=== PATIENT | male | born 1950 | race Caucasian/White ===

== ENCOUNTER 2018-01-15 10:58 | Inpatient (IN) | payer OTHER ==
[2018-01-15 11:08] VITALS: BMI 35.4
[2018-01-15 12:21] LABS: BASO % 0.9 % (0-2.0); EOS % 1.9 % (0-4.5); HEMOGLOBIN 8.4 GM/dL (11.7-16.9); LYMPH % 14.4 % (8-40); MCH 26.7 pg (25.7-33.7); MCHC 32.3 g/dl (32.0-35.9); MEAN CELL VOLUME 82.6 fl (80-96); MEAN PLT VOLUME 9.9 fl (7.5-11.1); MONO % 14.5 % (3.8-10.2); NEUT % 68.3 % (42.8-82.8); PLATELET COUNT 231 K/MM3 (134-434); RBC 3.14 M/mm3 (4.00-5.60); RDW 17.8 % (11.9-15.9); WHITE BLOOD COUNT 6.4 K/mm3 (4.0-10.0)
--- NOTE | 2018-01-15 12:28 | PDOC ---
History of Present Illness - General History Source: Patient Exam Limitations: No Limitations - History of Present Illness Initial Comments: 01/15/18 12:30 The patient is a 67 year old male with a significant PMH of afib, CHF, hypertension, diabetes, hyperlipidemia, Parkinsons disease, and 4 heart stents ( 2012)who presents to the emergency department with acute chest pain. The patient reports that his chest pain feels like pressure when he inhales. The patient reports that his chest pain is worsened with walking and while laying flat. He also reports associated shortness of breath. He states that he has been retaining fluid and he has noticed swelling in his lower extremities. The patient reports taking medication for the fluid retention in his legs with no apparent relief. The patient denies any headache or dizziness. He denies any fever, chills, nausea, vomit, diarrhea or constipation. He denies any urinary symptoms. The patient denies any other complaints. <Kevin Sy - Last Filed: 01/15/18 12:29> <Ab Penaloza - Last Filed: 01/15/18 16:16> - General Chief Complaint: Chest Pain Stated Complaint: CHEST PAIN, SOB (PCP SENT) Time Seen by Provider: 01/15/18 11:15 Past History <Kevin Sy - Last Filed: 01/15/18 12:29> - Past Medical History Cardiac Disorders: Yes (A.FIB) COPD: No Diabetes: Yes HTN: Yes Hypercholesterolemia: Yes Psychiatric Problems: Yes (ANXIETY) - Surgical History Abdominal Surgery: No Appendectomy: No Cardiac Surgery: No Orthopedic Surgery: Yes (Bilateral Knee & Rotator cuff) - Suicide/Smoking/Psychosocial Hx Smoking Status: No Smoking History: Never smoked Have you smoked in the past 12 months: No Number of Cigarettes Smoked Daily: 0 Information on smoking cessation initiated: No Hx Alcohol Use: Yes (2-3 times/week) Drug/Substance Use Hx: No Substance Use Type: Alcohol Hx Substance Use Treatment: No <Ab Penaloza - Last Filed: 01/15/18 16:16> - Past Medical History Allergies/Adverse Reactions: Allergies Allergy/AdvReac Type Severity Reaction Status Date / Time No Known Drug Allergies Allergy Verified 01/15/18 11:02 shellfish derived Allergy Mouth Verified 01/15/18 11:02 swelling, eye swelling Home Medications: Ambulatory Orders Pravastatin Sodium 10 mg PO DAILY 06/30/16 Multivitamins [Multivit ([facility] Formul[facility])] 1 tab PO DAILY #0 tab 07/02/16 Insulin Lispro [Humalog] 150 unit SQ DAILY vial 05/22/17 Furosemide [Lasix -] 40 mg PO DAILY #30 tablet 07/04/17 Losartan Potassium [Cozaar -] 25 mg PO DAILY #30 tablet 07/04/17 Metoprolol Succinate [Toprol XL -] 100 mg PO BID #60 tab 07/04/17 Potassium Chloride 20 meq PO DAILY #15 tablet.er 07/04/17 Rivaroxaban [Xarelto -] 20 mg PO DAILY #30 tablet 07/04/17 Review of Systems - Review of Systems Able to Perform ROS?: Yes Comments:: 01/15/18 12:30 Constitutional: No recent illness; no fever ENT: No sore throat Cardiovascular: (+) chest pain with associated SOB.No palpitations. Pulmonary: No cough Gastrointestinal: No nausea; no vomiting; no diarrhea Genitourinary: No urinary problems; no hematuria Skin: No rash Lymph system: No swollen glands Musculoskeletal: No joint swelling Neurological: No weakness; oo numbness; No Headache; no vertigo; no lightheadedness Psychiatric:No anxiety; no depression <Kevin Sy - Last Filed: 01/15/18 12:29> *Physical Exam - Vital Signs Last Vital Signs Temp Pulse Resp BP Pulse Ox 98.2 F 115 H 22 126/96 100 01/15/18 11:02 01/15/18 11:02 01/15/18 11:02 01/15/18 11:02 01/15/18 11:02 - Physical Exam Comments: 01/15/18 12:31 Vitals: Triage vital signs reviewed General Appearance: No acute distress, well nourished, well developed Head: Atraumatic Neck: Supple; No nuchal rigidity Chest Wall: Nontender Cardiac: Regular rate and rhythm, no murmurs, no rubs, no gallops Lungs: (+) crackles at base.good air movement bilaterally Abdomen: Soft, nondistended, normal bowel sounds, nontender to palpation Genitourinary: Rectal: Exam deferred Extremities: Full range of motion to all extremities, no cyanosis, clubbing, or edema Skin: Warm and dry, no rashes or lesions, no rash, no petechiae Psych: Normal mood, normal affect <Kevin Sy - Last Filed: 01/15/18 12:29> - Vital Signs Last Vital Signs Temp Pulse Resp BP Pulse Ox 98.2 F 115 H 22 126/96 100 01/15/18 11:02 01/15/18 11:02 01/15/18 11:02 01/15/18 11:02 01/15/18 11:02 <Ab Penaloza - Last Filed: 01/15/18 16:16> Heart Score/ECG Review - History History: Moderately suspicious - Electrocardiogram EKG: Non specific repolarization disturbance - Age Age: >/= 65 - Risk Factors Risk Factors Heart Score: Yes Hx Hypercholesterolemia, Yes Hx Hypertension, Yes Hx Diabetes, Yes Positive family hx of cardiac disease Based on the list above the patient has:: >/=3 risk factors or Hx atherosclerotic disease - Troponin Troponin: </= normal limit - Score Heart Score - Total: 6 - ECG Impressions Comment:: 01/15/18 14:12 EKG performed at 11:07 AM demonstrates atrial fibrillation rate [address] segment depression in V5. No ST elevations. Interpreted by me. <Ab Penaloza - Last Filed: 01/15/18 16:16> ED Treatment Course - LABORATORY CBC & Chemistry Diagram: 01/15/18 12:17 01/15/18 12:17 <Kevin Sy - Last Filed: 01/15/18 12:29> - LABORATORY CBC & Chemistry Diagram: 01/15/18 12:17 01/15/18 12:17 - RADIOLOGY Radiology Studies Ordered: Category Date Time Status CXRPORT [CHEST X-RAY PORTABLE*] [RAD] Stat Radiology 01/15/18 11:16 Ordered <Ab Penaloza - Last Filed: 01/15/18 16:16> Medical Decision Making - Medical Decision Making 01/15/18 12:31 The patient is a 67 year old male with a significant PMH of afib, CHF, hypertension, diabetes, hyperlipidemia, Parkinsons disease, and 4 heart stents ( 2012)who presents to the emergency department with acute chest pain. The patient will receive a chest CT. <Kevin Sy - Last Filed: 01/15/18 12:29> - Medical Decision Making 05/14/18 16:08 Heart Score 6 troponin negative. Dyspnea on exertion may be more related to new anemia as opposed to CHF versus ACS. Regardless given patient's history of heart score will admit to medicine with cardiology consultation for further management. Pt. newly anemic with guaiac positive brown stool We'll admit to hospitalist for further management. Cardiology consult. <Ab Penaloza - Last Filed: 01/15/18 16:16> *DC/Admit/Observation/Transfer - Attestations Scribe Attestion: 01/15/18 12:31 Documentation prepared by Kevin Sy, acting as medical management specialist for Ab Penaloza MD. <Kevin Sy - Last Filed: 01/15/18 12:29> - Discharge Dispostion Decision to Admit order: Yes <Ab Penaloza - Last Filed: 01/15/18 16:16> Diagnosis at time of Disposition: Atrial fibrillation Qualifiers: Atrial fibrillation type: unspecified Qualified Code(s): I48.91 - Unspecified atrial fibrillation Dyspnea Qualifiers: Dyspnea type: unspecified Qualified Code(s): R06.00 - Dyspnea, unspecified Chest pain Qualifiers: Chest pain type: unspecified Qualified Code(s): R07.9 - Chest pain, unspecified - Discharge Dispostion Condition at time of disposition: Stable
[2018-01-15 12:45] LABS: ALBUMIN 3.5 g/dl (3.4-5.0); ALK PHOS 83 U/L (45-117); ANION GAP 6 (8-16); BILIRUBIN,TOTAL 0.6 mg/dL (0.2-1.0); BLOOD UREA NITROGEN 30 mg/dL (7-18); CALCIUM 8.6 mg/dL (8.5-10.1); CHLORIDE 102 mmol/L (98-107); CO2 28 mmol/L (21-32); CREATININE 1.5 mg/dL (0.7-1.3); GLUCOSE,RANDOM 108 mg/dL (74-106); SGPT/ALT 22 U/L (12-78); SODIUM 136 mmol/L (136-145); TOT PROT 7.4 g/dl (6.4-8.2)
[2018-01-15 13:04] LABS: POTASSIUM 5.1 mmol/L (3.5-5.1); SGOT/AST 63 U/L (15-37)
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
--- NOTE | 2018-01-15 15:42 | CON.GI ---
Consult Consult Specialty:: GI Reason for Consultation:: Anemia, Hemoccult-positive stools while on anticoagulation therapy - History of Present Illness History of Present Illness: chart reviewed. Events noted. As per initial intake:67 yom with PMhx of chronic diastolic HF, Atrial fibrillation on xarelto, morbid obesity, IDDM, HTN , HLD, Nolasco's palsy, s/p splenectomy, ?ETOH use, Spinal stenosis s/p surgery admitted with 1 week of intermittent substernal chest pressure, occasionally exertional, non radiating associated with worsening dyspnea of exertion associated with orthopnea/PND, leg swelling. Denies any recent weight gain. Also gives h/o BRBPR for last 1 year, intermittent after BM, also on tissues, associated with ?Dark stools. Denies NSAIDs use,. h/o ETOH but patient vague in the details. Also non compliant with low salt diet. Confirms medication compliance. No prior EGD/colonoscopy. Last reported Echo 6 months ago. At the time of this encounter the patient appears comfortable, not in distress , pain-free. Reports no dyspepsia, dysphagia, odynophagia, abdominal pain, nausea, vomiting, low-grade fever, jaundice, Unintentional weight loss, recent change in bowel habits, or stool caliber. Denies prior history of gastric, duodenal ulcers, erosive gastritis, esophagitis, chronic GERD. Takes ibuprofen and Xarelto amog other medications. Normocytic, normochromic anemia with elevated BUN on admission. Undergoing inpatient cardiac workup - History Source History Provided By: Patient, Medical Record - Past Medical History Cardio/Vascular: Yes: AFIB, CHF, HTN, Hyperlipdemia Psych: Yes: Addictions, Anxiety, Depression, Panic - Alcohol/Substance Use Hx Alcohol Use: Yes (2-3 times/week) History of Substance Use: reports: Prescription - Smoking History Smoking history: Never smoked Have you smoked in the past 12 months: No Aproximately how many cigarettes per day: 0 - Social History Usual Living Arrangement: With Spouse ADL: Independent Home Medications - Allergies Allergies/Adverse Reactions: Allergies Allergy/AdvReac Type Severity Reaction Status Date / Time No Known Drug Allergies Allergy Verified 01/15/18 11:02 shellfish derived Allergy Mouth Verified 01/15/18 11:02 swelling, eye swelling - Home Medications Home Medications: Ambulatory Orders Pravastatin Sodium 10 mg PO DAILY 06/30/16 Insulin Lispro [Humalog] 150 unit SQ DAILY vial 05/22/17 Furosemide [Lasix -] 40 mg PO DAILY #30 tablet 07/04/17 Losartan Potassium [Cozaar -] 25 mg PO DAILY #30 tablet 07/04/17 Potassium Chloride 20 meq PO DAILY #15 tablet.er 07/04/17 Rivaroxaban [Xarelto -] 20 mg PO DAILY #30 tablet 07/04/17 Hydrochlorothiazide 25 mg PO DAILY 01/15/18 Ibuprofen 800 mg PO Q6H PRN 01/15/18 Tramadol HCl 50 mg PO Q8H PRN 01/15/18 Family Disease History - Family Disease History Family History: Unremarkable Review of Systems Findings/Remarks: as per H&P and HPI Physical Exam-GI Vital Signs: Vital Signs Temperature 98.2 F 01/15/18 11:02 Pulse Rate 96 H 01/15/18 15:07 Respiratory Rate 18 01/15/18 15:07 Blood Pressure 101/70 01/15/18 15:07 O2 Sat by Pulse Oximetry (%) 97 01/15/18 15:08 Constitutional: Yes: Well Nourished, No Distress, Calm Eyes: Yes: Conjunctiva Clear HENT: Yes: Atraumatic Neck: Yes: Supple Cardiovascular: No: Bradycardia, Tachycardia Respiratory: Yes: Regular ...Auscultate: Yes: Normoactive Bowel Sounds ...Palpate: Yes: Soft. No: Firm/Rigid, Guarding, Mass, Tenderness ...Rectal Exam: Yes: Guaiac Positive Neurological: Yes: Alert, Oriented Labs: CBC, BMP 01/15/18 12:17 01/15/18 12:17 Laboratory Last Values WBC 6.2 K/mm3 (4.0-10.0) 01/16/18 17:30 RBC 3.31 M/mm3 (4.00-5.60) L 01/16/18 17:30 Hgb 8.7 GM/dL (11.7-16.9) L 01/16/18 17:30 Hct 27.4 % (35.4-49) L 01/16/18 17:30 MCV 82.9 fl (80-96) 01/16/18 17:30 MCH 26.2 pg (25.7-33.7) 01/16/18 17:30 MCHC 31.6 g/dl (32.0-35.9) L 01/16/18 17:30 RDW 17.5 % (11.9-15.9) H 01/16/18 17:30 Plt Count 224 K/MM3 (134-434) 01/16/18 17:30 MPV 9.9 fl (7.5-11.1) 01/16/18 17:30 Neutrophils % 64.3 % (42.8-82.8) 01/16/18 17:30 Lymphocytes % 18.8 % (8-40) 01/16/18 17:30 Monocytes % 13.8 % (3.8-10.2) H 01/16/18 17:30 Eosinophils % 1.9 % (0-4.5) 01/16/18 17:30 Basophils % 1.2 % (0-2.0) 01/16/18 17:30 PT with INR 14.10 SEC (9.7-13.0) H 01/16/18 06:35 INR 1.25 (0.82-1.09) H 01/16/18 06:35 Sodium 140 mmol/L (136-145) 01/16/18 06:35 Potassium 3.6 mmol/L (3.5-5.1) D 01/16/18 06:35 Chloride 103 mmol/L (98-107) 01/16/18 06:35 Carbon Dioxide 30 mmol/L (21-32) 01/16/18 06:35 Anion Gap 7 (8-16) L 01/16/18 06:35 BUN 26 mg/dL (7-18) H 01/16/18 06:35 Creatinine 1.3 mg/dL (0.7-1.3) 01/16/18 06:35 Creat Clearance w eGFR 55.23 (>60) 01/16/18 06:35 POC Glucometer 159 UNITS (80-120) 01/16/18 17:50 Random Glucose 149 mg/dL (74-106) H D 01/16/18 06:35 Calcium 9.0 mg/dL (8.5-10.1) 01/16/18 06:35 Phosphorus 4.7 mg/dL (2.5-4.9) D 01/16/18 06:35 Magnesium 1.8 mg/dL (1.8-2.4) 01/16/18 06:35 Total Bilirubin 1.1 mg/dL (0.2-1.0) H D 01/16/18 06:35 AST 36 U/L (15-37) D 01/16/18 06:35 ALT 21 U/L (12-78) 01/16/18 06:35 Alkaline Phosphatase 82 U/L (45-117) 01/16/18 06:35 Troponin I < 0.02 ng/ml (0.00-0.05) 01/15/18 20:30 B-Natriuretic Peptide 319.28 pg/ml (5-125) H 01/15/18 12:17 Total Protein 7.3 g/dl (6.4-8.2) 01/16/18 06:35 Albumin 3.6 g/dl (3.4-5.0) 01/16/18 06:35 Triglycerides 94 mg/dL (35-160) 01/16/18 06:35 Cholesterol 140 mg/dL (50-200) D 01/16/18 06:35 Total LDL Cholesterol 84 mg/dL (5-100) D 01/16/18 06:35 HDL Cholesterol 48 mg/dL (40-60) D 01/16/18 06:35 TSH 0.95 uIU/ml (0.358-3.74) D 01/16/18 06:35 Stool Occult Blood Positive (NEGATIVE) 01/15/18 14:00 Blood Type O POSITIVE 01/15/18 20:00 Antibody Screen Negative 01/15/18 20:00 Crossmatch See Detail 01/15/18 18:20 Problem List - Problems (1) Normocytic normochromic anemia Code(s): D64.9 - ANEMIA, UNSPECIFIED (2) Heme positive stool Code(s): R19.5 - OTHER FECAL ABNORMALITIES (3) Chronic anticoagulation Code(s): Z79.01 - SENIOR LIVING (CURRENT) USE OF ANTICOAGULANTS (4) NSAID long-term use Code(s): Z79.1 - CHEF PASSENGER VESSEL (CURRENT) USE OF NON-STEROIDAL NON-INFLAM (NSAID) Assessment/Plan Normocytic normochromic anemia with hemoccult-positive stools in settings of NSAIDs and direct antiplatelet therapy. Currently undergoing cardiac workup. Plan EGD and colonoscopy if cleared by cardiology. Agree with PPI therapy and holding Xarelto and NSAIDs. Check iron profile. Discussed with the patient in detail. He agrees with the plan.
[2018-01-15] MEDS ORDERED: FUROSEMIDE 40 MG/4 ML INJECTABLE VIAL IVPUSH ONE (17:45)
--- NOTE | 2018-01-15 18:18 | PN ---
Teaching Attending Note Name of Resident: Yoel Blanco ATTENDING PHYSICIAN STATEMENT I saw and evaluated the patient. I reviewed the resident's note and discussed the case with the resident. I agree with the resident's findings and plan as documented with exceptions below. SUBJECTIVE: 67 yom with PMhx of chronic diastolic HF, Atrial fibrillation on xarelto, morbid obesity, IDDM, HTN, HLD, Nolasco's palsy, s/p splenectomy, ?ETOH use, Spinal stenosis s/p surgery admitted with 1 week of intermittent substernal chest pressure, occasionally exertional, non radiating associated with worsening dyspnea of exertion associated with orthopnea/PND, leg swelling. Denies any recent weight gain. Also gives h/o BRBPR for last 1 year, intermittent after BM, also on tissues, associated with ?Dark stools. Denies NSAIDs use,. h/o ETOH but patient vague in the details. Also non compliant with low salt diet. COnfirms medication compliance. No prior EGD/colonoscopy. Last reported Echo 6 months ago. Currently asymptomatic sitting in bed, feels some dyspnea with exertion, but no other complaints. OBJECTIVE: Vital Signs Period Temp Pulse Resp BP Sys/Varma Pulse Ox Last 24 Hr 98 F-98.2 F 92-115 16-22 95-126/68-96 95-100 Intake & Output 01/12/18 01/13/18 01/14/18 01/15/18 23:59 23:59 23:59 23:59 Intake Total 100 Output Total 1 Balance 99 Weight 261 lb GENERAL: Awake, alert, and fully oriented, mild dyspnea on exertion HEAD: Normal with no signs of trauma. EYES: Pupils equal, round and reactive to light, extraocular movements intact, sclera anicteric, conjunctiva clear. left facial droop (known Nolasco's palsy) EARS, NOSE, THROAT: Ears normal, nares patent, oropharynx clear without exudates. Moist mucous membranes. NECK: soft, supple, jugular neck distension, limited exam given body habitus. LUNGS: CTAB, no rales or wheezing appreciated but limited exam given body habitus, good air entry bilaterally HEART: irregular, tachycardic ABDOMEN: Soft, nontender, obese, normoactive bowel sounds, no guarding, no rebound, no masses. MUSCULOSKELETAL: Normal range of motion at all joints. No bony deformities or tenderness. No CVA tenderness. UPPER EXTREMITIES: 2+ pulses, warm, well-perfused. No cyanosis. No clubbing. No peripheral edema. LOWER EXTREMITIES: Pitting pedal edema till mid legs bilaterally, positive pulses NEUROLOGICAL: left facial palsy (Nolasco's palsy per patient), EOMi, PERRL, power 5/5, gait normal PSYCHIATRIC: Cooperative. Good eye contact. Appropriate mood and affect. SKIN: Warm, dry, normal turgor, no rashes or lesions noted, normal capillary refill. Home Medication List Medication Instructions Recorded Confirmed Type Pravastatin Sodium 10 mg PO DAILY 06/30/16 07/02/17 History Insulin Lispro [Humalog] 150 unit SQ DAILY vial 05/22/17 07/02/17 History Active Medications Generic Name Dose Route Start Last Admin Trade Name Enriqueq PRN Reason Stop Dose Admin Atorvastatin Calcium 10 mg 01/15/18 22:00 Lipitor - PO HS LAINEY Insulin Aspart 1 vial 01/15/18 22:00 Novolog Vial Sliding Scale - SQ ACHS LAINEY Protocol Metoprolol Succinate 100 mg 01/15/18 22:00 Toprol Xl - PO BID LAINEY Multivitamins/Minerals/Vitamin C 1 tab 01/15/18 17:30 Tab-A-Vit - PO DAILY [facility] Laboratory Results - last 24 hr 01/15/18 01/15/18 01/15/18 12:17 12:17 12:17 WBC 6.4 RBC 3.14 L D Hgb 8.4 L D Hct 26.0 L D MCV 82.6 MCH 26.7 D MCHC 32.3 RDW 17.8 H D Plt Count 231 D MPV 9.9 Neutrophils % 68.3 Lymphocytes % 14.4 D Monocytes % 14.5 H Eosinophils % 1.9 D Basophils % 0.9 Sodium 136 Potassium 5.1 D Chloride 102 Carbon Dioxide 28 Anion Gap 6 L BUN 30 H D Creatinine 1.5 H D Creat Clearance w eGFR 46.82 Random Glucose 108 H Calcium 8.6 Total Bilirubin 0.6 D AST 63 H ALT 22 D Alkaline Phosphatase 83 Troponin I < 0.02 D B-Natriuretic Peptide 319.28 H Total Protein 7.4 Albumin 3.5 Stool Occult Blood 01/15/18 14:00 WBC RBC Hgb Hct MCV MCH MCHC RDW Plt Count MPV Neutrophils % Lymphocytes % Monocytes % Eosinophils % Basophils % Sodium Potassium Chloride Carbon Dioxide Anion Gap BUN Creatinine Creat Clearance w eGFR Random Glucose Calcium Total Bilirubin AST ALT Alkaline Phosphatase Troponin I B-Natriuretic Peptide Total Protein Albumin Stool Occult Blood Positive EKG afib 100s, unchanged from prior ASSESSMENT AND PLAN: 67 yof wiht PMhx of diastolic CHF, AFib on xarelto, HTN, HLD, morbid obesity, DM , ?ETOH use, s/p splenectomy admitted with intermittent chest pain/dyspnea, and found with anemia and pos FOBT -Acute anemia, Likely from GIB, given h/o NSAIDs use, ?ETOH, PUD vs variceal bleed vs AVM, ?Lower GI component given intermittent BRBPR with blood on tissues , -Mild acute on Chronic diastolic HF exacerbation, -Chest pain, ?From anemia vs demand induced from volume overload -Exertional dyspnea, likely multifactorial from above. -KAYCEE, ?GIB vs Mild CHF exacerbation -Afib with RVR, ?anemia, vs CHF. -IDDM, -Afib on xarelto -HTN -HLD -Morbid obesity -S/p Splenectomy Plan: Patient vague historian, denies NSAIDS use and inconsistent history to different providers. Per [facility] recently received Ibuprofen 800 mg Q6h prn also no xarelto filled since 11/28/2017. Will hold any NSAIDs or xarelto for now. Protonix 40 mg IV BID. Confirm meds with in AM. Discussed with Dr. Lara, transfuse 1 unit of PRBC with lasix 40 mg IV. Clinical exam not consistent with concerning volume overload. Strict I/Os and daily weights. Repeat 2D echo. SBP 90s -100s, lasix prn. COntinue lopressor as tolerated. Cycle CE, telemetry. GI input noted, plan for EGD/colonscopy if no concerns from cardiac standpoint. Confirmed with patient, using insulin pump, advised patient to turn it off. Will place on ISS and monitor blood sugars closely. Anticipate EGD/colonoscopy on Monday if no concerns from cardiac standpoint over next 24 hours. Monitor h/h for now. patient recently filled ?amoxicillin from pharmacy, no clinical evidence of infection, will hold and monitor (was given 28 tablets on 01/08/2018 for a 7 day course). DVTPPx with SCDs Plan discussed with patient in detail, all questions answered. Plan discussed with nursing. Total admit time spent 65 min.
[2018-01-15 20:49] LABS: BASO % 1.2 % (0-2.0); EOS % 2.2 % (0-4.5); HEMATOCRIT 25.4 % (35.4-49); LYMPH % 18.8 % (8-40); MCHC 31.4 g/dl (32.0-35.9); MEAN CELL VOLUME 82.9 fl (80-96); MONO % 15.8 % (3.8-10.2); PLATELET COUNT 203 K/MM3 (134-434); RBC 3.06 M/mm3 (4.00-5.60); RDW 18.1 % (11.9-15.9); WHITE BLOOD COUNT 6.4 K/mm3 (4.0-10.0)
[2018-01-15] MEDS: PANTOPRAZOLE SODIUM 40 MG VIAL IVPUSH SCH (21:22)
[2018-01-15] MEDS: MULTIVITAMINS (DAILY MVI) TABLET (FP) PO SCH (21:22)
[2018-01-15] MEDS: ATORVASTATIN CA 10 MG TABLET (FP) PO SCH (21:22)
[2018-01-15] MEDS: INSULIN SLIDING SCALE (NOVOLOG) 1 VIAL SQ SCH (21:23)
[2018-01-16] MEDS: INSULIN SLIDING SCALE (NOVOLOG) 1 VIAL SQ SCH ×4 (06:26→21:42)
[2018-01-16 07:02] LABS: BASO % 1.2 % (0-2.0); EOS % 2.1 % (0-4.5); HEMATOCRIT 26.9 % (35.4-49); HEMOGLOBIN 8.9 GM/dL (11.7-16.9); LYMPH % 19.8 % (8-40); MCHC 32.9 g/dl (32.0-35.9); MEAN CELL VOLUME 82.2 fl (80-96); MEAN PLT VOLUME 9.4 fl (7.5-11.1); MONO % 15.2 % (3.8-10.2); NEUT % 61.7 % (42.8-82.8); PLATELET COUNT 191 K/MM3 (134-434); RBC 3.28 M/mm3 (4.00-5.60); RDW 17.3 % (11.9-15.9); WHITE BLOOD COUNT 5.6 K/mm3 (4.0-10.0)
[2018-01-16 07:14] LABS: INR 1.25 (0.82-1.09); PROTHROMBIN TIME (PATIENT) 14.1 SEC (9.7-13.0)
[2018-01-16 07:33] LABS: CHLORIDE 103 mmol/L (98-107); POTASSIUM 3.6 mmol/L (3.5-5.1); SODIUM 140 mmol/L (136-145)
[2018-01-16 07:52] LABS: ALBUMIN 3.6 g/dl (3.4-5.0); ALK PHOS 82 U/L (45-117); ANION GAP 7 (8-16); BILIRUBIN,TOTAL 1.1 mg/dL (0.2-1.0); BLOOD UREA NITROGEN 26 mg/dL (7-18); CHOLESTEROL 140 mg/dL (50-200); CO2 30 mmol/L (21-32); CREATININE 1.3 mg/dL (0.7-1.3); GLUCOSE,RANDOM 149 mg/dL (74-106); HDL CHOLESTEROL 48 mg/dL (40-60); MAGNESIUM 1.8 mg/dL (1.8-2.4); PHOSPHOROUS 4.7 mg/dL (2.5-4.9); SGOT/AST 36 U/L (15-37); SGPT/ALT 21 U/L (12-78); TOT PROT 7.3 g/dl (6.4-8.2); TRIGLYCERIDES 94 mg/dL (35-160)
[2018-01-16] MEDS ORDERED: PT OWN MED DRAWER 7, Y5N ONE (09:14)
[2018-01-16] MEDS: MULTIVITAMINS (DAILY MVI) TABLET (FP) PO SCH (09:43)
[2018-01-16] MEDS: PANTOPRAZOLE SODIUM 40 MG VIAL IVPUSH SCH ×2 (09:43→21:36)
--- NOTE | 2018-01-16 10:45 | PN ---
Progress Note, Physician Chief Complaint: Pt A&Ox3; sitting up at bedside; feels better (less coughing; no chest pain). History of Present Illness: The patient is a 67 year old male with a significant PMH of chronic alcoholism, afib, systolic/diastolic CHF, hypertension, diabetes, hyperlipidemia, Parkinsons disease, obesity, sedentary lifestyle, and 4 heart stents (2012)who presents to the emergency department with acute chest pain and shortness of breatrh. The patient reports that his chest pain feels like pressure when he inhales (he also gets it for several minutes if he walks quickly). The patient reports that his chest pain is worsened with walking and while laying flat. He also reports associated shortness of breath. He states that he has been retaining fluid and he has noticed swelling in his lower extremities. The patient reports taking medication for the fluid retention in his legs with no apparent relief. The patient denies any headache or dizziness. He denies any fever, chills, nausea, vomit, diarrhea or constipation. He denies any urinary symptoms. The patient denies any other complaints. - Current Medication List Current Medications: Active Medications Atorvastatin Calcium (Lipitor -) 10 mg PO HS [facility] Last Admin: 01/15/18 21:22 Dose: 10 mg Insulin Aspart (Novolog Vial Sliding Scale -) 1 vial SQ ACHS [facility] PRN Reason: Protocol Last Admin: 01/16/18 06:26 Dose: 2 units Metoprolol Succinate (Toprol Xl -) 100 mg PO BID [facility] Last Admin: 01/16/18 09:43 Dose: 100 mg Multivitamins/Minerals/Vitamin C (Tab-A-Vit -) 1 tab PO DAILY [facility] Last Admin: 01/16/18 09:43 Dose: 1 tab Pantoprazole Sodium (Protonix Iv) 40 mg IVPUSH BID [facility] Last Admin: 01/16/18 09:43 Dose: 40 mg - Objective Vital Signs: Vital Signs Temperature 98.4 F 01/16/18 10:00 Pulse Rate 88 01/16/18 10:00 Respiratory Rate 22 01/16/18 10:00 Blood Pressure 111/65 01/16/18 10:00 O2 Sat by Pulse Oximetry (%) 96 01/15/18 20:54 Constitutional: Yes: No Distress Eyes: Yes: WNL HENT: Yes: WNL Neck: Yes: WNL Labs: CBC, BMP 01/16/18 06:35 01/16/18 06:35 INR, PTT INR 1.25 (0.82-1.09) H 01/16/18 06:35 Problem List - Problems (1) GI bleed Assessment/Plan: Pt says he has chronic constipation; straining during bowel movement causes bleeding at times. FOr GI f/u: EGD/colonscopy. Restart anticoagulation as soon as cleared to do so. (AF). Code(s): K92.2 - GASTROINTESTINAL HEMORRHAGE, UNSPECIFIED (2) Constipation Code(s): K59.00 - CONSTIPATION, UNSPECIFIED (3) Chest pain Code(s): R07.9 - CHEST PAIN, UNSPECIFIED Qualifiers: Chest pain type: unspecified Qualified Code(s): R07.9 - Chest pain, unspecified (4) Dyspnea Code(s): R06.00 - DYSPNEA, UNSPECIFIED Qualifiers: Dyspnea type: unspecified Qualified Code(s): R06.00 - Dyspnea, unspecified (5) Atrial fibrillation Assessment/Plan: On metoprolol ER for HR control. Off NOAC due to GI bleed. Code(s): I48.91 - UNSPECIFIED ATRIAL FIBRILLATION Qualifiers: Atrial fibrillation type: unspecified Qualified Code(s): I48.91 - Unspecified atrial fibrillation (6) Acute on chronic systolic and diastolic heart failure, NYHA class 2 Assessment/Plan: ECHO resutlst pending. On metoprolol. If systolic LVEF is reduced, would start ACEI or ARB. F/u daily weight, Is and Os, BUN/Cr, electrolytes. Code(s): I50.43 - ACUTE ON CHRONIC COMBINED SYSTOLIC AND DIASTOLIC HRT FAIL (7) Chronic alcohol abuse Assessment/Plan: Last drank on Mother's Day. "I'm drinking less, though if the wine bottle is opened, I will drink it" ( until recently, he was often drinking at least a bottle of wine a day). Observe for DTs. Program for alcohol cessation would be beneficial. Code(s): F10.10 - ALCOHOL ABUSE, UNCOMPLICATED (8) HTN (hypertension) Code(s): I10 - ESSENTIAL (PRIMARY) HYPERTENSION (9) Obesity Assessment/Plan: Poor comprehension of what constitutes a healthy diet, and how to effectively achieve lasting weight loss. Consdier nutrition consult. Code(s): E66.9 - OBESITY, UNSPECIFIED (10) Diabetes Code(s): E11.9 - TYPE 2 DIABETES MELLITUS WITHOUT COMPLICATIONS (11) Sleep apnea Assessment/Plan: at [facility] for this condition. Never had sleep studies. Code(s): G47.30 - SLEEP APNEA, UNSPECIFIED
--- NOTE | 2018-01-16 11:50 | EKG ---
Test Reason : Blood Pressure : / mmHG Vent. Rate : 078 BPM Atrial Rate : 075 BPM P-R Int : 000 ms QRS Dur : 108 ms QT Int : 430 ms P-R-T Axes : 000 -35 070 degrees QTc Int : 490 ms ATRIAL FIBRILLATION LEFT AXIS DEVIATION PROLONGED QT ABNORMAL ECG WHEN COMPARED WITH ECG OF 15-JAN-2018 11:07, NO SIGNIFICANT CHANGE WAS FOUND Confirmed by MD NELSON GREGORY ([id number]) on 01/16/2018 11:50:12 AM Referred By: JOSE RUIZ DR Confirmed By:PHIL NELSON MD
--- NOTE | 2018-01-16 11:59 | EKG ---
Test Reason : Blood Pressure : / mmHG Vent. Rate : 105 BPM Atrial Rate : 101 BPM P-R Int : 000 ms QRS Dur : 104 ms QT Int : 384 ms P-R-T Axes : 000 -35 096 degrees QTc Int : 507 ms POOR DATA QUALITY, INTERPRETATION MAY BE ADVERSELY AFFECTED ATRIAL FIBRILLATION WITH RAPID VENTRICULAR RESPONSE WITH PREMATURE VENTRICULAR OR ABERRANTLY CONDUCTED COMPLEXES LEFT AXIS DEVIATION ABNORMAL ECG Confirmed by MD OMAR, PHIL ([id number]) on 01/16/2018 11:58:57 AM Referred By: Confirmed By:PHIL NELSON MD
--- NOTE | 2018-01-16 14:25 | PN ---
Teaching Attending Note Name of Resident: Yoel Blnaco ATTENDING PHYSICIAN STATEMENT I saw and evaluated the patient. I reviewed the resident's note and discussed the case with the resident. I agree with the resident's findings and plan as documented. SUBJECTIVE:states dyspnea has resolved. noted it was worse on exertion. weighs himself 2-3x/week and baseline dry weight is 260lbs. denies CP, fever, chills, cough, orthopnea (2 pillow baseline), N/V/C/D. has noted some BRBPR when wiping but never mixed in the stool or in the toilet. claims he was prescribed motrin for recent tooth extraction but he did not take it. has been at least a year since he has been on NSAIDS. now takes tramadol prn pain never had colonoscopy in the past. OBJECTIVE: Last Vital Signs Temp Pulse Resp BP Pulse Ox 98.4 F 88 22 111/65 96 01/16/18 10:00 01/16/18 10:00 01/16/18 10:00 01/16/18 10:00 01/16/18 09:00 Intake & Output 01/13/18 01/14/18 01/15/18 01/16/18 23:59 23:59 23:59 23:59 Intake Total 100 670 Output Total 1 850 Balance 99 -180 Weight 261 lb 261 lb 3.2 oz General NAD CV S1 S2 RRR no murmur/rub/gallop no JVD Lungs CTA B/L no wheezing/rales/rhonchi Abdomen soft NT/ND obese Extremities trace pitting edema ASSESSMENT AND PLAN: 67 yo M wiht PMhx of diastolic CHF, AFib on xarelto, HTN, HLD, morbid obesity, DM, ?ETOH use, s/p splenectomy admitted with intermittent chest pain/dyspnea, and found with anemia and pos FOBT 1. Symptomatic anemia- Likely from GIB, given h/o NSAIDs use, ?ETOH, PUD vs variceal bleed vs AVM. s/p 1 unit PRBC. repeat Hgb not responding appropriately. no reports of bleeding today. Trend Hgb Q8h, PPI ggt. NPO today will start bowel prep today with plan for EGD/colonoscopy tomorrow. 2. Mild acute on Chronic diastolic HF exacerbation- clinically now appears euvolemic. near baseline weight. will hold at present time. if requires more blood product will give lasix with dose. 3. Chest pain, ?From anemia vs demand induced from volume overload- cardiac enzymes neg x2. now resolved. plan for NMST today prior to procedure tomorrow. cardio on board. 4. Exertional dyspnea, likely due to anemia 5. KAYCEE- pre-renal. now improved. monitor closely. avoid nephrotoxic agents. 6. Afib with RVR- likely induced by anemia, pre-renal. now resolved. rate controlled. hold xarelto in setting of acute bleeding. 7. IDDM- not on home medications? will need to verify 8. HTN-controlled. hold oral agents at this time 9. Dyslipidemia- on pravastatin. should ideally increase to high intensity prior to discharge 10. Morbid obesity 11. S/p Splenectomy 12. can d/c cardiac monitoring if stress test is negative.
--- NOTE | 2018-01-16 16:51 | PN ---
Physical Exam: SUBJECTIVE: Patient seen and examined at bedside. Pt feels generally well. Pt received his unit PRBCs last night. F/u CBC showed slightly increased Hb. OBJECTIVE: Vital Signs Period Temp Pulse Resp BP Sys/Varma Pulse Ox Last 24 Hr 98.0 F-98.5 F 88-125 18-22 107-121/65-75 96-97 GENERAL: The patient is awake, alert, and fully oriented, in no acute distress. HEAD: Normal with no signs of trauma. Known L lower facial droop. 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 EYES: PERRL, extraocular movements intact, sclera anicteric, conjunctiva clear. No ptosis. ENT: oropharynx clear without exudates, moist mucous membranes. NECK: Trachea midline, full range of motion, supple. LUNGS: Breath sounds equal, clear to auscultation bilaterally, no wheezes, no crackles, no accessory muscle use. HEART: Regular rate and irregular rhythm, S1, S2 without murmur, rub or gallop. ABDOMEN: Soft, nontender, nondistended, normoactive bowel sounds, no guarding, no rebound, no hepatosplenomegaly, no masses. EXTREMITIES: 2+ pulses, warm, well-perfused, 2+ edema. NEUROLOGICAL: Cranial nerves II through XII grossly intact. Normal speech, gait not observed. PSYCH: Normal mood, normal affect. SKIN: Warm, dry, normal turgor, no rashes or lesions noted Laboratory Results - last 24 hr 01/15/18 01/15/18 01/15/18 18:20 18:20 20:00 WBC 6.4 RBC 3.06 L Hgb 8.0 L Hct 25.4 L MCV 82.9 MCH 26.0 MCHC 31.4 L RDW 18.1 H Plt Count 203 MPV 10.0 Neutrophils % 62.0 Lymphocytes % 18.8 D Monocytes % 15.8 H Eosinophils % 2.2 Basophils % 1.2 PT with INR INR Sodium Potassium Chloride Carbon Dioxide Anion Gap BUN Creatinine Creat Clearance w eGFR POC Glucometer Random Glucose Calcium Phosphorus Magnesium Total Bilirubin AST ALT Alkaline Phosphatase Troponin I Cancelled Total Protein Albumin Triglycerides Cholesterol Total LDL Cholesterol HDL Cholesterol TSH Blood Type O POSITIVE Antibody Screen Negative Crossmatch See Detail 01/15/18 01/15/18 01/15/18 20:00 20:30 21:16 WBC RBC Hgb Hct MCV MCH MCHC RDW Plt Count MPV Neutrophils % Lymphocytes % Monocytes % Eosinophils % Basophils % PT with INR INR Sodium Potassium Chloride Carbon Dioxide Anion Gap BUN Creatinine Creat Clearance w eGFR POC Glucometer 121 Random Glucose Calcium Phosphorus Magnesium Total Bilirubin AST ALT Alkaline Phosphatase Troponin I < 0.02 Total Protein Albumin Triglycerides Cholesterol Total LDL Cholesterol HDL Cholesterol TSH Blood Type O POSITIVE Antibody Screen Negative Crossmatch 01/16/18 01/16/18 01/16/18 05:52 06:35 06:35 WBC 5.6 RBC 3.28 L Hgb 8.9 L D Hct 26.9 L MCV 82.2 MCH 27.0 MCHC 32.9 RDW 17.3 H Plt Count 191 MPV 9.4 Neutrophils % 61.7 Lymphocytes % 19.8 Monocytes % 15.2 H Eosinophils % 2.1 Basophils % 1.2 PT with INR 14.10 H INR 1.25 H Sodium Potassium Chloride Carbon Dioxide Anion Gap BUN Creatinine Creat Clearance w eGFR POC Glucometer 155 Random Glucose Calcium Phosphorus Magnesium Total Bilirubin AST ALT Alkaline Phosphatase Troponin I Total Protein Albumin Triglycerides Cholesterol Total LDL Cholesterol HDL Cholesterol TSH Blood Type Antibody Screen Crossmatch 01/16/18 01/16/18 06:35 11:50 WBC RBC Hgb Hct MCV MCH MCHC RDW Plt Count MPV Neutrophils % Lymphocytes % Monocytes % Eosinophils % Basophils % PT with INR INR Sodium 140 Potassium 3.6 D Chloride 103 Carbon Dioxide 30 Anion Gap 7 L BUN 26 H Creatinine 1.3 Creat Clearance w eGFR 55.23 POC Glucometer 135 Random Glucose 149 H D Calcium 9.0 Phosphorus 4.7 D Magnesium 1.8 Total Bilirubin 1.1 H D AST 36 D ALT 21 Alkaline Phosphatase 82 Troponin I Total Protein 7.3 Albumin 3.6 Triglycerides 94 Cholesterol 140 D Total LDL Cholesterol 84 D HDL Cholesterol 48 D TSH 0.95 D Blood Type Antibody Screen Crossmatch Active Medications Generic Name Dose Route Start Last Admin Trade Name Freq PRN Reason Stop Dose Admin Atorvastatin Calcium 10 mg 01/15/18 22:00 01/15/18 21:22 Lipitor - PO 10 mg HS LAINEY Administration Insulin Aspart 1 vial 01/15/18 22:00 01/16/18 12:01 Novolog Vial Sliding Scale - SQ Not Given ACHS [facility] Protocol Metoprolol Succinate 100 mg 01/15/18 22:00 01/16/18 09:43 Toprol Xl - PO 100 mg BID LAINEY Administration Multivitamins/Minerals/Vitamin C 1 tab 01/15/18 17:30 01/16/18 09:43 Tab-A-Vit - PO 1 tab DAILY LAINEY Administration Pantoprazole Sodium 40 mg 01/15/18 22:00 01/16/18 09:43 Protonix Iv IVPUSH 40 mg BID LAINEY Administration ASSESSMENT/PLAN: 67 yof wiht PMhx of diastolic CHF, AFib on xarelto, HTN, HLD, morbid obesity, DM , ?ETOH use, s/p splenectomy admitted with intermittent chest pain/dyspnea, and found with anemia and pos FOBT #Symptomatic Acute anemia -Likely 2/2 GIB -h/o NSAIDs use / ?ETOH -1 PRBC (01/15/2018) #Possible GIB -planning for endoscopy/colonoscopy pending GI and cardiac workup -possible PUD vs variceal bleed vs AVM -possible Lower GI component given intermittent BRBPR with blood on tissues -Protonix #KAYCEE -RESOLVED -Borough Coordinator wnl #Acute on chronic CHF exacerbation -FARRIS more than normal -Sx improved with lasix #Afib with RVR -pt was put on xarelto. Per pharmacy, hsa not picked up in many months -RVR on tele -no AC in setting of GIB #IDDM -ISS -BGM #HTN -Toprol #HLD -Lipitor #Morbid obesity -counselled #FEN -Not on fluid (CHF) -lytes wnl -Na controlled diet #PPx -Protonix -no AC in setting of GIB #Dispo -Admitted for symptomatic anemia liekly 2/2 GIB Yoel Blanco MD PGY-1 IM Visit type - Emergency Visit Emergency Visit: No - New Patient This patient is new to me today: No - Critical Care Critical Care patient: No - Discharge Referral Referred to [facility] No
[2018-01-16 18:27] LABS: BASO % 1.2 % (0-2.0); EOS % 1.9 % (0-4.5); HEMATOCRIT 27.4 % (35.4-49); HEMOGLOBIN 8.7 GM/dL (11.7-16.9); LYMPH % 18.8 % (8-40); MCH 26.2 pg (25.7-33.7); MCHC 31.6 g/dl (32.0-35.9); MEAN CELL VOLUME 82.9 fl (80-96); MEAN PLT VOLUME 9.9 fl (7.5-11.1); MONO % 13.8 % (3.8-10.2); NEUT % 64.3 % (42.8-82.8); PLATELET COUNT 224 K/MM3 (134-434); RBC 3.31 M/mm3 (4.00-5.60); RDW 17.5 % (11.9-15.9); WHITE BLOOD COUNT 6.2 K/mm3 (4.0-10.0)
[2018-01-16] MEDS ORDERED: INSULIN (NOVOLOG) ASPART 100 UNITS/ML 10ML VIAL ONE (18:33)
[2018-01-16] MEDS: ATORVASTATIN CA 10 MG TABLET (FP) PO SCH (21:36)
[2018-01-17] MEDS: INSULIN SLIDING SCALE (NOVOLOG) 1 VIAL SQ SCH ×4 (06:17→21:06)
[2018-01-17 06:58] LABS: BASO % 1.2 % (0-2.0); EOS % 2.6 % (0-4.5); HEMATOCRIT 27.8 % (35.4-49); LYMPH % 19.2 % (8-40); MCH 26.8 pg (25.7-33.7); MCHC 32.3 g/dl (32.0-35.9); MEAN CELL VOLUME 83.2 fl (80-96); MEAN PLT VOLUME 9.5 fl (7.5-11.1); PLATELET COUNT 204 K/MM3 (134-434); RBC 3.35 M/mm3 (4.00-5.60); RDW 17.5 % (11.9-15.9); WHITE BLOOD COUNT 6.4 K/mm3 (4.0-10.0)
--- NOTE | 2018-01-17 06:59 | PN ---
Physical Exam: SUBJECTIVE: Patient seen and examined at bedside. No acute events. Pt waiting to go for 2nd portion of stress test today. OBJECTIVE: Vital Signs Period Temp Pulse Resp BP Sys/Varma Pulse Ox Last 24 Hr 98.0 F-98.5 F 80-111 18-22 107-132/64-88 96-99 GENERAL: The patient is awake, alert, and fully oriented, in no acute distress. HEAD: Normal with no signs of trauma. Known L lower facial droop. 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 EYES: extraocular movements intact, sclera anicteric, conjunctiva clear. No ptosis. ENT: oropharynx clear without exudates, moist mucous membranes. NECK: Trachea midline, full range of motion, supple. LUNGS: Breath sounds equal, clear to auscultation bilaterally, no wheezes, no crackles, no accessory muscle use. HEART: Regular rate and irregular rhythm, S1, S2 without murmur, rub or gallop. ABDOMEN: obese, Soft, nontender, nondistended, normoactive bowel sounds, no guarding, no rebound, no hepatosplenomegaly, no masses. EXTREMITIES: 2+ pulses, warm, well-perfused, 2+ edema. NEUROLOGICAL: Cranial nerves II through XII grossly intact. Normal speech, gait not observed. PSYCH: Normal mood, normal affect. SKIN: Warm, dry, normal turgor, no rashes or lesions noted Laboratory Results - last 24 hr 01/16/18 01/16/18 01/16/18 06:35 06:35 06:35 WBC 5.6 RBC 3.28 L Hgb 8.9 L D Hct 26.9 L MCV 82.2 MCH 27.0 MCHC 32.9 RDW 17.3 H Plt Count 191 MPV 9.4 Neutrophils % 61.7 Lymphocytes % 19.8 Monocytes % 15.2 H Eosinophils % 2.1 Basophils % 1.2 PT with INR 14.10 H INR 1.25 H Sodium 140 Potassium 3.6 D Chloride 103 Carbon Dioxide 30 Anion Gap 7 L BUN 26 H Creatinine 1.3 Creat Clearance w eGFR 55.23 POC Glucometer Random Glucose 149 H D Calcium 9.0 Phosphorus 4.7 D Magnesium 1.8 Total Bilirubin 1.1 H D AST 36 D ALT 21 Alkaline Phosphatase 82 Total Protein 7.3 Albumin 3.6 Triglycerides 94 Cholesterol 140 D Total LDL Cholesterol 84 D HDL Cholesterol 48 D TSH 0.95 D 01/16/18 01/16/18 01/16/18 11:50 17:30 17:50 WBC 6.2 RBC 3.31 L Hgb 8.7 L Hct 27.4 L MCV 82.9 MCH 26.2 MCHC 31.6 L RDW 17.5 H Plt Count 224 MPV 9.9 Neutrophils % 64.3 Lymphocytes % 18.8 Monocytes % 13.8 H Eosinophils % 1.9 Basophils % 1.2 PT with INR INR Sodium Potassium Chloride Carbon Dioxide Anion Gap BUN Creatinine Creat Clearance w eGFR POC Glucometer 135 159 Random Glucose Calcium Phosphorus Magnesium Total Bilirubin AST ALT Alkaline Phosphatase Total Protein Albumin Triglycerides Cholesterol Total LDL Cholesterol HDL Cholesterol TSH 01/16/18 01/17/18 21:38 05:55 WBC RBC Hgb Hct MCV MCH MCHC RDW Plt Count MPV Neutrophils % Lymphocytes % Monocytes % Eosinophils % Basophils % PT with INR INR Sodium Potassium Chloride Carbon Dioxide Anion Gap BUN Creatinine Creat Clearance w eGFR POC Glucometer 142 141 Random Glucose Calcium Phosphorus Magnesium Total Bilirubin AST ALT Alkaline Phosphatase Total Protein Albumin Triglycerides Cholesterol Total LDL Cholesterol HDL Cholesterol TSH Active Medications Generic Name Dose Route Start Last Admin Trade Name Freq PRN Reason Stop Dose Admin Atorvastatin Calcium 10 mg 01/15/18 22:00 01/16/18 21:36 Lipitor - PO 10 mg HS LAINEY Administration Insulin Aspart 1 vial 01/15/18 22:00 01/17/18 06:17 Novolog Vial Sliding Scale - SQ Not Given ACHS [facility] Protocol Metoprolol Succinate 100 mg 01/15/18 22:00 01/16/18 21:36 Toprol Xl - PO 100 mg BID LAINEY Administration Multivitamins/Minerals/Vitamin C 1 tab 01/15/18 17:30 01/16/18 09:43 Tab-A-Vit - PO 1 tab DAILY LAINEY Administration Pantoprazole Sodium 40 mg 01/15/18 22:00 01/16/18 21:36 Protonix Iv IVPUSH 40 mg BID LAINEY Administration ASSESSMENT/PLAN: 67 yof wiht PMhx of diastolic CHF, AFib on xarelto, HTN, HLD, morbid obesity, DM , ?ETOH use, s/p splenectomy admitted with intermittent chest pain/dyspnea, and found with anemia and pos FOBT. #Symptomatic Acute anemia -Likely 2/2 GIB -h/o NSAIDs use vs ?ETOH (pt states he drinks wine daily) -1 PRBC (01/15/2018) -repeat CBC improved. #Possible GIB -possible PUD vs variceal bleed vs AVM -possible Lower GI component given intermittent BRBPR with blood on tissues. -Protonix -planning for endoscopy/colonoscopy tomorrow pending cardiac workup. Pt has had rest portion of stress done. #KAYCEE -RESOLVED -Marketing Proposal Coordinator wnl #Acute on chronic CHF exacerbation -FARRIS more than normal -Sx improved with lasix -Repeat CXR today was free of consolidation/effusion. Positive for increased cardiac silhouette. -Hold off on IV lasix at this time, as pt will likely be getting bowel prep in the near future. #Afib with RVR -pt was put on xarelto. Per pharmacy, has not picked up in many months -RVR on tele -no AC in setting of GIB #IDDM -ISS -BGM -Has not been requiring Ins. #HTN -Toprol #HLD -Lipitor #Morbid obesity -counselled #FEN -Not on fluid (CHF) -lytes wnl -Na controlled diet #PPx -Protonix -no AC in setting of GIB #Dispo -Admitted for symptomatic anemia obedy 2/2 GIB Yoel Blanco MD PGY-1 IM Visit type - Emergency Visit Emergency Visit: No - New Patient This patient is new to me today: No - Critical Care Critical Care patient: No - Discharge Referral Referred to [facility] Med P.C.: No
[2018-01-17 07:07] LABS: INR 1.19 (0.82-1.09); PROTHROMBIN TIME (PATIENT) 13.4 SEC (9.7-13.0)
[2018-01-17 07:19] LABS: ALBUMIN 3.7 g/dl (3.4-5.0); ANION GAP 5 (8-16); BLOOD UREA NITROGEN 22 mg/dL (7-18); CALCIUM 9.1 mg/dL (8.5-10.1); CHLORIDE 103 mmol/L (98-107); CO2 34 mmol/L (21-32); GLUCOSE,RANDOM 136 mg/dL (74-106); POTASSIUM 4.2 mmol/L (3.5-5.1); SODIUM 142 mmol/L (136-145)
[2018-01-17 07:23] LABS: ALK PHOS 79 U/L (45-117); CREATININE 1.3 mg/dL (0.7-1.3); SGOT/AST 37 U/L (15-37); SGPT/ALT 26 U/L (12-78); TOT PROT 7.5 g/dl (6.4-8.2)
--- NOTE | 2018-01-17 08:44 | PN ---
Progress Note, Physician History of Present Illness: Events overnight. Comfortable. - Current Medication List Current Medications: Active Medications Atorvastatin Calcium (Lipitor -) 10 mg PO HS [facility] Last Admin: 01/16/18 21:36 Dose: 10 mg Insulin Aspart (Novolog Vial Sliding Scale -) 1 vial SQ ACHS [facility] PRN Reason: Protocol Last Admin: 01/17/18 06:17 Dose: Not Given Metoprolol Succinate (Toprol Xl -) 100 mg PO BID [facility] Last Admin: 01/16/18 21:36 Dose: 100 mg Multivitamins/Minerals/Vitamin C (Tab-A-Vit -) 1 tab PO DAILY [facility] Last Admin: 01/16/18 09:43 Dose: 1 tab Pantoprazole Sodium (Protonix Iv) 40 mg IVPUSH BID [facility] Last Admin: 01/16/18 21:36 Dose: 40 mg - Objective Vital Signs: Vital Signs Temperature 98.5 F 01/17/18 05:41 Pulse Rate 80 01/17/18 05:41 Respiratory Rate 20 01/17/18 05:41 Blood Pressure 107/64 01/17/18 05:41 O2 Sat by Pulse Oximetry (%) 99 01/16/18 21:00 Constitutional: Yes: No Distress, Calm Eyes: Yes: Conjunctiva Clear HENT: Yes: Atraumatic Cardiovascular: No: Bradycardia, Tachycardia Respiratory: Yes: Regular Gastrointestinal: Yes: Normal Bowel Sounds, Soft Neurological: Yes: Alert, Oriented Labs: CBC, BMP 01/17/18 06:25 01/17/18 06:25 INR, PTT INR 1.19 (0.82-1.09) H 01/17/18 06:25 Laboratory Last Values WBC 6.4 K/mm3 (4.0-10.0) 01/17/18 06:25 RBC 3.35 M/mm3 (4.00-5.60) L 01/17/18 06:25 Hgb 9.0 GM/dL (11.7-16.9) L 01/17/18 06:25 Hct 27.8 % (35.4-49) L 01/17/18 06:25 MCV 83.2 fl (80-96) 01/17/18 06:25 MCH 26.8 pg (25.7-33.7) 01/17/18 06:25 MCHC 32.3 g/dl (32.0-35.9) 01/17/18 06:25 RDW 17.5 % (11.9-15.9) H 01/17/18 06:25 Plt Count 204 K/MM3 (134-434) 01/17/18 06:25 MPV 9.5 fl (7.5-11.1) 01/17/18 06:25 Neutrophils % 63.0 % (42.8-82.8) 01/17/18 06:25 Lymphocytes % 19.2 % (8-40) 01/17/18 06:25 Monocytes % 14.0 % (3.8-10.2) H 01/17/18 06:25 Eosinophils % 2.6 % (0-4.5) 01/17/18 06:25 Basophils % 1.2 % (0-2.0) 01/17/18 06:25 PT with INR 13.40 SEC (9.7-13.0) H 01/17/18 06:25 INR 1.19 (0.82-1.09) H 01/17/18 06:25 Sodium 142 mmol/L (136-145) 01/17/18 06:25 Potassium 4.2 mmol/L (3.5-5.1) 01/17/18 06:25 Chloride 103 mmol/L (98-107) 01/17/18 06:25 Carbon Dioxide 34 mmol/L (21-32) H 01/17/18 06:25 Anion Gap 5 (8-16) L 01/17/18 06:25 BUN 22 mg/dL (7-18) H 01/17/18 06:25 Creatinine 1.3 mg/dL (0.7-1.3) 01/17/18 06:25 Creat Clearance w eGFR 55.23 (>60) 01/17/18 06:25 POC Glucometer 141 UNITS (80-120) 01/17/18 05:55 Random Glucose 136 mg/dL (74-106) H 01/17/18 06:25 Calcium 9.1 mg/dL (8.5-10.1) 01/17/18 06:25 Phosphorus 4.7 mg/dL (2.5-4.9) D 01/16/18 06:35 Magnesium 1.8 mg/dL (1.8-2.4) 01/16/18 06:35 Ferritin 25.312 ng/ml (16.4-293.9) 01/17/18 06:25 Total Bilirubin 1.0 mg/dL (0.2-1.0) 01/17/18 06:25 AST 37 U/L (15-37) 01/17/18 06:25 ALT 26 U/L (12-78) D 01/17/18 06:25 Alkaline Phosphatase 79 U/L (45-117) 01/17/18 06:25 Troponin I < 0.02 ng/ml (0.00-0.05) 01/15/18 20:30 B-Natriuretic Peptide 319.28 pg/ml (5-125) H 01/15/18 12:17 Total Protein 7.5 g/dl (6.4-8.2) 01/17/18 06:25 Albumin 3.7 g/dl (3.4-5.0) 01/17/18 06:25 Triglycerides 94 mg/dL (35-160) 01/16/18 06:35 Cholesterol 140 mg/dL (50-200) D 01/16/18 06:35 Total LDL Cholesterol 84 mg/dL (5-100) D 01/16/18 06:35 HDL Cholesterol 48 mg/dL (40-60) D 01/16/18 06:35 TSH 0.95 uIU/ml (0.358-3.74) D 01/16/18 06:35 Stool Occult Blood Positive (NEGATIVE) 01/15/18 14:00 Blood Type O POSITIVE 01/15/18 20:00 Antibody Screen Negative 01/15/18 20:00 Crossmatch See Detail 01/15/18 18:20 Problem List - Problems (1) Normocytic normochromic anemia Code(s): D64.9 - ANEMIA, UNSPECIFIED (2) Heme positive stool Code(s): R19.5 - OTHER FECAL ABNORMALITIES (3) Chronic anticoagulation Code(s): Z79.01 - SENIOR CARE (CURRENT) USE OF ANTICOAGULANTS (4) NSAID long-term use Code(s): Z79.1 - SENIOR CARE (CURRENT) USE OF NON-STEROIDAL NON-INFLAM (NSAID) Assessment/Plan Plan EGD and colonoscopy tomorrow if cleared by cardiology. Agree with PPI therapy and holding Xarelto and NSAIDs. Check iron profile. Discussed with the patient in detail.
[2018-01-17] MEDS: PANTOPRAZOLE SODIUM 40 MG VIAL IVPUSH SCH ×2 (09:03→21:06)
[2018-01-17] MEDS ORDERED: REGADENOSON 0.4 MG/5 ML PRE-FILLED SYRINGE IVPUSH ONE ×2 (09:45→09:51)
--- NOTE | 2018-01-17 12:06 | PN ---
Teaching Attending Note Name of Resident: Yoel Blanco ATTENDING PHYSICIAN STATEMENT I saw and evaluated the patient. I reviewed the resident's note and discussed the case with the resident. I agree with the resident's findings and plan as documented. SUBJECTIVE:dyspnea on movement when getting out of bed but no orthopnea or cough. denies CP, SOB, fever, chills, N/V/C/D OBJECTIVE: Last Vital Signs Temp Pulse Resp BP Pulse Ox 98.1 F 92 H 18 120/69 98 01/17/18 10:00 01/17/18 10:00 01/17/18 10:00 01/17/18 10:00 01/17/18 09:00 Intake & Output 01/14/18 01/15/18 01/16/18 01/17/18 23:59 23:59 23:59 23:59 Intake Total 100 1270 0 Output Total 1 850 Balance 99 420 0 Weight 261 lb 261 lb 3.2 oz 261 lb 9.6 oz General NAD CV S1 S2 RRR no murmur/rub/gallop no JVD Lungs CTA B/L no wheezing/rales/rhonchi Abdomen soft NT/ND obese Extremities no pitting edema ASSESSMENT AND PLAN: 67 yo M wiht PMhx of diastolic CHF, AFib on xarelto, HTN, HLD, morbid obesity, DM, ?ETOH use, s/p splenectomy admitted with intermittent chest pain/dyspnea, and found with anemia and pos FOBT 1. Symptomatic anemia- Likely from GIB, given h/o NSAIDs use, ?ETOH, PUD vs variceal bleed vs AVM. s/p 1 unit PRBC. Hgb improved. no longer symptomatic ( appears SOB more liekly to movement than anemia). will start bowel prep if NMST negative. plan for EGD/colonoscopy tomorrow. 2. Mild acute on Chronic diastolic HF exacerbation- clinically now appears euvolemic. near baseline weight. will hold at present time. if requires more blood product will give lasix with dose. 3. Chest pain, ?From anemia vs demand induced from volume overload- cardiac enzymes neg x2. now resolved. NMST today. cardio on board. 4. Exertional dyspnea, likely due to anemia 5. KAYCEE- pre-renal. now improved. monitor closely. avoid nephrotoxic agents. 6. Afib with RVR- likely induced by anemia, pre-renal. now resolved. rate controlled. hold xarelto in setting of acute bleeding. 7. IDDM- not on home medications? will need to verify 8. HTN-controlled. hold oral agents at this time 9. Dyslipidemia- on pravastatin. should ideally increase to high intensity prior to discharge 10. Morbid obesity 11. S/p Splenectomy 12. can d/c cardiac monitoring if stress test is negative.
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
[2018-01-17] MEDS: MULTIVITAMINS (DAILY MVI) TABLET (FP) PO SCH (12:43)
[2018-01-17] MEDS ORDERED: BISACODYL 5 MG TABLET.DR (FP) PO ONE (14:00)
[2018-01-17] MEDS ORDERED: PEG 3350/NA SULF BICARB CL/KCL 4000 ML SOLN.RECON PO ONE (17:00)
[2018-01-17] MEDS ORDERED: INSULIN (NOVOLOG) ASPART 100 UNITS/ML 10ML VIAL ONE (20:45)
[2018-01-17] MEDS: ATORVASTATIN CA 10 MG TABLET (FP) PO SCH (21:06)
[2018-01-18] MEDS: INSULIN SLIDING SCALE (NOVOLOG) 1 VIAL SQ SCH ×2 (06:45→12:45)
[2018-01-18 07:21] LABS: BASO % 1.3 % (0-2.0); EOS % 2.1 % (0-4.5); HEMATOCRIT 29.7 % (35.4-49); HEMOGLOBIN 9.8 GM/dL (11.7-16.9); LYMPH % 19.7 % (8-40); MCH 26.8 pg (25.7-33.7); MCHC 32.9 g/dl (32.0-35.9); MEAN CELL VOLUME 81.5 fl (80-96); MEAN PLT VOLUME 9.7 fl (7.5-11.1); MONO % 11.9 % (3.8-10.2); PLATELET COUNT 242 K/MM3 (134-434); RBC 3.64 M/mm3 (4.00-5.60); RDW 17.9 % (11.9-15.9); WHITE BLOOD COUNT 8.2 K/mm3 (4.0-10.0)
[2018-01-18 07:50] LABS: ALBUMIN 4.1 g/dl (3.4-5.0); ANION GAP 9 (8-16); BLOOD UREA NITROGEN 16 mg/dL (7-18); CHLORIDE 103 mmol/L (98-107); CO2 28 mmol/L (21-32); GLUCOSE,RANDOM 130 mg/dL (74-106); POTASSIUM 4.1 mmol/L (3.5-5.1); SGOT/AST 45 U/L (15-37); SGPT/ALT 37 U/L (12-78); SODIUM 140 mmol/L (136-145)
[2018-01-18 07:52] LABS: ALK PHOS 83 U/L (45-117); BILIRUBIN,TOTAL 1.3 mg/dL (0.2-1.0); CALCIUM 9.1 mg/dL (8.5-10.1); CREATININE 1.3 mg/dL (0.7-1.3)
[2018-01-18 08:07] LABS: SERUM IRON SATURATION 4 % (15-55); TOTAL IRON BINDING CAPACITY 512 ug/dL (250-450); UIBC 490 ug/dL (111-343)
--- NOTE | 2018-01-18 08:09 | PN ---
Physical Exam: SUBJECTIVE: Patient seen and examined at bedside. No acute events. Pt drank half his bowel prep and has been having clear liquid BMs. Slightly SOB this am having just showered and walked. O2 sat 96%. Pt states he feels well and at his baseline. OBJECTIVE: Vital Signs Period Temp Pulse Resp BP Sys/Varma Pulse Ox Last 24 Hr 98.1 F-99.0 F 82-104 18-20 112-122/61-82 95-98 GENERAL: The patient is awake, alert, and fully oriented, in no acute distress. HEAD: Normal with no signs of trauma. Known L lower facial droop. 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 EYES: extraocular movements intact, sclera anicteric, conjunctiva clear. No ptosis. ENT: oropharynx clear without exudates, moist mucous membranes. NECK: Trachea midline, full range of motion, supple. LUNGS: Breath sounds equal, clear to auscultation bilaterally, no wheezes, no crackles, no accessory muscle use. HEART: Regular rate and irregular rhythm, S1, S2 without murmur, rub or gallop. ABDOMEN: obese, Soft, nontender, nondistended, normoactive bowel sounds, no guarding, no rebound, no hepatosplenomegaly, no masses. EXTREMITIES: 2+ pulses, warm, well-perfused, 2+ edema. NEUROLOGICAL: Cranial nerves II through XII grossly intact. Normal speech, gait not observed. PSYCH: Normal mood, normal affect. SKIN: Warm, dry, normal turgor, no rashes or lesions noted Laboratory Results - last 24 hr 01/17/18 01/17/18 01/17/18 12:13 17:38 21:06 WBC RBC Hgb Hct MCV MCH MCHC RDW Plt Count MPV Neutrophils % Lymphocytes % Monocytes % Eosinophils % Basophils % Sodium Potassium Chloride Carbon Dioxide Anion Gap BUN Creatinine Creat Clearance w eGFR POC Glucometer 158 127 136 Random Glucose Calcium Total Bilirubin AST ALT Alkaline Phosphatase Total Protein Albumin 01/18/18 01/18/18 01/18/18 05:53 07:00 07:00 WBC 8.2 RBC 3.64 L Hgb 9.8 L Hct 29.7 L MCV 81.5 MCH 26.8 MCHC 32.9 RDW 17.9 H Plt Count 242 MPV 9.7 Neutrophils % 65.0 Lymphocytes % 19.7 Monocytes % 11.9 H Eosinophils % 2.1 Basophils % 1.3 Sodium 140 Potassium 4.1 Chloride 103 Carbon Dioxide 28 Anion Gap 9 BUN 16 D Creatinine 1.3 Creat Clearance w eGFR 55.23 POC Glucometer 134 Random Glucose 130 H Calcium 9.1 Total Bilirubin 1.3 H D AST 45 H D ALT 37 D Alkaline Phosphatase 83 Total Protein 8.0 Albumin 4.1 Active Medications Generic Name Dose Route Start Last Admin Trade Name Freq PRN Reason Stop Dose Admin Atorvastatin Calcium 10 mg 01/15/18 22:00 01/17/18 21:06 Lipitor - PO 10 mg HS LAINEY Administration Insulin Aspart 1 vial 01/15/18 22:00 01/18/18 06:45 Novolog Vial Sliding Scale - SQ Not Given ACHS [facility] Protocol Metoprolol Succinate 100 mg 01/15/18 22:00 01/17/18 21:07 Toprol Xl - PO 100 mg BID LAINEY Administration Multivitamins/Minerals/Vitamin C 1 tab 01/15/18 17:30 01/17/18 12:43 Tab-A-Vit - PO 1 tab DAILY LAINEY Administration Pantoprazole Sodium 40 mg 01/15/18 22:00 01/17/18 21:06 Protonix Iv IVPUSH 40 mg BID LAINEY Administration ASSESSMENT/PLAN: 67 yof wiht PMhx of diastolic CHF, AFib on xarelto, HTN, HLD, morbid obesity, DM , ?ETOH use, s/p splenectomy admitted with intermittent chest pain/dyspnea, and found with anemia and pos FOBT. #Symptomatic Acute anemia -Likely 2/2 GIB -h/o NSAIDs use vs ?ETOH (pt states he drinks wine daily) -1 PRBC (01/15/2018) -repeat CBC improved. #Possible GIB -possible PUD vs variceal bleed vs AVM -possible Lower GI component given intermittent BRBPR with blood on tissues. -Protonix -preop workup: echo (01/16/2018) with mild LV dilation and various calcifications. Nuclesar stress (01/17/2018): no obvious ischemic changes -planning for endoscopy/colonoscopy today #KAYCEE -RESOLVED -Deli Cutter Slicer wnl #Acute on chronic CHF exacerbation -FARRIS more than normal -Sx improved with lasix -Repeat CXR today was free of consolidation/effusion. Positive for increased cardiac silhouette. -Hold off on IV lasix in the setting of recent bowel prep. #Afib with RVR -pt was put on xarelto. Per pharmacy, has not picked up in many months -RVR on tele -no AC in setting of GIB #IDDM -ISS -BGM -Has not been requiring Ins. #HTN -Toprol XL #HLD -Lipitor #Morbid obesity -counselled #FEN -Not on fluid (CHF) -lytes wnl -NPO for procedure #PPx -Protonix -no AC in setting of GIB #Dispo -Admitted for symptomatic anemia neto 2/2 GIB Yoel Blanco MD PGY-1 IM Visit type - Emergency Visit Emergency Visit: No - New Patient This patient is new to me today: No - Critical Care Critical Care patient: No - Discharge Referral Referred to [facility] Med P.C.: No
[2018-01-18] MEDS ORDERED: PROPOFOL 20 ML ONE ×3 (09:06)
--- NOTE | 2018-01-18 09:14 | PROC ---
Endoscopy Procedure Endoscopy procedure completed. Please see scanned procedure report. Multiple, small, non-bleeding antral ulcers were found on EGD Multiple non-bleeding angiectasias were found on colonoscopy A polyp was removed from descending colon Change PPI to PO bid x 30 days Iron po daily Regular diet Close monitoring for signs of GI bleeding while on antiplatlet therapy. Avoid, or minimize NSAIDs if possible
--- NOTE | 2018-01-18 09:48 | DS ---
Physical Exam: SUBJECTIVE: Patient seen and examined at bedside. No acute events. Pt drank half his bowel prep and has been having clear liquid BMs. Slightly SOB this am having just showered and walked. O2 sat 96%. Pt states he feels well and at his baseline. OBJECTIVE: Vital Signs Period Temp Pulse Resp BP Sys/Varma Pulse Ox Last 24 Hr 97.6 F-99.0 F 82-104 16-20 110-122/61-82 95-99 PHYSICAL EXAM GENERAL: The patient is awake, alert, and fully oriented, in no acute distress. HEAD: Normal with no signs of trauma. Known L lower facial droop. 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 EYES: extraocular movements intact, sclera anicteric, conjunctiva clear. No ptosis. ENT: oropharynx clear without exudates, moist mucous membranes. NECK: Trachea midline, full range of motion, supple. LUNGS: Breath sounds equal, clear to auscultation bilaterally, no wheezes, no crackles, no accessory muscle use. HEART: Regular rate and irregular rhythm, S1, S2 without murmur, rub or gallop. ABDOMEN: obese, Soft, nontender, nondistended, normoactive bowel sounds, no guarding, no rebound, no hepatosplenomegaly, no masses. EXTREMITIES: 2+ pulses, warm, well-perfused, 2+ edema. NEUROLOGICAL: Cranial nerves II through XII grossly intact. Normal speech, gait not observed. PSYCH: Normal mood, normal affect. SKIN: Warm, dry, normal turgor, no rashes or lesions noted LABS Laboratory Results - last 24 hr 01/17/18 01/17/18 01/17/18 06:25 12:13 17:38 WBC RBC Hgb Hct MCV MCH MCHC RDW Plt Count MPV Neutrophils % Lymphocytes % Monocytes % Eosinophils % Basophils % Sodium Potassium Chloride Carbon Dioxide Anion Gap BUN Creatinine Creat Clearance w eGFR POC Glucometer 158 127 Random Glucose Calcium Iron 22 L TIBC 512 H Iron Saturation 4 L Total Bilirubin AST ALT Alkaline Phosphatase Total Protein Albumin 01/17/18 01/18/18 01/18/18 21:06 05:53 07:00 WBC 8.2 RBC 3.64 L Hgb 9.8 L Hct 29.7 L MCV 81.5 MCH 26.8 MCHC 32.9 RDW 17.9 H Plt Count 242 MPV 9.7 Neutrophils % 65.0 Lymphocytes % 19.7 Monocytes % 11.9 H Eosinophils % 2.1 Basophils % 1.3 Sodium Potassium Chloride Carbon Dioxide Anion Gap BUN Creatinine Creat Clearance w eGFR POC Glucometer 136 134 Random Glucose Calcium Iron TIBC Iron Saturation Total Bilirubin AST ALT Alkaline Phosphatase Total Protein Albumin 01/18/18 07:00 WBC RBC Hgb Hct MCV MCH MCHC RDW Plt Count MPV Neutrophils % Lymphocytes % Monocytes % Eosinophils % Basophils % Sodium 140 Potassium 4.1 Chloride 103 Carbon Dioxide 28 Anion Gap 9 BUN 16 D Creatinine 1.3 Creat Clearance w eGFR 55.23 POC Glucometer Random Glucose 130 H Calcium 9.1 Iron TIBC Iron Saturation Total Bilirubin 1.3 H D AST 45 H D ALT 37 D Alkaline Phosphatase 83 Total Protein 8.0 Albumin 4.1 HOSPITAL COURSE: Date of Admission:01/15/18 Date of Discharge: 01/18/18 67 yof with PMhx of diastolic CHF, AFib on xarelto, HTN, HLD, morbid obesity, DM , ?ETOH use, s/p splenectomy admitted with intermittent chest pain/dyspnea, and found with anemia and pos FOBT. Pt was diagnosed with Symptomatic Acute anemia likely 2/2 GIB. Pt had described a h/o NSAIDs use vs ?ETOH (pt states he drinks wine daily). He was given 1 PRBC (01/15/2018). His repeat CBC improved. The patient's presumptive GIB was evaluated by colonoscopy and EGD. While waiting for the procedures, pt was given fluids, protonix, IV fluids, His preop workup was significant for the following: -echo (01/16/2018) with mild LV dilation and various calcifications. -Nuclesar stress (01/17/2018): no obvious ischemic changes EGD (01/18/2018) revealed multiple, small, non-bleeding antral ulcers. Colonoscopy (01/18/2018) multiple non-bleeding angiectasias and a polyp, which was removed from the descending colon. Pt came to the hospital with KAYCEE, which resolved promptly. The pt was found to have Acute on chronic CHF exacerbation. His FARRIS was increased from baseline. Sx improved with lasix. He had 2 CXR, both free of consolidation/effusion, although increased cardiac silhouette. -IV lasix were held in the setting of bowel prep. Pt's Afib with RVR was monitored. Per pharmacy, he had not picked up Xarelto in many months. He was not placed on AC in the setting of a GI bleed. 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 He was placed on BGM and ISS. Notably, however , he did not require Ins in the hospital. He had an A1C of 5.9%. HTN was treated with Toprol XL. HLD was treated with Lipitor. Pt was counselled on his Morbid obesity. Yoel Blanco MD PGY-1 IM Minutes to complete discharge: 30 Discharge Summary Reason For Visit: ANEMIA/A FIB/DYSPNEA Current Active Problems Chest pain (Acute) Chronic anticoagulation (Acute) Constipation (Acute) Dyspnea (Acute) GI bleed (Acute) Heme positive stool (Acute) NSAID long-term use (Acute) Normocytic normochromic anemia (Acute) Sleep apnea (Acute) Atrial fibrillation (Chronic) Condition: Good - Instructions Diet, Activity, Other Instructions: You were admitted to the hospital because of your anemia which was causing you to be short of breath You received 1 unit of blood during your hospital stay You need to follow up with the following doctors: -primary care, Dr. Zuniga -gastroenterology, Dr. Coppola in 2 weeks. Your GI doctor may want to perform a repeat endoscopy in the future. -cardiology, Dr. Herbert Make sure you take your iron supplement (Feosol) daily. You need to take protonix 40mg twice daily for 1 month. Resume your xarelto, as previous. You can start this tomorrow. But do not take Aspirin, plavix, or NSAIDs (eg. Tramadol, Advil, Naproxen, motrin). Resume your previous diabetes medications. Resume your insulin pump Watch for any dark, tarry stools or any blood in the stool or in any vomit. Watch for any increase in shortness of breath, dizziness, chest pain, or tingling in the fingers or toes. Take note if your skin becomes pale. If you experience any of these, or if your symptoms recur return to the emergency room. Referrals: Ishaan Zuniga MD [Primary Care Provider] - 1 Week Eddi Coppola MD [Staff Physician] - 1 Week Giuseppe Herbert MD [Staff Physician] - 1 Week Disposition: HOME - Home Medications Comprehensive Discharge Medication List: Ambulatory Orders Pravastatin Sodium 10 mg PO DAILY 10/27/16 Insulin Lispro [Humalog] 150 unit SQ DAILY vial 05/22/17 Furosemide [Lasix -] 40 mg PO DAILY #30 tablet 07/04/17 Losartan Potassium [Cozaar -] 25 mg PO DAILY #30 tablet 07/04/17 Potassium Chloride 20 meq PO DAILY #15 tablet.er 07/04/17 Hydrochlorothiazide 25 mg PO DAILY 01/15/18 Ibuprofen 800 mg PO Q6H PRN 01/15/18 Tramadol HCl 50 mg PO Q8H PRN 01/15/18 Atorvastatin Ca [Lipitor] 10 mg PO HS tablet 01/18/18 Ferrous Sulfate [Feosol] 325 mg PO DAILY #30 tablet 01/18/18 Pantoprazole Sodium [Protonix -] 40 mg PO BID #60 tablet.ec 01/18/18 This patient is new to me today: No Emergency Visit: No Critical Care patient: No - Discharge Referral Referred to [facility] No
[2018-01-18] MEDS: MULTIVITAMINS (DAILY MVI) TABLET (FP) PO SCH (10:13)
[2018-01-18] MEDS: PANTOPRAZOLE SODIUM 40 MG VIAL IVPUSH SCH (10:14)
--- NOTE | 2018-01-18 11:18 | PN ---
Teaching Attending Note Name of Resident: Yoel Blanco ATTENDING PHYSICIAN STATEMENT I saw and evaluated the patient. I reviewed the resident's note and discussed the case with the resident. I agree with the resident's findings and plan as documented. SUBJECTIVE:asymptomatic. dneis CP, SOB, fever, chills, N/V/C/D OBJECTIVE: Last Vital Signs Temp Pulse Resp BP Pulse Ox 97.6 F 99 H 21 127/70 97 01/18/18 09:00 01/18/18 09:31 01/18/18 09:31 01/18/18 09:31 01/18/18 09:31 General NAD Lungs CTA B/L no wheezing/rales/rhonchi Extremities no pitting edema EGD/ColonoscopyMultiple, small, non-bleeding antral ulcers were found on EGD Multiple non-bleeding angiectasias were found on colonoscopy A polyp was removed from descending colon ASSESSMENT AND PLAN: 67 yo M wiht PMhx of diastolic CHF, AFib on xarelto, HTN, HLD, morbid obesity, DM, ?ETOH use, s/p splenectomy admitted with intermittent chest pain/dyspnea, and found with anemia and pos FOBT 1. Symptomatic anemia- Likely from GIB, given h/o NSAIDs use, ?ETOH, PUD vs variceal bleed vs AVM. s/p 1 unit PRBC. Hgb improved. EGD/colonoscopy done wtih results as above. start protonix BID x1 month and iron supplements. educated on side effects of iron supplements and to f/u with GI as outpatient. avoid NSAIDS 2. Mild acute on Chronic diastolic HF exacerbation- clinically now appears euvolemic. near baseline weight. can re-start diuretic tomorrow. 3. Chest pain, ?From anemia vs demand induced from volume overload- cardiac enzymes neg x2. now resolved. NMST negative for ischemia. cardio on board. 4. Exertional dyspnea, likely due to anemia 5. KAYCEE- pre-renal. now improved. monitor closely. avoid nephrotoxic agents. 6. Afib with RVR- likely induced by anemia, pre-renal. now resolved. rate controlled. can resume xarelto tomorrow. 7. IDDM- has insulin pump which was off while hospitalized. A1c 5.9. informed patient to resume dosing as previously 8. HTN-controlled. resume home medication 9. Dyslipidemia- on pravastatin. will discharge on lipitor 40mg HS 10. Morbid obesity 11. S/p Splenectomy 12. d/c home. all questions answered. verbalized understanding and agreement [facility] plan
--- NOTE | 2018-01-18 12:18 | PN ---
Progress Note, Physician History of Present Illness: The patient is a 67 year old male with a significant PMH of chronic alcoholism, afib, systolic/diastolic CHF, hypertension, diabetes, hyperlipidemia, Parkinsons disease, obesity, sedentary lifestyle, and 4 heart stents (2012)who presents to the emergency department with acute chest pain and shortness of breatrh. The patient reports that his chest pain feels like pressure when he inhales (he also gets it for several minutes if he walks quickly). The patient reports that his chest pain is worsened with walking and while laying flat. He also reports associated shortness of breath. He states that he has been retaining fluid and he has noticed swelling in his lower extremities. The patient reports taking medication for the fluid retention in his legs with no apparent relief. The patient denies any headache or dizziness. He denies any fever, chills, nausea, vomit, diarrhea or constipation. He denies any urinary symptoms. The patient denies any other complaints. - Current Medication List Current Medications: Active Medications Atorvastatin Calcium (Lipitor -) 10 mg PO [facility] Last Admin: 01/17/18 21:06 Dose: 10 mg Insulin Aspart (Novolog Vial Sliding Scale -) 1 vial SQ [facility] PRN Reason: Protocol Last Admin: 01/18/18 06:45 Dose: Not Given Metoprolol Succinate (Toprol Xl -) 100 mg PO BID [facility] Last Admin: 01/18/18 10:13 Dose: 100 mg Multivitamins/Minerals/Vitamin C (Tab-A-Vit -) 1 tab PO DAILY [facility] Last Admin: 01/18/18 10:13 Dose: 1 tab Pantoprazole Sodium (Protonix Iv) 40 mg IVPUSH BID [facility] Last Admin: 01/18/18 10:14 Dose: Not Given - Objective Vital Signs: Vital Signs Temperature 97.6 F 01/18/18 09:00 Pulse Rate 99 H 01/18/18 09:31 Respiratory Rate 21 01/18/18 09:31 Blood Pressure 127/70 01/18/18 09:31 O2 Sat by Pulse Oximetry (%) 97 01/18/18 09:31 Labs: CBC, BMP 01/18/18 07:00 01/18/18 07:00 INR, PTT INR 1.19 (0.82-1.09) H 01/17/18 06:25 Problem List - Problems (1) GI bleed Code(s): K92.2 - GASTROINTESTINAL HEMORRHAGE, UNSPECIFIED (2) Constipation Code(s): K59.00 - CONSTIPATION, UNSPECIFIED (3) Chest pain Code(s): R07.9 - CHEST PAIN, UNSPECIFIED Qualifiers: Chest pain type: unspecified Qualified Code(s): R07.9 - Chest pain, unspecified (4) Dyspnea Code(s): R06.00 - DYSPNEA, UNSPECIFIED Qualifiers: Dyspnea type: unspecified Qualified Code(s): R06.00 - Dyspnea, unspecified (5) Atrial fibrillation Code(s): I48.91 - UNSPECIFIED ATRIAL FIBRILLATION Qualifiers: Atrial fibrillation type: unspecified Qualified Code(s): I48.91 - Unspecified atrial fibrillation (6) Acute on chronic systolic and diastolic heart failure, NYHA class 2 Code(s): I50.43 - ACUTE ON CHRONIC COMBINED SYSTOLIC AND DIASTOLIC HRT FAIL (7) Chronic alcohol abuse Code(s): F10.10 - ALCOHOL ABUSE, UNCOMPLICATED (8) HTN (hypertension) Code(s): I10 - ESSENTIAL (PRIMARY) HYPERTENSION (9) Obesity Code(s): E66.9 - OBESITY, UNSPECIFIED (10) Diabetes Code(s): E11.9 - TYPE 2 DIABETES MELLITUS WITHOUT COMPLICATIONS (11) Sleep apnea Code(s): G47.30 - SLEEP APNEA, UNSPECIFIED
[2018-01-18] MEDS ORDERED: PANTOPRAZOLE 40 MG TABLET (FP) PO ONE (12:32)
[2018-01-18 12:56] VITALS: BP 110/68; PULSE 105; TEMP 98.9
--- NOTE | 2018-01-19 15:48 | PATH ---
Surgical Pathology Report Patient Name: STEVE CAMILO SR [facility]. Rec. #: [id number] /Age/Gender: 1950 (Age: 67) / M Account: [id number] Location: 4 W TELEMETRY U Taken: 01/18/2018 Received: 01/18/2018 Reported: 01/19/2018 Physicians: Eddi Coppola M.D. 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 GASTRIC ANTRUM, ULCERS, BIOPSY: GASTRIC MUCOSA WITH ACTIVE CHRONIC GASTRITIS. IMMUNOSTAINING IS NEGATIVE FOR H. PYLORI ORGANISMS. B. GASTRIC BODY, BIOPSY: GASTRIC MUCOSA WITH ACTIVE CHRONIC GASTRITIS. IMMUNOSTAINING IS NEGATIVE FOR H. PYLORI ORGANISMS. C. DESCENDING COLON POLYP, POLYPECTOMY: TUBULAR ADENOMA. Electronically Signed Eliza Choi M.D. Gross Description A. Received in formalin, labeled "antrum ulcers" are 4 waldrop, irregular portions of soft tissue ranging from 0.2-0.6 cm. in greatest dimension. The specimens are submitted in toto in one cassette. B. Received in formalin, labeled "body" are 2 waldrop, irregular portions of soft tissue measuring 0.3 and 0.4 cm. in greatest dimension. The specimens are submitted in toto in one cassette. C. Received in formalin, labeled "polyp descending" are 4 waldrop, irregular portions of soft tissue ranging from 0.2-0.4 cm. in greatest dimension. The specimens are submitted in toto in one cassette. DL01/19/2018 saudi01/19/2018
== END 2018-01-18 13:31 | disposition home or self-care (01) | DRG 377 ==
LOC: JER 10:58 → JERBED 14:14 → J4W 15:27
PROVIDERS: ADMIT Hospitalist; ATTEND Internal Medicine
PROC: 0DB68ZX Excision of Stomach, Via Natural or Artificial Opening Endoscopic, Diagnostic (ICD-10-PCS; 2018-01-18)
PROC: 0DBM8ZX Excision of Descending Colon, Via Natural or Artificial Opening Endoscopic, Diagnostic (ICD-10-PCS; principal; 2018-01-18 08:00)
DX: K92.2 Gastrointestinal hemorrhage, unspecified (principal); I50.33 Acute on chronic diastolic (congestive) heart failure; N17.9 Acute kidney failure, unspecified; I11.0 Hypertensive heart disease with heart failure; G20 Parkinson's disease; I48.91 Unspecified atrial fibrillation; E78.5 Hyperlipidemia, unspecified; I50.9 Heart failure, unspecified; E11.9 Type 2 diabetes mellitus without complications; Z79.4 Long term (current) use of insulin; F41.9 Anxiety disorder, unspecified; I25.10 Atherosclerotic heart disease of native coronary artery without angina pectoris; M25.562 Pain in left knee; M25.561 Pain in right knee; Z79.01 Long term (current) use of anticoagulants; E66.01 Morbid (severe) obesity due to excess calories; Z68.35 Body mass index [BMI] 35.0-35.9, adult; D64.9 Anemia, unspecified; K59.00 Constipation, unspecified; F10.10 Alcohol abuse, uncomplicated; K63.5 Polyp of colon; K25.9 Gastric ulcer, unspecified as acute or chronic, without hemorrhage or perforation; K29.60 Other gastritis without bleeding; K44.9 Diaphragmatic hernia without obstruction or gangrene; K55.20 Angiodysplasia of colon without hemorrhage
CPT/HCPCS: 36415; 36430; 71045-TC-FY; 71046-TC-FY; 78452-TC; 80053; 80061; 82272; 82728; 82962; 83036; 83540; 83550; 83721; 83735; 83880; 84100; 84443; 84484; 85025; 85610; 86850; 86900; 86901; 86922; 93005; 93010; 93017; 93306-TC; 97116-GP; 97161-GP; 99285-25; A9502; J2785; P9038; P9058

== ENCOUNTER 2018-09-07 17:14 | Inpatient (IN) | payer OTHER ==
--- NOTE | 2018-09-07 17:23 | PDOC ---
Rapid Medical Evaluation Time Seen by Provider: 09/07/18 17:23 Medical Evaluation: Allergies Allergy/AdvReac Type Severity Reaction Status Date / Time No Known Drug Allergies Allergy Verified 09/07/18 17:22 shellfish derived Allergy Mouth Verified 09/07/18 17:22 swelling, eye swelling 09/07/18 17:23 I have performed a brief in-person evaluation of this patient. The patient presents with a chief complaint of: FARRIS w/ decreased exercise tolerance, weakness and possible palpitations x 1 week. H/o afib on xarelto, HTN , HLD, CHF, CAD w/ 4 stents, DM, parkinson's cards:robin pmd:isabella (Kristy) Pertinent physical exam findings: I have ordered the following:cxr/ekg/labs The patient will proceed to the ED for further evaluation. Discharge Disposition - Diagnosis SOB (shortness of breath) - Referrals Referrals: Ishaan Zuniga MD [Primary Care Provider] - - Patient Instructions - Post Discharge Activity
[2018-09-07 17:58] LABS: MCHC 30.2 g/dl (32.0-35.9)
[2018-09-07 18:02] LABS: BASO % 0.7 % (0-2.0); EOS % 1.3 % (0-4.5); LYMPH % 13.1 % (8-40); MEAN CELL VOLUME 60.7 fl (80-96); MEAN PLT VOLUME 9.2 fl (7.5-11.1); MONO % 13.8 % (3.8-10.2); NEUT % 71.1 % (42.8-82.8); PLATELET COUNT 239 K/MM3 (134-434); RBC 2.95 M/mm3 (4.00-5.60); RDW 16.6 % (11.9-15.9)
[2018-09-07 18:06] LABS: HEMATOCRIT 18.1 % (35.4-49); MCH 18.3 pg (25.7-33.7)
[2018-09-07 18:07] LABS: HEMOGLOBIN 5.5 GM/dL (11.7-16.9)
[2018-09-07 18:21] LABS: OVALOCYTE 1+; PLATELET ESTIMATE ADEQUATE; TARGET CELLS 1+
[2018-09-07 18:22] LABS: ANISOCYTOSIS 2+
[2018-09-07 18:23] LABS: URINE APPEARANCE SLCLOUDY; URINE BILIRUBIN NEGATIVE (<2.0 mg/dL); URINE COLOR AMBER; URINE GLUCOSE (UA) NEGATIVE (NEGATIVE); URINE KETONE NEGATIVE (NEGATIVE); URINE LEUK ESTERASE NEGATIVE (NEGATIVE); URINE NITRITE NEGATIVE (NEGATIVE); URINE PROTEIN 1+ (NEGATIVE); URINE UROBILINOGEN NEGATIVE mg/dL (0.2-1.0)
[2018-09-07] MEDS ORDERED: PANTOPRAZOLE SODIUM 40 MG VIAL IVPUSH ONE (18:25)
[2018-09-07 18:28] LABS: N-TERMINAL BNP 506.6 pg/ml (5-125)
[2018-09-07 18:32] LABS: ALBUMIN 3.6 g/dl (3.4-5.0); ALK PHOS 94 U/L (45-117); ANION GAP 10 MMOL/L (8-16); BILIRUBIN,TOTAL 0.4 mg/dL (0.2-1); BLOOD UREA NITROGEN 26 mg/dL (7-18); CALCIUM 8.2 mg/dL (8.5-10.1); CHLORIDE 91 mmol/L (98-107); CO2 27 mmol/L (21-32); CREATININE 1.3 mg/dL (0.55-1.3); GLUCOSE,RANDOM 128 mg/dL (74-106); POTASSIUM 3.6 mmol/L (3.5-5.1); SGOT/AST 21 U/L (15-37); SGPT/ALT 19 U/L (13-61); SODIUM 129 mmol/L (136-145); TOT PROT 7.1 g/dl (6.4-8.2)
--- NOTE | 2018-09-07 18:35 | PDOC ---
History of Present Illness - General Chief Complaint: Chest Pain Stated Complaint: CHEST PAIN Time Seen by Provider: 09/07/18 17:23 - History of Present Illness Initial Comments: 09/07/18 18:34 Mr. Ham is a 67 yo male w/ pmh of afib (on xarelto), CHF, HTN, DM, HLD, Parkinson's, 4 stents (2012) who presents for evaluation of 2 week history of worsening dyspnea on exertion, weakness, intermittent chest pain, and palpitations. Patient also reports he has been having diarrhea over this same time period and has sometimes noticed blood while wiping. The patient denies headache and dizziness. Denies fever, chills, nausea, vomit, and constipation. Denies dysuria, frequency, urgency and hematuria. Past History - Past Medical History Allergies/Adverse Reactions: Allergies Allergy/AdvReac Type Severity Reaction Status Date / Time No Known Drug Allergies Allergy Verified 09/07/18 17:22 shellfish derived Allergy Mouth Verified 09/07/18 17:22 swelling, eye swelling Home Medications: Ambulatory Orders Pravastatin Sodium 10 mg PO DAILY 06/30/16 Insulin Lispro [Humalog] 150 unit SQ DAILY vial 05/22/17 Furosemide [Lasix -] 40 mg PO DAILY #30 tablet 07/04/17 Losartan Potassium [Cozaar -] 25 mg PO DAILY #30 tablet 07/04/17 Potassium Chloride 20 meq PO DAILY #15 tablet.er 07/04/17 Hydrochlorothiazide 25 mg PO DAILY 01/15/18 Atorvastatin Ca [Lipitor] 10 mg PO HS tablet 01/18/18 Ferrous Sulfate [Feosol] 325 mg PO DAILY #30 tablet 01/18/18 Pantoprazole Sodium [Protonix -] 40 mg PO BID #60 tablet.ec 01/18/18 Rivaroxaban [Xarelto -] 15 mg PO DAILY #30 tab 01/18/18 Anemia: No Cardiac Disorders: Yes (A.FIB) COPD: No Diabetes: Yes HTN: Yes Hypercholesterolemia: Yes Psychiatric Problems: Yes (ANXIETY) - Surgical History Abdominal Surgery: No Appendectomy: No Cardiac Surgery: No Orthopedic Surgery: Yes (Bilateral Knee & Rotator cuff) - Suicide/Smoking/Psychosocial Hx Smoking Status: No Smoking History: Never smoked Have you smoked in the past 12 months: No Number of Cigarettes Smoked Daily: 0 Hx Alcohol Use: Yes (2-3 times/week) Drug/Substance Use Hx: No Substance Use Type: Alcohol Hx Substance Use Treatment: No Review of Systems - Review of Systems Comments:: 09/07/18 18:39 GENERAL/CONSTITUTIONAL: +Generalized weakness. No fever or chills. HEAD, EYES, EARS, NOSE AND THROAT: No change in vision. No ear pain or discharge. No sore throat. CARDIOVASCULAR: +Chest pain w/ SOB as described. RESPIRATORY: No cough, wheezing, or hemoptysis. GASTROINTESTINAL: +2 weeks of diarrhea. No nausea, vomiting, or constipation. GENITOURINARY: No dysuria, frequency, or change in urination. MUSCULOSKELETAL: No joint or muscle swelling or pain. No neck or back pain. SKIN: No rash NEUROLOGIC: No headache, vertigo, loss of consciousness, or change in strength/ sensation. ENDOCRINE: No increased thirst. No abnormal weight change HEMATOLOGIC/LYMPHATIC: No anemia, easy bleeding, or history of blood clots. ALLERGIC/IMMUNOLOGIC: No hives or skin allergy. *Physical Exam - Vital Signs Last Vital Signs Temp Pulse Resp BP Pulse Ox 98.1 F 62 18 103/57 L 97 09/07/18 17:22 09/07/18 17:22 09/07/18 17:22 09/07/18 17:22 09/07/18 17:22 - Physical Exam Comments: 09/07/18 18:40 GENERAL: +Patient extremely pale appearing. Awake, alert, and fully oriented, in no acute distress HEAD: No signs of trauma, normocephalic, atraumatic EYES: PERRLA, EOMI, sclera anicteric, conjunctiva clear ENT: Auricles normal inspection, hearing grossly normal, nares patent, oropharynx clear without exudates. Moist mucosa NECK: Normal ROM, supple, no lymphadenopathy, JVD, or masses LUNGS: No distress, speaks full sentences, clear to auscultation bilaterally HEART: Regular rate and rhythm, normal S1 and S2, no murmurs, rubs or gallops, peripheral pulses normal and equal bilaterally. ABDOMEN: Soft, nontender, normoactive bowel sounds. No guarding, no rebound. No masses EXTREMITIES: Normal inspection, Normal range of motion, no edema. No clubbing or cyanosis. NEUROLOGICAL: Cranial nerves II through XII grossly intact. Normal speech, normal gait, no focal sensorimotor deficits SKIN: Warm, Dry, normal turgor, no rashes or lesions noted. RECTAL: No hemmorhoids noted or blood on glove on rectal exam. Moderate Sedation - Procedure Monitoring Vital Signs: Procedure Monitoring Vital Signs Temperature 98.1 F 09/07/18 17:22 Pulse Rate 62 09/07/18 17:22 Respiratory Rate 18 09/07/18 17:22 Blood Pressure 103/57 L 09/07/18 17:22 O2 Sat by Pulse Oximetry (%) 97 09/07/18 17:22 ED Treatment Course - LABORATORY CBC & Chemistry Diagram: 09/07/18 17:30 09/07/18 17:30 - ADDITIONAL ORDERS Additional order review: Laboratory Results 09/07/18 09/07/18 09/07/18 18:13 17:47 17:40 Sodium Potassium Chloride Carbon Dioxide Anion Gap BUN Creatinine Creat Clearance w eGFR Random Glucose Calcium Total Bilirubin AST ALT Alkaline Phosphatase Creatine Kinase Troponin I B-Natriuretic Peptide 506.6 H Total Protein Albumin Urine Color Nubia Urine Appearance Slcloudy Urine pH 5.0 D Ur Specific [place] 1.013 Urine Protein 1+ H Urine Glucose (UA) Negative Urine Ketones Negative Urine Blood Negative Urine Nitrite Negative Urine Bilirubin Negative Urine Urobilinogen Negative Ur Leukocyte Esterase Negative Stool Occult Blood Positive 09/07/18 17:30 Sodium 129 L Potassium 3.6 Chloride 91 L Carbon Dioxide 27 Anion Gap 10 BUN 26 H Creatinine 1.3 Creat Clearance w eGFR 55.23 Random Glucose 128 H Calcium 8.2 L Total Bilirubin 0.4 AST 21 ALT 19 Alkaline Phosphatase 94 Creatine Kinase 240 Troponin I 0.02 B-Natriuretic Peptide Total Protein 7.1 Albumin 3.6 Urine Color Urine Appearance Urine pH Ur Specific [place] Urine Protein Urine Glucose (UA) Urine Ketones Urine Blood Urine Nitrite Urine Bilirubin Urine Urobilinogen Ur Leukocyte Esterase Stool Occult Blood 09/07/18 17:30 RBC 2.95 L MCV 60.7 L MCHC 30.2 L RDW 16.6 H MPV 9.2 Neutrophils % 71.1 Lymphocytes % 13.1 D Monocytes % 13.8 H Eosinophils % 1.3 Basophils % 0.7 Medical Decision Making - Medical Decision Making 09/07/18 19:20 Mr. Ham is a 67 yo male w/ pmh as described who presents for evaluation of symptoms of chest pain w/ dyspnea on exertion in setting of diarrhea with blood concerning for GI bleed. Patient CBC significant for hemaglobin of 5.5 and positive stool for occult blood. Given patient's low hemoglobin on xarelto, discussed patient with hematology who recommended prbc's as xarelto reversal agent difficult to acquire in timely fashion. 2 units PRBC's ordered. Patient also evaluated with CT abdomen/pelvis for r/o acute bleeding. Protonix given for prophylaxis. Patient will be admitted once ED workup is complete. 09/07/18 20:11 Patient labs grossly wnl. Patient admitted for further evaluation. Laboratory Results - last 24 hr 09/07/18 09/07/18 09/07/18 17:30 17:30 17:40 WBC 8.0 RBC 2.95 L Hgb 5.5 L* Hct 18.1 L D MCV 60.7 L MCH 18.3 L D MCHC 30.2 L RDW 16.6 H Plt Count 239 MPV 9.2 Absolute Neuts (auto) 5.7 Neutrophils % 71.1 Lymphocytes % 13.1 D Monocytes % 13.8 H Eosinophils % 1.3 Basophils % 0.7 Nucleated RBC % 0 Hypochromia 3+ Platelet Estimate Adequate Platelet Comment No clumping noted Polychromasia 2+ Anisocytosis 2+ Microcytosis 2+ Target Cells 1+ Ovalocytes 1+ Sodium 129 L Potassium 3.6 Chloride 91 L Carbon Dioxide 27 Anion Gap 10 BUN 26 H Creatinine 1.3 Creat Clearance w eGFR 55.23 Random Glucose 128 H Calcium 8.2 L Total Bilirubin 0.4 AST 21 ALT 19 Alkaline Phosphatase 94 Creatine Kinase 240 Creatine Kinase Index 1.5 CK-MB (CK-2) 3.7 H Troponin I 0.02 B-Natriuretic Peptide 506.6 H Total Protein 7.1 Albumin 3.6 Urine Color Urine Appearance Urine pH Ur Specific [place] Urine Protein Urine Glucose (UA) Urine Ketones Urine Blood Urine Nitrite Urine Bilirubin Urine Urobilinogen Ur Leukocyte Esterase Urine WBC (Auto) Urine RBC (Auto) Hyaline Casts Urine Mucus Stool Occult Blood Crossmatch 09/07/18 09/07/18 09/07/18 17:47 18:13 18:20 WBC RBC Hgb Hct MCV MCH MCHC RDW Plt Count MPV Absolute Neuts (auto) Neutrophils % Lymphocytes % Monocytes % Eosinophils % Basophils % Nucleated RBC % Hypochromia Platelet Estimate Platelet Comment Polychromasia Anisocytosis Microcytosis Target Cells Ovalocytes Sodium Potassium Chloride Carbon Dioxide Anion Gap BUN Creatinine Creat Clearance w eGFR Random Glucose Calcium Total Bilirubin AST ALT Alkaline Phosphatase Creatine Kinase Creatine Kinase Index CK-MB (CK-2) Troponin I B-Natriuretic Peptide Total Protein Albumin Urine Color Nubia Urine Appearance Slcloudy Urine pH 5.0 D Ur Specific [place] 1.013 Urine Protein 1+ H Urine Glucose (UA) Negative Urine Ketones Negative Urine Blood Negative Urine Nitrite Negative Urine Bilirubin Negative Urine Urobilinogen Negative Ur Leukocyte Esterase Negative Urine WBC (Auto) <1 Urine RBC (Auto) <1 Hyaline Casts 3 Urine Mucus Rare Stool Occult Blood Positive Crossmatch See Detail *DC/Admit/Observation/Transfer Diagnosis at time of Disposition: SOB (shortness of breath) Anemia Qualifiers: Anemia type: unspecified type Qualified Code(s): D64.9 - Anemia, unspecified GI bleed Qualifiers: GI bleed type/associated pathology: unspecified gastrointestinal hemorrhage type Qualified Code(s): K92.2 - Gastrointestinal hemorrhage, unspecified - Discharge Dispostion Decision to Admit order: Yes - Referrals Referrals: Ishaan Zuniga MD [Primary Care Provider] - - Patient Instructions - Post Discharge Activity
[2018-09-07 18:36] LABS: URINE HYALINE CAST 3 /lpf; URINE MUCUS RARE
[2018-09-07] MEDS ORDERED: PANTOPRAZOLE SODIUM 40 MG/100 ML BAG IVPB ONE (18:51)
[2018-09-07] MEDS ORDERED: SODIUM CHLORIDE 1,000 ML IV STA (19:04)
[2018-09-07] MEDS ORDERED: SODIUM CHLORIDE 500 ML IV STA (19:04)
--- NOTE | 2018-09-07 19:32 | PDOC ---
Attending Attestation - HPI HPI: 09/07/18 19:39 The patient is a 67 year old male with a pmh of afib (on xarelto), CHF, HTN, DM , HLD, Parkinson's, 4 stents (2012) who presents with diarrhea, intermittent chest pain and dyspnea on exertion for the past 2 weeks. Patient's son at bedside states the patient has been using castor oil to "cleanse his body." Patient has also been getting increasingly short of breath when walking. Patient drinks an 18-pack of 12oz beers daily or wine. Patient has not been eating or drinking much. The patient admits to abdominal pain, but states this is no different than his baseline abdominal pain. Son states he got a phone call from his step-mom, who lives with the patient saying that he was speaking incoherently and was tremulous. The patient denies headache and dizziness. Denies fever, chills, nausea, vomit, and constipation. Denies dysuria, frequency, urgency and hematuria. PCP: Dr. Zuniga Documentum Consultant: Dr. Herbert <Day Huynh - Last Filed: 09/07/18 19:39> - Resident Resident Name: John Beavers - ED Attending Attestation I have performed the following: I have examined & evaluated the patient, The case was reviewed & discussed with the resident, I agree w/resident's findings & plan - Physicial Exam PE: 09/09/18 04:21 Agree with resident exam - Medical Decision Making 09/07/18 20:40 Pt has known gastric antrum ulcers; bipsies of the antrum and body of the stomach reveal no H Pylorii; Pt also had biopsy of a colon polyp that was found to be a benign tubular adenoma. <Elisha Quinn - Last Filed: 09/09/18 04:21>
--- NOTE | 2018-09-07 20:27 | PN ---
Teaching Attending Note Name of Resident: Sue Reyes ATTENDING PHYSICIAN STATEMENT I saw and evaluated the patient. I reviewed the resident's note and discussed the case with the resident. I agree with the resident's findings and plan as documented. SUBJECTIVE: Patient is a 67 year old man with a PMH of afib (on xarelto), CHF, HTN, DM, HLD , Parkinson's, CAD (2012) and ?IVC filter who presents with diarrhea , intermittent chest pain and dyspnea on exertion for the past 2 weeks. Patient' s son at bedside states the patient has been using castor oil to "cleanse his body." Patient has also been getting increasingly short of breath when walking. Patient drinks an 18-pack of 12oz beers daily or wine. Patient has not been eating or drinking much. The patient admits to abdominal pain, but states this is no different than his baseline abdominal pain. Son states he got a phone call from his step-mom, who lives with the patient saying that he was speaking incoherently and was tremulous. OBJECTIVE: Alert Vital Signs Period Temp Pulse Resp BP Sys/Varma Pulse Ox Last 24 Hr 98.1 F 62 18 103/57 97 HEENT: No Jaundice, eye redness or discharge, PERRLA, EOMI. Normocephalic, atraumatic. External ears are normal and hearing is grossly intact. No nasal discharge. Neck: Supple, nontender. No palpable adenopathy or thyromegaly. No JVD Chest: Good effort. Clear to auscultation and percussion. Heart: Irregularly irregular. No S3, rub or murmur Abdomen: Mildly distended, soft, nontender and no HSM. Insulin pump in place. No rebound or guarding. Normoactive bowel sounds. Ext: Peripheral pulses intact. No leg edema. Skin: Warm and dry. No petechiae, rash or ecchymosis. Neuro: Alert. Oriented x3. CN 2-12 grossly intact. Sensation grossly intact in all four extremities and DTR are symmetric. Home Medications Medication Instructions Recorded Pravastatin Sodium 10 mg PO DAILY 06/30/16 Insulin Lispro [Humalog] 150 unit SQ DAILY vial 05/22/17 Furosemide [Lasix -] 40 mg PO DAILY #30 tablet 07/04/17 Losartan Potassium [Cozaar -] 25 mg PO DAILY #30 tablet 07/04/17 Potassium Chloride 20 meq PO DAILY #15 tablet.er 07/04/17 Hydrochlorothiazide 25 mg PO DAILY 01/15/18 Atorvastatin Ca [Lipitor] 10 mg PO HS tablet 01/18/18 Ferrous Sulfate [Feosol] 325 mg PO DAILY #30 tablet 01/18/18 Rivaroxaban [Xarelto -] 15 mg PO DAILY #30 tab 01/18/18 Metoprolol Succinate 100 mg PO DAILY 09/07/18 Abnormal Lab Results 09/07/18 09/07/18 09/07/18 17:30 17:30 17:40 RBC 2.95 L Hgb 5.5 L* Hct 18.1 L D MCV 60.7 L MCH 18.3 L D MCHC 30.2 L RDW 16.6 H Monocytes % 13.8 H Sodium 129 L Chloride 91 L BUN 26 H Random Glucose 128 H Calcium 8.2 L CK-MB (CK-2) 3.7 H B-Natriuretic Peptide 506.6 H Urine Protein Crossmatch 09/07/18 09/07/18 17:47 18:20 RBC Hgb Hct MCV MCH MCHC RDW Monocytes % Sodium Chloride BUN Random Glucose Calcium CK-MB (CK-2) B-Natriuretic Peptide Urine Protein 1+ H Crossmatch See Detail ASSESSMENT AND PLAN: 1. Symptomatic anemia due to GI bleeding - Severe microcytosis suggests he has been bleeding for a while. EGD in January 2018 showed gastric antral ulcers - alcoholic gastritis as well as effects of Xarelto may be causing bleeding. Xarelto being held and getting 2 units PRBC and Protonix 40 mg IV q 12 hours. Keep him NPO, consult GI and stop insulin pump. Going forward,will benefit from IV iron to replenish his iron stores. Will check lipase though no evidence of pancreatitis on CT scan. A hepatic mass was seen on CT scan as well as cholelithiasis - the mass will be followed up as outpatient. Though he gave a history of splenectomy, CT scan documents splenomagaly. Hyponatremia is likely multifactorial including poor solute intake , liver disease, alcoholism and physiologic increase in ADH with volume loss. Will restrict free water intake and monitor sodium q 12 hours - avoid a rapid rise. Check TSH. Will give IV lasix with transfusion - ECHO from 01/16/18 showed mildly reduced LV systolic function (EF 50%). CXR shows cardiomegaly, blunted left costophrenic angle, but no infiltrate. EKG shows afib with no significant ST-T wave changes. Will consult cardiology STAT - !! Xarelto is being held and he has cardiac stents. 2. DM - For now, we will hold insulin pump since he is NPO. Implement sliding scale insulin regimen. Provide comprehensive diabetes care with patient teaching and counseling about the importance of euglycemia, eye care and foot care. 3. Obesity - Will provide patient all the necessary assistance, counseling and positive reinforcement to facilitate weight loss. Consult dance artist. 4. Alcohol abuse - Implement [facility] alcohol withdrawal protocol, fall and aspiration precautions. Treat with thiamine and folic acid and monitor electrolytes (Ca,Mg,K,P). [employer] patient about abstaining from alcohol and refer to alcohol detox upon discharge. 5. DVT prophylaxis - SCD, TEDs 6. Advance directives - Full code
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
[2018-09-07] MEDS: INSULIN SLIDING SCALE (NOVOLOG) 1 VIAL SQ SCH (23:45)
[2018-09-08] MEDS ORDERED: INSULIN REGULAR HUMAN 100 UNITS/ML *VIAL ONE (00:23)
[2018-09-08] MEDS ORDERED: LORazepam 2 MG/ML SDV VIAL IVPUSH PRN (04:47)
[2018-09-08] MEDS ORDERED: FUROSEMIDE 40 MG/4 ML INJECTABLE VIAL IVPUSH ONE (04:55)
[2018-09-08 05:18] VITALS: BMI 36.1
[2018-09-08] MEDS: INSULIN SLIDING SCALE (NOVOLOG) 1 VIAL SQ SCH ×5 (05:31→23:29)
[2018-09-08 07:33] LABS: BASO % 1.4 % (0-2.0); EOS % 1.5 % (0-4.5); HEMATOCRIT 22.6 % (35.4-49); MCHC 29.9 g/dl (32.0-35.9); MEAN CELL VOLUME 64.7 fl (80-96); MEAN PLT VOLUME 8.9 fl (7.5-11.1); MONO % 13.2 % (3.8-10.2); NEUT % 67.9 % (42.8-82.8); PLATELET COUNT 202 K/MM3 (134-434); RBC 3.49 M/mm3 (4.00-5.60); RDW 20.4 % (11.9-15.9); WHITE BLOOD COUNT 6.8 K/mm3 (4.0-10.0)
[2018-09-08 07:45] LABS: MCH 19.4 pg (25.7-33.7)
[2018-09-08 07:46] LABS: HEMOGLOBIN 6.8 GM/dL (11.7-16.9)
[2018-09-08 07:49] LABS: INR 1.15 (0.83-1.09); PROTHROMBIN TIME (PATIENT) 13.6 SEC (9.7-13.0)
[2018-09-08 08:41] LABS: ALBUMIN 3.8 g/dl (3.4-5.0); ALK PHOS 95 U/L (45-117); ANION GAP 10 MMOL/L (8-16); BILIRUBIN,TOTAL 1.2 mg/dL (0.2-1); BLOOD UREA NITROGEN 24 mg/dL (7-18); CALCIUM 8.5 mg/dL (8.5-10.1); CHLORIDE 92 mmol/L (98-107); CO2 29 mmol/L (21-32); CREATININE 1.3 mg/dL (0.55-1.3); GLUCOSE,RANDOM 134 mg/dL (74-106); LIPASE 235 U/L (73-393); MAGNESIUM 2.5 mg/dL (1.8-2.4); PHOSPHOROUS 4.6 mg/dL (2.5-4.9); SGOT/AST 22 U/L (15-37); SGPT/ALT 21 U/L (13-61); SODIUM 130 mmol/L (136-145); TOT PROT 7.4 g/dl (6.4-8.2)
[2018-09-08] MEDS ORDERED: PT OWN MED DRAWER 7, Y5N ONE (08:50)
[2018-09-08] MEDS: POTASSIUM CHLORIDE TABS 20 MEQ TABLET.ER (FP) PO SCH (09:31)
[2018-09-08] MEDS: THIAMINE HCL 100 MG TABLET (FP) PO SCH (09:31)
[2018-09-08] MEDS: PANTOPRAZOLE SODIUM 40 MG VIAL IVPUSH SCH ×2 (09:32→21:49)
[2018-09-08] MEDS: FOLIC ACID 1 MG TABLET (FP) PO SCH (09:32)
[2018-09-08] MEDS: FERROUS SO4 325 MG TABLET (FP) PO SCH (09:32)
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
[2018-09-08] MEDS ORDERED: PANTOPRAZOLE SODIUM 40 MG VIAL IVPUSH SCH (10:00)
[2018-09-08] MEDS ORDERED: FUROSEMIDE 40 MG TABLET (FP) PO SCH (10:00)
[2018-09-08] MEDS ORDERED: LOSARTAN POTASSIUM 25 MG TABLET PO SCH (10:00)
[2018-09-08] MEDS ORDERED: PANTOPRAZOLE 40 MG TABLET (FP) PO SCH (10:00)
--- NOTE | 2018-09-08 11:32 | CON.GI ---
Consult Consult Specialty:: GI Reason for Consultation:: Iron deficiency anemia - History of Present Illness Chief Complaint: Hgb 5.5 History of Present Illness: 67 y.o. man admitted with increasing dyspnea, chest discomfort, found to have Hgb 5.5 with severely microcytic indices. Was evaluated here in January with anemia ; colonoscopy showed a few nonbleeding AVMs, EGD showed diffuse superficial ulceration/gastritis. Pt is on chronic Xarelto. He takes Aleve for back pain; when asked how many, he said "I take them like M&Ms". When asked how much alcohol he drinks, he answered "As much as I can." He is aware that both alcohol and Aleve increase his bleeding. He last saw his PCP, Dr Titus Zuniga, 6 months ago. - History Source History Provided By: Patient, Medical Record Limitations to Obtaining History: No Limitations - Past Medical History Cardio/Vascular: Yes: AFIB, CHF, HTN, Hyperlipdemia Psych: Yes: Addictions, Anxiety, Depression, Panic - Alcohol/Substance Use Hx Alcohol Use: Yes (2-3 times/week) History of Substance Use: reports: Prescription - Smoking History Smoking history: Never smoked Have you smoked in the past 12 months: No Aproximately how many cigarettes per day: 0 - Social History Usual Living Arrangement: With Spouse ADL: Independent Home Medications - Allergies Allergies/Adverse Reactions: Allergies Allergy/AdvReac Type Severity Reaction Status Date / Time No Known Drug Allergies Allergy Verified 09/07/18 17:22 shellfish derived Allergy Mouth Verified 09/07/18 17:22 swelling, eye swelling - Home Medications Home Medications: Ambulatory Orders Pravastatin Sodium 10 mg PO DAILY 06/30/16 Insulin Lispro [Humalog] 150 unit SQ DAILY vial 05/22/17 Furosemide [Lasix -] 40 mg PO DAILY #30 tablet 07/04/17 Losartan Potassium [Cozaar -] 25 mg PO DAILY #30 tablet 07/04/17 Potassium Chloride 20 meq PO DAILY #15 tablet.er 07/04/17 Hydrochlorothiazide 25 mg PO DAILY 01/15/18 Atorvastatin Ca [Lipitor] 10 mg PO HS tablet 01/18/18 Ferrous Sulfate [Feosol] 325 mg PO DAILY #30 tablet 01/18/18 Rivaroxaban [Xarelto -] 15 mg PO DAILY #30 tab 01/18/18 Metoprolol Succinate 100 mg PO DAILY 09/07/18 Physical Exam-GI Vital Signs: Vital Signs Temperature 98.1 F 09/08/18 05:00 Pulse Rate 104 H 09/08/18 05:00 Respiratory Rate 22 H 09/08/18 05:00 Blood Pressure 142/56 L 09/08/18 05:00 O2 Sat by Pulse Oximetry (%) 100 09/08/18 03:23 Cardiovascular: Yes: Pulse Irregular ...Rectal Exam: Yes: Deferred Labs: CBC, BMP 09/08/18 05:55 09/08/18 05:55 INR, PTT INR 1.15 (0.83-1.09) H 09/08/18 05:55 Imaging - Results Cat Scan: Report Reviewed, Image Reviewed Problem List - Problems (1) Anemia Code(s): D64.9 - ANEMIA, UNSPECIFIED Qualifiers: Anemia type: iron deficiency Iron deficiency anemia type: chronic blood loss Qualified Code(s): D50.0 - Iron deficiency anemia secondary to blood loss (chronic) (2) GI bleed Code(s): K92.2 - GASTROINTESTINAL HEMORRHAGE, UNSPECIFIED Qualifiers: GI bleed type/associated pathology: unspecified gastrointestinal hemorrhage type Qualified Code(s): K92.2 - Gastrointestinal hemorrhage, unspecified (3) Chronic alcohol abuse Code(s): F10.10 - ALCOHOL ABUSE, UNCOMPLICATED (4) Chronic anticoagulation Code(s): Z79.01 - SENIOR LIVING (CURRENT) USE OF ANTICOAGULANTS Assessment/Plan This 67 year old man has chronic GI blood loss secondary to antiplatelet therapy , NSAID abuse, alcohol abuse. He has known gastritis and intestinal angiodysplasia. I do not think it is safe for him to continue on anticoagulation. There is nothing to be gained now from a repeat GI investigation. I would recommend stopping Xarelto permanently. The risk of CVA with chronic AFib in his case is probably less than the risk of a massive GI bleed given his admitted noncompliance.
--- NOTE | 2018-09-08 12:51 | EKG ---
Test Reason : Blood Pressure : / mmHG Vent. Rate : 099 BPM Atrial Rate : 108 BPM P-R Int : 000 ms QRS Dur : 120 ms QT Int : 398 ms P-R-T Axes : 000 -42 090 degrees QTc Int : 510 ms ATRIAL FIBRILLATION WITH PREMATURE VENTRICULAR OR ABERRANTLY CONDUCTED COMPLEXES LEFT AXIS DEVIATION NON-SPECIFIC INTRA-VENTRICULAR CONDUCTION DELAY ABNORMAL ECG WHEN COMPARED WITH ECG OF 16-JAN-2018 09:20, NO SIGNIFICANT CHANGE WAS FOUND Confirmed by MD MINGO, YANA ([id number]) on 09/08/2018 12:50:45 PM Referred By: Confirmed By:YANA AGUILA MD
--- NOTE | 2018-09-08 13:01 | PN ---
Progress Note (short form) - Note Progress Note: Vital Signs Temperature 98.4 F 09/08/18 09:00 Pulse Rate 126 H 09/08/18 09:00 Respiratory Rate 22 H 09/08/18 09:00 Blood Pressure 125/76 09/08/18 09:00 O2 Sat by Pulse Oximetry (%) 99 09/08/18 09:00 GENERAL: Awake, alert, and fully oriented, on 2L NC HEAD: Normal with no signs of trauma. EYES: PERRLA, EOMI, sclera anicteric, conjunctiva clear. EARS, NOSE, THROAT: Ears normal, nares patent, oropharynx clear without exudates. Dry mucous membranes. NECK: Normal range of motion, supple without lymphadenopathy, JVD, or masses. LUNGS: Breath sounds equal, clear to auscultation bilaterally. HEART: Irregularly irregular without murmur, rub or gallop. ABDOMEN: Soft, +mild epigastric tenderness, mildly distended, normoactive bowel sounds, +hepatomegaly, Patient refused rectal exam MUSCULOSKELETAL: Normal range of motion at all joints. No bony deformities or tenderness. No CVA tenderness. EXTREMITIES: 2+ pulses, warm, well-perfused. No calf tenderness. No peripheral edema. NEUROLOGICAL: Cranial nerves II-XII intact. Normal speech. Normal gait. PSYCHIATRIC: Cooperative. Good eye contact. Appropriate mood and affect. SKIN: Warm, dry, normal turgor, no rashes or lesions noted. CBCD WBC 6.8 K/mm3 (4.0-10.0) 09/08/18 05:55 RBC 3.49 M/mm3 (4.00-5.60) L 09/08/18 05:55 Hgb 6.8 GM/dL (11.7-16.9) L* 09/08/18 05:55 Hct 22.6 % (35.4-49) L D 09/08/18 05:55 MCV 64.7 fl (80-96) L D 09/08/18 05:55 MCHC 29.9 g/dl (32.0-35.9) L 09/08/18 05:55 RDW 20.4 % (11.9-15.9) H 09/08/18 05:55 Plt Count 202 K/MM3 (134-434) 09/08/18 05:55 MPV 8.9 fl (7.5-11.1) 09/08/18 05:55 CMP Sodium 130 mmol/L (136-145) L 09/08/18 05:55 Potassium 4.0 mmol/L (3.5-5.1) 09/08/18 05:55 Chloride 92 mmol/L (98-107) L 09/08/18 05:55 Carbon Dioxide 29 mmol/L (21-32) 09/08/18 05:55 Anion Gap 10 MMOL/L (8-16) 09/08/18 05:55 BUN 24 mg/dL (7-18) H 09/08/18 05:55 Creatinine 1.3 mg/dL (0.55-1.3) 09/08/18 05:55 Creat Clearance w eGFR 55.23 (>60) 09/08/18 05:55 Random Glucose 134 mg/dL (74-106) H 09/08/18 05:55 Calcium 8.5 mg/dL (8.5-10.1) 09/08/18 05:55 Total Bilirubin 1.2 mg/dL (0.2-1) H 09/08/18 05:55 AST 22 U/L (15-37) 09/08/18 05:55 ALT 21 U/L (13-61) 09/08/18 05:55 Alkaline Phosphatase 95 U/L (45-117) 09/08/18 05:55 Total Protein 7.4 g/dl (6.4-8.2) 09/08/18 05:55 Albumin 3.8 g/dl (3.4-5.0) 09/08/18 05:55 CARDIAC ENZYMES Creatine Kinase 240 IU/L (26-308) 09/07/18 17:30 Troponin I 0.02 ng/ml (0.00-0.05) 09/07/18 17:30 Current Medications Generic Name Dose Route Start Last Admin Trade Name Freq PRN Reason Stop Dose Admin Atorvastatin Calcium 10 mg 09/08/18 22:00 Lipitor - PO HS [facility] Ferrous Sulfate 325 mg 09/08/18 10:00 09/08/18 09:32 Feosol - PO 325 mg DAILY [facility] Administration Folic Acid 1 mg 09/08/18 10:00 09/08/18 09:32 Folic Acid - PO 1 mg DAILY [facility] Administration Insulin Aspart 1 vial 09/08/18 06:00 09/08/18 12:36 Novolog Vial Sliding Scale - SQ Not Given Q6HPO [facility] Protocol Lorazepam 1 mg 09/08/18 04:47 Ativan Injection - IVPUSH Q6H PRN WITHDRAWAL(CONT SUBST) Metoprolol Succinate 100 mg 09/08/18 10:00 09/08/18 09:32 Toprol Xl - PO 100 mg DAILY [facility] Administration Pantoprazole Sodium 40 mg 09/08/18 10:00 09/08/18 09:32 Protonix Iv IVPUSH 40 mg BID [facility] Administration Potassium Chloride 20 meq 09/08/18 10:00 09/08/18 09:31 K-Dur - PO 20 meq DAILY [facility] Administration Thiamine HCl 100 mg 09/08/18 10:00 09/08/18 09:31 Vitamin B1 - PO 100 mg DAILY [facility] Administration Home Medications Medication Instructions Recorded Pravastatin Sodium 10 mg PO DAILY 06/30/16 Insulin Lispro [Humalog] 150 unit SQ DAILY vial 05/22/17 Furosemide [Lasix -] 40 mg PO DAILY #30 tablet 07/04/17 Losartan Potassium [Cozaar -] 25 mg PO DAILY #30 tablet 07/04/17 Potassium Chloride 20 meq PO DAILY #15 tablet.er 07/04/17 Hydrochlorothiazide 25 mg PO DAILY 01/15/18 Atorvastatin Ca [Lipitor] 10 mg PO HS tablet 01/18/18 Ferrous Sulfate [Feosol] 325 mg PO DAILY #30 tablet 01/18/18 Rivaroxaban [Xarelto -] 15 mg PO DAILY #30 tab 01/18/18 Metoprolol Succinate 100 mg PO DAILY 09/07/18 Laboratory Tests 09/08/18 09/08/18 05:55 05:55 Sodium 130 L Hemoglobin A1c % 5.5 Magnesium 2.5 H Total Bilirubin 1.2 H Lipase 235 TSH 1.28 D -CT AP: hepatic cirrhosis with ?splenomegaly. R inferior hepatic lobe hypodense lesion -?blood, ? hepatoma. Cholelithiasis. Small umbilical hernia, small bilateral inguinal hernia. Infrarenal IVC filter. Cardiomegaly. Dilated main pulmonary artery suggestive of increased pulmonary artery pressure. Partial imaging of calcified mediastinal LN suggesting prior granulomatous disease. A/P: Patient is a 67 year old male with PMHx of A.Fib (on xarelto), systolic and diastolic CHF, HTN, DM, HLD, Parkinson's, chronic EtOH abuse, presented with worsening epigastric pain and abdominal bloating, with diarrhea, hematochezia and dyspnea on exertion that started about 2 weeks ago. #Acute epigastric pain due to alcohol dependency r/o PUD will place him on Protonix iv bid, EGD (01/2018) small non-bleeding ulcers in the gastric antrum, mild gastritis. rule out ACS. Trop 0.[address]-T wave changes on EKG. GI ( Dr. Mcarthur) consulted. #Dyspnea on exertion: due GI bleed, will discontinue xarelto as per GI to discontinue xarelto ; bleeding is a higher risk than stroke due to afib #Atrial fibrillation with CHADS VASc -6 , discontiue Xarelto #Chronic EtOH abuse: on Librium protocol, Thiamine 100mg daily, Folic acid 1 mg daily #Acute Hyponatremia: hold lasix for now Na 129->130 will monitor #Diastolic/Systolic CHF: Hold Lasix for now. 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 - New Patient This patient is new to me today: Yes Date on this admission: 09/08/18 - Critical Care Critical Care patient: No - Discharge Referral Referred to [facility] Med P.C.: No
--- NOTE | 2018-09-08 18:30 | CONSULT ---
Consult Consult Specialty:: Hematology Referred by:: Medicine Reason for Consultation:: Anemia - History of Present Illness Chief Complaint: Anemia History of Present Illness: Patient admitted for severe anemia, secondary to GI bleed, while anticoagulated on Xarelto (for A fib). Verified admitting history as below: Patient is a 67 year old male with past medical history of A. Fib (on xarelto), systolic and diastolic CHF, HTN, DM, HLD, Parkinson's, chronic EtOH abuse, presented with worsening epigastric pain and abdominal bloating, accompanied by diarrhea, bright red blood per rectum and dyspnea on exertion that started about 2 weeks ago. Patient reported he has started to notice abdominal bloating , noting increased pants size, as well as intermittent, epigastric pain. He also reports 4-5 episodes of loose stools per day since 2 weeks ago, as well noting bright red blood when he wipes. Patient also reports having progressive dyspnea on exertion, that started about the same time. He has weakness and intermittent palpitations as well. Denies fever, chills, headache, dizziness, nausea, vomiting, hematuria, dysuria. Patient was admitted in 01/2018 for symptoms of GI bleeding and chest pain. EGD was done which showed small nonbleeding ulcers in the gastric antrum and mild gastritis. Echo and stress were done as well. Since that admission, GI bleed had resolved, but patient reports he has experienced the same symptoms of abdominal bloating, SOB, weakness, and palpitations, intermittently, but noted worsening of these the past couple of weeks. Patient never followed up with GI and Cardiology as outpatient. - History Source History Provided By: Patient, Medical Record Limitations to Obtaining History: No Limitations - Past Medical History Cardio/Vascular: Yes: AFIB, CHF, HTN, Hyperlipdemia Psych: Yes: Addictions, Anxiety, Depression, Panic - Alcohol/Substance Use Hx Alcohol Use: Yes (2-3 times/week) History of Substance Use: reports: Prescription - Smoking History Smoking history: Never smoked Have you smoked in the past 12 months: No Aproximately how many cigarettes per day: 0 - Social History Usual Living Arrangement: With Spouse ADL: Independent Home Medications - Allergies Allergies/Adverse Reactions: Allergies Allergy/AdvReac Type Severity Reaction Status Date / Time No Known Drug Allergies Allergy Verified 09/07/18 17:22 shellfish derived Allergy Mouth Verified 09/07/18 17:22 swelling, eye swelling - Home Medications Home Medications: Ambulatory Orders Pravastatin Sodium 10 mg PO DAILY 06/30/16 Insulin Lispro [Humalog] 150 unit SQ DAILY vial 05/22/17 Furosemide [Lasix -] 40 mg PO DAILY #30 tablet 07/04/17 Losartan Potassium [Cozaar -] 25 mg PO DAILY #30 tablet 07/04/17 Potassium Chloride 20 meq PO DAILY #15 tablet.er 07/04/17 Hydrochlorothiazide 25 mg PO DAILY 01/15/18 Atorvastatin Ca [Lipitor] 10 mg PO HS tablet 01/18/18 Ferrous Sulfate [Feosol] 325 mg PO DAILY #30 tablet 01/18/18 Rivaroxaban [Xarelto -] 15 mg PO DAILY #30 tab 01/18/18 Metoprolol Succinate 100 mg PO DAILY 09/07/18 Review of Systems - Review of Systems Constitutional: reports: Weakness Cardiovascular: reports: Shortness of Breath. denies: Chest Pain Respiratory: reports: Exercise Intolerance Gastrointestinal: reports: Melena. denies: Vomiting Blood Genitourinary: denies: Hematuria Neurological: reports: No Symptoms Hematology/Lymphatic: denies: Excessive Bleeding Physical Exam Vital Signs: Vital Signs Temperature 98.2 F 09/08/18 14:46 Pulse Rate 126 H 09/08/18 14:46 Respiratory Rate 18 09/08/18 14:46 Blood Pressure 127/66 09/08/18 14:46 O2 Sat by Pulse Oximetry (%) 99 09/08/18 09:00 Constitutional: Yes: Well Nourished. No: No Distress, Anxious Eyes: Yes: Conjunctiva Clear HENT: Yes: Atraumatic Neck: Yes: Supple, Trachea Midline Cardiovascular: Yes: Regular Rate and Rhythm, S1, S2. No: Gallop, Murmur Respiratory: Yes: Regular, CTA Bilaterally Gastrointestinal: Yes: Normal Bowel Sounds, Soft, Abdomen, Obese. No: Splenomegaly Edema: No Integumentary: Yes: WNL Neurological: Yes: Alert, Oriented. No: Unsteady Gait ...Motor Strength: WNL Psychiatric: Yes: Alert, Oriented. No: Agitated Labs: CBC, BMP 09/08/18 05:55 09/08/18 05:55 Assessment/Plan Patient presenting with marked iron deficiency anemia, secondary to GI bleed, likely gastric source, exacerbated by use of anticoagulation for A fib. Apparently similar episode several months ago. Anticoagulation presently held, appropriately. Decision regarding resumption of anticoagulation to be determined jointly by GI and cardiology - risk vs benefit. Presumably gastric bleeding risk factors can be controlled. Risk of bleeding from AVMs however will presumably be a constant. From a hematological point of view, would note that risk GI hemorrhage in the DOAC registration trials appeared to less with apixaban than with rivaroxaban. Reasonable to transfuse to threshold of 7. Thereafter would abet Hb recovery with IV iron while admitted, and oral iron when discharged.
[2018-09-08] MEDS: ATORVASTATIN CA 10 MG TABLET (FP) PO SCH (21:49)
[2018-09-09] MEDS: INSULIN SLIDING SCALE (NOVOLOG) 1 VIAL SQ SCH ×4 (06:12→23:12)
[2018-09-09 06:49] LABS: HEMATOCRIT 24.5 % (35.4-49); HEMOGLOBIN 7.5 GM/dL (11.7-16.9); MCH 20.4 pg (25.7-33.7); MCHC 30.7 g/dl (32.0-35.9); MEAN CELL VOLUME 66.4 fl (80-96); MEAN PLT VOLUME 9.1 fl (7.5-11.1); PLATELET COUNT 216 K/MM3 (134-434); RBC 3.68 M/mm3 (4.00-5.60)
[2018-09-09] MEDS: POTASSIUM CHLORIDE TABS 20 MEQ TABLET.ER (FP) PO SCH (09:06)
[2018-09-09] MEDS: THIAMINE HCL 100 MG TABLET (FP) PO SCH (09:06)
[2018-09-09] MEDS: FOLIC ACID 1 MG TABLET (FP) PO SCH (09:06)
[2018-09-09] MEDS: FERROUS SO4 325 MG TABLET (FP) PO SCH (09:06)
[2018-09-09] MEDS: PANTOPRAZOLE SODIUM 40 MG VIAL IVPUSH SCH ×2 (09:09→21:13)
--- NOTE | 2018-09-09 10:21 | PN ---
Physical Exam: SUBJECTIVE: Patient seen and examined. he is feeling good today, no overnight complaints, expressed interest in stopping abusing alcohol. OBJECTIVE: Vital Signs Period Temp Pulse Resp BP Sys/Varma Pulse Ox Last 24 Hr 97.8 F-98.2 F 83-126 18-18 117-130/66-74 98 GENERAL: The patient is awake, alert, and fully oriented, in no acute distress. HEAD: Normal with no signs of trauma. EYES: Extraocular movements intact, sclera anicteric, conjunctiva clear. ENT: moist mucous membranes. NECK: Trachea midline, full range of motion, supple. LUNGS: Breath sounds equal, clear to auscultation bilaterally, no wheezes, no crackles, no accessory muscle use. HEART: Regular rate and rhythm, S1, S2 without murmur, rub or gallop. ABDOMEN: Obese, soft, nontender, nondistended, normoactive bowel sounds, no guarding, no rebound. EXTREMITIES: no edema. NEUROLOGICAL: Non focal, slightly slurred speech, gait not observed. PSYCH: Normal mood, normal affect. SKIN: Warm, dry, normal turgor, no rashes or lesions noted Laboratory Results - last 24 hr 09/08/18 09/08/18 09/08/18 12:33 17:09 23:08 WBC RBC Hgb Hct MCV MCH MCHC RDW Plt Count MPV POC Glucometer 168 180 180 09/09/18 09/09/18 05:24 05:55 WBC 9.0 RBC 3.68 L Hgb 7.5 L Hct 24.5 L MCV 66.4 L MCH 20.4 L MCHC 30.7 L RDW 22.0 H Plt Count 216 MPV 9.1 POC Glucometer 199 Active Medications Generic Name Dose Route Start Last Admin Trade Name Freq PRN Reason Stop Dose Admin Atorvastatin Calcium 10 mg 09/08/18 22:00 09/08/18 21:49 Lipitor - PO 10 mg HS [facility] Administration Ferrous Sulfate 325 mg 09/08/18 10:00 09/09/18 09:06 Feosol - PO 325 mg DAILY [facility] Administration Folic Acid 1 mg 09/08/18 10:00 09/09/18 09:06 Folic Acid - PO 1 mg DAILY [facility] Administration Insulin Aspart 1 vial 09/08/18 06:00 09/09/18 06:12 Novolog Vial Sliding Scale - SQ Not Given Q6HPO [facility] Protocol Lorazepam 1 mg 09/08/18 04:47 Ativan Injection - IVPUSH Q6H PRN WITHDRAWAL(CONT SUBST) Metoprolol Succinate 100 mg 09/08/18 10:00 09/09/18 09:09 Toprol Xl - PO 100 mg DAILY [facility] Administration Pantoprazole Sodium 40 mg 09/08/18 10:00 09/09/18 09:09 Protonix Iv IVPUSH 40 mg BID [facility] Administration Potassium Chloride 20 meq 09/08/18 10:00 09/09/18 09:06 K-Dur - PO 20 meq DAILY [facility] Administration Thiamine HCl 100 mg 09/08/18 10:00 09/09/18 09:06 Vitamin B1 - PO 100 mg DAILY [facility] Administration ASSESSMENT/PLAN: Patient is a 67 year old male with past medical history of A. Fib (on xarelto), CHF, HTN, DM, HLD, Parkinson's, EtOH abuse, presented with epigastric pain and diarrhea, hematochezia and dyspnea on exertion. Epigastric pain likely due to acute gastritis, PUD, resolved -EGD (01/2018) small non-bleeding ulcers in the gastric antrum, mild gastritis -CT AP: hepatic cirrhosis with splenomegaly -Protonix 40mg IV BID -GI consulted, will f/u recommendations Dyspnea on exertion -resolved -likely due to anemia, GI bleed -Hgb 5.5, Hct 18.1, MCV 60.7 on admission, stable now Hg 7.5 -Received 3 units of PRBCs -Xarelto stopped permanently as per GI and Cardio recommendations -tolerating diet well Atrial fibrillation -EKG: atrial fibrillation with no significant ST-T wave changes -f/u Cardiology recommendations -not on Xarelto EtOH abuse -no signs of withdrawal today, alcohol abstinence counseling provided -Thiamine 100mg daily -Folic acid 1 mg daily Hypokalemia -resolved Hyponatremia resolved Diastolic/Systolic CHF Echo and stress test done 01/2018: EF 48%, dilated LV, no signs of ischemia -Hold Lasix Hypertension -Toprol XL Hyperlipidemia -Continue home Pravastatin 10mg Po HS IDDM -Insulin sliding scale ACHS -BGM ACHS FEN -No -no changes -calorie controlled diet Prophylaxis -SCDs/TEDs -Hold Xarelto -Protonix 40mg BID Disposition tele Problem List - Problems (1) Anemia Code(s): D64.9 - ANEMIA, UNSPECIFIED Qualifiers: Anemia type: iron deficiency Iron deficiency anemia type: chronic blood loss Qualified Code(s): D50.0 - Iron deficiency anemia secondary to blood loss (chronic) (2) GI bleed Code(s): K92.2 - GASTROINTESTINAL HEMORRHAGE, UNSPECIFIED Qualifiers: GI bleed type/associated pathology: unspecified gastrointestinal hemorrhage type Qualified Code(s): K92.2 - Gastrointestinal hemorrhage, unspecified (3) SOB (shortness of breath) Code(s): R06.02 - SHORTNESS OF BREATH (4) Chronic alcohol abuse Code(s): F10.10 - ALCOHOL ABUSE, UNCOMPLICATED (5) HTN (hypertension) Code(s): I10 - ESSENTIAL (PRIMARY) HYPERTENSION (6) Obesity Code(s): E66.9 - OBESITY, UNSPECIFIED (7) Sleep apnea Code(s): G47.30 - SLEEP APNEA, UNSPECIFIED (8) Atrial fibrillation Code(s): I48.91 - UNSPECIFIED ATRIAL FIBRILLATION Qualifiers: Atrial fibrillation type: unspecified Qualified Code(s): I48.91 - Unspecified atrial fibrillation (9) Diabetes Code(s): E11.9 - TYPE 2 DIABETES MELLITUS WITHOUT COMPLICATIONS Visit type - Emergency Visit Emergency Visit: Yes ED Registration Date: 09/07/18 Care time: The patient presented to the Emergency Department on the above date and was hospitalized for further evaluation of their emergent condition. - New Patient This patient is new to me today: Yes Date on this admission: 09/09/18 - Critical Care Critical Care patient: No - Discharge Referral Referred to [facility] Med P.C.: No
[2018-09-09 12:32] LABS: CHOLESTEROL 121 mg/dL (50-200); HDL CHOLESTEROL 46 mg/dL (40-60); TRIGLYCERIDES 55 mg/dL (0-150)
--- NOTE | 2018-09-09 13:24 | PN ---
Progress Note (short form) - Note Progress Note: Patient seen in follow up. No new complaints. No acute events overnight. Inpatient Meds reviewed. Current Medications Generic Name Dose Route Start Last Admin Trade Name Pritesh PRN Reason Stop Dose Admin Atorvastatin Calcium 10 mg 09/08/18 22:00 09/08/18 21:49 Lipitor - PO 10 mg HS [facility] Administration Ferrous Sulfate 325 mg 09/08/18 10:00 09/09/18 09:06 Feosol - PO 325 mg DAILY [facility] Administration Folic Acid 1 mg 09/08/18 10:00 09/09/18 09:06 Folic Acid - PO 1 mg DAILY [facility] Administration Insulin Aspart 1 vial 09/08/18 06:00 09/09/18 11:59 Novolog Vial Sliding Scale - SQ Not Given Q6HPO [facility] Protocol Lorazepam 1 mg 09/08/18 04:47 Ativan Injection - IVPUSH Q6H PRN WITHDRAWAL(CONT SUBST) Metoprolol Succinate 100 mg 09/08/18 10:00 09/09/18 09:09 Toprol Xl - PO 100 mg DAILY [facility] Administration Pantoprazole Sodium 40 mg 09/08/18 10:00 09/09/18 09:09 Protonix Iv IVPUSH 40 mg BID [facility] Administration Potassium Chloride 20 meq 09/08/18 10:00 09/09/18 09:06 K-Dur - PO 20 meq DAILY [facility] Administration Thiamine HCl 100 mg 09/08/18 10:00 09/09/18 09:06 Vitamin B1 - PO 100 mg DAILY [facility] Administration On Examination: Last Vital Signs Temp Pulse Resp BP Pulse Ox 98.3 F 96 H 18 122/66 98 09/09/18 10:00 09/09/18 10:00 09/09/18 10:00 09/09/18 10:00 09/09/18 10:00 General: In no acute distress, Sitting at bedside. Obese. Extremities: No pallor or icterus. No pedal edema. Chest: breathing comfortably Neuro: Alert, oriented, non-focal. Labs: CBC, BMP 09/09/18 05:55 09/08/18 05:55 Assessment. Hb improved following transfusion. Will likely still have an estimated iron deficit of >1.5g. Agree with oral iron supplementation. While admitted would be reasonable to administer IV iron.
[2018-09-09] MEDS ORDERED: IRON SUCROSE INJECTION 200 MG in SODIUM CHLORIDE 90 ML IVPB ONE (13:30)
--- NOTE | 2018-09-09 17:47 | PN ---
Teaching Attending Note Name of Resident: Khushbu Lin ATTENDING PHYSICIAN STATEMENT I saw and evaluated the patient. I reviewed the resident's note and discussed the case with the resident. I agree with the resident's findings and plan as documented. SUBJECTIVE: Patient is comfrotable with no acute distress. OBJECTIVE: Vital Signs Temperature 98 F 09/09/18 15:51 Pulse Rate 88 09/09/18 15:51 Respiratory Rate 20 09/09/18 15:51 Blood Pressure 132/66 09/09/18 15:51 O2 Sat by Pulse Oximetry (%) 98 09/09/18 10:00 GENERAL: Awake, alert, and fully oriented, on 2L NC HEAD: Normal with no signs of trauma. EYES: PERRLA, EOMI, sclera anicteric, conjunctiva clear. EARS, NOSE, THROAT: Ears normal, nares patent, oropharynx clear without exudates. Dry mucous membranes. NECK: Normal range of motion, supple without lymphadenopathy, JVD, or masses. LUNGS: Breath sounds equal, clear to auscultation bilaterally. HEART: Irregularly irregular without murmur, rub or gallop. ABDOMEN: Soft, +mild epigastric tenderness, mildly distended, normoactive bowel sounds, +hepatomegaly, Patient refused rectal exam MUSCULOSKELETAL: Normal range of motion at all joints. No bony deformities or tenderness. No CVA tenderness. EXTREMITIES: 2+ pulses, warm, well-perfused. No calf tenderness. No peripheral edema. NEUROLOGICAL: Cranial nerves II-XII intact. Normal speech. Normal gait. PSYCHIATRIC: Cooperative. Good eye contact. Appropriate mood and affect. SKIN: Warm, dry, normal turgor, no rashes or lesions noted. CBCD WBC 9.0 K/mm3 (4.0-10.0) 09/09/18 05:55 RBC 3.68 M/mm3 (4.00-5.60) L 09/09/18 05:55 Hgb 7.5 GM/dL (11.7-16.9) L 09/09/18 05:55 Hct 24.5 % (35.4-49) L 09/09/18 05:55 MCV 66.4 fl (80-96) L 09/09/18 05:55 MCHC 30.7 g/dl (32.0-35.9) L 09/09/18 05:55 RDW 22.0 % (11.9-15.9) H 09/09/18 05:55 Plt Count 216 K/MM3 (134-434) 09/09/18 05:55 MPV 9.1 fl (7.5-11.1) 09/09/18 05:55 CMP Sodium 130 mmol/L (136-145) L 09/08/18 05:55 Potassium 4.0 mmol/L (3.5-5.1) 09/08/18 05:55 Chloride 92 mmol/L (98-107) L 09/08/18 05:55 Carbon Dioxide 29 mmol/L (21-32) 09/08/18 05:55 Anion Gap 10 MMOL/L (8-16) 09/08/18 05:55 BUN 24 mg/dL (7-18) H 09/08/18 05:55 Creatinine 1.3 mg/dL (0.55-1.3) 09/08/18 05:55 Creat Clearance w eGFR 55.23 (>60) 09/08/18 05:55 Random Glucose 134 mg/dL (74-106) H 09/08/18 05:55 Calcium 8.5 mg/dL (8.5-10.1) 09/08/18 05:55 Total Bilirubin 1.2 mg/dL (0.2-1) H 09/08/18 05:55 AST 22 U/L (15-37) 09/08/18 05:55 ALT 21 U/L (13-61) 09/08/18 05:55 Alkaline Phosphatase 95 U/L (45-117) 09/08/18 05:55 Total Protein 7.4 g/dl (6.4-8.2) 09/08/18 05:55 Albumin 3.8 g/dl (3.4-5.0) 09/08/18 05:55 CARDIAC ENZYMES Creatine Kinase 240 IU/L (26-308) 09/07/18 17:30 Troponin I 0.02 ng/ml (0.00-0.05) 09/07/18 17:30 Current Medications Generic Name Dose Route Start Last Admin Trade Name Freq PRN Reason Stop Dose Admin Atorvastatin Calcium 10 mg 09/08/18 22:00 09/08/18 21:49 Lipitor - PO 10 mg HS LAINEY Administration Ferrous Sulfate 325 mg 09/08/18 10:00 09/09/18 09:06 Feosol - PO 325 mg DAILY LAINEY Administration Folic Acid 1 mg 09/08/18 10:00 09/09/18 09:06 Folic Acid - PO 1 mg DAILY LAINEY Administration Insulin Aspart 1 vial 09/08/18 06:00 09/09/18 17:16 Novolog Vial Sliding Scale - SQ Not Given Q6HPO LAINEY Protocol Lorazepam 1 mg 09/08/18 04:47 Ativan Injection - IVPUSH Q6H PRN WITHDRAWAL(CONT SUBST) Metoprolol Succinate 100 mg 09/08/18 10:00 09/09/18 09:09 Toprol Xl - PO 100 mg DAILY LAINEY Administration Pantoprazole Sodium 40 mg 09/08/18 10:00 09/09/18 09:09 Protonix Iv IVPUSH 40 mg BID LAINEY Administration Potassium Chloride 20 meq 09/08/18 10:00 09/09/18 09:06 K-Dur - PO 20 meq DAILY LAINEY Administration Thiamine HCl 100 mg 09/08/18 10:00 09/09/18 09:06 Vitamin B1 - PO 100 mg DAILY LAINEY Administration Home Medications Medication Instructions Recorded Pravastatin Sodium 10 mg PO DAILY 06/30/16 Insulin Lispro [Humalog] 150 unit SQ DAILY vial 05/22/17 Furosemide [Lasix -] 40 mg PO DAILY #30 tablet 07/04/17 Losartan Potassium [Cozaar -] 25 mg PO DAILY #30 tablet 07/04/17 Potassium Chloride 20 meq PO DAILY #15 tablet.er 07/04/17 Hydrochlorothiazide 25 mg PO DAILY 01/15/18 Atorvastatin Ca [Lipitor] 10 mg PO HS tablet 01/18/18 Ferrous Sulfate [Feosol] 325 mg PO DAILY #30 tablet 01/18/18 Rivaroxaban [Xarelto -] 15 mg PO DAILY #30 tab 01/18/18 Metoprolol Succinate 100 mg PO DAILY 09/07/18 CT AP: hepatic cirrhosis with ?splenomegaly. R inferior hepatic lobe hypodense lesion -?blood, ? hepatoma. Cholelithiasis. Small umbilical hernia, small bilateral inguinal hernia. Infrarenal IVC filter. Cardiomegaly. Dilated main pulmonary artery suggestive of increased pulmonary artery pressure. Partial imaging of calcified mediastinal LN suggesting prior granulomatous disease. ASSESSMENT AND PLAN: Patient is a 67 year old male with PMHx of A.Fib (on xarelto), systolic and diastolic CHF, HTN, DM, HLD, Parkinson's, chronic EtOH abuse, presented with worsening epigastric pain and abdominal bloating, with diarrhea, hematochezia and dyspnea on exertion that started about 2 weeks ago. #Acute epigastric pain due to alcohol dependency questionable PUD will place him on Protonix iv bid, EGD (01/2018) small non-bleeding ulcers in the gastric antrum, mild gastritis. Acs is rulled out. Trop 0.[address]-T wave changes on EKG. GI (Dr. Mcarthur) consulted. #Dyspnea on exertion: due GI bleed, will discontinue xarelto as per GI to discontinue xarelto ; bleeding is a higher risk than stroke due to afib #Atrial fibrillation with CHADS VASc -6 , discontiue Xarelto #Chronic EtOH abuse: on Librium protocol, Thiamine 100mg daily, Folic acid 1 mg daily #Acute Hyponatremia: hold lasix for now Na 129->130 will monitor #Diastolic/Systolic CHF: Hold Lasix for now. 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
[2018-09-09] MEDS: ATORVASTATIN CA 10 MG TABLET (FP) PO SCH (21:13)
[2018-09-10] MEDS: INSULIN SLIDING SCALE (NOVOLOG) 1 VIAL SQ SCH ×3 (06:01→17:09)
[2018-09-10 06:38] LABS: HEMATOCRIT 24.7 % (35.4-49); MCH 21.6 pg (25.7-33.7); MCHC 32.5 g/dl (32.0-35.9); MEAN CELL VOLUME 66.6 fl (80-96); MEAN PLT VOLUME 9.4 fl (7.5-11.1); PLATELET COUNT 240 K/MM3 (134-434); RDW 21.8 % (11.9-15.9); WHITE BLOOD COUNT 8.3 K/mm3 (4.0-10.0)
[2018-09-10 07:21] LABS: ALBUMIN 3.8 g/dl (3.4-5.0); ALK PHOS 104 U/L (45-117); ANION GAP 6 MMOL/L (8-16); BILIRUBIN,TOTAL 0.8 mg/dL (0.2-1); BLOOD UREA NITROGEN 20 mg/dL (7-18); CALCIUM 8.4 mg/dL (8.5-10.1); CHLORIDE 97 mmol/L (98-107); CO2 31 mmol/L (21-32); CREATININE 1.3 mg/dL (0.55-1.3); GLUCOSE,RANDOM 118 mg/dL (74-106); MAGNESIUM 2.5 mg/dL (1.8-2.4); PHOSPHOROUS 5.2 mg/dL (2.5-4.9); POTASSIUM 3.9 mmol/L (3.5-5.1); SGOT/AST 20 U/L (15-37); SGPT/ALT 24 U/L (13-61); SODIUM 135 mmol/L (136-145); TOT PROT 7.4 g/dl (6.4-8.2)
[2018-09-10] MEDS: THIAMINE HCL 100 MG TABLET (FP) PO SCH (09:27)
[2018-09-10] MEDS: FOLIC ACID 1 MG TABLET (FP) PO SCH (09:28)
[2018-09-10] MEDS: POTASSIUM CHLORIDE TABS 20 MEQ TABLET.ER (FP) PO SCH (09:28)
[2018-09-10] MEDS: FERROUS SO4 325 MG TABLET (FP) PO SCH (09:28)
[2018-09-10] MEDS: PANTOPRAZOLE SODIUM 40 MG VIAL IVPUSH SCH ×2 (09:28→21:35)
--- NOTE | 2018-09-10 13:17 | PN ---
Progress Note, Physician History of Present Illness: 67 year old male with past medical history significant for atrial fibrillation on Xarelto, AHA/ACC Stage C Heart Failure (EF 48%), alcohol dependence admitted with bright red blood per rectum and dyspnea on exertion found to have Hgb 5.5 admitted for further workup. Patient in usual state of health until 2 weeks prior to admission he states he had abdominal discomfort/bloating, BRBPR and shortness of breath with exertion. Had a similar episode in January 2018 where he was admitted for a GI bleed and an EGD revealed gastritis with nonbleeding ulcers. Experienced intermittent palpitations. In ED, patient hemodynamically stable in atrial fibrillation with RVR, troponin negative, CXR without edema, BNP 500s. He has given 2U pRBCs, IV PPI and 500cc bolus and admitted for further management. Cardiology consulted for management of AC. - Current Medication List Current Medications: Active Medications Atorvastatin Calcium (Lipitor -) 10 mg PO HS [facility] Last Admin: 09/09/18 21:13 Dose: 10 mg Ferrous Sulfate (Feosol -) 325 mg PO DAILY [facility] Last Admin: 09/10/18 09:28 Dose: 325 mg Folic Acid (Folic Acid -) 1 mg PO DAILY [facility] Last Admin: 09/10/18 09:28 Dose: 1 mg Insulin Aspart (Novolog Vial Sliding Scale -) 1 vial SQ Q6HPO [facility]; Protocol Last Admin: 09/10/18 11:29 Dose: Not Given Lorazepam (Ativan Injection -) 1 mg IVPUSH Q6H PRN PRN Reason: WITHDRAWAL(CONT SUBST) Metoprolol Succinate (Toprol Xl -) 100 mg PO DAILY [facility] Last Admin: 09/10/18 09:28 Dose: 100 mg Pantoprazole Sodium (Protonix Iv) 40 mg IVPUSH BID [facility] Last Admin: 09/10/18 09:28 Dose: 40 mg Potassium Chloride (K-Dur -) 20 meq PO DAILY [facility] Last Admin: 09/10/18 09:28 Dose: 20 meq Thiamine HCl (Vitamin B1 -) 100 mg PO DAILY [facility] Last Admin: 09/10/18 09:27 Dose: 100 mg - Objective Vital Signs: Vital Signs Temperature 98.2 F 09/10/18 10:00 Pulse Rate 93 H 09/10/18 10:00 Respiratory Rate 20 09/10/18 10:00 Blood Pressure 131/68 09/10/18 10:00 O2 Sat by Pulse Oximetry (%) 95 09/10/18 09:00 Eyes: Yes: WNL, Conjunctiva Clear, EOM Intact HENT: Yes: WNL, Atraumatic, Normocephalic Neck: Yes: WNL, Supple, Trachea Midline Cardiovascular: Yes: Pulse Irregular, JVD, S1, S2 Respiratory: Yes: WNL, Regular, CTA Bilaterally Gastrointestinal: Yes: WNL, Normal Bowel Sounds Genitourinary: Yes: WNL Musculoskeletal: Yes: WNL Extremities: Yes: WNL Edema: Yes Integumentary: Yes: WNL Neurological: Yes: WNL, Alert, Oriented ...Motor Strength: WNL Psychiatric: Yes: WNL Labs: CBC, BMP 09/10/18 06:00 09/10/18 06:00 INR, PTT INR 1.15 (0.83-1.09) H 09/08/18 05:55 Assessment/Plan A/P: 67 year old male with past medical history significant for atrial fibrillation on Xarelto, AHA/ACC Stage C Heart Failure (EF 48%), alcohol dependence admitted with bright red blood per rectum and dyspnea on exertion found to have Hgb 5.5 admitted for further workup -HCT stable 24. #Atrial Fibrillation; [id number] Score: 4 Rate: continue metoprolol succinate for now (hold if becomes hypotensive) AC: hold as having an active GIB, resume once bleeding stopped, deemed appropriate from GI standpoint and patient hemodynamically stable --future options include apixaban or EP referral for potential watchman device #AHA/ACC Stage C HF; hold anti-HTN medications for now given active GI bleed --if blood pressure >160, please resume home losartan #HTN; as above, if BP>160 can resume home losartan (should be stopped if ongoing bleeding or hypotensive) #HL; continue atorvastatin
--- NOTE | 2018-09-10 17:59 | PN ---
Physical Exam: SUBJECTIVE: Patient seen and examined at bedside this morning. No acute events overnight. Patient has no new complaints. Denies fever, chills, nausea, vomiting , abdominal pain, blood stools. Denies chest pain, shortness of breath, palpitations. OBJECTIVE: Vital Signs Temperature 98.6 F 09/10/18 14:00 Pulse Rate 83 09/10/18 14:00 Respiratory Rate 20 09/10/18 14:00 Blood Pressure 115/73 09/10/18 14:00 O2 Sat by Pulse Oximetry (%) 95 09/10/18 09:00 GENERAL: Awake, alert, and fully oriented, not in acute distress HEAD: Normal with no signs of trauma. EYES: PERRLA, EOMI, sclera anicteric, conjunctiva clear. EARS, NOSE, THROAT: Ears normal, nares patent, oropharynx clear without exudates. Dry mucous membranes. NECK: Normal range of motion, supple without lymphadenopathy, JVD, or masses. LUNGS: Breath sounds equal, clear to auscultation bilaterally. HEART: Irregularly irregular without murmur, rub or gallop. ABDOMEN: Soft,nontender, mildly distended, normoactive bowel sounds, + hepatomegaly MUSCULOSKELETAL: Normal range of motion at all joints. No bony deformities or tenderness. No CVA tenderness. UPPER EXTREMITIES: 2+ pulses, warm, well-perfused. No cyanosis. No clubbing. No peripheral edema. LOWER EXTREMITIES: 2+ pulses, warm, well-perfused. No calf tenderness. No peripheral edema. NEUROLOGICAL: Cranial nerves II-XII intact. Normal speech. Normal gait. PSYCHIATRIC: Cooperative. Good eye contact. Appropriate mood and affect. SKIN: Warm, dry, normal turgor, no rashes or lesions noted. Laboratory Results - last 24 hr 09/09/18 09/10/18 09/10/18 21:11 05:20 06:00 WBC 8.3 RBC 3.70 L Hgb 8.0 L Hct 24.7 L MCV 66.6 L MCH 21.6 L MCHC 32.5 RDW 21.8 H Plt Count 240 MPV 9.4 Sodium Potassium Chloride Carbon Dioxide Anion Gap BUN Creatinine Creat Clearance w eGFR POC Glucometer 215 141 Random Glucose Calcium Phosphorus Magnesium Total Bilirubin AST ALT Alkaline Phosphatase Total Protein Albumin 09/10/18 09/10/18 09/10/18 06:00 11:27 17:08 WBC RBC Hgb Hct MCV MCH MCHC RDW Plt Count MPV Sodium 135 L Potassium 3.9 Chloride 97 L Carbon Dioxide 31 Anion Gap 6 L BUN 20 H Creatinine 1.3 Creat Clearance w eGFR 55.23 POC Glucometer 152 125 Random Glucose 118 H Calcium 8.4 L Phosphorus 5.2 H Magnesium 2.5 H Total Bilirubin 0.8 AST 20 ALT 24 Alkaline Phosphatase 104 Total Protein 7.4 Albumin 3.8 Active Medications Generic Name Dose Route Start Last Admin Trade Name Freq PRN Reason Stop Dose Admin Atorvastatin Calcium 10 mg 09/08/18 22:00 09/09/18 21:13 Lipitor - PO 10 mg HS LAINEY Administration Ferrous Sulfate 325 mg 09/08/18 10:00 09/10/18 09:28 Feosol - PO 325 mg DAILY LAINEY Administration Folic Acid 1 mg 09/08/18 10:00 09/10/18 09:28 Folic Acid - PO 1 mg DAILY LAINEY Administration Insulin Aspart 1 vial 09/08/18 06:00 09/10/18 17:09 Novolog Vial Sliding Scale - SQ Not Given Q6HPO LAINEY Protocol Lorazepam 1 mg 09/08/18 04:47 Ativan Injection - IVPUSH Q6H PRN WITHDRAWAL(CONT SUBST) Metoprolol Succinate 100 mg 09/08/18 10:00 09/10/18 09:28 Toprol Xl - PO 100 mg DAILY LAINEY Administration Pantoprazole Sodium 40 mg 09/08/18 10:00 09/10/18 09:28 Protonix Iv IVPUSH 40 mg BID LAINEY Administration Potassium Chloride 20 meq 09/08/18 10:00 09/10/18 09:28 K-Dur - PO 20 meq DAILY LAINEY Administration Thiamine HCl 100 mg 09/08/18 10:00 09/10/18 09:27 Vitamin B1 - PO 100 mg DAILY LAINEY Administration ASSESSMENT/PLAN: Patient is a 67 year old male with past medical history of A. Fib (on xarelto), systolic and diastolic CHF, HTN, DM, HLD, Parkinson's, chronic EtOH abuse, presented with worsening epigastric pain and abdominal bloating, accompanied by diarrhea, hematochezia and dyspnea on exertion that started about 2 weeks ago. #Epigastric pain: likely 2/2 Acute gastritis vs PUD, Liver cirrhosis -epigastric pain resolved -EGD (01/2018) small non-bleeding ulcers in the gastric antrum, mild gastritis -CT AP: hepatic cirrhosis with ?splenomegaly. R inferior hepatic lobe hypodense lesion -?blood, ? hepatoma. Cholelithiasis. Small umbilical hernia, small bilateral inguinal hernia. Infrarenal IVC filter. Cardiomegaly. Dilated main pulmonary artery suggestive of increased pulmonary artery pressure. Partial imaging of calcified mediastinal LN suggesting prior granulomatous disease. -Protonix 40mg IV BID -GI (Dr. Mcarthur) consulted. Recommendations appreciated. #Dyspnea on exertion: likely 2/2 microcytic anemia 2/2 UGIB vs LGIB -H/H on admission 5.5/18.1 --> 8.3/24.7 -CXR: Cardiomegaly with no pulmonary congestion or infiltrates -FOBT - positive -s/p 2 units pRBCs -Hematology (Dr. Martinez) consulted. Recommendations appreciated. -s/p IV sucrose. -GI (Dr. Mcarthur) consulted. Recommendations appreciated. -Hx of known gastritis and intestinal angiodysplasia. -There is nothing to be gained now from a repeat GI investigation. -Recommend stopping Xarelto permanently. Probably unsafe for patient to be on AC right now. -Risk of CVA with chronic AFib vs risk of massive GI bleed given his admitted noncompliance #Atrial fibrillation -EKG: atrial fibrillation with no significant ST-T wave changes -Cardiology (Dr. Lara) consulted. Recommendations appreciated. -CHADS VASc - 4 -Tachy expected as patient is compensating from decreased H/H and bleeding -Maintain blood pressure. -IVF PRN for hypotension. -Hold AC as having active GI bleed -Resume once bleeding stopped, deemed appropriate from GI standpoint and patient hemodynamically stable -Future options include apixaban or OP referral for potential watchman device. #Chronic EtOH abuse -CIWA 0. -Ativan 1mg q6h PRN -Thiamine 100mg daily -Folic acid 1 mg daily #Hypokalemia: likely 2/2 poor oral intake, EtOH abuse: improving -K 3.6 --> 3.9 -Continue home KCl 20mg daily -Will continue to monitor #Hyponatremia: improved -Na 129 --> 135. -Likely from poor oral intake and EtOH abuse -Will continue to monitor. #Diastolic/Systolic CHF -Echo and stress test done 01/2018: EF 48%, dilated LV, no signs of ischemia -Hold Lasix for now. #Hypertension:chronic -On Toprol 100mg daily -May resume home Losartan if BP >160 -Should be stopped if ongoing bleeding or hypotensive #Hyperlipidemia -Continue home Pravastatin 10mg Po HS #IDDM -Hold insulin pump -Insulin sliding scale implemented -BGM q6h #FEN -Not on any standing fluids -Routine bmp monitoring -Calorie controlled diet #Prophylaxis -SCDs/TEDs -Hold Xarelto for now in light of GI bleeding -Protonix 40mg BID #Disposition -full code -admit to tele Visit type - Emergency Visit Emergency Visit: Yes ED Registration Date: 09/07/18 Care time: The patient presented to the Emergency Department on the above date and was hospitalized for further evaluation of their emergent condition. - New Patient This patient is new to me today: No - Critical Care Critical Care patient: No
--- NOTE | 2018-09-10 18:32 | PN ---
Teaching Attending Note Name of Resident: Sue Reyes ATTENDING PHYSICIAN STATEMENT I saw and evaluated the patient. I reviewed the resident's note and discussed the case with the resident. I agree with the resident's findings and plan as documented. SUBJECTIVE: Patient is comfortable, has no new complains. OBJECTIVE: Vital Signs Temperature 98.6 F 09/10/18 14:00 Pulse Rate 83 09/10/18 14:00 Respiratory Rate 20 09/10/18 14:00 Blood Pressure 115/73 09/10/18 14:00 O2 Sat by Pulse Oximetry (%) 95 09/10/18 09:00 GENERAL: Awake, alert, and fully oriented, on 2L NC HEAD: Normal with no signs of trauma. EYES: PERRLA, EOMI, sclera anicteric, conjunctiva clear. EARS, NOSE, THROAT: Ears normal, nares patent, oropharynx clear without exudates. Dry mucous membranes. NECK: Normal range of motion, supple without lymphadenopathy, JVD, or masses. LUNGS: Breath sounds equal, clear to auscultation bilaterally. HEART: Irregularly irregular without murmur, rub or gallop. ABDOMEN: Soft, mild epigastric tenderness, mildly distended, normoactive bowel sounds, positive for hepatomegaly. EXTREMITIES: 2+ pulses, warm, well-perfused. No calf tenderness. No peripheral edema. NEUROLOGICAL: Cranial nerves II-XII intact. Normal speech. Normal gait. PSYCHIATRIC: Cooperative. Good eye contact. Appropriate mood and affect. SKIN: Warm, dry, normal turgor, no rashes or lesions noted. CBCD WBC 8.3 K/mm3 (4.0-10.0) 09/10/18 06:00 RBC 3.70 M/mm3 (4.00-5.60) L 09/10/18 06:00 Hgb 8.0 GM/dL (11.7-16.9) L 09/10/18 06:00 Hct 24.7 % (35.4-49) L 09/10/18 06:00 MCV 66.6 fl (80-96) L 09/10/18 06:00 MCHC 32.5 g/dl (32.0-35.9) 09/10/18 06:00 RDW 21.8 % (11.9-15.9) H 09/10/18 06:00 Plt Count 240 K/MM3 (134-434) 09/10/18 06:00 MPV 9.4 fl (7.5-11.1) 09/10/18 06:00 CMP Sodium 135 mmol/L (136-145) L 09/10/18 06:00 Potassium 3.9 mmol/L (3.5-5.1) 09/10/18 06:00 Chloride 97 mmol/L (98-107) L 09/10/18 06:00 Carbon Dioxide 31 mmol/L (21-32) 09/10/18 06:00 Anion Gap 6 MMOL/L (8-16) L 09/10/18 06:00 BUN 20 mg/dL (7-18) H 09/10/18 06:00 Creatinine 1.3 mg/dL (0.55-1.3) 09/10/18 06:00 Creat Clearance w eGFR 55.23 (>60) 09/10/18 06:00 Random Glucose 118 mg/dL (74-106) H 09/10/18 06:00 Calcium 8.4 mg/dL (8.5-10.1) L 09/10/18 06:00 Total Bilirubin 0.8 mg/dL (0.2-1) 09/10/18 06:00 AST 20 U/L (15-37) 09/10/18 06:00 ALT 24 U/L (13-61) 09/10/18 06:00 Alkaline Phosphatase 104 U/L (45-117) 09/10/18 06:00 Total Protein 7.4 g/dl (6.4-8.2) 09/10/18 06:00 Albumin 3.8 g/dl (3.4-5.0) 09/10/18 06:00 CARDIAC ENZYMES Creatine Kinase 240 IU/L (26-308) 09/07/18 17:30 Troponin I 0.02 ng/ml (0.00-0.05) 09/07/18 17:30 Current Medications Generic Name Dose Route Start Last Admin Trade Name Freq PRN Reason Stop Dose Admin Atorvastatin Calcium 10 mg 09/08/18 22:00 09/09/18 21:13 Lipitor - PO 10 mg HS LAINEY Administration Ferrous Sulfate 325 mg 09/08/18 10:00 09/10/18 09:28 Feosol - PO 325 mg DAILY LAINEY Administration Folic Acid 1 mg 09/08/18 10:00 09/10/18 09:28 Folic Acid - PO 1 mg DAILY LAINEY Administration Insulin Aspart 1 vial 09/08/18 06:00 09/10/18 17:09 Novolog Vial Sliding Scale - SQ Not Given Q6HPO [facility] Protocol Lorazepam 1 mg 09/08/18 04:47 Ativan Injection - IVPUSH Q6H PRN WITHDRAWAL(CONT SUBST) Metoprolol Succinate 100 mg 09/08/18 10:00 09/10/18 09:28 Toprol Xl - PO 100 mg DAILY LAINEY Administration Pantoprazole Sodium 40 mg 09/08/18 10:00 09/10/18 09:28 Protonix Iv IVPUSH 40 mg BID LAINEY Administration Potassium Chloride 20 meq 09/08/18 10:00 09/10/18 09:28 K-Dur - PO 20 meq DAILY [facility]Y Administration Thiamine HCl 100 mg 09/08/18 10:00 09/10/18 09:27 Vitamin B1 - PO 100 mg DAILY LAINEY Administration Home Medications Medication Instructions Recorded Pravastatin Sodium 10 mg PO DAILY 06/30/16 Insulin Lispro [Humalog] 150 unit SQ DAILY vial 05/22/17 Losartan Potassium [Cozaar -] 25 mg PO DAILY #30 tablet 07/04/17 Potassium Chloride 20 meq PO DAILY #15 tablet.er 07/04/17 Hydrochlorothiazide 25 mg PO DAILY 01/15/18 Atorvastatin Ca [Lipitor] 10 mg PO HS tablet 01/18/18 Ferrous Sulfate [Feosol] 325 mg PO DAILY #30 tablet 01/18/18 Metoprolol Succinate 100 mg PO DAILY 09/07/18 Furosemide [Lasix] 80 mg PO DAILY 09/10/18 CT AP: hepatic cirrhosis with ?splenomegaly. R inferior hepatic lobe hypodense lesion -?blood, ? hepatoma. Cholelithiasis. Small umbilical hernia, small bilateral inguinal hernia. Infrarenal IVC filter. Cardiomegaly. Dilated main pulmonary artery suggestive of increased pulmonary artery pressure. Partial imaging of calcified mediastinal LN suggesting prior granulomatous disease. ASSESSMENT AND PLAN: Patient is a 67 year old male with PMHx of A.Fib (on xarelto), systolic and diastolic CHF, HTN, DM, HLD, Parkinson's, chronic EtOH abuse, presented with worsening epigastric pain and abdominal bloating, with diarrhea, hematochezia and dyspnea on exertion that started about 2 weeks ago. #Acute epigastric pain resolved due to alcohol dependency with possible PUD will switch to po Protonix, EGD (01/2018) small non-bleeding ulcers in the gastric antrum, mild gastritis. Acs is rulled out. Trop 0.[address]-T wave changes on EKG. GI (Dr. Mcarthur) consulted. #Dyspnea on exertion: due GI bleed, will discontinue xarelto as per GI to discontinue xarelto ; bleeding is a higher risk than stroke due to afib as per gi. #Atrial fibrillation with CHADS VASc -6 , discontiue Xarelto , as per cardio , patient needs future options include apixaban or EP referral for potential watchman device. #Chronic EtOH abuse: on Librium protocol, Thiamine 100mg daily, Folic acid 1 mg daily #Acute Hyponatremia: hold lasix for now Na 129->130-->135 improved #Diastolic/Systolic CHF: as per cardio Lasix as needed. Echo and stress test done 01/2018: EF 48%, dilated LV, no signs of ischemia #Hypertension:continue toprol XL #Hyperlipidemia: Continue home Pravastatin 10mg Po HS #IDDM continue home meds. DVT Prophylaxis: SCDs/TEDs -Hold Xarelto due to GI bleeding -Protonix 40mg BID
[2018-09-10] MEDS: ATORVASTATIN CA 10 MG TABLET (FP) PO SCH (21:35)
[2018-09-11] MEDS: INSULIN SLIDING SCALE (NOVOLOG) 1 VIAL SQ SCH ×3 (00:21→11:34)
[2018-09-11 06:25] LABS: HEMATOCRIT 26.1 % (35.4-49); HEMOGLOBIN 7.7 GM/dL (11.7-16.9); MCH 20.2 pg (25.7-33.7); MCHC 29.6 g/dl (32.0-35.9); MEAN CELL VOLUME 68.3 fl (80-96); MEAN PLT VOLUME 9.2 fl (7.5-11.1); PLATELET COUNT 217 K/MM3 (134-434); RBC 3.82 M/mm3 (4.00-5.60); RDW 22.8 % (11.9-15.9); WHITE BLOOD COUNT 8.3 K/mm3 (4.0-10.0)
[2018-09-11 06:43] LABS: ANION GAP 9 MMOL/L (8-16); BLOOD UREA NITROGEN 20 mg/dL (7-18); CALCIUM 8.7 mg/dL (8.5-10.1); CHLORIDE 99 mmol/L (98-107); CO2 28 mmol/L (21-32); CREATININE 1.3 mg/dL (0.55-1.3); GLUCOSE,RANDOM 121 mg/dL (74-106); MAGNESIUM 2.5 mg/dL (1.8-2.4); POTASSIUM 3.8 mmol/L (3.5-5.1); SODIUM 136 mmol/L (136-145)
[2018-09-11] MEDS: THIAMINE HCL 100 MG TABLET (FP) PO SCH (09:22)
[2018-09-11] MEDS: PANTOPRAZOLE SODIUM 40 MG VIAL IVPUSH SCH ×2 (09:22→11:28)
[2018-09-11] MEDS: FERROUS SO4 325 MG TABLET (FP) PO SCH (09:22)
[2018-09-11] MEDS: FOLIC ACID 1 MG TABLET (FP) PO SCH (09:22)
[2018-09-11] MEDS: POTASSIUM CHLORIDE TABS 20 MEQ TABLET.ER (FP) PO SCH (09:22)
--- NOTE | 2018-09-11 09:41 | PN ---
Progress Note, Physician Chief Complaint: Pt A(Ox3; OOB in chair; ambulalatory; son is with hin. Denies chest pain or dizziness; easily dyspneic. History of Present Illness: 67 yr old man w/ pmh of afib (on xarelto), systolic (mildly reduced LVEF on ECHO) CHF, HTN, DM, HLD, Parkinson's, 4 stents (2012), acute/chronic alcoholism, liver cirrhosis/splenomegaly (Abd CT 09/2018), obesity, anxiety/ depression, who presents for evaluation of 2 week history of worsening dyspnea on exertion, weakness, intermittent chest pain, and palpitations. Patient also reports he has been having diarrhea over this same time period and has sometimes noticed blood while wiping. Pt last had "many beers" 09/04/2018. . PMD: Dr. Ishaan Zuniga. Cardiology: Dr. Herbert - Current Medication List Current Medications: Active Medications Atorvastatin Calcium (Lipitor -) 10 mg PO HS [facility] Last Admin: 09/10/18 21:35 Dose: 10 mg Ferrous Sulfate (Feosol -) 325 mg PO DAILY [facility] Last Admin: 09/11/18 09:22 Dose: 325 mg Folic Acid (Folic Acid -) 1 mg PO DAILY [facility] Last Admin: 09/11/18 09:22 Dose: 1 mg Insulin Aspart (Novolog Vial Sliding Scale -) 1 vial SQ Q6HPO [facility]; Protocol Last Admin: 09/11/18 06:10 Dose: Not Given Metoprolol Succinate (Toprol Xl -) 100 mg PO DAILY [facility] Last Admin: 09/11/18 09:22 Dose: 100 mg Pantoprazole Sodium (Protonix Iv) 40 mg IVPUSH BID [facility] Last Admin: 09/10/18 21:35 Dose: 40 mg Potassium Chloride (K-Dur -) 20 meq PO DAILY [facility] Last Admin: 09/11/18 09:22 Dose: 20 meq Thiamine HCl (Vitamin B1 -) 100 mg PO DAILY [facility] Last Admin: 09/11/18 09:22 Dose: 100 mg - Objective Vital Signs: Vital Signs Temperature 98.1 F 09/11/18 06:00 Pulse Rate 95 H 09/11/18 06:00 Respiratory Rate 20 09/11/18 06:00 Blood Pressure 133/78 09/11/18 06:00 O2 Sat by Pulse Oximetry (%) 99 09/10/18 21:00 Constitutional: Yes: Anxious, Obese Eyes: Yes: WNL HENT: Yes: WNL Neck: Yes: WNL Cardiovascular: Yes: Pulse Irregular Respiratory: Yes: Regular Gastrointestinal: Yes: Soft, Abdomen, Obese ...Rectal Exam: Yes: Deferred Genitourinary: No: Anuria Breast(s): Yes: WNL Musculoskeletal: Yes: Back Pain, Muscle Weakness Extremities: Yes: Deformity Edema: No Peripheral Pulses WNL: Yes Integumentary: Yes: WNL Neurological: Yes: Alert, Oriented, Unsteady Gait Psychiatric: Yes: Other (addiction (alcohol)) Labs: CBC, BMP 09/11/18 06:00 09/11/18 06:00 INR, PTT INR 1.15 (0.83-1.09) H 09/08/18 05:55 Abnormal Lab Results 09/07/18 09/11/18 09/11/18 18:20 06:00 06:00 RBC 3.82 L Hgb 7.7 L Hct 26.1 L MCV 68.3 L MCH 20.2 L MCHC 29.6 L RDW 22.8 H BUN 20 H Random Glucose 121 H Magnesium 2.5 H Crossmatch See Detail - ....Imaging Chest X-ray: Image Reviewed (CHF; cardiomegaly) EKG: Image Reviewed (AF) Problem List - Problems (1) Acute on chronic systolic and diastolic heart failure, NYHA class 2 Assessment/Plan: Continue metoprolol ER for systolic CHF, AF, HTN, CAD. Start lisinopril 2.5 mg daily, and incresse dose as tolerated. Consdier spironolactone once ACEI is optimized. Diuretic prn. Pt has been onb rivaroxaban for anticoagulation, but unable to continue presently due to GI bleed (see GI recommendations). The danger of bleed was felt to outweigh the risk of embolic stroke, but Pt is aware of the increased risk of the latter shoule he need to be off anticoagulant for prolonged period of time. He has agreed to be seen by Dr. Dylan Dumont, chief of electrophysiology at [facility] (ideally this week) for consultation on candidacy for Watchman or other procedures, which would hopefully allow him to safely be off anticoagulation permanently. Code(s): I50.43 - ACUTE ON CHRONIC COMBINED SYSTOLIC AND DIASTOLIC HRT FAIL (2) Chronic alcohol abuse Code(s): F10.10 - ALCOHOL ABUSE, UNCOMPLICATED (3) Chronic anticoagulation Assessment/Plan: see "CHF" Code(s): Z79.01 - FPC (CURRENT) USE OF ANTICOAGULANTS (4) Obesity Code(s): E66.9 - OBESITY, UNSPECIFIED (5) Rapid atrial fibrillation Assessment/Plan: On metoprolol ER for HR control. Was on rivaroxaban for AC (see "CHF" for present status). Code(s): I48.91 - UNSPECIFIED ATRIAL FIBRILLATION (6) Sleep apnea Assessment/Plan: CPAP per carpenter inspector Code(s): G47.30 - SLEEP APNEA, UNSPECIFIED (7) Diabetes Code(s): E11.9 - TYPE 2 DIABETES MELLITUS WITHOUT COMPLICATIONS (8) Anemia Code(s): D64.9 - ANEMIA, UNSPECIFIED Qualifiers: Anemia type: iron deficiency Iron deficiency anemia type: chronic blood loss Qualified Code(s): D50.0 - Iron deficiency anemia secondary to blood loss (chronic) (9) Noncompliance of patient with dietary regimen Code(s): Z91.11 - PATIENT'S NONCOMPLIANCE WITH DIETARY REGIMEN (10) Noncompliance with CPAP treatment Code(s): Z91.14 - PATIENT'S OTHER NONCOMPLIANCE WITH MEDICATION REGIMEN (11) Noncompliance w/medication treatment due to intermit use of medication Code(s): Z91.14 - PATIENT'S OTHER NONCOMPLIANCE WITH MEDICATION REGIMEN (12) Liver disease, chronic, with cirrhosis Assessment/Plan: cirrhosis; splenomegalyl. Pt promises, "after 50 years drinking", to never do so again. Code(s): K74.60 - UNSPECIFIED CIRRHOSIS OF LIVER; K76.9 - LIVER DISEASE, UNSPECIFIED (13) GI bleed Code(s): K92.2 - GASTROINTESTINAL HEMORRHAGE, UNSPECIFIED Qualifiers: GI bleed type/associated pathology: unspecified gastrointestinal hemorrhage type Qualified Code(s): K92.2 - Gastrointestinal hemorrhage, unspecified
[2018-09-11] MEDS ORDERED: LISINOPRIL 5 MG TABLET (FP) PO ONE (10:56)
--- NOTE | 2018-09-11 14:21 | PN ---
Teaching Attending Note Name of Resident: Sue Reyes ATTENDING PHYSICIAN STATEMENT I saw and evaluated the patient. I reviewed the resident's note and discussed the case with the resident. I agree with the resident's findings and plan as documented. SUBJECTIVE: Patient is feeling better, no further bleed. no fever or chills. OBJECTIVE: Vital Signs Temperature 98.2 F 09/11/18 10:00 Pulse Rate 145 H on ambulation recheck 89 at rest 09/11/18 13:00 Respiratory Rate 20 09/11/18 10:00 Blood Pressure 123/62 09/11/18 10:00 O2 Sat by Pulse Oximetry (%) 94 L 09/11/18 13:00 GENERAL: Awake, alert, and fully oriented, on 2L NC HEAD: Normal with no signs of trauma. EYES: PERRLA, EOMI, sclera anicteric, conjunctiva clear. EARS, NOSE, THROAT: Ears normal, oropharynx clear without exudates. Dry mucous membranes. NECK: Normal range of motion, supple without lymphadenopathy, JVD, or masses. LUNGS: Breath sounds equal, clear to auscultation bilaterally. HEART: Irregularly irregular without murmur, rub or gallop. ABDOMEN: Soft, mild epigastric tenderness, mildly distended, normoactive bowel sounds, positive for hepatomegaly. EXTREMITIES: 2+ pulses, warm, well-perfused. No calf tenderness. No peripheral edema. NEUROLOGICAL: Cranial nerves II-XII intact. Normal speech. Normal gait. PSYCHIATRIC: Cooperative. Good eye contact. Appropriate mood and affect. SKIN: Warm, dry, normal turgor, no rashes or lesions noted. CBCD WBC 8.3 K/mm3 (4.0-10.0) 09/11/18 06:00 RBC 3.82 M/mm3 (4.00-5.60) L 09/11/18 06:00 Hgb 7.7 GM/dL (11.7-16.9) L 09/11/18 06:00 Hct 26.1 % (35.4-49) L 09/11/18 06:00 MCV 68.3 fl (80-96) L 09/11/18 06:00 MCHC 29.6 g/dl (32.0-35.9) L 09/11/18 06:00 RDW 22.8 % (11.9-15.9) H 09/11/18 06:00 Plt Count 217 K/MM3 (134-434) 09/11/18 06:00 MPV 9.2 fl (7.5-11.1) 09/11/18 06:00 CMP Sodium 136 mmol/L (136-145) 09/11/18 06:00 Potassium 3.8 mmol/L (3.5-5.1) 09/11/18 06:00 Chloride 99 mmol/L (98-107) 09/11/18 06:00 Carbon Dioxide 28 mmol/L (21-32) 09/11/18 06:00 Anion Gap 9 MMOL/L (8-16) 09/11/18 06:00 BUN 20 mg/dL (7-18) H 09/11/18 06:00 Creatinine 1.3 mg/dL (0.55-1.3) 09/11/18 06:00 Creat Clearance w eGFR 55.23 (>60) 09/11/18 06:00 Random Glucose 121 mg/dL (74-106) H 09/11/18 06:00 Calcium 8.7 mg/dL (8.5-10.1) 09/11/18 06:00 Total Bilirubin 0.8 mg/dL (0.2-1) 09/10/18 06:00 AST 20 U/L (15-37) 09/10/18 06:00 ALT 24 U/L (13-61) 09/10/18 06:00 Alkaline Phosphatase 104 U/L (45-117) 09/10/18 06:00 Total Protein 7.4 g/dl (6.4-8.2) 09/10/18 06:00 Albumin 3.8 g/dl (3.4-5.0) 09/10/18 06:00 CARDIAC ENZYMES Creatine Kinase 240 IU/L (26-308) 09/07/18 17:30 Troponin I 0.02 ng/ml (0.00-0.05) 09/07/18 17:30 Current Medications Generic Name Dose Route Start Last Admin Trade Name Freq PRN Reason Stop Dose Admin Atorvastatin Calcium 10 mg 09/08/18 22:00 09/10/18 21:35 Lipitor - PO 10 mg HS LAINEY Administration Ferrous Sulfate 325 mg 09/08/18 10:00 09/11/18 09:22 Feosol - PO 325 mg DAILY [facility] Administration Folic Acid 1 mg 09/08/18 10:00 09/11/18 09:22 Folic Acid - PO 1 mg DAILY [facility]Y Administration Insulin Aspart 1 vial 09/08/18 06:00 09/11/18 11:34 Novolog Vial Sliding Scale - SQ Not Given Q6HPO [facility] Protocol Metoprolol Succinate 100 mg 09/08/18 10:00 09/11/18 09:22 Toprol Xl - PO 100 mg DAILY [facility] Administration Pantoprazole Sodium 40 mg 09/08/18 10:00 09/11/18 11:28 Protonix Iv IVPUSH 40 mg BID [facility] Administration Potassium Chloride 20 meq 09/08/18 10:00 09/11/18 09:22 K-Dur - PO 20 meq DAILY [facility] Administration Thiamine HCl 100 mg 09/08/18 10:00 09/11/18 09:22 Vitamin B1 - PO 100 mg DAILY [facility] Administration Home Medications Medication Instructions Recorded Pravastatin Sodium 10 mg PO DAILY 06/30/16 Insulin Lispro [Humalog] 150 unit SQ DAILY vial 05/22/17 Potassium Chloride 20 meq PO DAILY #15 tablet.er 07/04/17 Atorvastatin Ca [Lipitor] 10 mg PO HS tablet 01/18/18 Ferrous Sulfate [Feosol] 325 mg PO DAILY #30 tablet 01/18/18 Metoprolol Succinate 100 mg PO DAILY 09/07/18 Furosemide [Lasix] 80 mg PO DAILY 09/10/18 Folic Acid - 1 mg PO DAILY #30 tablet 09/11/18 Losartan Potassium [Cozaar -] 25 mg PO DAILY 09/11/18 Thiamine HCl [Vitamin B1 -] 100 mg PO DAILY #30 tablet 09/11/18 ASSESSMENT AND PLAN: CT AP: hepatic cirrhosis with ?splenomegaly. R inferior hepatic lobe hypodense lesion -?blood, ? hepatoma. Cholelithiasis. Small umbilical hernia, small bilateral inguinal hernia. Infrarenal IVC filter. Cardiomegaly. Dilated main pulmonary artery suggestive of increased pulmonary artery pressure. Partial imaging of calcified mediastinal LN suggesting prior granulomatous disease. ASSESSMENT AND PLAN: Patient is a 67 year old male with PMHx of A.Fib (on xarelto), systolic and diastolic CHF, HTN, DM, HLD, Parkinson's, chronic EtOH abuse, presented with worsening epigastric pain and abdominal bloating, with diarrhea, hematochezia and dyspnea on exertion that started about 2 weeks ago. #Atrial fibrillation with CHADS VASc -6 , discontiue Xarelto , as per cardio , patient will follow up with EP for potential watchman device. Follow with the coverstitch elastic attacher (Dr. Dylan Dumont). You have been scheduled an appointment on Monday, (September 18) at 9:40am. AT rest the heart rate is in 80's but on ambulation the heart rate went up to 140's, discussed with DR. Centeno , will discharge on 150mg of toprol xl and follow up with and if patient does not feel well , to come back or call . Patient is willing to take extra 50mg toprol xl and wants to go home does not want to wait and does not want to stay in the hospital . discussed with . Patient is stable, has no symptoms. #Acute epigastric pain resolved due to alcohol dependency with possible PUD will switch to po Protonix, EGD (01/2018) small non-bleeding ulcers in the gastric antrum, mild gastritis. Acs is rulled out. Trop 0.[address]-T wave changes on EKG. GI (Dr. Mcarthur) consulted. as per Gi , to discontinue xarelto , since bleeding is a higher risk than stroke due to afib as per gi. Follow with Gi #Chronic EtOH abuse: on Librium protocol, Thiamine 100mg daily, Folic acid 1 mg daily #Acute Hyponatremia: hold lasix for now Na 129->130-->135 improved #Diastolic/Systolic CHF: as per cardio Lasix as needed. Echo and stress test done 01/2018: EF 48%, dilated LV, no signs of ischemia #Hypertension:continue toprol XL 150mg daily #Hyperlipidemia: Continue home Pravastatin 10mg Po HS #IDDM continue home meds. DVT Prophylaxis: SCDs/TEDs -Hold Xarelto due to GI bleeding -Protonix 40mg po daily continue
[2018-09-11 14:42] VITALS: BP 113/72; PULSE 79; TEMP 98
--- NOTE | 2018-09-11 14:54 | DS ---
Physical Exam: SUBJECTIVE: Patient seen and examined at bedside this morning. No acute events overnight. Patient has no new complaints. He denies any chest pain, SOB, palpitations, abdominal pain, bloody stools. He denies fever, chills, nausea, vomiting, headache, dizziness. OBJECTIVE: Vital Signs Temperature 98.0 F 09/11/18 13:41 Pulse Rate 79 09/11/18 13:41 Respiratory Rate 16 09/11/18 13:41 Blood Pressure 113/72 09/11/18 13:41 O2 Sat by Pulse Oximetry (%) 94 L 09/11/18 13:00 PHYSICAL EXAM GENERAL: Awake, alert, and fully oriented, not in acute distress HEAD: Normal with no signs of trauma. NECK: Soft, supple, trachea midline. LUNGS: Breath sounds equal, clear to auscultation bilaterally. HEART: Irregularly irregular without murmur, rub or gallop. ABDOMEN: Soft,nontender, mildly distended, normoactive bowel sounds, + hepatomegaly UPPER EXTREMITIES: 2+ pulses, warm, well-perfused. No peripheral edema. LOWER EXTREMITIES: 2+ pulses, warm, well-perfused. No calf tenderness. No peripheral edema. NEUROLOGICAL: Cranial nerves II-XII intact. Normal speech. Normal gait. PSYCHIATRIC: Cooperative. Good eye contact. Appropriate mood and affect. SKIN: Warm, dry, normal turgor, no rashes or lesions noted. LABS Laboratory Results - last 24 hr 09/07/18 09/10/18 09/10/18 18:20 17:08 23:03 WBC RBC Hgb Hct MCV MCH MCHC RDW Plt Count MPV Sodium Potassium Chloride Carbon Dioxide Anion Gap BUN Creatinine Creat Clearance w eGFR POC Glucometer 125 166 Random Glucose Calcium Phosphorus Magnesium Blood Type O POSITIVE Antibody Screen Negative Crossmatch See Detail 09/11/18 09/11/18 09/11/18 05:57 06:00 06:00 WBC 8.3 RBC 3.82 L Hgb 7.7 L Hct 26.1 L MCV 68.3 L MCH 20.2 L MCHC 29.6 L RDW 22.8 H Plt Count 217 MPV 9.2 Sodium 136 Potassium 3.8 Chloride 99 Carbon Dioxide 28 Anion Gap 9 BUN 20 H Creatinine 1.3 Creat Clearance w eGFR 55.23 POC Glucometer 154 Random Glucose 121 H Calcium 8.7 Phosphorus 4.0 Magnesium 2.5 H Blood Type Antibody Screen Crossmatch 09/11/18 11:32 WBC RBC Hgb Hct MCV MCH MCHC RDW Plt Count MPV Sodium Potassium Chloride Carbon Dioxide Anion Gap BUN Creatinine Creat Clearance w eGFR POC Glucometer 146 Random Glucose Calcium Phosphorus Magnesium Blood Type Antibody Screen Crossmatch -CT abdomen/pelvis: hepatic cirrhosis with ?splenomegaly. R inferior hepatic lobe hypodense lesion -?blood, ? hepatoma. Cholelithiasis. Small umbilical hernia, small bilateral inguinal hernia. Infrarenal IVC filter. Cardiomegaly. Dilated main pulmonary artery suggestive of increased pulmonary artery pressure. Partial imaging of calcified mediastinal LN suggesting prior granulomatous disease. HOSPITAL COURSE: Date of Admission:09/07/18 Date of Discharge: 09/11/18 Patient is a 67 year old male with past medical history of A. Fib (on xarelto), systolic and diastolic CHF, HTN, DM, HLD, Parkinson's, chronic EtOH abuse, presented with worsening epigastric pain and abdominal bloating, accompanied by diarrhea, hematochezia and dyspnea on exertion that started about 2 weeks prior to presentation. At the ED, patient was noted to be anemic with Hgb of 5.5. He received 3 units of pRBC. GI, Hematology and Cardiology consulted. Patient received Venofer injection once. CT scan of abdomen done. Xarelto was stopped. GI recommended that any anticoagulant would be unsafe for patient and would increase his risk of bleeding. Patient has a CHADS VASc of 4. Cardiology recommended patient would need to be on AC or potential watchman device as he is at increased risk of developing stroke. Patient was discharged with instructions to follow-up with EP Dr. Dumont at [place], for consultation on candidacy for Watchman procedure. Minutes to complete discharge: 40 Discharge Summary Reason For Visit: SHORTNESS OF BREATH ANEMIA GASTROINTESTINAL HEMMOR Condition: Improved - Instructions Diet, Activity, Other Instructions: Your visit You were admitted to the hospital because you had abdominal pain, bloody stool and shortness of breath. You were noted to have low blood count and you received 3 bags of blood. Your blood thinner, Xarelto, was stopped to prevent further bleeding. You were seen by executive assistant to president (Dr. Herbert) and a drapery and upholstery measurer (GI) doctor (Dr. Mcarthur). You were also seen by a blood doctor, and you were given IV iron. VERY IMPORTANT Because your blood thinner (Xarelto) was stopped, you are at increased risk of stroke. Please follow-up with front desk monitor (Dr. Dumont) for consultation for possible Watchman procedure. This procedure decreases your risk of stroke, and does not require you to be on a blood thinner. Medications You were started on new medications. Please take them as instructed: 1. Lisinopril 2.5mg daily 2. Continue Metoprolol 100mg daily 3. Continue iron supplements (Ferrous Sulfate 325mg daily) -Continue your other home medications. Please STOP taking Xarelto. Care -Avoid taking NSAIDs, such as Ibuprofen because it can cause stomach bleeding. -It is very important that you completely stop drinking alcohol. Continuing to drink can lead to worsening health problems even . Follow-up -You have agreed to follow-up with the front desk monitor (Dr. Dylan Dumont). You have been scheduled an appointment on Monday, (September 18) at 9:40am. The office is located at: [address] [place] [address], [place] [address] Tel No: [phone] -Follow-up with the executive assistant to president (Dr. Herbert) within 2 weeks. Please call the office to schedule an appointment. -Follow-up with the GI doctor (Dr. Mcarthur) within 2 weeks. -Follow-up with your primary care doctor, Dr. Zuniga within 1 week. Additional info Call 911 or go to the ED if with any worsening chest pain, shortness of breath, fever, chills, nausea, vomiting, headache, dizziness, belly pain, bloody stools , or any new concerns noted. Referrals: Dylan Dumont MD [Other] - 09/18/18 9:40 am Ishaan Zuniga MD [Primary Care Provider] - 1 Week Giuseppe Herbert MD [Staff Physician] - 2 Weeks Antony Mcarthur MD [Staff Physician] - 2 Weeks Disposition: HOME - Home Medications Comprehensive Discharge Medication List: Ambulatory Orders Pravastatin Sodium 10 mg PO DAILY 06/30/16 Insulin Lispro [Humalog] 150 unit SQ DAILY vial 05/22/17 Potassium Chloride 20 meq PO DAILY #15 tablet.er 07/04/17 Ferrous Sulfate [Feosol] 325 mg PO DAILY #30 tablet 01/18/18 Metoprolol Succinate 100 mg PO DAILY 09/07/18 Furosemide [Lasix] 80 mg PO DAILY 09/10/18 Folic Acid - 1 mg PO DAILY #30 tablet 09/11/18 Losartan Potassium [Cozaar -] 25 mg PO DAILY 09/11/18 Metoprolol Succinate [Toprol Xl] 50 mg PO DAILY #30 tab.er.24h 09/11/18 Pantoprazole Sodium [Protonix -] 40 mg PO DAILY #30 tablet.ec 09/11/18 Thiamine HCl [Vitamin B1 -] 100 mg PO DAILY #30 tablet 09/11/18 This patient is new to me today: No Emergency Visit: Yes ED Registration Date: 09/07/18 Care time: The patient presented to the Emergency Department on the above date and was hospitalized for further evaluation of their emergent condition. Critical Care patient: No - Discharge Referral Referred to [facility] Med [facility].C.: No
[2018-09-12] MEDS ORDERED: LISINOPRIL 5 MG TABLET (FP) PO SCH (10:00)
[2018-09-12] MEDS ORDERED: PANTOPRAZOLE 40 MG TABLET (FP) PO SCH (10:00)
== END 2018-09-11 15:09 | disposition home or self-care (01) | DRG 378 ==
LOC: JER 17:14 → JERBED 19:25 → J4S 09-08 05:23
PROVIDERS: ADMIT Internal Medicine; ATTEND Internal Medicine
PROC: 30233N1 Transfusion of Nonautologous Red Blood Cells into Peripheral Vein, Percutaneous Approach (ICD-10-PCS; principal; 2018-09-08)
DX: K92.2 Gastrointestinal hemorrhage, unspecified (principal); D68.32 Hemorrhagic disorder due to extrinsic circulating anticoagulants; E87.1 Hypo-osmolality and hyponatremia; I50.40 Unspecified combined systolic (congestive) and diastolic (congestive) heart failure; D50.0 Iron deficiency anemia secondary to blood loss (chronic); F10.10 Alcohol abuse, uncomplicated; I48.91 Unspecified atrial fibrillation; G47.30 Sleep apnea, unspecified; I11.0 Hypertensive heart disease with heart failure; E78.5 Hyperlipidemia, unspecified; E11.9 Type 2 diabetes mellitus without complications; E66.9 Obesity, unspecified; Z68.35 Body mass index [BMI] 35.0-35.9, adult; E87.6 Hypokalemia; G20 Parkinson's disease
CPT/HCPCS: 36415; 36430; 36511; 71045-TC-FY; 74177-TC; 80048; 80053; 80061; 81003; 81015; 82272; 82550; 82553; 82962; 83036; 83690; 83721; 83735; 83880; 84100; 84443; 84484; 85025; 85027; 85610; 86850; 86900; 86901; 86922; 93005; 93010; 94761; 99285-25; J1756; J7030; P9038; P9058

== ENCOUNTER 2019-09-25 12:04 | Inpatient (IN) | payer BC, OTHER ==
--- NOTE | 2019-09-25 14:13 | PDOC ---
History of Present Illness - General Chief Complaint: Injury Stated Complaint: FALL/ BLEEDING GROIN Time Seen by Provider: 09/25/19 13:51 - History of Present Illness Initial Comments: 09/25/19 14:11 68-year-old male with a past medical history of diabetes presents for evaluation of a wound in his right groin. He states he was getting out of a car stretch his right groin and he started to bleed he denies fevers or systemic symptoms Past History - Past Medical History Allergies/Adverse Reactions: Allergies Allergy/AdvReac Type Severity Reaction Status Date / Time No Known Drug Allergies Allergy Verified 09/25/19 12:22 shellfish derived Allergy Mouth Verified 09/25/19 12:22 swelling, eye swelling Home Medications: Ambulatory Orders Pravastatin Sodium 10 mg PO DAILY 06/30/16 Insulin Lispro [Humalog] 150 unit SQ DAILY vial 05/22/17 Potassium Chloride 20 meq PO DAILY #15 tablet.er 07/04/17 Ferrous Sulfate [Feosol] 325 mg PO DAILY #30 tablet 01/18/18 Metoprolol Succinate 100 mg PO DAILY 09/07/18 Furosemide [Lasix] 80 mg PO DAILY 09/10/18 Folic Acid - 1 mg PO DAILY #30 tablet 09/11/18 Losartan Potassium [Cozaar -] 25 mg PO DAILY 09/11/18 Metoprolol Succinate [Toprol Xl] 50 mg PO DAILY #30 tab.er.24h 09/11/18 Pantoprazole Sodium [Protonix -] 40 mg PO DAILY #30 tablet.ec 09/11/18 Thiamine HCl [Vitamin B1 -] 100 mg PO DAILY #30 tablet 09/11/18 Anemia: No Cancer: No Cardiac Disorders: Yes (A.FIB, CAD WITH STENTS) CVA: No COPD: No CHF: Yes Dementia: No Diabetes: Yes GI Disorders: Yes (GIB) Disorders: No HTN: Yes Hypercholesterolemia: Yes Psychiatric Problems: Yes (ANXIETY) Seizures: No Thyroid Disease: No - Surgical History Abdominal Surgery: Yes (PER PT SPLENECTOMY) Appendectomy: No Cardiac Surgery: No Orthopedic Surgery: Yes (Bilateral Knee & Rotator cuff) - Psycho Social/Smoking Cessation Hx Smoking Status: No Smoking History: Never smoked Have you smoked in the past 12 months: No Number of Cigarettes Smoked Daily: 0 Hx Alcohol Use: Yes Drug/Substance Use Hx: No Substance Use Type: Alcohol Hx Substance Use Treatment: No Review of Systems - Review of Systems Constitutional: No: Fever *Physical Exam - Vital Signs Last Vital Signs Temp Pulse Resp BP Pulse Ox 99.2 F 86 18 107/76 97 09/25/19 12:22 09/25/19 12:22 09/25/19 12:22 09/25/19 12:22 09/25/19 12:22 - Physical Exam 09/25/19 14:12 There is a skin tear in his right groin with a malodorous discharge and serosanguineous fluid around the area. There is surrounding erythema warmth induration and sensitivity without focal fluctuance. There is an area of subcutaneous fat poking through the skin tear he is otherwise neurovascular intact. ED Treatment Course - RADIOLOGY Radiology Studies Ordered: Category Date Time Status CHEST PA & LAT [RAD] Stat Radiology 09/25/19 14:11 Ordered Medical Decision Making - Medical Decision Making 09/25/19 14:12 This patient is a diabetic with a low-grade fever slightly hypotensive in the emergency room and fast-track will transfer him to the main emergency room for possible admission IV antibiotics and further work-up Discharge - Discharge Information Problems reviewed: Yes Clinical Impression/Diagnosis: Cellulitis - Follow up/Referral Referrals: Ishaan Zuniga MD [Primary Care Provider] - - Patient Discharge Instructions - Post Discharge Activity
--- NOTE | 2019-09-25 14:42 | PDOC ---
History of Present Illness - General Chief Complaint: Injury Stated Complaint: FALL/ BLEEDING GROIN Time Seen by Provider: 09/25/19 13:51 History Source: Patient Exam Limitations: No Limitations - History of Present Illness Initial Comments: 09/25/19 14:41 Jose De Jesus Reagan is a 68M with PMH HTN, AFIB, IDDM presenting with groin wound. Patient reports 5 days ago slipped on the ice and tore the skin in his right groin, presented with some bleeding, patient denies head injury or LOC. Bore with wound over the next few days without improvement in bleeding, over time developed malodorous discharge without healing. Patient denies any fever/chills , nausea/vomiting, urinary sx, C/D, dizziness, chest pain, SOB, palpitations. Denies right leg numbness/tingling, able to walk without issue, pain to R inguinal region with movement at hip and when it is touched. PMH IDDM, home AM glucose 120, patient says he takes insulin daily. Had a left knee surgery with poor wound healing in 2004, denies any other DM complications. Has not taken home medications today. 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 Zuniga. Past History - Past Medical History Allergies/Adverse Reactions: Allergies Allergy/AdvReac Type Severity Reaction Status Date / Time No Known Drug Allergies Allergy Verified 09/25/19 12:22 shellfish derived Allergy Mouth Verified 09/25/19 12:22 swelling, eye swelling Home Medications: Ambulatory Orders Pravastatin Sodium 10 mg PO DAILY 06/30/16 Insulin Lispro [Humalog] 150 unit SQ DAILY vial 05/22/17 Potassium Chloride 20 meq PO DAILY #15 tablet.er 07/04/17 Ferrous Sulfate [Feosol] 325 mg PO DAILY #30 tablet 01/18/18 Metoprolol Succinate 100 mg PO DAILY 09/07/18 Furosemide [Lasix] 80 mg PO DAILY 09/10/18 Folic Acid - 1 mg PO DAILY #30 tablet 09/11/18 Losartan Potassium [Cozaar -] 25 mg PO DAILY 09/11/18 Metoprolol Succinate [Toprol Xl] 50 mg PO DAILY #30 tab.er.24h 09/11/18 Pantoprazole Sodium [Protonix -] 40 mg PO DAILY #30 tablet.ec 09/11/18 Thiamine HCl [Vitamin B1 -] 100 mg PO DAILY #30 tablet 09/11/18 Anemia: No Cancer: No Cardiac Disorders: Yes (A.FIB, CAD WITH STENTS) CVA: No COPD: No CHF: Yes Dementia: No Diabetes: Yes GI Disorders: Yes (GIB) Disorders: No HTN: Yes Hypercholesterolemia: Yes Psychiatric Problems: Yes (ANXIETY) Seizures: No Thyroid Disease: No - Surgical History Abdominal Surgery: Yes (PER PT SPLENECTOMY) Appendectomy: No Cardiac Surgery: No Orthopedic Surgery: Yes (Bilateral Knee & Rotator cuff) - Psycho Social/Smoking Cessation Hx Smoking Status: No Smoking History: Never smoked Have you smoked in the past 12 months: No Number of Cigarettes Smoked Daily: 0 Hx Alcohol Use: Yes Drug/Substance Use Hx: No Substance Use Type: Alcohol Hx Substance Use Treatment: No Review of Systems - Review of Systems Able to Perform ROS?: Yes Constitutional: No: Chills, Fever, Weakness HEENTM: No: Symptoms Reported Respiratory: No: Symptoms reported Cardiac (ROS): No: Symptoms Reported ABD/GI: No: Symptoms Reported : No: Symptoms Reported Musculoskeletal: No: Symptoms Reported Integumentary: Yes: Erythema, Lesions Neurological: No: Symptoms reported Endocrine: No: Symptoms Reported Hematologic/Lymphatic: No: Symptoms Reported All Other Systems: Reviewed and Negative *Physical Exam - Vital Signs Last Vital Signs Temp Pulse Resp BP Pulse Ox 99.2 F 86 18 107/76 97 09/25/19 12:22 09/25/19 12:22 09/25/19 12:22 09/25/19 12:22 09/25/19 12:22 - Physical Exam General Appearance: Yes: Nourished, Appropriately Dressed, Obese. No: Apparent Distress HEENT: positive: EOMI, JAIDA, Normal ENT Inspection, Normal Voice, Symmetrical, Pharynx Normal, Hearing Grossly Normal. negative: Scleral Icterus (R), Scleral Icterus (L), Pharyngeal Erythema, Tonsillar Exudate, Tonsillar Erythema Neck: positive: Trachea midline, Normal Thyroid, Supple. negative: Tender, Rigid, Lymphadenopathy (R), Lymphadenopathy (L), Tender lateral, Tender midline Respiratory/Chest: positive: Lungs Clear, Normal Breath Sounds, Respiratory Distress. negative: Chest Tender, Accessory Muscle Use, Crackles, Rales, Rhonchi, Stridor, Wheezing Cardiovascular: positive: Irregularly Irregular. negative: Murmur Gastrointestinal/Abdominal: positive: Normal Bowel Sounds, Flat, Soft. negative : Tender, Organomegaly, Pulsatile Mass, Guarding, Rebound Musculoskeletal: positive: Normal Inspection. negative: CVA Tenderness, Decreased Range of Motion, Vertebral Tenderness Extremity: positive: Normal Capillary Refill, Normal Inspection, Normal Range of Motion, Pelvis Stable, Swelling (2+ edema), Other (BLE: gait normal, DP pulses intact, full ROM at all joints, 5/5 motor strength, no sensory deficits to light touch from feet to thigh.). negative: Tender Integumentary: positive: Normal Color, Dry, Warm, Other (R inguinal lenticular lesion ~1 inch in length in inguinal crease with pus/blood/malodorous discharge , erythema/tenderness/swelling/warmth in a linear distributiuon across the anterior right thigh consistent with cellulitis without extension into the groin and scrotum) Neurologic: positive: Fully Oriented, Alert, Normal Mood/Affect, Normal Response , Motor Strength 5/5, Other (gait normal) ED Treatment Course - LABORATORY CBC & Chemistry Diagram: 09/25/19 15:00 09/25/19 15:00 Medical Decision Making - Medical Decision Making 09/25/19 15:37 Jose De Jesus Reagan is a 68M presenting with R inguinal wound with malodorous discharge, mild bleeding, tenderness, and cellulitic skin changes to anterior thigh. Patient has no systemic symptoms, no fever/chills, no N/V/C/D, no extension into the genitals, no urinary sx, low concern for sepsis. VS stable, SBP on the low side for a hypertensive at 107/79 but not hypotensive. Has AFIB without RVR , has not taken home med. Has no neurological deficits to the R leg. History of IDDM and poor wound healing. Patient requires inpatient admission for IV ABx for treatment of R inguinal cellulitis. - CMP/CBC for electrolyte and infection eval - BC for sepsis eval - UA/UC for eval of urinary infection - CXR/ECG for admission, no concern for acute cardiopulmonary disease - 1g vancomycin and 3.375 Zosyn for cellulitis treatment - 100mg metoprolol tartrate for AFIB, has not taken home dose today 09/25/19 16:48 ECG shows AFIB with RVR HR 139, no ischemic changes. Lopressor 100mg given at this time. Bedside US shows no abscess. 09/25/19 17:[address] Yao with admitting team, good for admission to Med- Surg under Dr. Moon. Discharge - Discharge Information Problems reviewed: Yes Clinical Impression/Diagnosis: Cellulitis Qualifiers: Site of cellulitis: other site Qualified Code(s): L03.818 - Cellulitis of other sites Atrial fibrillation Qualifiers: Atrial fibrillation type: unspecified Qualified Code(s): I48.91 - Unspecified atrial fibrillation Condition: Stable - Admission Yes - Follow up/Referral Referrals: Ishaan Zuniga MD [Primary Care Provider] - - Patient Discharge Instructions - Post Discharge Activity
[2019-09-25] MEDS ORDERED: VANCOMYCIN 1 GM in D5W (PRE-DOCKED) 1,000 MG/250 ML IVPB ONE (15:26)
[2019-09-25] MEDS ORDERED: PIPERACILLIN/TAZOB 3.375 GM 3.375 GM in DEXTROSE 5%-WATER - 50 ML IVPB ONE (15:26)
[2019-09-25 15:41] LABS: BASO % 0.6 % (0-2.0); EOS % 0.4 % (0-4.5); HEMATOCRIT 33.2 % (35.4-49); HEMOGLOBIN 10.4 GM/dL (11.7-16.9); LYMPH % 4.9 % (8-40); MCH 23.1 pg (25.7-33.7); MCHC 31.1 g/dl (32.0-35.9); MEAN CELL VOLUME 74.1 fl (80-96); MEAN PLT VOLUME 9.6 fl (7.5-11.1); MONO % 13.1 % (3.8-10.2); PLATELET COUNT 229 K/MM3 (134-434); RBC 4.49 M/mm3 (4.00-5.60); RDW 17.2 % (11.9-15.9)
[2019-09-25] MEDS ORDERED: METOPROLOL TARTRATE 50 MG TABLET (FP) PO ONE (15:46)
[2019-09-25] MEDS ORDERED: METOPROLOL TARTRATE 50 MG TABLET (FP) ONE (16:03)
[2019-09-25] MEDS ORDERED: PIPERACILLIN/TAZOB 3.375 GM 3.375 GM/50 ML BAG IVPB ONE (16:04)
[2019-09-25] MEDS ORDERED: VANCOMYCIN 1 GRAM (PRE-DOCKED) 1,000 MG/250 ML BAG IVPB ONE (16:04)
[2019-09-25 16:14] LABS: ALBUMIN 3.2 g/dl (3.4-5.0); BLOOD UREA NITROGEN 11.9 mg/dL (7-18); CALCIUM 8.8 mg/dL (8.5-10.1); CREATININE 1.2 mg/dL (0.55-1.3); POTASSIUM 3.9 mmol/L (3.5-5.1)
[2019-09-25 16:24] LABS: EPI CELLS 2.2 /HPF (0-5/HPF); HYALINE CASTS 29 /lpf (0-8); URINE APPEARANCE CLEAR; URINE BACTERIA 7.6 /hpf (NEGATIVE); URINE BILIRUBIN 2+ (NEGATIVE); URINE COLOR DK YELLOW; URINE GLUCOSE (UA) NEGATIVE (NEGATIVE); URINE KETONE NEGATIVE (NEGATIVE); URINE LEUK ESTERASE NEGATIVE (NEGATIVE); URINE NITRITE NEGATIVE (NEGATIVE); URINE PROTEIN 2+ (NEGATIVE); URINE RBC 5 /hpf (0-4); URINE WBC 2 /hpf (0-5)
[2019-09-25] MEDS ORDERED: ACETAMINOPHEN 1000 MG/100 ML VIAL (NON FORMULARY) IVPB ONE (16:41)
--- NOTE | 2019-09-25 16:43 | PDOC ---
Documentation entered by Sharda Kinney SCRIBE, acting as scribe for Frida Moore MD. Frida Moore MD: This documentation has been prepared by the Nirmal alves Adrianna, SCRIBE, under my direction and personally reviewed by me in its entirety. I confirm that the documentation accurately reflects all work, treatment, procedures, and medical decision making performed by me. Attending Attestation - Resident Resident Name: Lamont Bagley - ED Attending Attestation I have performed the following: I have examined & evaluated the patient, The case was reviewed & discussed with the resident, I agree w/resident's findings & plan, Exceptions are as noted - HPI HPI: The patient is a 68 year old male, with a significant PMH of IDDM, Afib, CAD (s/ p stents), CHF, HTN, HLD, and anxiety, who presents to the ED for evaluation of right groin wound for 4 days. Patient notes he was getting out of a car, when he slipped, landed in a split, and consequently developed a wound with bleeding. Since the incident, patient notes the wound has developed a progressively worsening odor with discharge, redness, and warmth. Denies fever, chills, chest pain, SOB, nausea, vomit, diarrhea, dysuria, hematuria, abdominal pain. Allergies: Shellfish, NKDA Surgical History: Cardiac stents, splenectomy, bilateral knee surgery, bilateral rotator cuff repair Social History: EtOH use. Denies tobacco or illicit drug use PCP: Dr. Zuniga - Physicial Exam PE: 09/25/19 16:39 GENERAL: The patient is in no acute distress. ENT: Ears normal, nares patent, oropharynx clear without exudates. Moist mucous membranes. NECK: Normal range of motion, supple LUNGS: Breath sounds equal, clear to auscultation bilaterally. No wheezes, and no crackles. HEART:Regular rate and rhythm, normal S1 and S2 without murmur, rub or gallop. ABDOMEN: Soft, nontender, normoactive bowel sounds. EXTREMITIES: Normal range of motion, no edema. NEUROLOGICAL: Cranial nerves II through XII grossly intact. Normal speech. No focal neurological deficits. SKIN: Right groin swelling, erythema, warmth, tenderness, drainage noted - Medical Decision Making 09/25/19 16:40 Mr. Clement Reagan is a 68-year-old male presenting to the emergency department with a complaint of right groin drainage which is malodorous. A little more than 1 week ago he noted swelling in the right groin. On Monday he slipped on the ice and he believes that this caused the skin to open slightly. Since then he has noted drainage from the groin which is malodorous. He denies fevers or chills. The area is painful Differential diagnosis includes but is not limited to: Cellulitis, local abscess 09/25/19 16:41 EKG: A. fib, rate of 139 bpm, left axis deviation, PVC noted, no T wave inversions, intervals are normal Laboratory Tests 09/25/19 09/25/19 09/25/19 15:00 15:00 15:00 WBC 12.0 H Hgb 10.4 L Hct 33.2 L D Plt Count 229 Neutrophils % 81.0 BUN 11.9 Creatinine 1.2 Urine WBC (Auto) 2 Urine RBC (Auto) 5 Patient ordered for vancomycin and Zosyn Of note patient's temperature is 99.2, noted to be tachycardic (repeat temperature nml) Ordered for Tylenol and IV fluid We will admit to the hospitalist service for groin cellulitis
[2019-09-25] MEDS ORDERED: ACETAMINOPHEN INJECTION 100 ML IVPB ONE (17:12)
[2019-09-25] MEDS ORDERED: SODIUM CHLORIDE 0.9% 500 ML INFUS.BAG IV ONE (18:25)
--- NOTE | 2019-09-25 18:37 | HP ---
CHIEF COMPLAINT: Right groin open wound PCP: Dr. Zuniga Cardio: Dr. Herbert HISTORY OF PRESENT ILLNESS: Pt states that he noticed the swelling a week ago with pain for which he used a pain relieve patch, however, he slipped on ice the same day and felt a tear in his groin, which began to bleed. He dressed the wound hoping it would heal but it became purulent and bloody withing 5 days. Pt was seen last month for A-fib with AVR and was discharged off Xarelto to follow up with Dr. Tran/marketing intelligence manager , who said he did not need to be on blood thinner and sent him home off anticoags. On presentation to the ED, he was tachy cardic to the 134s, which came back to normal after administration of Toprol 100mg, his home dose. He denies f/c/n/v/d/chest pain ,abdominal pain, numbness or tingling of the limbs, testicular pain or dysuria. ER course was notable for: (1) Toprol XL 100 mg given (2) Vanc and Zosyn started (3) US bedside showed no fluid collection Recent Travel: denies PAST MEDICAL HISTORY: HTN, A-fib not on blood thinners(xarelto stopped for GI bleed), IDDM on insulin pump, CHF on lasix, CAD s/p stents, Etoh abuse, liver cirrhosis, PAST SURGICAL HISTORY: Left knee surgery, splenectomy, rotator cuff repair Social History: Smoking: denies Alcohol: hx of alcohol abuse Drugs: Allergies No Known Drug Allergies Allergy (Verified 09/25/19 12:22) shellfish derived Allergy (Verified 09/25/19 12:22) Mouth swelling, eye swelling HOME MEDICATIONS: Home Medications Medication Instructions Recorded Pravastatin Sodium 10 mg PO DAILY 06/30/16 Insulin Lispro [Humalog] 150 unit SQ DAILY vial 05/22/17 Potassium Chloride 20 meq PO DAILY #15 tablet.er 07/04/17 Ferrous Sulfate [Feosol] 325 mg PO DAILY #30 tablet 01/18/18 Metoprolol Succinate 100 mg PO DAILY 09/07/18 Furosemide [Lasix] 80 mg PO DAILY 09/10/18 Folic Acid - 1 mg PO DAILY #30 tablet 09/11/18 Losartan Potassium [Cozaar -] 25 mg PO DAILY 09/11/18 Pantoprazole Sodium [Protonix -] 40 mg PO DAILY #30 tablet.ec 09/11/18 Thiamine HCl [Vitamin B1 -] 100 mg PO DAILY #30 tablet 09/11/18 REVIEW OF SYSTEMS CONSTITUTIONAL: Absent: fever, chills, diaphoresis, generalized weakness, HEENT: Absent: rhinorrhea, nasal congestion, t CARDIOVASCULAR: Admits: irregular heart rate, Absent: chest pain, syncope, palpitations, RESPIRATORY: Absent: cough, shortness of breath, dyspnea with exertion, orthopnea, wheezing, GASTROINTESTINAL: Absent: abdominal pain, abdominal distension, nausea, vomiting, diarrhea, constipation, GENITOURINARY: Admits: Right groin pain Absent: dysuria, frequency, urgency, hesitancy, hematuria, flank pain, genital pain ENDOCRINE: Absent: unexplained weight gain, unexplained weight loss, NEUROLOGIC: Absent: headache, focal weakness or paresthesias, dizziness, unsteady gait, seizure, mental status changes, bladder or bowel incontinence PHYSICAL EXAMINATION Vital Signs - 24 hr 09/25/19 09/25/19 12:22 16:30 Temperature 99.2 F 98.1 F Pulse Rate 86 Pulse Rate [ 82 Right Radial] Respiratory 18 18 Rate Blood Pressure 107/76 Blood Pressure 121/76 [Right Arm] O2 Sat by Pulse 97 95 Oximetry (%) GENERAL: Awake, alert, and fully oriented, in no acute distress. EYES: Pupils equal, round and reactive to light, extraocular movements intact, sclera anicteric, conjunctiva clear. EARS, NOSE, THROAT: Ears normal, nares patent, oropharynx clear without exudates. Moist mucous membranes. LUNGS: Breath sounds equal, clear to auscultation bilaterally. No wheezes, and no crackles. HEART: Regular rate and rhythm, normal S1 and S2 without murmur, rub or gallop. ABDOMEN: Soft, nontender, not distended, normoactive bowel sounds, no guarding, no rebound, no masses. Genital: Right groin 7x5 erythema with indurated base, 2x2 open wound with blood and pus discharge, tenderness, margins marked, not fluctuant appreciated. UPPER EXTREMITIES: 2+ pulses, warm, well-perfused. No cyanosis. No clubbing. No peripheral edema. LOWER EXTREMITIES: 2+ pulses, warm, well-perfused. No calf tenderness. No peripheral edema. SKIN: Warm, dry, normal turgor, no rashes or lesions noted, normal capillary refill. Laboratory Results - last 24 hr 09/25/19 09/25/19 09/25/19 15:00 15:00 15:00 WBC 12.0 H RBC 4.49 Hgb 10.4 L Hct 33.2 L D MCV 74.1 L MCH 23.1 L D MCHC 31.1 L RDW 17.2 H Plt Count 229 MPV 9.6 Absolute Neuts (auto) 9.7 H Neutrophils % 81.0 Lymphocytes % 4.9 L D Monocytes % 13.1 H Eosinophils % 0.4 Basophils % 0.6 Nucleated RBC % 0 Sodium 131 L Potassium 3.9 Chloride 97 L Carbon Dioxide 25 Anion Gap 9 BUN 11.9 Creatinine 1.2 Est GFR (CKD-EPI)AfAm 72.09 Est GFR (CKD-EPI)NonAf 62.20 Random Glucose 252 H Calcium 8.8 Total Bilirubin 1.0 AST 22 ALT 23 Alkaline Phosphatase 109 Total Protein 7.0 Albumin 3.2 L Urine Color Dk yellow Urine Appearance Clear Urine pH 5.0 Ur Specific [place] 1.034 Urine Protein 2+ H Urine Glucose (UA) Negative Urine Ketones Negative Urine Blood Negative Urine Nitrite Negative Urine Bilirubin 2+ H Urine Urobilinogen 1.0 Ur Leukocyte Esterase Negative Urine WBC (Auto) 2 Urine RBC (Auto) 5 Urine Casts (Auto) 29 U Pathogenic Cast Auto None seen U Epithel Cells (Auto) 2.2 Urine Bacteria (Auto) 7.6 ASSESSMENT/PLAN: 68 y/o F, pmh of HTN, A-fib not on blood thinners(xarelto stopped for GI bleed) , IDDM on insulin pump, CHF on lasix, CAD s/p stents, Etoh abuse, liver cirrhosis, splenectomy, presented to the ED with a right groin wound of 5 day duration that started has just a swelling, which progressed to an open wound, associated with malodorous and pustular discharge and bleed admitted for cellulitis #Uncomplicated cellulitis of right groin wound likely 2/2 to trauma or innoculated infxn Vanc and zosyn lactate ordered pelvic CT for evaluation of infxn, r/o abscess CBC/CMP for am PT/INR Change dressing w/ gauze ID consulted- Dr Romeo #Hyperglycemia 2/2 to IDDM Gluc at 252 BGMs ISS Urine Na, Urine osm, Serum Osm #Hyponatremia monitor Na encourage PO diet #Right LE swelling r/o DVT, no calf tenderness US right LE ordered #CHF hold lasix for now in the setting of hyponatremia A-Fib w/ RVR Rate controlled Toprol XL 50 mg given Pt states he takes only 50mg but he was discharged last month on Toprol 100mg #Iron def anemia Iron panel consider cont iron #HTN Losartan 25 Pravastatin 10 #DVTppx Hep BID FEN monitor lytes Hold fluids Sodium/diabetic diet Dispo: f/u with ID for Abx recom, monitor Na, change dressing Visit type - Emergency Visit Emergency Visit: Yes ED Registration Date: 09/25/19 Care time: The patient presented to the Emergency Department on the above date and was hospitalized for further evaluation of their emergent condition. - New Patient This patient is new to me today: Yes Date on this admission: 09/25/19 - Critical Care Critical Care patient: No ATTENDING PHYSICIAN STATEMENT I saw and evaluated the patient. I reviewed the resident's note and discussed the case with the resident. I agree with the resident's findings and plan as documented. SUBJECTIVE: OBJECTIVE: ASSESSMENT AND PLAN:
[2019-09-25] MEDS ORDERED: ATORVASTATIN CA 10 MG TABLET (FP) PO SCH (22:00)
[2019-09-25] MEDS ORDERED: HEPARIN NA (PORCINE) 5,000 UNITS/ML 1ML VIAL SQ SCH (22:00)
[2019-09-26] MEDS: INSULIN SLIDING SCALE (NOVOLOG) 1 VIAL SQ SCH ×4 (00:48→21:07)
[2019-09-26] MEDS: PIPERACILLIN/TAZOB 3.375 GM 3.375 GM in DEXTROSE 5%-WATER - 50 ML IVPB SCH ×3 (01:41→20:32)
--- NOTE | 2019-09-26 07:15 | PN ---
Physical Exam: SUBJECTIVE: Patient seen and examined. Pt is s/p surgery POD1. Still c/o of pain but has improved. Pt is off his insulin pump. Surgical wound is dressed. Denies f/c/n/v/d/sob, chest pain. OBJECTIVE: Vital Signs Period Temp Pulse Resp BP Sys/Varma Pulse Ox Last 24 Hr 98.1 F-99.4 F 82-107 18-20 107-134/57-79 95-97 GENERAL: Awake, alert, and fully oriented, in no acute distress. EYES: Pupils equal, round and reactive to light, extraocular movements intact, sclera anicteric, conjunctiva clear. EARS, NOSE, THROAT: Ears normal, nares patent, oropharynx clear without exudates. Moist mucous membranes. LUNGS: Breath sounds equal, clear to auscultation bilaterally. No wheezes, and no crackles. HEART: Regular rate and rhythm, normal S1 and S2 without murmur, rub or gallop. ABDOMEN: Soft, nontender, not distended, normoactive bowel sounds, no guarding, no rebound, no masses. Genital: Right groin dressed, POD1 UPPER EXTREMITIES: 2+ pulses, warm, well-perfused. No cyanosis. No clubbing. No peripheral edema. LOWER EXTREMITIES: 2+ pulses, warm, well-perfused. No calf tenderness. No peripheral edema. SKIN: Warm, dry, normal turgor, no rashes or lesions noted, normal capillary refill. Laboratory Results - last 24 hr 09/25/19 09/25/19 09/25/19 15:00 15:00 15:00 WBC 12.0 H RBC 4.49 Hgb 10.4 L Hct 33.2 L D MCV 74.1 L MCH 23.1 L D MCHC 31.1 L RDW 17.2 H Plt Count 229 MPV 9.6 Absolute Neuts (auto) 9.7 H Neutrophils % 81.0 Lymphocytes % 4.9 L D Monocytes % 13.1 H Eosinophils % 0.4 Basophils % 0.6 Nucleated RBC % 0 Sodium 131 L Potassium 3.9 Chloride 97 L Carbon Dioxide 25 Anion Gap 9 BUN 11.9 Creatinine 1.2 Est GFR (CKD-EPI)AfAm 72.09 Est GFR (CKD-EPI)NonAf 62.20 POC Glucometer Random Glucose 252 H Calcium 8.8 Total Bilirubin 1.0 AST 22 ALT 23 Alkaline Phosphatase 109 Total Protein 7.0 Albumin 3.2 L Urine Color Dk yellow Urine Appearance Clear Urine pH 5.0 Ur Specific [place] 1.034 Urine Protein 2+ H Urine Glucose (UA) Negative Urine Ketones Negative Urine Blood Negative Urine Nitrite Negative Urine Bilirubin 2+ H Urine Urobilinogen 1.0 Ur Leukocyte Esterase Negative Urine WBC (Auto) 2 Urine RBC (Auto) 5 Urine Casts (Auto) 29 U Pathogenic Cast Auto None seen U Epithel Cells (Auto) 2.2 Urine Bacteria (Auto) 7.6 Active Medications Current Medications Atorvastatin Calcium (Lipitor -) 10 mg PO HS [facility] Chlorhexidine Gluconate (Hibiclens For Decolonization -) 1 applic TP HS [facility] Heparin Sodium (Porcine) (Heparin -) 5,000 unit SQ BID [facility] Clindamycin Phosphate (Cleocin 900 Mg Premix Ivpb -) 900 mg in 50 mls @ 100 mls /hr IVPB Q8H-IV [facility]; Protocol Lactated Ringer's (Lactated Ringers Solution) 1,000 mls @ 125 mls/hr IV ASDIR [facility] Piperacillin Sod/Tazobactam (Sod 4.5 gm/ Dextrose) 100 mls @ 200 mls/hr IVPB Q8H-IV [facility]; Protocol Insulin Aspart (Novolog Vial Sliding Scale -) 1 vial SQ ACHS [facility]; Protocol Ipratropium [place] (Atrovent 0.02% Nebulizer -) 1 amp NEB RTID [facility] Levalbuterol HCl (Xopenex) 0.63 mg IH Q8H PRN PRN Reason: ASTHMA Losartan Potassium (Cozaar -) 25 mg PO DAILY [facility] Metoprolol Succinate (Toprol Xl -) 100 mg PO DAILY PRN PRN Reason: hypertensive OR [facility] Mupirocin (Bactroban Ointment (For Decolonization) -) 1 applic NS BID [facility] Stop: 10/01/19 21:59 Ondansetron HCl (Zofran Injection) 4 mg IVPUSH Q6H PRN PRN Reason: NAUSEA AND/OR VOMITING Pantoprazole Sodium (Protonix Iv) 40 mg IVPUSH DAILY [facility] Thiamine HCl (Vitamin B1 Injection -) 200 mg IVPB DAILY [facility] Home Medications Medication Instructions Recorded Pravastatin Sodium 10 mg PO DAILY 06/30/16 Insulin Lispro [Humalog] 150 unit SQ DAILY vial 05/22/17 Ferrous Sulfate [Feosol] 325 mg PO DAILY #30 tablet 01/18/18 Folic Acid - 1 mg PO DAILY #30 tablet 09/11/18 Losartan Potassium [Cozaar -] 50 mg PO DAILY 09/11/18 Pantoprazole Sodium [Protonix -] 40 mg PO DAILY #30 tablet.ec 09/11/18 Furosemide [Lasix] 40 mg PO DAILY 09/26/19 Metoprolol Succinate 100 mg PO DAILY 09/26/19 Microbiology 09/26/19 10:17 Groin - Right Gram Stain - Final 09/25/19 15:00 Blood - Peripheral Venous Blood Culture - Preliminary NO GROWTH OBTAINED AFTER 24 HOURS, INCUBATION TO CONTINUE FOR 4 DAYS. 09/25/19 15:00 Blood - Peripheral Venous Blood Culture - Preliminary NO GROWTH OBTAINED AFTER 24 HOURS, INCUBATION TO CONTINUE FOR 4 DAYS. 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 Also Focal lesion in the right inferior hepatic lobe MRCP w/ contrast ordered Vanc, zosyn, Clindamycin Cont LR 125 Scrotal US- mild to moderate hydrocele right?left #Hyperglycemia 2/2 to IDDM Gluc at 198 BGMs Q3H ISS Levemir 10-15 for Can consider starting Insulin pump later Pump settings- Total= 75 U/d, Rate: 3.1 U/hr, Ratio 15:1 insulin:carb #Hyponatremia monitor Na, still remains at 131 encourage PO diet Urine Na, Urine osm, Serum Osm #Right LE swelling r/o DVT, no calf tenderness US right LE- negative for DVT #CHF hold lasix 40 for now in the setting of hyponatremia #A-Fib w/ RVR Rate controlled Toprol XL 100 mg given, home dose confirmed #T-bili elevated T-bili 1.3 monitor for now #Iron def anemia consider cont iron #HTN Losartan 25 Pravastatin 10 #DVTppx Hep BID FEN monitor lytes cont Fluids LR 125 clear liquid diet, will defer to surgery for npo status Dispo: cont Abx, f/u with surgery for next debridement Visit type - Emergency Visit Emergency Visit: Yes ED Registration Date: 09/25/19 Care time: The patient presented to the Emergency Department on the above date and was hospitalized for further evaluation of their emergent condition. - New Patient This patient is new to me today: Yes Date on this admission: 09/27/19 - Critical Care Critical Care patient: No - Discharge Referral Referred to [facility] Med P.C[facility] No ATTENDING PHYSICIAN STATEMENT I saw and evaluated the patient. I reviewed the resident's note and discussed the case with the resident. I agree with the resident's findings and plan as documented. SUBJECTIVE: OBJECTIVE: ASSESSMENT AND PLAN:
--- NOTE | 2019-09-26 08:20 | PN ---
Teaching Attending Note Name of Resident: Ron Yao ATTENDING PHYSICIAN STATEMENT I saw and evaluated the patient. I reviewed the resident's note and discussed the case with the resident. I agree with the resident's findings and plan as documented. Seen and examined; please see resident note for further historical information. I personally verified all nicolas historical information and exam findings. Personally interpreted all imaging and diagnostics and reviewed appropriate consults. I reviewed all labs and vital signs as per resident note and EMR as documented. I agree with the above assessment and plan unless supplemented by myself in the following. Imaging noted to have free air was right overnight. This morning we placed the patient on telemetry and consulted surgery who is currently evaluating the patient. Discussed with Dr. Encinas and the surgical PA Arnaldo. We are broadening to Zosyn and consulting infectious disease as well. Given the presence of the cellulitis being so close to the groin, discussed with surgery and will involve urology to ensure there is no spread to role further service in the management this patient should they require operative intervention. Patient used to be on Xarelto but this was stopped as the patient was an unsafe risk of GI bleeding. He has elevated chads vascular 4. Cardiology recommended in the past that patient was supposed to follow-up for watchman device but this was not done, therefore we will consult cardiology to help guide our treatment plan should he require surgical intervention 10 item review of systems completed and is negative aside from as discussed in the subjective data in my own/the resident documentation. VS, labs, imaging reviewed NAD, AAO, resting comfortably in bed. RRR s1/2 no mgr Normal muscle tone, moves all 5 extremities with normal apparent strength Neck is supple, trachea midline, no latanya LN Lungs CTAB with sym expansion NT ND +BS no latanya organomegaly CN2-12 wnl; no FND NC AT EOMI PERRLA Normal mood, appropriate behavior, euthymic affect No skin breakdown; persisting area of cellulitis with warm CT pelvis discussed above 2018 echocardiogram is reviewed. Patient is found to have elevated RVSP at 40- 50 with mild to moderate valvular disease and mildly reduced LVEF ASSESSMENT AND PLAN: Patient is a 67-year-old male with past medical history of A. fib not on anticoagulation, mixed heart failure NYHA I-II at baseline, hypertension uncontrolled, diabetes mellitus, hyperlipidemia, Parkinson's disease, chronic alcohol abuse. He has necrotizing cellulitis evident on the CT scan of his pelvis and he will be transferred for telemetry and evaluated stat by the surgical team, made n.p.o. and preop labs will be obtained. Cardiology will be consulted for preoperative clearance his complicated medical history alongside the issue with the Xarelto and the non-watchman device, he will be placed on IV Protonix for GI prophylaxis when n.p.o. given his GI bleed history. In terms of surgical risk, given the patient's cardiac history he is of intermediate risk per the RCRI scale but the patient is noted to have a pressing medical condition with that necrotizing cellulitis that could progress to a life saving or deforming condition such as Tiff's gangrene and the patient should be brought to the operating room if recommended by surgery as the benefits would greatly outweigh the risks given the nature of the underlying illness Problems include: Necrotizing cellulitis, surgical consult with IV Zosyn and clindamycin, ID consult, monitor on the floor. Preop labs obtained History of CHF, mixed History of Parkinsons History of hypertension History of hyperlipidemia History of diabetes History of alcohol abuse on thiamine and folate History of GI bleed, on IV Protonix and n.p.o. History of atrial fibrillation on anticoagulation was supposed to be evaluated for watchman Full code
--- NOTE | 2019-09-26 08:21 | PN ---
Teaching Attending Note Name of Resident: Ron Yao ATTENDING PHYSICIAN STATEMENT I saw and evaluated the patient. I reviewed the resident's note and discussed the case with the resident. I agree with the resident's findings and plan as documented. Seen and examined; please see resident note for further historical information. I personally verified all nicolas historical information and exam findings. Personally interpreted all imaging and diagnostics and reviewed appropriate consults. I reviewed all labs and vital signs as per resident note and EMR as documented. I agree with the above assessment and plan unless supplemented by myself in the following. Agree with history of present illness as outlined in resident note, the patient is noted to have a area of cellulitis on the right upper thigh. No latanya crepitus but this area is suspicious for potential spread to the groin region for Tiff's versus neck fashion. We need to obtain a stat CT scan. We will work to control the glucose given her diabetes, monitor very closely on the floor, and follow-up imaging. Their pain is controlled. VS, labs, imaging reviewed NAD, AAO, resting comfortably in bed. RRR s1/2 no mgr Normal muscle tone, moves all 5 extremities with normal apparent strength Neck is supple, trachea midline, no latanya LN Lungs CTAB with sym expansion NT ND +BS no latanya organomegaly CN2-12 wnl; no FND NC AT EOMI PERRLA Normal mood, appropriate behavior, euthymic affect No skin breakdown; area of cellulitis noted in the right upper thigh medially as described EKG reviewed, CT ordered and is pending. Chest x-ray reviewed ER documentation reviewed Assessment and plan: Patient presents for right upper groin cellulitis. There is a discrepancy with the dose of the metoprolol they are taking and we will elucidated with her pharmacy. The heart rate is currently controlled. We will make Sure that there is no underlying necrotizing process or free air with imaging and we will go ahead and monitor the patient on the floor. Currently hemodynamically stable and afebrile Full code
[2019-09-26] MEDS ORDERED: VANCOMYCIN HCL 1,750 MG in DEXTROSE 5%-WATER - 500 ML IVPB ONE ×2 (08:30→10:30)
--- NOTE | 2019-09-26 09:05 | CON.ID ---
Consult Consult Specialty:: infectious diseases Referred by:: Reason for Consultation:: rt grin abscess - History of Present Illness Chief Complaint: rt groin abscess History of Present Illness: 68 year old male, with a significant PMH of IDDM, Afib, CAD (s/p stents), CHF, HTN, HLD, and anxiety, who presents to the ED for evaluation of right groin wound for 4 days. Patient notes he was getting out of a car, when he slipped, landed in a split, and consequently developed a wound with bleeding. Since the incident, patient notes the wound has developed a progressively worsening odor with discharge, redness, and warmth. patient with draining wound now going to the or patient was started on iv abx patient otherwise s table - History Source History Provided By: Patient Limitations to Obtaining History: No Limitations - Past Medical History Cardio/Vascular: Yes: AFIB, CHF, HTN, Hyperlipdemia Psych: Yes: Addictions, Anxiety, Depression, Panic - Alcohol/Substance Use Hx Alcohol Use: Yes History of Substance Use: reports: Prescription - Smoking History Smoking history: Never smoked Have you smoked in the past 12 months: No Aproximately how many cigarettes per day: 0 - Social History Usual Living Arrangement: With Spouse ADL: Independent Home Medications - Allergies Allergies/Adverse Reactions: Allergies Allergy/AdvReac Type Severity Reaction Status Date / Time No Known Drug Allergies Allergy Verified 09/25/19 12:22 shellfish derived Allergy Mouth Verified 09/25/19 12:22 swelling, eye swelling - Home Medications Home Medications: Ambulatory Orders Pravastatin Sodium 10 mg PO DAILY 06/30/16 Insulin Lispro [Humalog] 150 unit SQ DAILY vial 05/22/17 Potassium Chloride 20 meq PO DAILY #15 tablet.er 07/04/17 Ferrous Sulfate [Feosol] 325 mg PO DAILY #30 tablet 01/18/18 Metoprolol Succinate 50 mg PO DAILY 09/07/18 Furosemide [Lasix] 80 mg PO DAILY 09/10/18 Folic Acid - 1 mg PO DAILY #30 tablet 09/11/18 Losartan Potassium [Cozaar -] 25 mg PO DAILY 09/11/18 Pantoprazole Sodium [Protonix -] 40 mg PO DAILY #30 tablet.ec 09/11/18 Thiamine HCl [Vitamin B1 -] 100 mg PO DAILY #30 tablet 09/11/18 Review of Systems - Review of Systems Constitutional: reports: No Symptoms Eyes: reports: No Symptoms HENT: reports: No Symptoms Neck: reports: No Symptoms Cardiovascular: reports: No Symptoms Respiratory: reports: No Symptoms Gastrointestinal: reports: No Symptoms Genitourinary: reports: Other Musculoskeletal: reports: No Symptoms Integumentary: reports: Wound (rt groin) Neurological: reports: No Symptoms Endocrine: reports: No Symptoms Hematology/Lymphatic: reports: No Symptoms Psychiatric: reports: No Symptoms Physical Exam Vital Signs: Vital Signs Temperature 98.8 F 09/26/19 08:55 Pulse Rate 110 H 09/26/19 08:55 Respiratory Rate 09/26/19 08:58 Blood Pressure 126/84 09/26/19 08:55 O2 Sat by Pulse Oximetry (%) 96 09/26/19 08:58 Constitutional: Yes: Well Nourished, No Distress, Calm Cardiovascular: Yes: Pulse Irregular Respiratory: Yes: Regular, CTA Bilaterally Gastrointestinal: Yes: Normal Bowel Sounds, Soft Renal/: Yes: Other (groin wound) Musculoskeletal: Yes: WNL Extremities: Yes: WNL Wound/Incision: Yes: Draining, Other Neurological: Yes: Alert, Oriented Psychiatric: Yes: Alert, Oriented Labs: CBC, BMP 09/25/19 15:00 09/25/19 15:00 Imaging - Results Chest X-ray: Report Reviewed, Image Reviewed Cat Scan: Report Reviewed, Image Reviewed Assessment/Plan 68 y/o F, pmh of HTN, A-fib not on blood thinners(xarelto stopped for GI bleed) , IDDM on insulin pump, CHF on lasix, CAD s/p stents, Etoh abuse, liver cirrhosis, splenectomy, presented to the ED with a right groin wound of 5 day duration that started has just a swelling, which progressed to an open wound, associated with malodorous and pustular discharge and bleed admitted for cellulitis necrotizing cellulitis of the rt groin hyperglycemia hyponatremia chf pain htn plan continue abx surgery cx rest as per the team
[2019-09-26] MEDS ORDERED: PROMETHAZINE HCL 25 MG/1 ML VIAL IVPUSH PRN (09:35)
[2019-09-26] MEDS ORDERED: ONDANSETRON 4 MG/2 ML VIAL IVPUSH PRN ×2 (09:35→13:06)
[2019-09-26] MEDS ORDERED: MIDAZOLAM HCL 2 MG/2 ML SINGLE DOSE VIAL ONE (09:41)
[2019-09-26] MEDS ORDERED: ETOMIDATE 20 MG/10 ML AMPUL IVPUSH ONE (09:41)
[2019-09-26] MEDS ORDERED: ROCURONIUM BROMIDE 50 MG/5 ML SYRINGE ONE (09:41)
[2019-09-26] MEDS ORDERED: SUCCINYLCHOLINE CHLORIDE 200 MG/10 ML SYRINGE ONE (09:41)
[2019-09-26] MEDS ORDERED: LIDOCAINE HCL/PF 2% SDV 5ML VIAL ONE (09:41)
[2019-09-26] MEDS ORDERED: LACTATED RINGERS SOLUTION 1,000 ML IV SCH ×2 (09:45→13:06)
[2019-09-26 09:51] LABS: BASO % 0.3 % (0-2.0); EOS % 1.4 % (0-4.5); HEMATOCRIT 31.9 % (35.4-49); HEMOGLOBIN 10.1 GM/dL (11.7-16.9); LYMPH % 8.3 % (8-40); MCH 23.4 pg (25.7-33.7); MCHC 31.8 g/dl (32.0-35.9); MEAN CELL VOLUME 73.7 fl (80-96); MEAN PLT VOLUME 9.5 fl (7.5-11.1); MONO % 11.4 % (3.8-10.2); NEUT % 78.6 % (42.8-82.8); PLATELET COUNT 238 K/MM3 (134-434); RBC 4.33 M/mm3 (4.00-5.60); RDW 17.3 % (11.9-15.9)
[2019-09-26] MEDS ORDERED: THIAMINE HCL 200 MG/2 ML VIAL IVPB SCH (10:00)
[2019-09-26] MEDS ORDERED: INSULIN LISPRO SQ SCH ×2 (10:00)
[2019-09-26] MEDS ORDERED: CLINDAMYCIN 900 MG PREMIX IVPB 900 MG/50 ML BAG IVPB SCH (10:00)
[2019-09-26] MEDS ORDERED: PIPERACILLIN/TAZOB 3.375 GM 3.375 GM in DEXTROSE 5%-WATER - 50 ML IVPB SCH ×2 (10:00→16:00)
[2019-09-26] MEDS ORDERED: PIPERACILLIN/TAZOB 4.5 GM 4.5 GM in DEXTROSE 5%-WATER 100 ML IVPB SCH ×2 (10:00→18:00)
[2019-09-26] MEDS ORDERED: HEPARIN NA (PORCINE) 5,000 UNITS/ML 1ML VIAL SQ SCH (10:00)
[2019-09-26] MEDS ORDERED: PANTOPRAZOLE 40 MG TABLET PO SCH ×2 (10:00)
--- NOTE | 2019-09-26 10:03 | PN ---
Progress Note (short form) - Note Progress Note: Attending Surgeon 68 y/o diabetic male presented w/post traumatic right groin STI; w/u reveals necrotizing infection; for excisional debridement in OR; r/b/t/a's d/w the patient pre-op and informed consent obtained; full note to follow; return to OR in 24 hours may be necessary and wound will be left open; patient understands this, Adrian Encinas MD FACS
[2019-09-26] MEDS ORDERED: CLINDAMYCIN PHOSPHATE 600 MG/4 ML VIAL ONE (10:07)
[2019-09-26] MEDS ORDERED: CLINDAMYCIN 900 MG PREMIX BAG IVPB ONE (10:08)
[2019-09-26 10:09] LABS: INR 1.21 (0.83-1.09); PROTHROMBIN TIME (PATIENT) 14.3 SEC (9.7-13.0)
[2019-09-26] MEDS ORDERED: PANTOPRAZOLE SODIUM 40 MG VIAL IVPUSH SCH (10:15)
[2019-09-26 10:20] LABS: ALBUMIN 3.1 g/dl (3.4-5.0); BILIRUBIN,TOTAL 1.3 mg/dL (0.2-1); BLOOD UREA NITROGEN 13.6 mg/dL (7-18); CALCIUM 8.8 mg/dL (8.5-10.1); CREATININE 1.2 mg/dL (0.55-1.3); MAGNESIUM 2.1 mg/dL (1.8-2.4); POTASSIUM 3.9 mmol/L (3.5-5.1); TOT PROT 7.1 g/dl (6.4-8.2)
[2019-09-26] MEDS ORDERED: KETOROLAC TROMETHAMINE 30 MG/1 ML VIAL ONE (10:23)
[2019-09-26] MEDS ORDERED: FOLIC ACID 5 MG/1 ML SQ ONE (10:30)
[2019-09-26] MEDS ORDERED: METOPROLOL TARTRATE 5 MG/5 ML VIAL ONE ×2 (10:39→11:36)
--- NOTE | 2019-09-26 10:52 | OP ---
Operative Note - Note: Operative Date: 09/26/19 Pre-Operative Diagnosis: soft tissue infection right groin Operation: incision/drainage soft tissue infection and sharp excisional debridement non viable skin and subcutaneous fat and fascia and superficial muscle. Findings: non viable skin and subcutaneous tissue and fascia and superficial muscle. Post-Operative Diagnosis: Same as Pre-op Surgeon: Adrian Encinas Vacuum Drum Drier Operator: Abdi Mckeon II Anesthesiologist/BOILERS INSPECTOR: Jaydon Silva Anesthesia: General Specimens Removed: nonviable soft tissue Estimated Blood Loss (mls): 100 Drains & Tubes with Location: wound packed w/Kerlix
[2019-09-26] MEDS ORDERED: INSULIN SLIDING SCALE (NOVOLOG) 1 VIAL SQ SCH (11:00)
[2019-09-26] MEDS ORDERED: METOPROLOL TARTRATE 5 MG/5 ML VIAL IVPB ONE (11:35)
[2019-09-26] MEDS ORDERED: VANCOMYCIN 1,000 MG VIAL (RESTRICTED TO ID ONLY) IVPB ONE (13:00)
[2019-09-26] MEDS ORDERED: PIPERACILLIN/TAZOBACTAM 4.5 GM VIAL IVPB ONE (13:08)
[2019-09-26] MEDS ORDERED: DEXTROSE 5%-WATER 100 ML IVPB ONE (13:09)
--- NOTE | 2019-09-26 13:29 | PN ---
Teaching Attending Note Name of Resident: Mila Aguillon ATTENDING PHYSICIAN STATEMENT I saw and evaluated the patient. I reviewed the resident's note and discussed the case with the resident. I agree with the resident's findings and plan as documented. SUBJECTIVE: Pt seen and examined in the ICU. s/p right groin debridement. Rapid atrial fibrillation post op improved with lopressor pushes. Reports some wheezing. OBJECTIVE: Vital Signs Period Temp Pulse Resp BP Sys/Varma Pulse Ox Last 24 Hr 98.0 F-99.4 F 82-134 16-22 110-134/57-84 95-100 Intake & Output 09/23/19 09/24/19 09/25/19 09/26/19 23:59 23:59 23:59 23:59 Intake Total 150 600 Output Total 200 Balance 150 400 Weight 119.295 kg 117.254 kg Gen: NAD at rest Heart: irregular Lung: upper airway wheezing Abd: soft, nontender Ext: dressings dry, clean CBC, BMP 09/26/19 08:59 09/26/19 08:59 Active Medications Atorvastatin Calcium (Lipitor -) 10 mg PO HS [facility] Chlorhexidine Gluconate (Hibiclens For Decolonization -) 1 applic TP HS [facility] Heparin Sodium (Porcine) (Heparin -) 5,000 unit SQ BID [facility] Clindamycin Phosphate (Cleocin 900 Mg Premix Ivpb -) 900 mg in 50 mls @ 100 mls /hr IVPB Q8H-IV [facility]; Protocol Lactated Ringer's (Lactated Ringers Solution) 1,000 mls @ 125 mls/hr IV ASDIR [facility] Piperacillin Sod/Tazobactam (Sod 4.5 gm/ Dextrose) 100 mls @ 200 mls/hr IVPB Q8H-IV [facility]; Protocol Insulin Aspart (Novolog Vial Sliding Scale -) 1 vial SQ ACHS [facility]; Protocol Losartan Potassium (Cozaar -) 25 mg PO DAILY [facility] Metoprolol Succinate (Toprol Xl -) 50 mg PO DAILY PRN PRN Reason: hypertensive OR TACHY Mupirocin (Bactroban Ointment (For Decolonization) -) 1 applic NS BID [facility] Stop: 10/01/19 21:59 Ondansetron HCl (Zofran Injection) 4 mg IVPUSH Q6H PRN PRN Reason: NAUSEA AND/OR VOMITING Pantoprazole Sodium (Protonix Iv) 40 mg IVPUSH DAILY [facility] Thiamine HCl (Vitamin B1 Injection -) 200 mg IVPB DAILY [facility] ASSESSMENT AND PLAN: Necrotizing Cellulitis Right Groin Sepsis s/p Excisional Debridement Atrial Fibrillation with RVR CAD LV Systolic Dysfunction Pulmonary HTN HTN DM Hyperlipidemia Alcohol Abuse Liver Cirrhosis Anemia - continue antibiotics - f/u cultures - IVF - rate control - ?anticoagulation - glucose control - inhaled bronchodilators - DVT prophylaxis - disposition per surgery
[2019-09-26] MEDS ORDERED: LEVALBUTEROL HCL 0.63 MG/3 ML VIAL.NEB. IH PRN (13:34)
--- NOTE | 2019-09-26 13:42 | SURG ---
Surgery Market Risk Manager Note Market Risk Manager: JOSE Alexis Date of Service: 09/26/19 Diagnosis: Pre-Operative Diagnosis: soft tissue infection right groin Procedure: Operation: incision/drainage soft tissue infection and sharp excisional debridement non viable skin and subcutaneous fat and fascia and superficial muscle. I was present for the entirety of the operative procedure. For further detail, please refer to operative report. Visit type - Case Type Case Type: ED Admission - Emergency Emergency Visit: Yes ED Registration Date: 09/25/19 Care time: The patient presented to the Emergency Department on the above date and was hospitalized for further evaluation of their emergent condition. - New patient This patient is new to me today: Yes Date on this admission: 09/26/19
--- NOTE | 2019-09-26 15:13 | EKG ---
Test Reason : Blood Pressure : / mmHG Vent. Rate : 139 BPM Atrial Rate : 150 BPM P-R Int : 000 ms QRS Dur : 102 ms QT Int : 304 ms P-R-T Axes : 000 -33 114 degrees QTc Int : 462 ms ATRIAL FIBRILLATION WITH RAPID VENTRICULAR RESPONSE WITH PREMATURE VENTRICULAR OR ABERRANTLY CONDUCTED COMPLEXES LEFT AXIS DEVIATION ABNORMAL ECG WHEN COMPARED WITH ECG OF 07-SEP-2018 17:30, T WAVE INVERSION MORE EVIDENT IN LATERAL LEADS Confirmed by IGNACIO BEGUM, ANTONIO ([id number]) on 09/26/2019 3:12:35 PM Referred By: Confirmed By:ANTONIO PIERRE MD
--- NOTE | 2019-09-26 15:37 | CONSULT ---
- Consultation REQUESTING PROVIDER: CONSULT REQUEST: We have been asked to surgically evaluate this patient for concern Right groin necrotizing fasciitis PCP:Narendra Ivory MD HISTORY OF PRESENT ILLNESS: Surgical team was contacted for concerns for CT showing air present in pts, right groin wound. Pt states that he has been having pain in swelling in his right groin for several days, then yesterday he slip on some ice and the wound split open and started draining. Pt denies any fever or chills. Denies previous infections in the groin. Pt has h/o of DM on insulin, but states his glucose is well controlled. Pt complaining of pain and drainage from his right groin. PMHx: DM, HLD, HTN Home Medications Medication Instructions Recorded Pravastatin Sodium 10 mg PO DAILY 06/30/16 Insulin Lispro [Humalog] 150 unit SQ DAILY vial 05/22/17 Ferrous Sulfate [Feosol] 325 mg PO DAILY #30 tablet 01/18/18 Folic Acid - 1 mg PO DAILY #30 tablet 09/11/18 Losartan Potassium [Cozaar -] 50 mg PO DAILY 09/11/18 Pantoprazole Sodium [Protonix -] 40 mg PO DAILY #30 tablet.ec 09/11/18 Furosemide [Lasix] 40 mg PO DAILY 09/26/19 Metoprolol Succinate 100 mg PO DAILY 09/26/19 Allergies Allergy/AdvReac Type Severity Reaction Status Date / Time No Known Drug Allergies Allergy Verified 09/25/19 12:22 shellfish derived Allergy Mouth Verified 09/25/19 12:22 swelling, eye swelling REVIEW OF SYSTEMS: CONSTITUTIONAL: Absent: fever, chills, diaphoresis, generalized weakness, malaise, loss of appetite, weight change CARDIOVASCULAR: Absent: chest pain, syncope, palpitations, irregular heart rate, lightheadedness , peripheral edema RESPIRATORY: Absent: cough, shortness of breath, dyspnea with exertion, wheezing, stridor, hemoptysis GASTROINTESTINAL: Absent: abdominal pain, abdominal distension, nausea, vomiting, diarrhea, constipation, melena, hematochezia GENITOURINARY: Absent: dysuria, frequency, urgency, hesitancy, hematuria, flank pain, genital pain PSYCHIATRIC: Absent: anxiety, depression, suicidal or homicidal ideation, hallucinations. PHYSICAL EXAM: GENERAL: Awake, alert, and fully oriented, in no acute distress. HEAD: Normal with no signs of trauma. EYES: PERRL, sclera anicteric, conjunctiva clear. NECK: Normal ROM, supple without lymphadenopathy, JVD, or masses. LUNGS: breathing comfortably ABDOMEN: Soft, nontender, not distended, no guarding, no rebound, no masses. No organomegaly. : Rt groin shows erythema and swelling with copious purulent discharge from opening in inguinal cleft. tender to palpation. LOWER EXTREMITIES: warm, well-perfused. No calf tenderness. No peripheral edema. NEUROLOGICAL: Normal speech, gait not observed. PSYCH: Cooperative. Good eye contact. Appropriate mood and affect. SKIN: Warm, dry, normal turgor, no rashes or lesions noted. Vital Signs Temperature 98.0 F 09/26/19 12:50 Pulse Rate 96 H 09/26/19 12:50 Respiratory Rate 16 09/26/19 12:50 Blood Pressure 115/75 09/26/19 12:50 O2 Sat by Pulse Oximetry (%) 100 09/26/19 12:50 Lab Results WBC 11.0 K/mm3 (4.0-10.0) H 09/26/19 08:59 RBC 4.33 M/mm3 (4.00-5.60) 09/26/19 08:59 Hgb 10.1 GM/dL (11.7-16.9) L 09/26/19 08:59 Hct 31.9 % (35.4-49) L 09/26/19 08:59 MCV 73.7 fl (80-96) L 09/26/19 08:59 MCHC 31.8 g/dl (32.0-35.9) L 09/26/19 08:59 RDW 17.3 % (11.9-15.9) H 09/26/19 08:59 Plt Count 238 K/MM3 (134-434) 09/26/19 08:59 Sodium 131 mmol/L (136-145) L 09/26/19 08:59 Potassium 3.9 mmol/L (3.5-5.1) 09/26/19 08:59 Chloride 96 mmol/L (98-107) L 09/26/19 08:59 Carbon Dioxide 27 mmol/L (21-32) 09/26/19 08:59 Anion Gap 9 MMOL/L (8-16) 09/26/19 08:59 BUN 13.6 mg/dL (7-18) 09/26/19 08:59 Creatinine 1.2 mg/dL (0.55-1.3) 09/26/19 08:59 Random Glucose 201 mg/dL (74-106) H 09/26/19 08:59 Calcium 8.8 mg/dL (8.5-10.1) 09/26/19 08:59 Blood Type O POSITIVE 09/26/19 08:59 Antibody Screen Negative 09/26/19 08:59 INR 1.21 (0.83-1.09) H 09/26/19 08:59 CT pelvis: Subcutaneous soft tissue thickening with associated subcutaneous air/ gas accumulation is noted within the region of the right groin suggestive of necrotizing cellulitis. Problem List - Problems (1) Necrotizing cellulitis Assessment/Plan: Plan -pt will be taken to the OR urgently today for debridement, discussed with pt who understands the urgency and that he will have an open wound that may require multiple debridements. -IV abx as per med/ID -dvt ppx Pt seen and discussed with Dr. Encinas who agrees with plan Code(s): L03.90 - CELLULITIS, UNSPECIFIED
--- NOTE | 2019-09-26 15:48 | CONSULT ---
Consultation: REQUESTING PROVIDER: Dr Encinas CONSULT REQUEST: We have been asked to medically evaluate this patient for (ICU monitoring). HISTORY OF PRESENT ILLNESS: 68 year old male, with a significant PMH of IDDM, Afib, CAD (s/p stents), CHF, HTN, HLD, and anxiety, who presents to the ED for evaluation of right groin wound for 4 days. Patient notes he was getting out of a car, when he slipped, landed in a split, and consequently developed a wound with bleeding. Since the incident, patient notes the wound has developed a progressively worsening odor with discharge, redness, and warmth. Pt went to OR for debribement for possible necrotizing cellulitis with IV Zosyn and clindamycin as antibiotic coverage. We were consulted post op for concerns of sepsis and need for ICU monitoring. Pt denies any fever, pain though he does endose mild SOB REVIEW OF SYSTEMS: CONSTITUTIONAL: Absent: fever, chills, diaphoresis, generalized weakness, malaise, loss of appetite, weight change HEENT: Absent: rhinorrhea, nasal congestion, throat pain, throat swelling, difficulty swallowing, mouth swelling, ear pain, eye pain, visual changes CARDIOVASCULAR: Absent: chest pain, syncope, palpitations, irregular heart rate, lightheadedness, peripheral edema RESPIRATORY: shortness of breath Absent: cough, dyspnea with exertion, orthopnea, wheezing, stridor, hemoptysis GASTROINTESTINAL: Absent: abdominal pain, abdominal distension, nausea, vomiting, diarrhea, c onstipation, melena, hematochezia GENITOURINARY: Absent: dysuria, frequency, urgency, hesitancy, hematuria, flank pain, genital pain MUSCULOSKELETAL: Absent: myalgia, arthralgia, joint swelling, back pain, neck pain SKIN: Absent: rash, itching, pallor HEMATOLOGIC/IMMUNOLOGIC: Absent: easy bleeding, easy bruising, lymphadenopathy, frequent infections ENDOCRINE: Absent: unexplained weight gain, unexplained weight loss, heat intolerance, cold intolerance NEUROLOGIC: Absent: headache, focal weakness or paresthesias, dizziness, unsteady gait, seizure, mental status changes, bladder or bowel incontinence PSYCHIATRIC: Absent: anxiety, depression, suicidal or homicidal ideation, hallucinations. PHYSICAL EXAMINATION Vital Signs - 24 hr 09/25/19 09/25/19 09/26/19 16:30 19:15 06:00 Temperature 98.1 F 98.2 F 98.5 F Pulse Rate 91 H 90 Pulse Rate [ 82 Right Radial] Respiratory 18 18 20 Rate Blood Pressure 128/79 132/57 L Blood Pressure 121/76 [Right Arm] O2 Sat by Pulse 95 Oximetry (%) 09/26/19 09/26/19 09/26/19 08:55 08:58 10:47 Temperature 98.8 F 98.0 F Pulse Rate 110 H 132 H Pulse Rate [ Right Radial] Respiratory 20 20 22 H Rate Blood Pressure 126/84 123/80 Blood Pressure [Right Arm] O2 Sat by Pulse 96 100 Oximetry (%) 09/26/19 09/26/19 09/26/19 11:05 11:20 11:35 Temperature Pulse Rate 134 H 132 H 134 H Pulse Rate [ Right Radial] Respiratory 16 16 16 Rate Blood Pressure 121/83 117/80 118/80 Blood Pressure [Right Arm] O2 Sat by Pulse 100 100 100 Oximetry (%) 09/26/19 09/26/19 09/26/19 11:50 12:05 12:20 Temperature Pulse Rate 100 H 98 H 96 H Pulse Rate [ Right Radial] Respiratory 16 16 16 Rate Blood Pressure 112/74 115/74 112/80 Blood Pressure [Right Arm] O2 Sat by Pulse 100 100 100 Oximetry (%) 09/26/19 09/26/19 12:35 12:50 Temperature 98.0 F Pulse Rate 90 96 H Pulse Rate [ Right Radial] Respiratory 16 16 Rate Blood Pressure 114/75 115/75 Blood Pressure [Right Arm] O2 Sat by Pulse 100 100 Oximetry (%) GENERAL: Awake, alert, and fully oriented, in no acute distress. HEAD: Normal with no signs of trauma. EYES: Pupils equal, round and reactive to light, extraocular movements intact, s clera anicteric, conjunctiva clear. No lid lag. EARS, NOSE, THROAT: oropharynx clear without exudates. Moist mucous membranes. NECK: Normal range of motion, supple without lymphadenopathy, JVD, or masses. LUNGS: Breath sounds equal, clear to auscultation bilaterally. upper airway wheezes, and no crackles. No accessory muscle use. HEART:tachy in the 90-100s and irregular rate and rhythm, normal S1 and S2 without murmur, rub or gallop. ABDOMEN: Soft, nontender, distended and obese, normoactive bowel sounds, no guarding, no rebound, no masses. No hepatomegaly or splenomegaly. LOWER EXTREMITIES: 2+ pulses, warm, well-perfused. No calf tenderness. peripheral edema. PSYCHIATRIC: Cooperative. Good eye contact. Appropriate mood and affect. SKIN: Warm, dry, normal turgor, no rashes or lesions noted. Laboratory Results - last 24 hr 09/25/19 09/25/19 09/25/19 15:00 15:00 15:00 WBC 12.0 H RBC 4.49 Hgb 10.4 L Hct 33.2 L D MCV 74.1 L MCH 23.1 L D MCHC 31.1 L RDW 17.2 H Plt Count 229 MPV 9.6 Absolute Neuts (auto) 9.7 H Neutrophils % 81.0 Lymphocytes % 4.9 L D Monocytes % 13.1 H Eosinophils % 0.4 Basophils % 0.6 Nucleated RBC % 0 Retic Count PT with INR INR Sodium 131 L Potassium 3.9 Chloride 97 L Carbon Dioxide 25 Anion Gap 9 BUN 11.9 Creatinine 1.2 Est GFR (CKD-EPI)AfAm 72.09 Est GFR (CKD-EPI)NonAf 62.20 POC Glucometer Random Glucose 252 H Serum Osmolality Calcium 8.8 Phosphorus Magnesium Iron TIBC Iron Saturation Unsaturated IBC Ferritin Total Bilirubin 1.0 AST 22 ALT 23 Alkaline Phosphatase 109 Total Protein 7.0 Albumin 3.2 L Vitamin B12 Serum Folate Urine Color Dk yellow Urine Appearance Clear Urine pH 5.0 Ur Specific [place] 1.034 Urine Protein 2+ H Urine Glucose (UA) Negative Urine Ketones Negative Urine Blood Negative Urine Nitrite Negative Urine Bilirubin 2+ H Urine Urobilinogen 1.0 Ur Leukocyte Esterase Negative Urine WBC (Auto) 2 Urine RBC (Auto) 5 Urine Casts (Auto) 29 U Pathogenic Cast Auto None seen U Epithel Cells (Auto) 2.2 Urine Bacteria (Auto) 7.6 Blood Type Antibody Screen 09/25/19 09/26/19 09/26/19 23:47 06:44 08:59 WBC 11.0 H RBC 4.33 Hgb 10.1 L Hct 31.9 L MCV 73.7 L MCH 23.4 L MCHC 31.8 L RDW 17.3 H Plt Count 238 MPV 9.5 Absolute Neuts (auto) 8.7 H Neutrophils % 78.6 Lymphocytes % 8.3 D Monocytes % 11.4 H Eosinophils % 1.4 D Basophils % 0.3 Nucleated RBC % 0 Retic Count PT with INR INR Sodium Potassium Chloride Carbon Dioxide Anion Gap BUN Creatinine Est GFR (CKD-EPI)AfAm Est GFR (CKD-EPI)NonAf POC Glucometer 258 208 Random Glucose Serum Osmolality Calcium Phosphorus Magnesium Iron TIBC Iron Saturation Unsaturated IBC Ferritin Total Bilirubin AST ALT Alkaline Phosphatase Total Protein Albumin Vitamin B12 Serum Folate Urine Color Urine Appearance Urine pH Ur Specific [place] Urine Protein Urine Glucose (UA) Urine Ketones Urine Blood Urine Nitrite Urine Bilirubin Urine Urobilinogen Ur Leukocyte Esterase Urine WBC (Auto) Urine RBC (Auto) Urine Casts (Auto) U Pathogenic Cast Auto U Epithel Cells (Auto) Urine Bacteria (Auto) Blood Type Antibody Screen 09/26/19 09/26/19 09/26/19 08:59 08:59 08:59 WBC RBC Hgb Hct MCV MCH MCHC RDW Plt Count MPV Absolute Neuts (auto) Neutrophils % Lymphocytes % Monocytes % Eosinophils % Basophils % Nucleated RBC % Retic Count PT with INR 14.30 H INR 1.21 H Sodium 131 L Potassium 3.9 Chloride 96 L Carbon Dioxide 27 Anion Gap 9 BUN 13.6 Creatinine 1.2 Est GFR (CKD-EPI)AfAm 72.09 Est GFR (CKD-EPI)NonAf 62.20 POC Glucometer Random Glucose 201 H Serum Osmolality 292 Calcium 8.8 Phosphorus 3.0 Magnesium 2.1 Iron 11 L TIBC 340 Iron Saturation 3 L Unsaturated IBC 329 H Ferritin 116.4 Total Bilirubin 1.3 H AST 21 ALT 22 Alkaline Phosphatase 107 Total Protein 7.1 Albumin 3.1 L Vitamin B12 773 Serum Folate 12 Urine Color Urine Appearance Urine pH Ur Specific [place] Urine Protein Urine Glucose (UA) Urine Ketones Urine Blood Urine Nitrite Urine Bilirubin Urine Urobilinogen Ur Leukocyte Esterase Urine WBC (Auto) Urine RBC (Auto) Urine Casts (Auto) U Pathogenic Cast Auto U Epithel Cells (Auto) Urine Bacteria (Auto) Blood Type Antibody Screen 09/26/19 09/26/19 09/26/19 08:59 08:59 10:55 WBC RBC Hgb Hct MCV MCH MCHC RDW Plt Count MPV Absolute Neuts (auto) Neutrophils % Lymphocytes % Monocytes % Eosinophils % Basophils % Nucleated RBC % Retic Count 1.64 H PT with INR INR Sodium Potassium Chloride Carbon Dioxide Anion Gap BUN Creatinine Est GFR (CKD-EPI)AfAm Est GFR (CKD-EPI)NonAf POC Glucometer 194 Random Glucose Serum Osmolality Calcium Phosphorus Magnesium Iron TIBC Iron Saturation Unsaturated IBC Ferritin Total Bilirubin AST ALT Alkaline Phosphatase Total Protein Albumin Vitamin B12 Serum Folate Urine Color Urine Appearance Urine pH Ur Specific [place] Urine Protein Urine Glucose (UA) Urine Ketones Urine Blood Urine Nitrite Urine Bilirubin Urine Urobilinogen Ur Leukocyte Esterase Urine WBC (Auto) Urine RBC (Auto) Urine Casts (Auto) U Pathogenic Cast Auto U Epithel Cells (Auto) Urine Bacteria (Auto) Blood Type O POSITIVE Antibody Screen Negative 09/26/19 12:28 WBC RBC Hgb Hct MCV MCH MCHC RDW Plt Count MPV Absolute Neuts (auto) Neutrophils % Lymphocytes % Monocytes % Eosinophils % Basophils % Nucleated RBC % Retic Count PT with INR INR Sodium Potassium Chloride Carbon Dioxide Anion Gap BUN Creatinine Est GFR (CKD-EPI)AfAm Est GFR (CKD-EPI)NonAf POC Glucometer 198 Random Glucose Serum Osmolality Calcium Phosphorus Magnesium Iron TIBC Iron Saturation Unsaturated IBC Ferritin Total Bilirubin AST ALT Alkaline Phosphatase Total Protein Albumin Vitamin B12 Serum Folate Urine Color Urine Appearance Urine pH Ur Specific [place] Urine Protein Urine Glucose (UA) Urine Ketones Urine Blood Urine Nitrite Urine Bilirubin Urine Urobilinogen Ur Leukocyte Esterase Urine WBC (Auto) Urine RBC (Auto) Urine Casts (Auto) U Pathogenic Cast Auto U Epithel Cells (Auto) Urine Bacteria (Auto) Blood Type Antibody Screen Active Medications Generic Name Dose Route Start Last Admin Trade Name Freq PRN Reason Stop Dose Admin Atorvastatin Calcium 10 mg 09/26/19 22:00 Lipitor - PO HS LAINEY Chlorhexidine Gluconate 1 applic 09/26/19 22:00 Hibiclens For Decolonization - TP HS LAINEY Heparin Sodium (Porcine) 5,000 unit 09/26/19 22:00 Heparin - SQ BID LAINEY Clindamycin Phosphate 900 mg in 50 mls @ 100 mls/hr 09/26/19 18:00 Cleocin 900 Mg Premix Ivpb - IVPB Q8H-IV [facility] Protocol Lactated Ringer's 1,000 mls @ 125 mls/hr 09/26/19 13:06 Lactated Ringers Solution IV ASDIR LAINEY Piperacillin Sod/Tazobactam 100 mls @ 200 mls/hr 09/26/19 18:00 Sod 4.5 gm/ Dextrose IVPB Q8H-IV [facility] Protocol Insulin Aspart 1 vial 01/23/20 16:30 Novolog Vial Sliding Scale - SQ ACHS [facility] Protocol Ipratropium [place] 1 amp 09/26/19 14:00 Atrovent 0.02% Nebulizer - NEB RTID [facility] Levalbuterol HCl 0.63 mg 09/26/19 13:34 Xopenex IH Q8H PRN ASTHMA Losartan Potassium 25 mg 09/26/19 19:15 Cozaar - PO DAILY [facility] Metoprolol Succinate 50 mg 09/26/19 12:37 Toprol Xl - PO DAILY PRN hypertensive OR TACHY Mupirocin 1 applic 09/26/19 22:00 Bactroban Ointment (For Decolonization) - NS 10/01/19 21:59 BID [facility] Ondansetron HCl 4 mg 09/26/19 13:06 Zofran Injection IVPUSH Q6H PRN NAUSEA AND/OR VOMITING Pantoprazole Sodium 40 mg 09/27/19 10:00 Protonix Iv IVPUSH DAILY [facility] Thiamine HCl 200 mg 09/27/19 10:00 Vitamin B1 Injection - IVPB DAILY [facility] ASSESSMENT/PLAN: 68 year old male, with a significant PMH of IDDM, Afib, CAD (s/p stents), CHF, HTN, HLD, GERD and anxiety, who presents to the ED for evaluation of right groin wound for 4 days s/p groin debribement for necrotizing cellulitis. Neuro: - AAOx3 - hx of anxiety - monitor CV: - BP 111/76, HR between 90-110s - Hx HTN, CHF, Afib, CAD s/p stent, HLD - cont metoprolol 100mg daily via 25 Q6h. pt currently normotensive; HOLD UNTIL HYPERTENSIVE OR TACHY per primary team - Afib with no AC at home. Chadsvasc score of 4. AC? per cardio pt is heavy drinker as a result they withheld AC at that time. - cont statin Pulm: - upper airway wheezing, SOB - no hx of resp disease - started on bronchodilators - 3L NC for sat >90% ID: -WBC 11.9, currently afebrile, BP normal but borderline soft - s/p r groin debribement - cont with clindamycin and zosyn - f/u cultures GI: - no active complaint - mild elevation in Tbil at 1.3 but otherwise normal LFTs - f/u morning CMP - protonix 40 daily Renal: - cr 1.2 stable -will monitor - on LR @ 125cc/hr Endo: - Hx of DM - BGM - ISS Heme/onc: -H/H :10.1/31.9 basic w/u with e/o iron def anemia monitor, transfuse if hb<8 in view of cardiac hx FEN: - LR @ 125 - monitor lytes - low sodium/diabetic diet LTD: cassidy in place 09/26/2019 PPX: - hep subQ Dispo: We will continue to follow the patient. Thank you for this consultative opportunity. Visit type - Emergency Visit Emergency Visit: Yes ED Registration Date: 09/25/19 Care time: The patient presented to the Emergency Department on the above date and was hospitalized for further evaluation of their emergent condition. - New Patient This patient is new to me today: No - Critical Care Critical Care patient: Yes Total Critical Care Time (in minutes): 35 Critical Care Statement: The care of this patient involved high complexity decision making to prevent further life threatening deterioration of the patient's condition and/or to evaluate & treat vital organ system(s) failure or risk of failure. ATTENDING PHYSICIAN STATEMENT I saw and evaluated the patient. I reviewed the resident's note and discussed the case with the resident. I agree with the resident's findings and plan as documented. SUBJECTIVE: OBJECTIVE: ASSESSMENT AND PLAN:
[2019-09-26] MEDS ORDERED: INSULIN (LEVEMIR) 100 UNITS/ML UNITS SQ ONE (15:49)
--- NOTE | 2019-09-26 16:06 | OP ---
DATE OF OPERATION: 09/26/2019 PREOPERATIVE DIAGNOSIS: Soft tissue infection, right groin. POSTOPERATIVE DIAGNOSIS: Soft tissue infection, right groin. PROCEDURE: Incision and drainage of soft tissue infection of the right groin and sharp excisional debridement of nonviable skin and subcutaneous tissue and fascia and superficial muscle. SURGEON: Adrian Encinas MD VARNISH MIXER: Abdi Mckeon II, PA-C ANESTHESIA: General. OPERATIVE FINDINGS: There was nonviable skin and subcutaneous tissue and fascia and superficial muscle. There was a purulent collection of fluid which was sent for culture and sensitivity. The rest of the findings were unremarkable. DESCRIPTION OF PROCEDURE: The patient was placed on the operating table in the supine position, and after the induction of general anesthesia, the patient was froglegged, and the right groin, genitalia, and lower abdomen and pelvis were prepped with Betadine and draped in sterile fashion. A timeout was taken and incision was made with a scalpel and purulent drainage was sent for culture and sensitivity as noted above. All nonviable soft tissue was sharply excised using a scalpel down to viable bleeding tissue. This consisted of skin, subcutaneous tissue, superficial fascia, and superficial muscle. The specimen was passed off the operative field and sent for pathological examination. Copious irrigation was carried out with the pulse lavage system with 3 L of normal saline. Hemostasis was secured with electrocautery and then the wound packed with saline-soaked Kerlix and dressed with sterile 4 x 4's, ABD pads, and sterile tape. The procedure was terminated at this point and the patient aroused from general anesthesia and transferred to the postanesthesia care unit in stable condition, awake and alert. ESTIMATED BLOOD LOSS: 100 mL. REPLACEMENTS: Crystalloid. DRAINS: None. SPECIMEN: Nonviable soft tissue to Pathology. I, Adrian Encinas, was physically present in the operating room from the time the patient was placed on the operating table until he was transferred to the postanesthesia care unit in my accompaniment. MD APPLE Rubi/[id number] MTDD
--- NOTE | 2019-09-26 16:45 | CON.CARD ---
Consult Consult Specialty:: cardiology Reason for Consultation:: hx systolic CHF, persistent AF - History of Present Illness History of Present Illness: The patient is a 68 year old male, with a significant PMH of DM, Afib (off DOAC in 2019 due to anemia, alcoholism), CAD (s/p stents), systolic CHF, HTN, HLD, and anxiety, who presents to the ED for evaluation of right groin wound for 4 days. Patient notes he was getting out of a car, when he slipped, landed in a split, and consequently developed a wound with bleeding. Since the incident, patient notes the wound has developed a progressively worsening odor with discharge, redness, and warmth. Denies fever, chills, chest pain, SOB, nausea, vomit, diarrhea, dysuria, hematuria, abdominal pain. Allergies: Shellfish, NKDA Surgical History: Cardiac stents, splenectomy, bilateral knee surgery, bilateral rotator cuff repair Social History: EtOH use. Denies tobacco or illicit drug use PCP: Dr. Zuniga - History Source History Provided By: Patient, Medical Record - Past Medical History Cardio/Vascular: Yes: AFIB, CHF (systolic (mildly reduced LVEF)), HTN, Hyperlipdemia Psych: Yes: Addictions, Anxiety, Depression, Panic - Alcohol/Substance Use Hx Alcohol Use: Yes History of Substance Use: reports: Prescription - Smoking History Smoking history: Never smoked Have you smoked in the past 12 months: No Aproximately how many cigarettes per day: 0 - Social History Usual Living Arrangement: With Spouse ADL: Independent Home Medications - Allergies Allergies/Adverse Reactions: Allergies Allergy/AdvReac Type Severity Reaction Status Date / Time No Known Drug Allergies Allergy Verified 09/25/19 12:22 shellfish derived Allergy Mouth Verified 09/25/19 12:22 swelling, eye swelling - Home Medications Home Medications: Ambulatory Orders Pravastatin Sodium 10 mg PO DAILY 06/30/16 Insulin Lispro [Humalog] 150 unit SQ DAILY vial 05/22/17 Folic Acid - 1 mg PO DAILY #30 tablet 09/11/18 Losartan Potassium [Cozaar -] 50 mg PO DAILY 09/11/18 Pantoprazole Sodium [Protonix -] 40 mg PO DAILY #30 tablet.ec 09/11/18 Furosemide [Lasix] 40 mg PO DAILY 09/26/19 Hydrochlorothiazide 25 mg PO DAILY 09/26/19 Metoprolol Succinate 100 mg PO DAILY 09/26/19 Docusate Sodium [Colace] 100 mg PO BID #60 capsule 10/01/19 Ferrous Sulfate 325 mg PO BID #60 tablet 10/01/19 Metoprolol Succinate [Toprol Xl -] 150 mg PO DAILY #90 tablet 10/01/19 Vital Signs: Vital Signs Temperature 98.0 F 09/26/19 12:50 Pulse Rate 96 H 09/26/19 12:50 Respiratory Rate 16 09/26/19 12:50 Blood Pressure 115/75 09/26/19 12:50 O2 Sat by Pulse Oximetry (%) 100 09/26/19 12:50 - Other Data Labs, Other Data: CBC, BMP 09/26/19 08:59 09/26/19 08:59 INR, PTT INR 1.21 (0.83-1.09) H 09/26/19 08:59 Problem List - Problems (1) Atrial fibrillation Assessment/Plan: Pt on metoprolol for HR control and systolic CHF (he has more than one list of dosing). Unable to start anticoagulation due to hx falls , alcholois. S/p right groin surgery; anemia. He is aware of the risks in not beng able to restart apixaban (he has been off it for the past year; saw electrolpysiologist at that time). He still admits he cannot stop his heavy alcohol habit (at times, two bottles of wine daily. Code(s): I48.91 - UNSPECIFIED ATRIAL FIBRILLATION Qualifiers: Atrial fibrillation type: unspecified Qualified Code(s): I48.91 - Unspecified atrial fibrillation (2) Cellulitis Code(s): L03.90 - CELLULITIS, UNSPECIFIED Qualifiers: Site of cellulitis: other site Qualified Code(s): L03.818 - Cellulitis of other sites (3) Chronic alcohol abuse Code(s): F10.10 - ALCOHOL ABUSE, UNCOMPLICATED (4) Diabetes Code(s): E11.9 - TYPE 2 DIABETES MELLITUS WITHOUT COMPLICATIONS (5) HTN (hypertension) Code(s): I10 - ESSENTIAL (PRIMARY) HYPERTENSION (6) Normocytic normochromic anemia Code(s): D64.9 - ANEMIA, UNSPECIFIED (7) Hypomagnesemia Code(s): E83.42 - HYPOMAGNESEMIA Assessment/Plan CCU time spent: 75 minutes
[2019-09-26] MEDS: IPRATROPIUM BR 0.02% 0.5 MG/2.5 ML VIAL.NEB. NEB SCH ×2 (17:03→20:47)
[2019-09-26] MEDS: CLINDAMYCIN 900 MG PREMIX IVPB 900 MG/50 ML BAG IVPB SCH (17:32)
[2019-09-26] MEDS: LACTATED RINGERS SOLUTION 1,000 ML IV SCH (17:34)
[2019-09-26] MEDS: METOPROLOL TARTRATE 25 MG TABLET (FP) PO SCH ×2 (18:33→21:06)
[2019-09-26] MEDS ORDERED: LOSARTAN POTASSIUM 25 MG TABLET PO SCH ×2 (19:15)
[2019-09-26] MEDS: LOSARTAN POTASSIUM 25 MG TABLET PO SCH (21:05)
[2019-09-26] MEDS: MUPIROCIN 2% TOPICAL OINTMENT FOR DECOLONIZATION NS SCH (21:05)
[2019-09-26] MEDS: HEPARIN NA (PORCINE) 5,000 UNITS/ML 1ML VIAL SQ SCH (21:06)
[2019-09-26] MEDS: METOPROLOL TARTRATE 5 MG/5 ML VIAL IVPUSH PRN (21:08)
[2019-09-26] MEDS ORDERED: ATORVASTATIN CA 10 MG TABLET (FP) PO SCH ×2 (22:00)
[2019-09-26] MEDS ORDERED: CHLORHEXIDINE GLUCONATE 4% CLEANSER FOR DECOLONIZATION TP SCH (22:00)
[2019-09-26] MEDS ORDERED: MORPHINE SULFATE 2 MG/ML VIAL IVPUSH PRN (23:51)
[2019-09-27] MEDS: CLINDAMYCIN 900 MG PREMIX IVPB 900 MG/50 ML BAG IVPB SCH ×4 (01:42→18:59)
[2019-09-27] MEDS: INSULIN SLIDING SCALE (NOVOLOG) 1 VIAL SQ SCH ×4 (06:26→21:09)
[2019-09-27 06:37] LABS: HEMATOCRIT 30.5 % (35.4-49); HEMOGLOBIN 9.6 GM/dL (11.7-16.9); MCH 23.8 pg (25.7-33.7); MCHC 31.6 g/dl (32.0-35.9); MEAN CELL VOLUME 75.2 fl (80-96); MEAN PLT VOLUME 9.6 fl (7.5-11.1); PLATELET COUNT 204 K/MM3 (134-434); RBC 4.05 M/mm3 (4.00-5.60); RDW 17.8 % (11.9-15.9); WHITE BLOOD COUNT 9.4 K/mm3 (4.0-10.0)
[2019-09-27 07:05] LABS: ALBUMIN 2.9 g/dl (3.4-5.0); BILIRUBIN,TOTAL 0.7 mg/dL (0.2-1); BLOOD UREA NITROGEN 20.9 mg/dL (7-18); CALCIUM 8.5 mg/dL (8.5-10.1); CREATININE 1.3 mg/dL (0.55-1.3); POTASSIUM 4.2 mmol/L (3.5-5.1); TOT PROT 6.7 g/dl (6.4-8.2)
[2019-09-27] MEDS: IPRATROPIUM BR 0.02% 0.5 MG/2.5 ML VIAL.NEB. NEB SCH ×3 (08:55→21:10)
--- NOTE | 2019-09-27 08:55 | PN ---
Progress Note (short form) - Note Progress Note: 68M multiple medical problems, s/p I&D right groin for open wound cellulitis under GA. Vital Signs Temp 98.6 F 09/27/19 06:00 Pulse 100 H 09/27/19 06:00 Resp 21 H 09/27/19 06:00 BP 130/76 09/27/19 06:00 Pulse Ox 100 09/26/19 20:00 Intake & Output 09/26/19 09/26/19 09/27/19 11:59 23:59 11:59 Intake Total 7079 335 7489 Output Total 200 400 300 Balance 870 361 4416 Weight 258 lb 8 oz 259 lb 4.8 oz Intake: IV 1428 602 9873 Lactated Ringers Solution 1000 1,000 ml @ 100 mls/hr IV ASDIR [facility] Rx#: [id number] Lactated Ringers Solution 400 1,000 ml @ 125 mls/hr IV ASDIR [facility]INE[facility] Rx#: [id number] IVPB 500 Oral 300 Output: Urine 100 400 300 Kramer 400 300 Estimated Blood Loss 100 Other: Voiding Method Bedside Commode Indwelling Catheter # Unmeasured Voids Void 1 Bowel Movement No No Weight Measurement Method Built in Bedscale Built in Bedscale CBC, BMP 09/27/19 06:05 09/27/19 06:05 - No anesthesia complications
[2019-09-27] MEDS: METOPROLOL TARTRATE 5 MG/5 ML VIAL IVPUSH PRN (09:20)
[2019-09-27] MEDS ORDERED: PANTOPRAZOLE SODIUM 40 MG VIAL IVPUSH SCH (10:00)
[2019-09-27] MEDS ORDERED: THIAMINE HCL 200 MG/2 ML VIAL IVPB SCH (10:00)
[2019-09-27] MEDS: HEPARIN NA (PORCINE) 5,000 UNITS/ML 1ML VIAL SQ SCH ×2 (11:00→21:09)
[2019-09-27] MEDS: METOPROLOL TARTRATE 25 MG TABLET (FP) PO SCH ×5 (11:00→21:08)
[2019-09-27] MEDS: LOSARTAN POTASSIUM 25 MG TABLET PO SCH (11:00)
--- NOTE | 2019-09-27 11:16 | PN ---
Progress Note (short form) - Note Progress Note: UROLOGY NOTE 68 Y/O Male patient with history of Rt inguinal abscess S/P I&D doing well no scrotal pain or swelling HX of week urine flow and hesitency, O/E Genitalia WNL on benjamin catheter Plan: no pathology will start Flomax before catheter removal and follow up outpatient
--- NOTE | 2019-09-27 11:34 | PN ---
Teaching Attending Note Name of Resident: Ron Yao ATTENDING PHYSICIAN STATEMENT I saw and evaluated the patient. I reviewed the resident's note and discussed the case with the resident. I agree with the resident's findings and plan as documented. SUBJECTIVE: Patient seen and examined in the intensive care unit prior to going back to the OR for his second washout. 10 item review of systems completed and is negative aside from as discussed in the subjective data in my own/the resident documentation. OBJECTIVE: VS, labs, imaging reviewed NAD, AAO, resting comfortably in bed. RRR s1/2 no mgr Normal muscle tone, moves all 5 extremities with normal apparent strength Neck is supple, trachea midline, no latanya LN Lungs CTAB with sym expansion NT ND +BS no latanya organomegaly CN2-12 wnl; no FND NC AT EOMI PERRLA Normal mood, appropriate behavior, euthymic affect No skin breakdown or rashes noted, wound dressing is clean dry and intact with minimal surrounding cellulitis extending out beyond the borders of the gauze. ASSESSMENT AND PLAN: Patient is improved today, going back to the OR for second washout. Discussed case with Dr. Encinas and surgical PA physicians assistants. Discussed with ICU team. MRSA is now growing from his wound, continue on IV antibiotics as per infectious disease. Cardiology input noted, titrating beta-blockers and considering tachycardia etiology with respect to underlying sepsis. Problems include: Sepsis, improved Necrotizing cellulitis History of CHF, mixed History of Parkinsons History of hypertension History of hyperlipidemia History of diabetes History of alcohol abuse on thiamine and folate History of GI bleed, on IV Protonix and n.p.o. History of atrial fibrillation on anticoagulation was supposed to be evaluated for watchman Urology saw the patient, ultrasound the scrotum revealed bilateral large scrotal hydroceles with good flow to both testes. Urology recommended placing the patient on Flomax for 48 hours and have voiding trial. Full Code
[2019-09-27] MEDS: MUPIROCIN 2% TOPICAL OINTMENT FOR DECOLONIZATION NS SCH (11:38)
--- NOTE | 2019-09-27 12:36 | PN ---
Teaching Attending Note Name of Resident: Cornelia Marrero ATTENDING PHYSICIAN STATEMENT I saw and evaluated the patient. I reviewed the resident's note and discussed the case with the resident. I agree with the resident's findings and plan as documented. SUBJECTIVE: Patient seen and examined in the ICU. Pain in the right groin debridement is improving. No CP or SOB. Tolerating PO intake. OBJECTIVE: Intake & Output 09/24/19 09/25/19 09/26/19 09/27/19 23:59 23:59 23:59 23:59 Intake Total 150 1900 1400 Output Total 600 300 Balance 150 1300 1100 Weight 263 lb 258 lb 8 oz 259 lb 4.8 oz Last Vital Signs Temp Pulse Resp BP Pulse Ox 98.5 F 98 H 20 142/82 100 09/27/19 10:00 09/27/19 12:00 09/27/19 12:00 09/27/19 12:00 09/26/19 20:00 Active Medications Atorvastatin Calcium (Lipitor -) 10 mg PO HS [facility] Last Admin: 09/26/19 21:06 Dose: 10 mg Chlorhexidine Gluconate (Hibiclens For Decolonization -) 1 applic TP HS [facility] Last Admin: 09/26/19 21:02 Dose: 1 applic Heparin Sodium (Porcine) (Heparin -) 5,000 unit SQ BID [facility] Last Admin: 09/27/19 11:00 Dose: 5,000 unit Clindamycin Phosphate (Cleocin 900 Mg Premix Ivpb -) 900 mg in 50 mls @ 100 mls /hr IVPB Q8H-IV [facility]; Protocol Last Admin: 09/27/19 11:00 Dose: 100 mls/hr Lactated Ringer's (Lactated Ringers Solution) 1,000 mls @ 100 mls/hr IV ASDIR [facility] Last Admin: 09/26/19 17:34 Dose: 100 mls/hr Piperacillin Sod/Tazobactam (Sod 3.375 gm/ Dextrose) 50 mls @ 100 mls/hr IVPB Q8H-IV [facility]; Protocol Vancomycin HCl 1,250 mg/ (Dextrose) 250 mls @ 250 mls/2 hr IVPB Q24H [facility]; Protocol Insulin Aspart (Novolog Vial Sliding Scale -) 1 vial SQ ACHS [facility]; Protocol Last Admin: 09/27/19 12:19 Dose: 4 units Ipratropium [place] (Atrovent 0.02% Nebulizer -) 1 amp NEB RTID [facility] Last Admin: 09/27/19 08:55 Dose: 1 amp Levalbuterol HCl (Xopenex) 0.63 mg IH Q8H PRN PRN Reason: ASTHMA Losartan Potassium (Cozaar -) 25 mg PO DAILY [facility] Last Admin: 09/27/19 11:00 Dose: 25 mg Metoprolol Tartrate (Lopressor -) 25 mg PO QID [facility] Last Admin: 09/27/19 11:00 Dose: 25 mg Metoprolol Tartrate (Lopressor Injection -) 5 mg IVPUSH Q4H PRN PRN Reason: HYPERTENSION Last Admin: 09/27/19 09:20 Dose: 5 mg Morphine Sulfate (Morphine Sulfate) 2 mg IVPUSH Q4H PRN PRN Reason: PAIN LEVEL 7 - 10 Mupirocin (Bactroban Ointment (For Decolonization) -) 1 applic NS BID [facility] Stop: 10/01/19 21:59 Last Admin: 09/27/19 11:38 Dose: 1 applic Ondansetron HCl (Zofran Injection) 4 mg IVPUSH Q6H PRN PRN Reason: NAUSEA AND/OR VOMITING Pantoprazole Sodium (Protonix Iv) 40 mg IVPUSH DAILY [facility] Last Admin: 09/27/19 11:38 Dose: 40 mg Thiamine HCl (Vitamin B1 Injection -) 200 mg IVPB DAILY [facility] Last Admin: 09/27/19 11:38 Dose: 200 mg Gen: NAD at rest Heart: irregular Lung: Clear Abd: soft, nontender Ext: dressings dry, clean Laboratory Results - last 24 hr 09/26/19 09/26/19 09/26/19 08:59 16:39 18:50 WBC RBC Hgb Hct MCV MCH MCHC RDW Plt Count MPV Sodium Potassium Chloride Carbon Dioxide Anion Gap BUN Creatinine Est GFR (CKD-EPI)AfAm Est GFR (CKD-EPI)NonAf POC Glucometer 201 Random Glucose Calcium Total Bilirubin AST ALT Alkaline Phosphatase Total Protein Albumin Urine Osmolality 541 Ur Random Sodium Blood Type O POSITIVE Antibody Screen Negative 09/26/19 09/26/19 09/27/19 18:50 21:04 06:05 WBC 9.4 RBC 4.05 Hgb 9.6 L Hct 30.5 L MCV 75.2 L MCH 23.8 L MCHC 31.6 L RDW 17.8 H Plt Count 204 MPV 9.6 Sodium Potassium Chloride Carbon Dioxide Anion Gap BUN Creatinine Est GFR (CKD-EPI)AfAm Est GFR (CKD-EPI)NonAf POC Glucometer 160 Random Glucose Calcium Total Bilirubin AST ALT Alkaline Phosphatase Total Protein Albumin Urine Osmolality Ur Random Sodium < 5 L Blood Type Antibody Screen 09/27/19 09/27/19 09/27/19 06:05 06:12 12:08 WBC RBC Hgb Hct MCV MCH MCHC RDW Plt Count MPV Sodium 131 L Potassium 4.2 Chloride 98 Carbon Dioxide 23 Anion Gap 10 BUN 20.9 H Creatinine 1.3 Est GFR (CKD-EPI)AfAm 65.44 Est GFR (CKD-EPI)NonAf 56.46 POC Glucometer 180 242 Random Glucose 183 H Calcium 8.5 Total Bilirubin 0.7 AST 29 ALT 21 Alkaline Phosphatase 112 Total Protein 6.7 Albumin 2.9 L Urine Osmolality Ur Random Sodium Blood Type Antibody Screen ASSESSMENT AND PLAN: Necrotizing Cellulitis Right Groin Sepsis s/p Excisional Debridement Atrial Fibrillation with RVR CAD LV Systolic Dysfunction Pulmonary HTN HTN DM Hyperlipidemia Alcohol Abuse Liver Cirrhosis Anemia - ABX coverage - f/u cultures - IVF - rate control - glucose control - inhaled bronchodilators - DVT prophylaxis - Cardiac Telemetry monitoring Dr Mckenzie
--- NOTE | 2019-09-27 12:38 | PN ---
Progress Note, Physician History of Present Illness: stable no new isssues post op doing well - Current Medication List Current Medications: Active Medications Atorvastatin Calcium (Lipitor -) 10 mg PO HS [facility] Last Admin: 09/26/19 21:06 Dose: 10 mg Chlorhexidine Gluconate (Hibiclens For Decolonization -) 1 applic TP HS [facility] Last Admin: 09/26/19 21:02 Dose: 1 applic Heparin Sodium (Porcine) (Heparin -) 5,000 unit SQ BID [facility] Last Admin: 09/27/19 11:00 Dose: 5,000 unit Clindamycin Phosphate (Cleocin 900 Mg Premix Ivpb -) 900 mg in 50 mls @ 100 mls /hr IVPB Q8H-IV [facility]; Protocol Last Admin: 09/27/19 11:00 Dose: 100 mls/hr Piperacillin Sod/Tazobactam (Sod 4.5 gm/ Dextrose) 100 mls @ 200 mls/hr IVPB Q8H-IV [facility]; Protocol Lactated Ringer's (Lactated Ringers Solution) 1,000 mls @ 100 mls/hr IV ASDIR [facility] Last Admin: 09/26/19 17:34 Dose: 100 mls/hr Insulin Aspart (Novolog Vial Sliding Scale -) 1 vial SQ ACHS [facility]; Protocol Last Admin: 09/27/19 12:19 Dose: 4 units Ipratropium [place] (Atrovent 0.02% Nebulizer -) 1 amp NEB RTID [facility] Last Admin: 09/27/19 08:55 Dose: 1 amp Levalbuterol HCl (Xopenex) 0.63 mg IH Q8H PRN PRN Reason: ASTHMA Losartan Potassium (Cozaar -) 25 mg PO DAILY [facility] Last Admin: 09/27/19 11:00 Dose: 25 mg Metoprolol Tartrate (Lopressor -) 25 mg PO QID [facility] Last Admin: 09/27/19 11:00 Dose: 25 mg Metoprolol Tartrate (Lopressor Injection -) 5 mg IVPUSH Q4H PRN PRN Reason: HYPERTENSION Last Admin: 09/27/19 09:20 Dose: 5 mg Morphine Sulfate (Morphine Sulfate) 2 mg IVPUSH Q4H PRN PRN Reason: PAIN LEVEL 7 - 10 Mupirocin (Bactroban Ointment (For Decolonization) -) 1 applic NS BID [facility] Stop: 10/01/19 21:59 Last Admin: 09/27/19 11:38 Dose: 1 applic Ondansetron HCl (Zofran Injection) 4 mg IVPUSH Q6H PRN PRN Reason: NAUSEA AND/OR VOMITING Pantoprazole Sodium (Protonix Iv) 40 mg IVPUSH DAILY [facility] Last Admin: 09/27/19 11:38 Dose: 40 mg Thiamine HCl (Vitamin B1 Injection -) 200 mg IVPB DAILY [facility] Last Admin: 09/27/19 11:38 Dose: 200 mg - Objective Vital Signs: Vital Signs Temperature 98.5 F 09/27/19 10:00 Pulse Rate 98 H 09/27/19 12:00 Respiratory Rate 20 09/27/19 12:00 Blood Pressure 142/82 09/27/19 12:00 O2 Sat by Pulse Oximetry (%) 100 09/26/19 20:00 Constitutional: Yes: No Distress, Calm Cardiovascular: Yes: S1, S2 Respiratory: Yes: Regular, CTA Bilaterally Gastrointestinal: Yes: Normal Bowel Sounds, Soft Musculoskeletal: Yes: WNL Extremities: Yes: Other Wound/Incision: Yes: Dressing Dry and Intact Neurological: Yes: Alert, Oriented Psychiatric: Yes: Alert, Oriented Labs: CBC, BMP 09/27/19 06:05 09/27/19 06:05 INR, PTT INR 1.21 (0.83-1.09) H 09/26/19 08:59 Assessment/Plan 68 y/o F, pmh of HTN, A-fib not on blood thinners(xarelto stopped for GI bleed) , IDDM on insulin pump, CHF on lasix, CAD s/p stents, Etoh abuse, liver cirrhosis, splenectomy, presented to the ED with a right groin wound of 5 day duration that started has just a swelling, which progressed to an open wound, associated with malodorous and pustular discharge and bleed admitted for cellulitis necrotizing cellulitis of the rt groin hyperglycemia hyponatremia chf pain htn plan continue abx await for cx reports rest as per the team
[2019-09-27] MEDS ORDERED: VANCOMYCIN HCL 1,250 MG in DEXTROSE 5%-WATER - 250 ML IVPB SCH (12:45)
[2019-09-27 13:27] VITALS: BMI 37.0
[2019-09-27] MEDS: PIPERACILLIN/TAZOB 3.375 GM 3.375 GM in DEXTROSE 5%-WATER - 50 ML IVPB SCH ×3 (13:45→20:09)
--- NOTE | 2019-09-27 13:51 | PATH ---
Surgical Pathology Report Patient Name: STEVE CAMILO Med. Rec. #: [id number] /Age/Gender: 1950 (Age: 68) / M Account: [id number] Location: ICU [employer] Taken: 09/26/2019 Received: 09/26/2019 Reported: 09/27/2019 Physicians: Adrian Encinas MD Specimen(s) Received TISSUE OF RIGHT GROIN ABSCESS Clinical History Right groin abscess Final Diagnosis NONVIABLE TISSUE, GROIN, RIGHT, INCISION AND DRAINAGE, DEBRIDEMENT: SKIN AND UNDERLYING SUBCUTANEOUS TISSUE WITH MARKED ACUTE INFLAMMATION, ABSCESS FORMATION, NECROSIS, AND REACTIVE CHANGES. Electronically Signed Yumiko Baker M.D. Gross Description Received in formalin labeled "nonviable tissue right groin," is a 12.5 x 1.7 cm waldrop, elongated, unoriented portion of focally necrotic skin excised to a depth of 1.4 cm. A medical detail representative section is submitted in one cassette. 09/26/2019 saudi09/26/2019
[2019-09-27] MEDS ORDERED: PIPERACILLIN/TAZOBACTAM 3.375 GM VIAL IVPB ONE ×2 (13:58→20:01)
[2019-09-27] MEDS ORDERED: DEXTROSE 5%-WATER - 50 ML IVPB ONE ×2 (13:58→20:02)
--- NOTE | 2019-09-27 15:33 | PN ---
Physical Exam: SUBJECTIVE: Patient seen and examined. Pt is s/p surgery POD2. Still c/o of pain but has improved. Pt is off his insulin pump. Surgical wound is dressed and packed. Pt is s/p 2nd debridement. Denies f/c/n/v/d/sob, chest pain. OBJECTIVE: Vital Signs Period Temp Pulse Resp BP Sys/Varma Pulse Ox Last 24 Hr 98.2 F-99.3 F 83-145 18-22 98-142/61-104 100-100 GENERAL: Awake, alert, and fully oriented, in no acute distress. EYES: Pupils equal, round and reactive to light, extraocular movements intact, sclera anicteric, conjunctiva clear. EARS, NOSE, THROAT: Ears normal, nares patent, oropharynx clear without exudates. Moist mucous membranes. LUNGS: Breath sounds equal, clear to auscultation bilaterally. No wheezes, and no crackles. HEART: Regular rate and rhythm, normal S1 and S2 without murmur, rub or gallop. ABDOMEN: Soft, nontender, not distended, normoactive bowel sounds, no guarding, no rebound, no masses. Genital: Right groin dressed, POD2 s/p second debridement UPPER EXTREMITIES: 2+ pulses, warm, well-perfused. No cyanosis. No clubbing. No peripheral edema. LOWER EXTREMITIES: 2+ pulses, warm, well-perfused. No calf tenderness. No peripheral edema. SKIN: Warm, dry, normal turgor, no rashes or lesions noted, normal capillary refill. Laboratory Results - last 24 hr CBC,CMP WBC 9.4 K/mm3 (4.0-10.0) 09/27/19 06:05 RBC 4.05 M/mm3 (4.00-5.60) 09/27/19 06:05 Hgb 9.6 GM/dL (11.7-16.9) L 09/27/19 06:05 Hct 30.5 % (35.4-49) L 09/27/19 06:05 MCV 75.2 fl (80-96) L 09/27/19 06:05 MCH 23.8 pg (25.7-33.7) L 09/27/19 06:05 MCHC 31.6 g/dl (32.0-35.9) L 09/27/19 06:05 RDW 17.8 % (11.9-15.9) H 09/27/19 06:05 Plt Count 204 K/MM3 (134-434) 09/27/19 06:05 MPV 9.6 fl (7.5-11.1) 09/27/19 06:05 Absolute Neuts (auto) 8.7 K/mm3 (1.5-8.0) H 09/26/19 08:59 Neutrophils % 78.6 % (42.8-82.8) 09/26/19 08:59 Lymphocytes % 8.3 % (8-40) D 09/26/19 08:59 Monocytes % 11.4 % (3.8-10.2) H 09/26/19 08:59 Eosinophils % 1.4 % (0-4.5) D 09/26/19 08:59 Basophils % 0.3 % (0-2.0) 09/26/19 08:59 Nucleated RBC % 0 % (0-0) 09/26/19 08:59 Retic Count 1.64 % (0.5-1.5) H 09/26/19 08:59 Sodium 131 mmol/L (136-145) L 09/27/19 06:05 Potassium 4.2 mmol/L (3.5-5.1) 09/27/19 06:05 Chloride 98 mmol/L (98-107) 09/27/19 06:05 Carbon Dioxide 23 mmol/L (21-32) 09/27/19 06:05 Anion Gap 10 MMOL/L (8-16) 09/27/19 06:05 BUN 20.9 mg/dL (7-18) H 09/27/19 06:05 Creatinine 1.3 mg/dL (0.55-1.3) 09/27/19 06:05 Est GFR (CKD-EPI)AfAm 65.44 09/27/19 06:05 Est GFR (CKD-EPI)NonAf 56.46 09/27/19 06:05 POC Glucometer 242 UNITS (80-120) 09/27/19 12:08 Random Glucose 183 mg/dL (74-106) H 09/27/19 06:05 Serum Osmolality 292 mosm/kg (278-305) 09/26/19 08:59 Calcium 8.5 mg/dL (8.5-10.1) 09/27/19 06:05 Phosphorus 3.0 mg/dL (2.5-4.9) 09/26/19 08:59 Magnesium 2.1 mg/dL (1.8-2.4) 09/26/19 08:59 Iron 11 ug/dL (50-175) L 09/26/19 08:59 TIBC 340 ug/dL (250-450) 09/26/19 08:59 Iron Saturation 3 % (17.5-39) L 09/26/19 08:59 Unsaturated IBC 329 ug/dL (200-275) H 09/26/19 08:59 Ferritin 116.4 ng/ml (8-388) 09/26/19 08:59 Total Bilirubin 0.7 mg/dL (0.2-1) 09/27/19 06:05 AST 29 U/L (15-37) 09/27/19 06:05 ALT 21 U/L (13-61) 09/27/19 06:05 Alkaline Phosphatase 112 U/L (45-117) 09/27/19 06:05 Total Protein 6.7 g/dl (6.4-8.2) 09/27/19 06:05 Albumin 2.9 g/dl (3.4-5.0) L 09/27/19 06:05 Vitamin B12 773 pg/ml (193-986) 09/26/19 08:59 Serum Folate 12 ng/mL (3.1-17.5) 09/26/19 08:59 Active Medications Current Medications Atorvastatin Calcium (Lipitor -) 10 mg PO HS [facility] Last Admin: 09/26/19 21:06 Dose: 10 mg Chlorhexidine Gluconate (Hibiclens For Decolonization -) 1 applic TP HS [facility] Last Admin: 09/26/19 21:02 Dose: 1 applic Heparin Sodium (Porcine) (Heparin -) 5,000 unit SQ BID [facility] Last Admin: 09/27/19 11:00 Dose: 5,000 unit Clindamycin Phosphate (Cleocin 900 Mg Premix Ivpb -) 900 mg in 50 mls @ 100 mls /hr IVPB Q8H-IV [facility]; Protocol Last Admin: 09/27/19 11:00 Dose: 100 mls/hr Lactated Ringer's (Lactated Ringers Solution) 1,000 mls @ 100 mls/hr IV ASDIR [facility] Last Admin: 09/26/19 17:34 Dose: 100 mls/hr Piperacillin Sod/Tazobactam (Sod 3.375 gm/ Dextrose) 50 mls @ 100 mls/hr IVPB Q8H-IV [facility]; Protocol Vancomycin HCl 1,250 mg/ (Dextrose) 250 mls @ 250 mls/2 hr IVPB Q24H [facility]; Protocol Last Admin: 09/27/19 14:14 Dose: 250 mls/2 hr Insulin Aspart (Novolog Vial Sliding Scale -) 1 vial SQ ACHS [facility]; Protocol Last Admin: 09/27/19 12:19 Dose: 4 units Ipratropium [place] (Atrovent 0.02% Nebulizer -) 1 amp NEB RTID [facility] Last Admin: 09/27/19 14:34 Dose: 1 amp Levalbuterol HCl (Xopenex) 0.63 mg IH Q8H PRN PRN Reason: ASTHMA Losartan Potassium (Cozaar -) 25 mg PO DAILY [facility] Last Admin: 09/27/19 11:00 Dose: 25 mg Metoprolol Tartrate (Lopressor -) 25 mg PO QID [facility] Last Admin: 09/27/19 14:14 Dose: 25 mg Metoprolol Tartrate (Lopressor Injection -) 5 mg IVPUSH Q4H PRN PRN Reason: HYPERTENSION Last Admin: 09/27/19 09:20 Dose: 5 mg Morphine Sulfate (Morphine Sulfate) 2 mg IVPUSH Q4H PRN PRN Reason: PAIN LEVEL 7 - 10 Mupirocin (Bactroban Ointment (For Decolonization) -) 1 applic NS BID [facility] Stop: 10/01/19 21:59 Last Admin: 09/27/19 11:38 Dose: 1 applic Ondansetron HCl (Zofran Injection) 4 mg IVPUSH Q6H PRN PRN Reason: NAUSEA AND/OR VOMITING Pantoprazole Sodium (Protonix Iv) 40 mg IVPUSH DAILY [facility] Last Admin: 09/27/19 11:38 Dose: 40 mg Thiamine HCl (Vitamin B1 Injection -) 200 mg IVPB DAILY [facility] Last Admin: 09/27/19 11:38 Dose: 200 mg Home Medications Medication Instructions Recorded Pravastatin Sodium 10 mg PO DAILY 06/30/16 Insulin Lispro [Humalog] 150 unit SQ DAILY vial 05/22/17 Folic Acid - 1 mg PO DAILY #30 tablet 09/11/18 Losartan Potassium [Cozaar -] 50 mg PO DAILY 09/11/18 Pantoprazole Sodium [Protonix -] 40 mg PO DAILY #30 tablet.ec 09/11/18 Furosemide [Lasix] 40 mg PO DAILY 09/26/19 Hydrochlorothiazide 25 mg PO DAILY 09/26/19 Metoprolol Succinate 100 mg PO DAILY 09/26/19 Microbiology 09/25/19 15:00 Blood - Peripheral Venous Blood Culture - Preliminary NO GROWTH OBTAINED AFTER 48 HOURS, INCUBATION TO CONTINUE FOR 3 DAYS. 09/25/19 15:00 Blood - Peripheral Venous Blood Culture - Preliminary NO GROWTH OBTAINED AFTER 48 HOURS, INCUBATION TO CONTINUE FOR 3 DAYS. 09/26/19 10:17 Groin - Right Gram Stain - Final 09/26/19 10:17 Groin - Right Wound Culture - Preliminary Presumptive Mrsa (Pbp2a Pos) 09/25/19 15:00 Urine - Urine Clean Catch Urine Culture - Final NO GROWTH OBTAINED ASSESSMENT/PLAN: 68 y/o F, pmh of HTN, A-fib not on blood thinners(xarelto stopped for GI bleed) , IDDM on insulin pump, CHF on lasix, CAD s/p stents, Etoh abuse, liver cirrhosis, splenectomy, presented to the ED with a right groin wound of 5 day duration that started has just a swelling, which progressed to an open wound, associated with malodorous and pustular discharge and bleed admitted for cellulitis #Narcotizing Fascitis of the right groin S/p 2nd Debridement, monitoring in ICU MRCP w/ contrast- cancelled- spoke to Dr. Herbert, reported pt has an extensive hx of Etoh hx leading to fatty liver, alcohol abuse is why AC was d/ kim. Vanc, zosyn, Clindamycin- Appreciated Dr. Rocha consult Cont LR 125 Wound Cx- presumptive MRSA #Hyperglycemia 2/2 to IDDM BGMs Q3H ISS Levemir 10-15 if sugars elevated Can consider starting Insulin pump later Pump settings- Total= 75 U/d, Rate: 3.1 U/hr, Ratio 15:1 insulin:carb #Hyponatremia monitor Na, still remains at 131 encourage PO diet #CHF hold lasix 40 for now in the setting of hyponatremia #A-Fib w/ RVR Rate controlled Metoprolol tartrate 25 mg QID, not home dose #Iron def anemia consider cont iron #HTN Losartan 25 Pravastatin 10 #DVTppx Hep BID FEN monitor lytes cont Fluids LR 100 Diabetic diet Dispo: cont Abx, pt will be transferred out to tele Visit type - Emergency Visit Emergency Visit: Yes ED Registration Date: 09/25/19 Care time: The patient presented to the Emergency Department on the above date and was hospitalized for further evaluation of their emergent condition. - New Patient This patient is new to me today: Yes Date on this admission: 09/27/19 - Critical Care Critical Care patient: No - Discharge Referral Referred to [facility] Med [facility] No ATTENDING PHYSICIAN STATEMENT I saw and evaluated the patient. I reviewed the resident's note and discussed the case with the resident. I agree with the resident's findings and plan as documented. SUBJECTIVE: OBJECTIVE: ASSESSMENT AND PLAN:
--- NOTE | 2019-09-27 16:38 | PN ---
Physical Exam: SUBJECTIVE: Patient seen and examined. Patient POD #1, in no acute distress. Ambulated w/ PT. Can monitor on floors. OBJECTIVE: Vital Signs Period Temp Pulse Resp BP Sys/Varma Pulse Ox Last 24 Hr 98.4 F-99.3 F 83-145 18-22 98-142/61-104 100-100 GENERAL: The patient is awake, alert, and fully oriented, in no acute distress. HEENT: NCAT PERRLA LUNGS: Breath sounds equal, clear to auscultation bilaterally, no wheezes, no crackles, no accessory muscle use. HEART: Regular rate and rhythm, S1, S2 without murmurs ABDOMEN: Soft, mild distention. Mildly tender to palpation above surgical site @ inferior RLQ above R groin. + BS. EXTREMITIES: 2+ pulses, warm, well-perfused, no edema. NEUROLOGICAL: Cranial nerves II through XII grossly intact. PSYCH: Normal mood, normal affect. SKIN: Warm, dry, normal turgor, no rashes or lesions noted Laboratory Results - last 24 hr 09/26/19 09/26/19 09/26/19 16:39 18:50 18:50 WBC RBC Hgb Hct MCV MCH MCHC RDW Plt Count MPV Sodium Potassium Chloride Carbon Dioxide Anion Gap BUN Creatinine Est GFR (CKD-EPI)AfAm Est GFR (CKD-EPI)NonAf POC Glucometer 201 Random Glucose Calcium Total Bilirubin AST ALT Alkaline Phosphatase Total Protein Albumin Urine Osmolality 541 Ur Random Sodium < 5 L 09/26/19 09/27/19 09/27/19 21:04 06:05 06:05 WBC 9.4 RBC 4.05 Hgb 9.6 L Hct 30.5 L MCV 75.2 L MCH 23.8 L MCHC 31.6 L RDW 17.8 H Plt Count 204 MPV 9.6 Sodium 131 L Potassium 4.2 Chloride 98 Carbon Dioxide 23 Anion Gap 10 BUN 20.9 H Creatinine 1.3 Est GFR (CKD-EPI)AfAm 65.44 Est GFR (CKD-EPI)NonAf 56.46 POC Glucometer 160 Random Glucose 183 H Calcium 8.5 Total Bilirubin 0.7 AST 29 ALT 21 Alkaline Phosphatase 112 Total Protein 6.7 Albumin 2.9 L Urine Osmolality Ur Random Sodium 09/27/19 09/27/19 06:12 12:08 WBC RBC Hgb Hct MCV MCH MCHC RDW Plt Count MPV Sodium Potassium Chloride Carbon Dioxide Anion Gap BUN Creatinine Est GFR (CKD-EPI)AfAm Est GFR (CKD-EPI)NonAf POC Glucometer 180 242 Random Glucose Calcium Total Bilirubin AST ALT Alkaline Phosphatase Total Protein Albumin Urine Osmolality Ur Random Sodium Active Medications Generic Name Dose Route Start Last Admin Trade Name Freq PRN Reason Stop Dose Admin Atorvastatin Calcium 10 mg 09/26/19 22:00 09/26/19 21:06 Lipitor - PO 10 mg HS LAINEY Administration Chlorhexidine Gluconate 1 applic 09/26/19 22:00 09/26/19 21:02 Hibiclens For Decolonization - TP 1 applic HS LAINEY Administration Heparin Sodium (Porcine) 5,000 unit 09/26/19 22:00 09/27/19 11:00 Heparin - SQ 5,000 unit BID LAINEY Administration Clindamycin Phosphate 900 mg in 50 mls @ 100 mls/hr 09/26/19 18:00 09/27/19 11:00 Cleocin 900 Mg Premix Ivpb - IVPB 100 mls/hr Q8H-IV LAINEY Administration Protocol Lactated Ringer's 1,000 mls @ 100 mls/hr 09/26/19 17:02 09/26/19 17:34 Lactated Ringers Solution IV 100 mls/hr ASDIR LAINEY Administration Piperacillin Sod/Tazobactam 50 mls @ 100 mls/hr 09/27/19 12:45 Sod 3.375 gm/ Dextrose IVPB Q8H-IV LAINEY Protocol Vancomycin HCl 1,250 mg/ 250 mls @ 250 mls/2 hr 09/27/19 12:45 09/27/19 14:14 Dextrose IVPB 250 mls/2 hr Q24H LAINEY Administration Protocol Insulin Aspart 1 vial 09/26/19 16:30 09/27/19 12:19 Novolog Vial Sliding Scale - SQ 4 units ACHS LAINEY Administration Protocol Ipratropium [place] 1 amp 09/26/19 14:00 09/27/19 14:34 Atrovent 0.02% Nebulizer - NEB 1 amp RTID LAINEY Administration Levalbuterol HCl 0.63 mg 09/26/19 13:34 Xopenex IH Q8H PRN ASTHMA Losartan Potassium 25 mg 09/26/19 19:15 09/27/19 11:00 Cozaar - PO 25 mg DAILY LAINEY Administration Metoprolol Tartrate 25 mg 09/26/19 18:15 09/27/19 14:14 Lopressor - PO 25 mg QID LAINEY Administration Metoprolol Tartrate 5 mg 09/26/19 20:25 09/27/19 09:20 Lopressor Injection - IVPUSH 5 mg Q4H PRN Administration HYPERTENSION Morphine Sulfate 2 mg 09/26/19 23:51 Morphine Sulfate IVPUSH Q4H PRN PAIN LEVEL 7 - 10 Mupirocin 1 applic 09/26/19 22:00 09/27/19 11:38 Bactroban Ointment (For Decolonization) - NS 10/01/19 21:59 1 applic BID LAINEY Administration Ondansetron HCl 4 mg 09/26/19 13:06 Zofran Injection IVPUSH Q6H PRN NAUSEA AND/OR VOMITING Pantoprazole Sodium 40 mg 09/27/19 10:00 09/27/19 11:38 Protonix Iv IVPUSH 40 mg DAILY LAINEY Administration Thiamine HCl 200 mg 09/27/19 10:00 09/27/19 11:38 Vitamin B1 Injection - IVPB 200 mg DAILY LAINEY Administration ASSESSMENT/PLAN: 68 y.o. M PMH HTN, HLD A-fib (off AC 2/2 alcohol abuse, previously on Xarelto ~ 1yr ago), IDDM, CHF, CAD s/p stents, EtOH abuse, cirrhosis, POD #1 for incision/ drainage of R groin soft tissue infection and sharp excisional debridement nec fasc. #SEARCH OPTIMIZATION ANALYST -AOx3 -continue thiamine, multivitamin -no acute issues #CV -EKG adm: A-fib w/ RVR qtc 462 -Hx a-fib, off AC due to chronic alcohol abuse. Will reassess therapy outpatient pending etoh use -continue to monitor on tele -RLE U/S neg for DVT -Hx HTN, HLD -continuing home meds: losartan 25mg/d, lipitor 10mg HS, lopressor 5mg IV q4h prn/ lopressor 25mg PO QID #Pulm -continue bronchodilators prn -no wheezing today, improved phys exam -continue to monitor o2 sats maintain >90% #ID -Nec fasc R groin s/p I&D by surgery POD#1 w/ packing -R groin cx growing MRSA -Continuing clindamycin, zosyn-- added vanc -leukocytosis resolved -Dr. Kaminski following -blood & urine cx's drawn 09/25 NGTD #GI -t. bili wnl today -monitor lft's -ppi 40mg IV daily #Endo: -Hx DM -BGMs ACHS -ISS #Heme/onc: -microcytic anemia -h&h stable -continue to monitor #FENLTD -LR @100cc/hr -trend lytes replete prn -diabetic diet -benjamin placed 09/26/2019 #PPX: -heparin sq -protonix 40mg IV daily #Dispo -can monitor on telemetry floor Visit type - Emergency Visit Emergency Visit: Yes ED Registration Date: 09/25/19 Care time: The patient presented to the Emergency Department on the above date and was hospitalized for further evaluation of their emergent condition. - New Patient This patient is new to me today: Yes Date on this admission: 09/27/19 - Critical Care Critical Care patient: Yes Total Critical Care Time (in minutes): 45 Critical Care Statement: The care of this patient involved high complexity decision making to prevent further life threatening deterioration of the patient 's condition and/or to evaluate & treat vital organ system(s) failure or risk of failure. ATTENDING PHYSICIAN STATEMENT I saw and evaluated the patient. I reviewed the resident's note and discussed the case with the resident. I agree with the resident's findings and plan as documented. SUBJECTIVE: OBJECTIVE: ASSESSMENT AND PLAN:
--- NOTE | 2019-09-27 17:19 | PN ---
Progress Note (short form) - Note Progress Note: Attending Surgeon POD#1 No c/o; in ICU; awake and alert VSS AF wound-dressing taken down and wound clean and dry w/o purulent drainange; minimal resolving cellulitis of the skin WBC decreasing and cultures noted. IMP; improved PLAN: LWC rendered and dressing change orders placed; will consder VAC after weekend. Adrian Encinas MD FACS
--- NOTE | 2019-09-27 17:27 | CONS ---
DATE OF CONSULTATION: 09/25/2019 HISTORY OF PRESENT ILLNESS: The patient was seen and examined on September 25, 2019 in the evening after he came back from the operating room. He underwent a right groin exploration and drainage of abscess. ALLERGIES: SHELLFISH. A CAT scan that afternoon revealed subcutaneous soft tissue thickening with associated subcutaneous air gas accumulation in the right groin suggestive of a necrotizing fasciitis. The patient therefore underwent an inguinal exploration, debridement of wound and placement of drains. The patient is a diabetic and hypertensive. He is on metoprolol, Losartan, Lasix, insulin and a statin. 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 He has also had bilateral knees and bilateral rotator cuff surgeries in the past. He does complain of urinary frequency, terminal dribbling, hesitancy and feelings of incomplete bladder emptying. He has undergone coronary stent placement and he is on anticoagulation for atrial fibrillation. The patient denies any ethanol or tobacco use. An ultrasound of his scrotum revealed bilateral large scrotal hydroceles. There is good flow of blood to both testes and epididymides. The patient's urine revealed no gross and his T-max was 98.5. His prostate is 3+, smooth, benign and nontender. The patient presently has a Kramer catheter and it is draining clear yellow urine. RECOMMENDATION: Will recommend placing the patient on Flomax and in 48 hours, having the patient have a trial of voiding. Will follow with you. FRANCISCA WHITE M.D. [id number]
[2019-09-27] MEDS: LACTATED RINGERS SOLUTION 1,000 ML IV SCH (17:41)
[2019-09-27] MEDS: MULTIVITAMINS (DAILY MVI) TABLET (FP) PO SCH (17:42)
[2019-09-27] MEDS ORDERED: LACTATED RINGERS SOLUTION 1,000 ML IV SCH (18:13)
[2019-09-27] MEDS ORDERED: LEVALBUTEROL HCL 0.63 MG/3 ML VIAL.NEB. IH PRN (18:13)
[2019-09-27] MEDS ORDERED: METOPROLOL TARTRATE 5 MG/5 ML VIAL IVPUSH PRN (18:13)
[2019-09-27] MEDS ORDERED: ONDANSETRON 4 MG/2 ML VIAL IVPUSH PRN (18:13)
[2019-09-27] MEDS ORDERED: CLINDAMYCIN 900 MG PREMIX IVPB 900 MG/50 ML BAG IVPB SCH (18:30)
[2019-09-27] MEDS ORDERED: PIPERACILLIN/TAZOB 3.375 GM 3.375 GM in DEXTROSE 5%-WATER - 50 ML IVPB SCH (18:30)
[2019-09-27] MEDS: ATORVASTATIN CA 10 MG TABLET (FP) PO SCH (21:09)
[2019-09-27] MEDS ORDERED: MUPIROCIN 2% TOPICAL OINTMENT FOR DECOLONIZATION NS SCH (22:00)
[2019-09-27] MEDS ORDERED: CHLORHEXIDINE GLUCONATE 4% CLEANSER FOR DECOLONIZATION TP SCH (22:00)
[2019-09-27] MEDS: MORPHINE SULFATE 2 MG/ML VIAL IVPUSH PRN (23:57)
[2019-09-28] MEDS ORDERED: PIPERACILLIN/TAZOBACTAM 3.375 GM VIAL IVPB ONE ×2 (01:44→08:43)
[2019-09-28] MEDS ORDERED: DEXTROSE 5%-WATER - 50 ML IVPB ONE ×2 (01:45→08:43)
[2019-09-28] MEDS: CLINDAMYCIN 900 MG PREMIX IVPB 900 MG/50 ML BAG IVPB SCH ×3 (01:46→17:18)
[2019-09-28] MEDS: PIPERACILLIN/TAZOB 3.375 GM 3.375 GM in DEXTROSE 5%-WATER - 50 ML IVPB SCH ×2 (02:50→10:05)
[2019-09-28] MEDS: INSULIN SLIDING SCALE (NOVOLOG) 1 VIAL SQ SCH ×4 (07:01→21:04)
[2019-09-28 07:07] LABS: HEMATOCRIT 29.8 % (35.4-49); HEMOGLOBIN 9.4 GM/dL (11.7-16.9); MCH 23.3 pg (25.7-33.7); MCHC 31.5 g/dl (32.0-35.9); MEAN CELL VOLUME 73.9 fl (80-96); MEAN PLT VOLUME 9.5 fl (7.5-11.1); PLATELET COUNT 239 K/MM3 (134-434); RBC 4.03 M/mm3 (4.00-5.60); RDW 17.4 % (11.9-15.9); WHITE BLOOD COUNT 7.8 K/mm3 (4.0-10.0)
[2019-09-28] MEDS: IPRATROPIUM BR 0.02% 0.5 MG/2.5 ML VIAL.NEB. NEB SCH ×3 (07:45→20:42)
[2019-09-28 07:50] LABS: ALBUMIN 2.6 g/dl (3.4-5.0); BILIRUBIN,TOTAL 0.6 mg/dL (0.2-1); BLOOD UREA NITROGEN 20.9 mg/dL (7-18); CALCIUM 8.4 mg/dL (8.5-10.1); CREATININE 1.3 mg/dL (0.55-1.3); POTASSIUM 3.7 mmol/L (3.5-5.1); TOT PROT 6.3 g/dl (6.4-8.2)
[2019-09-28] MEDS: HEPARIN NA (PORCINE) 5,000 UNITS/ML 1ML VIAL SQ SCH ×2 (09:25→21:04)
[2019-09-28] MEDS: MULTIVITAMINS (DAILY MVI) TABLET (FP) PO SCH (09:26)
[2019-09-28] MEDS: METOPROLOL TARTRATE 25 MG TABLET (FP) PO SCH (09:27)
[2019-09-28] MEDS: LOSARTAN POTASSIUM 25 MG TABLET PO SCH (09:27)
[2019-09-28] MEDS ORDERED: PANTOPRAZOLE SODIUM 40 MG VIAL IVPUSH SCH (10:00)
[2019-09-28] MEDS: THIAMINE HCL 200 MG/2 ML VIAL IVPB SCH (10:39)
--- NOTE | 2019-09-28 12:05 | PN ---
Physical Exam: SUBJECTIVE: Patient seen and examined. Postoperative day #1 for second debridement, seen on the floor. Dressing remains clean dry and intact without purulent drainage with minimal cellulitis that does appear improved compared to yesterday. Surgery is considering wound VAC on Monday. Will elucidate the final antibiotic recommendations as per the infectious disease case consultant. He will continue vancomycin and stop Zosyn. 10 item review of systems completed and is negative aside from as discussed in the subjective data in my own/the resident documentation. OBJECTIVE: Vital Signs Period Temp Pulse Resp BP Sys/Varma Pulse Ox Last 24 Hr 97.1 F-99.9 F 100-146 19-20 102-143/67-102 96-100 GENERAL: The patient is awake, alert, and fully oriented, in no acute distress. HEAD: Normal with no signs of trauma. EYES: PERRL, extraocular movements intact, sclera anicteric, conjunctiva clear. No ptosis. ENT: Ears normal, nares patent, oropharynx clear without exudates, moist mucous membranes. NECK: Trachea midline, full range of motion, supple. LUNGS: Breath sounds equal, clear to auscultation bilaterally, no wheezes, no crackles, no accessory muscle use. HEART: Regular rate and rhythm, S1, S2 without murmur, rub or gallop. ABDOMEN: Soft, nontender, nondistended, normoactive bowel sounds, no guarding, no rebound, no hepatosplenomegaly, no masses. EXTREMITIES: 2+ pulses, warm, well-perfused, no edema. NEUROLOGICAL: Cranial nerves II through XII grossly intact. Normal speech, gait not observed. PSYCH: Normal mood, normal affect. SKIN: Warm, dry, normal turgor, no rashes or lesions noted. As described above , dressing is clean dry and intact Laboratory Results - last 24 hr 09/27/19 09/27/19 09/27/19 12:08 17:38 21:06 WBC RBC Hgb Hct MCV MCH MCHC RDW Plt Count MPV Sodium Potassium Chloride Carbon Dioxide Anion Gap BUN Creatinine Est GFR (CKD-EPI)AfAm Est GFR (CKD-EPI)NonAf POC Glucometer 242 240 176 Random Glucose Calcium Total Bilirubin AST ALT Alkaline Phosphatase Total Protein Albumin 09/28/19 09/28/19 09/28/19 05:55 05:55 06:59 WBC 7.8 RBC 4.03 Hgb 9.4 L Hct 29.8 L MCV 73.9 L MCH 23.3 L MCHC 31.5 L RDW 17.4 H Plt Count 239 MPV 9.5 Sodium 132 L Potassium 3.7 Chloride 95 L Carbon Dioxide 27 Anion Gap 9 BUN 20.9 H Creatinine 1.3 Est GFR (CKD-EPI)AfAm 65.44 Est GFR (CKD-EPI)NonAf 56.46 POC Glucometer 173 Random Glucose 194 H Calcium 8.4 L Total Bilirubin 0.6 AST 28 ALT 27 Alkaline Phosphatase 110 Total Protein 6.3 L Albumin 2.6 L Active Medications Generic Name Dose Route Start Last Admin Trade Name Freq PRN Reason Stop Dose Admin Atorvastatin Calcium 10 mg 09/27/19 22:00 09/27/19 21:09 Lipitor - PO 10 mg HS LAINEY Administration Heparin Sodium (Porcine) 5,000 unit 09/27/19 22:00 09/28/19 09:25 Heparin - SQ 5,000 unit BID LAINEY Administration Lactated Ringer's 1,000 mls @ 100 mls/hr 09/27/19 18:13 09/27/19 18:22 Lactated Ringers Solution IV Not Given ASDIR LAINEY Vancomycin HCl 1,250 mg/ 250 mls @ 250 mls/2 hr 09/28/19 12:45 Dextrose IVPB Q24H LAINEY Protocol Clindamycin Phosphate 900 mg in 50 mls @ 100 mls/hr 09/27/19 18:45 09/28/19 09:27 Cleocin 900 Mg Premix Ivpb - IVPB 100 mls/hr Q8H-IV LAINEY Administration Protocol Piperacillin Sod/Tazobactam 50 mls @ 100 mls/hr 09/27/19 18:45 09/28/19 10:05 Sod 3.375 gm/ Dextrose IVPB 100 mls/hr Q8H-IV LAINEY Administration Protocol Insulin Aspart 1 vial 09/27/19 22:00 09/28/19 11:21 Novolog Vial Sliding Scale - SQ 4 units ACHS LAINEY Administration Protocol Ipratropium [place] 1 amp 09/27/19 20:00 09/28/19 07:45 Atrovent 0.02% Nebulizer - NEB Not Given RTID LAINEY Levalbuterol HCl 0.63 mg 09/27/19 18:13 Xopenex IH Q8H PRN ASTHMA Losartan Potassium 25 mg 09/28/19 10:00 09/28/19 09:27 Cozaar - PO 25 mg DAILY LAINEY Administration Metoprolol Tartrate 25 mg 09/27/19 18:15 09/28/19 09:27 Lopressor - PO 25 mg QID LAINEY Administration Metoprolol Tartrate 5 mg 09/27/19 18:13 09/28/19 06:13 Lopressor Injection - IVPUSH 5 mg Q4H PRN Administration HYPERTENSION Morphine Sulfate 2 mg 09/27/19 18:13 09/27/19 23:57 Morphine Sulfate IVPUSH 2 mg Q4H PRN Administration PAIN LEVEL 7 - 10 Multivitamins/Minerals/Vitamin C 1 tab 09/27/19 17:00 09/28/19 09:26 Tab-A-Vit - PO 1 tab DAILY LAINEY Administration Pantoprazole Sodium 40 mg 09/28/19 10:00 09/28/19 09:25 Protonix Iv IVPUSH 40 mg DAILY LAINEY Administration Thiamine HCl 200 mg 09/28/19 10:00 09/28/19 10:39 Vitamin B1 Injection - IVPB 200 mg DAILY LAINEY Administration Pelvic CT reviewed and discussed in prior notes, sub cutaneous soft tissue thickening with associated air and gas accumulation Scrotal ultrasound reviewed. Moderate bilateral hydroceles right greater than left with no evidence of testicular torsion or pathology Microbiology 09/26/19 10:17 Groin - Right Gram Stain - Final 09/26/19 10:17 Groin - Right Wound Culture - Final S Aureus 09/25/19 15:00 Blood - Peripheral Venous Blood Culture - Preliminary NO GROWTH OBTAINED AFTER 48 HOURS, INCUBATION TO CONTINUE FOR 3 DAYS. 09/25/19 15:00 Blood - Peripheral Venous Blood Culture - Preliminary NO GROWTH OBTAINED AFTER 48 HOURS, INCUBATION TO CONTINUE FOR 3 DAYS. 09/25/19 15:00 Urine - Urine Clean Catch Urine Culture - Final NO GROWTH OBTAINED Telemetry reviewed ASSESSMENT/PLAN: Patient seen for necrotizing cellulitis, on broad-spectrum antibiotics and is improving. Being considered for wound VAC on Monday by surgical service. Continuing to monitor on the medicine service on the floor. Problems include: Sepsis, improved Necrotizing cellulitis; +MRSA on vanco per ID. Delineating final abx course. History of CHF, mixed sys and diastolic. On RA; monitor fluid status. Cutting back IVF today as stable and tolerating PO. History of Parkinsons History of hypertension History of hyperlipidemia History of diabetes History of alcohol abuse on thiamine and folate History of alcoholic cirrhosis History of GI bleed, on IV Protonix and n.p.o. History of atrial fibrillation not on anticoagulation was supposed to be evaluated for watchman (MARIKA ANDERSON) Urology saw the patient, ultrasound the scrotum revealed bilateral large scrotal hydroceles with good flow to both testes. Urology recommended placing the patient on Flomax for 48 hours and have voiding trial. History of pulmonary HTN Full Code Visit type - Emergency Visit Emergency Visit: Yes ED Registration Date: 09/25/19 Care time: The patient presented to the Emergency Department on the above date and was hospitalized for further evaluation of their emergent condition. - New Patient This patient is new to me today: No - Critical Care Critical Care patient: No
--- NOTE | 2019-09-28 12:33 | PN ---
Progress Note, Physician History of Present Illness: stable no new issues - Current Medication List Current Medications: Active Medications Atorvastatin Calcium (Lipitor -) 10 mg PO HS [facility] Last Admin: 09/27/19 21:09 Dose: 10 mg Heparin Sodium (Porcine) (Heparin -) 5,000 unit SQ BID [facility] Last Admin: 09/28/19 09:25 Dose: 5,000 unit Lactated Ringer's (Lactated Ringers Solution) 1,000 mls @ 100 mls/hr IV ASDIR [facility] Last Admin: 09/27/19 18:22 Dose: Not Given Vancomycin HCl 1,250 mg/ (Dextrose) 250 mls @ 250 mls/2 hr IVPB Q24H [facility]; Protocol Clindamycin Phosphate (Cleocin 900 Mg Premix Ivpb -) 900 mg in 50 mls @ 100 mls /hr IVPB Q8H-IV LAINEY; Protocol Last Admin: 09/28/19 09:27 Dose: 100 mls/hr Insulin Aspart (Novolog Vial Sliding Scale -) 1 vial SQ ACHS [facility]; Protocol Last Admin: 09/28/19 11:21 Dose: 4 units Ipratropium [place] (Atrovent 0.02% Nebulizer -) 1 amp NEB RTID [facility] Last Admin: 09/28/19 07:45 Dose: Not Given Levalbuterol HCl (Xopenex) 0.63 mg IH Q8H PRN PRN Reason: ASTHMA Losartan Potassium (Cozaar -) 25 mg PO DAILY [facility] Last Admin: 09/28/19 09:27 Dose: 25 mg Metoprolol Tartrate (Lopressor -) 25 mg PO QID [facility] Last Admin: 09/28/19 09:27 Dose: 25 mg Metoprolol Tartrate (Lopressor Injection -) 5 mg IVPUSH Q4H PRN PRN Reason: HYPERTENSION Last Admin: 09/28/19 06:13 Dose: 5 mg Morphine Sulfate (Morphine Sulfate) 2 mg IVPUSH Q4H PRN PRN Reason: PAIN LEVEL 7 - 10 Last Admin: 09/27/19 23:57 Dose: 2 mg Multivitamins/Minerals/Vitamin C (Tab-A-Vit -) 1 tab PO DAILY [facility] Last Admin: 09/28/19 09:26 Dose: 1 tab Pantoprazole Sodium (Protonix Iv) 40 mg IVPUSH DAILY [facility] Last Admin: 09/28/19 09:25 Dose: 40 mg Thiamine HCl (Vitamin B1 Injection -) 200 mg IVPB DAILY [facility] Last Admin: 09/28/19 10:39 Dose: 200 mg - Objective Vital Signs: Vital Signs Temperature 99.9 F H 09/28/19 09:39 Pulse Rate 100 H 09/28/19 09:39 Respiratory Rate 20 09/28/19 09:39 Blood Pressure 107/84 09/28/19 09:39 O2 Sat by Pulse Oximetry (%) 96 09/28/19 09:00 Constitutional: Yes: No Distress, Calm Cardiovascular: Yes: S1, S2 Respiratory: Yes: Regular, CTA Bilaterally Gastrointestinal: Yes: Normal Bowel Sounds, Soft Musculoskeletal: Yes: WNL Extremities: Yes: Other Wound/Incision: Yes: Dressing Dry and Intact Neurological: Yes: Alert, Oriented Psychiatric: Yes: Alert, Oriented Labs: CBC, BMP 09/28/19 05:55 09/28/19 05:55 INR, PTT INR 1.21 (0.83-1.09) H 09/26/19 08:59 Assessment/Plan 68 y/o F, pmh of HTN, A-fib not on blood thinners(xarelto stopped for GI bleed) , IDDM on insulin pump, CHF on lasix, CAD s/p stents, Etoh abuse, liver cirrhosis, splenectomy, presented to the ED with a right groin wound of 5 day duration that started has just a swelling, which progressed to an open wound, associated with malodorous and pustular discharge and bleed admitted for cellulitis necrotizing cellulitis of the rt groin hyperglycemia hyponatremia chf pain htn plan continue abx cx report noted continue vanco will stop zosyn
--- NOTE | 2019-09-28 13:20 | PN ---
Progress Note (short form) - Note Progress Note: Attending Surgeon POD#2 No c/o; out of ICU VSS AF wound clean; wound care in progress culture noted. IMP: improved PLAN: Continue LWC; possible VAC placement 09/30/2019. Adrian Encinas MD FACS
[2019-09-28] MEDS ORDERED: METOPROLOL TARTRATE 25 MG TABLET (FP) PO SCH (14:00)
[2019-09-28] MEDS ORDERED: PT OWN MED DRAWER 7, Y5N ONE (14:29)
[2019-09-28] MEDS: VANCOMYCIN HCL 1,250 MG in DEXTROSE 5%-WATER - 250 ML IVPB SCH (14:32)
[2019-09-28] MEDS: METOPROLOL TARTRATE 50 MG TABLET (FP) PO SCH ×2 (14:38→21:04)
[2019-09-28] MEDS: ATORVASTATIN CA 10 MG TABLET (FP) PO SCH (21:04)
[2019-09-29] MEDS: CLINDAMYCIN 900 MG PREMIX IVPB 900 MG/50 ML BAG IVPB SCH ×3 (02:03→17:28)
[2019-09-29] MEDS: METOPROLOL TARTRATE 50 MG TABLET (FP) PO SCH ×4 (05:53→21:14)
[2019-09-29] MEDS: INSULIN SLIDING SCALE (NOVOLOG) 1 VIAL SQ SCH ×4 (06:01→21:14)
[2019-09-29] MEDS: IPRATROPIUM BR 0.02% 0.5 MG/2.5 ML VIAL.NEB. NEB SCH ×3 (07:40→20:30)
[2019-09-29 08:37] LABS: HEMATOCRIT 30.7 % (35.4-49); HEMOGLOBIN 9.7 GM/dL (11.7-16.9); MCH 23.5 pg (25.7-33.7); MCHC 31.5 g/dl (32.0-35.9); MEAN CELL VOLUME 74.5 fl (80-96); MEAN PLT VOLUME 9.2 fl (7.5-11.1); PLATELET COUNT 282 K/MM3 (134-434); RBC 4.12 M/mm3 (4.00-5.60); RDW 17.1 % (11.9-15.9); WHITE BLOOD COUNT 8.8 K/mm3 (4.0-10.0)
[2019-09-29 09:09] LABS: ALBUMIN 2.8 g/dl (3.4-5.0); BILIRUBIN,TOTAL 0.9 mg/dL (0.2-1); BLOOD UREA NITROGEN 14.8 mg/dL (7-18); CALCIUM 8.8 mg/dL (8.5-10.1); CREATININE 1.2 mg/dL (0.55-1.3); POTASSIUM 4.2 mmol/L (3.5-5.1); TOT PROT 6.8 g/dl (6.4-8.2)
[2019-09-29] MEDS: PANTOPRAZOLE 40 MG TABLET PO SCH (09:47)
[2019-09-29] MEDS: HEPARIN NA (PORCINE) 5,000 UNITS/ML 1ML VIAL SQ SCH ×2 (09:47→21:14)
[2019-09-29] MEDS: LOSARTAN POTASSIUM 25 MG TABLET PO SCH (09:47)
[2019-09-29] MEDS: THIAMINE HCL 200 MG/2 ML VIAL IVPB SCH (10:28)
--- NOTE | 2019-09-29 10:52 | PN ---
Teaching Attending Note Name of Resident: Ron Yao ATTENDING PHYSICIAN STATEMENT I saw and evaluated the patient. I reviewed the resident's note and discussed the case with the resident. I agree with the resident's findings and plan as documented. Seen and examined; please see resident note for further historical information. I personally verified all nicolas historical information and exam findings. Personally interpreted all imaging and diagnostics and reviewed appropriate consults. I reviewed all labs and vital signs as per resident note and EMR as documented. I agree with the above assessment and plan unless supplemented by myself in the following. No new complaints; no events overnight. Notes some draining from wound but pain is controlled and states that he is looking forward to wound vac placement and DC planning. Remains in good spirits. 10 item review of systems completed and is negative aside from as discussed in the subjective data in my own/the resident documentation. VS, labs, imaging reviewed NAD, AAO, resting comfortably in bed. RRR s1/2 no mgr Normal muscle tone, moves all 5 extremities with normal apparent strength Neck is supple, trachea midline, no latanya LN Lungs CTAB with sym expansion NT ND +BS no latanya organomegaly CN2-12 wnl; no FND NC AT EOMI PERRLA Normal mood, appropriate behavior, euthymic affect No skin breakdown or rashes noted Assessment and plan: Patient seen for necrotizing cellulitis, on broad-spectrum antibiotics and continues to improve. Wound vac tomorrow and DC planning will start. Moving metoprolol to QID 50mg and if this controlls his HR can convert to 200mg succinate daily prior to DC. Problems include: Sepsis, improved Necrotizing cellulitis; +MRSA on vanco per ID. Delineating final abx course. History of CHF, mixed sys and diastolic. On RA; monitor fluid status. Cutting back IVF today as stable and tolerating PO. History of Parkinsons History of hypertension History of hyperlipidemia History of diabetes History of alcohol abuse on thiamine and folate History of alcoholic cirrhosis History of GI bleed, on IV Protonix and n.p.o. History of atrial fibrillation not on anticoagulation was supposed to be evaluated for watchman (GIB precluded AC) Doing well off benjamin History of pulmonary HTN Full Code
--- NOTE | 2019-09-29 12:35 | PN ---
Physical Exam: SUBJECTIVE: Patient seen and examined. Pt is s/p surgery POD4. Still c/o of pain but has improved. Pt is off his insulin pump. Surgical wound is dressed and packed. Pt is s/p 2nd debridement. Denies f/c/n/v/d/sob, chest pain. OBJECTIVE: Vital Signs Period Temp Pulse Resp BP Sys/Varma Pulse Ox Last 24 Hr 98.0 F-98.7 F 91-121 18-20 94-145/60-77 96-97 GENERAL: Awake, alert, and fully oriented, in no acute distress. EYES: Pupils equal, round and reactive to light, extraocular movements intact, sclera anicteric, conjunctiva clear. EARS, NOSE, THROAT: Ears normal, nares patent, oropharynx clear without exudates. Moist mucous membranes. LUNGS: Breath sounds equal, clear to auscultation bilaterally. No wheezes, and no crackles. HEART: Regular rate and rhythm, normal S1 and S2 without murmur, rub or gallop. ABDOMEN: Soft, nontender, not distended, normoactive bowel sounds, no guarding, no rebound, no masses. Genital: Right groin dressed, POD4 s/p second debridement UPPER EXTREMITIES: 2+ pulses, warm, well-perfused. No cyanosis. No clubbing. No peripheral edema. LOWER EXTREMITIES: 2+ pulses, warm, well-perfused. No calf tenderness. No peripheral edema. SKIN: Warm, dry, normal turgor, no rashes or lesions noted, normal capillary refill. Laboratory Results - last 24 hr CBC,CMP WBC 8.8 K/mm3 (4.0-10.0) 09/29/19 08:10 RBC 4.12 M/mm3 (4.00-5.60) 09/29/19 08:10 Hgb 9.7 GM/dL (11.7-16.9) L 09/29/19 08:10 Hct 30.7 % (35.4-49) L 09/29/19 08:10 MCV 74.5 fl (80-96) L 09/29/19 08:10 MCH 23.5 pg (25.7-33.7) L 09/29/19 08:10 MCHC 31.5 g/dl (32.0-35.9) L 09/29/19 08:10 RDW 17.1 % (11.9-15.9) H 09/29/19 08:10 Plt Count 282 K/MM3 (134-434) 09/29/19 08:10 MPV 9.2 fl (7.5-11.1) 09/29/19 08:10 Absolute Neuts (auto) 8.7 K/mm3 (1.5-8.0) H 09/26/19 08:59 Neutrophils % 78.6 % (42.8-82.8) 09/26/19 08:59 Lymphocytes % 8.3 % (8-40) D 09/26/19 08:59 Monocytes % 11.4 % (3.8-10.2) H 09/26/19 08:59 Eosinophils % 1.4 % (0-4.5) D 09/26/19 08:59 Basophils % 0.3 % (0-2.0) 09/26/19 08:59 Nucleated RBC % 0 % (0-0) 09/26/19 08:59 Retic Count 1.64 % (0.5-1.5) H 09/26/19 08:59 Sodium 134 mmol/L (136-145) L 09/29/19 08:10 Potassium 4.2 mmol/L (3.5-5.1) 09/29/19 08:10 Chloride 97 mmol/L (98-107) L 09/29/19 08:10 Carbon Dioxide 29 mmol/L (21-32) 09/29/19 08:10 Anion Gap 8 MMOL/L (8-16) 09/29/19 08:10 BUN 14.8 mg/dL (7-18) 09/29/19 08:10 Creatinine 1.2 mg/dL (0.55-1.3) 09/29/19 08:10 Est GFR (CKD-EPI)AfAm 72.09 09/29/19 08:10 Est GFR (CKD-EPI)NonAf 62.20 09/29/19 08:10 POC Glucometer 198 UNITS (80-120) 09/29/19 11:22 Random Glucose 177 mg/dL (74-106) H 09/29/19 08:10 Serum Osmolality 292 mosm/kg (278-305) 09/26/19 08:59 Calcium 8.8 mg/dL (8.5-10.1) 09/29/19 08:10 Phosphorus 3.0 mg/dL (2.5-4.9) 09/26/19 08:59 Magnesium 2.1 mg/dL (1.8-2.4) 09/26/19 08:59 Iron 11 ug/dL (50-175) L 09/26/19 08:59 TIBC 340 ug/dL (250-450) 09/26/19 08:59 Iron Saturation 3 % (17.5-39) L 09/26/19 08:59 Unsaturated IBC 329 ug/dL (200-275) H 09/26/19 08:59 Ferritin 116.4 ng/ml (8-388) 09/26/19 08:59 Total Bilirubin 0.9 mg/dL (0.2-1) 09/29/19 08:10 AST 39 U/L (15-37) H 09/29/19 08:10 ALT 38 U/L (13-61) 09/29/19 08:10 Alkaline Phosphatase 117 U/L (45-117) 09/29/19 08:10 Total Protein 6.8 g/dl (6.4-8.2) 09/29/19 08:10 Albumin 2.8 g/dl (3.4-5.0) L 09/29/19 08:10 Vitamin B12 773 pg/ml (193-986) 09/26/19 08:59 Serum Folate 12 ng/mL (3.1-17.5) 09/26/19 08:59 Active Medications Generic Name Dose Route Start Last Admin Trade Name Pritesh PRN Reason Stop Dose Admin Atorvastatin Calcium 10 mg 09/27/19 22:00 09/28/19 21:04 Lipitor - PO 10 mg HS LAINEY Administration Heparin Sodium (Porcine) 5,000 unit 09/27/19 22:00 09/29/19 09:47 Heparin - SQ 5,000 unit BID LAINEY Administration Vancomycin HCl 1,250 mg/ 250 mls @ 250 mls/2 hr 09/28/19 12:45 09/28/19 14:32 Dextrose IVPB 250 mls/2 hr Q24H LAINEY Administration Protocol Clindamycin Phosphate 900 mg in 50 mls @ 100 mls/hr 09/27/19 18:45 09/29/19 09:47 Cleocin 900 Mg Premix Ivpb - IVPB 100 mls/hr Q8H-IV LAINEY Administration Protocol Insulin Aspart 1 vial 09/27/19 22:00 09/29/19 11:24 Novolog Vial Sliding Scale - SQ 2 units ACHS LAINEY Administration Protocol Ipratropium [place] 1 amp 09/27/19 20:00 09/29/19 07:40 Atrovent 0.02% Nebulizer - NEB Not Given RTID LAINEY Levalbuterol HCl 0.63 mg 09/27/19 18:13 Xopenex IH Q8H PRN ASTHMA Losartan Potassium 25 mg 09/28/19 10:00 09/29/19 09:47 Cozaar - PO 25 mg DAILY LAINEY Administration Metoprolol Tartrate 50 mg 09/29/19 14:00 Lopressor - PO QID LAINEY Morphine Sulfate 2 mg 09/27/19 18:13 09/27/19 23:57 Morphine Sulfate IVPUSH 2 mg Q4H PRN Administration PAIN LEVEL 7 - 10 Pantoprazole Sodium 40 mg 09/29/19 10:00 09/29/19 09:47 Protonix - PO 40 mg DAILY LAINEY Administration Thiamine HCl 200 mg 09/28/19 10:00 09/29/19 10:28 Vitamin B1 Injection - IVPB 200 mg DAILY LAINEY Administration ASSESSMENT/PLAN: 68 y/o F, pmh of HTN, A-fib not on blood thinners(xarelto stopped for GI bleed) , IDDM on insulin pump, CHF on lasix, CAD s/p stents, Etoh abuse, liver cirrhosis, splenectomy, presented to the ED with a right groin wound of 5 day duration that started has just a swelling, which progressed to an open wound, associated with malodorous and pustular discharge and bleed admitted for cellulitis #Narcotizing Fascitis of the right groin POD4 Vanc + Clindamycin- Appreciated Dr. Rocha consult Cont LR 125 LWC, plan for wound vac tomorrow #Hyperglycemia 2/2 to IDDM BGMs Q3H ISS Levemir 10-15 if sugars elevated Can consider starting Insulin pump later Pump settings- Total= 75 U/d, Rate: 3.1 U/hr, Ratio 15:1 insulin:carb #Hyponatremia encourage PO diet #CHF hold lasix 40 for now in the setting of hyponatremia #A-Fib w/ RVR Rate controlled Metoprolol tartrate 25 mg QID, not home dose #Iron def anemia consider cont iron #HTN Losartan 25 Pravastatin 10 #DVTppx Hep BID FEN monitor lytes cont Fluids LR 100 Diabetic diet Dispo: cont Abx, wound vac ruby Visit type - Emergency Visit Emergency Visit: Yes ED Registration Date: 09/25/19 Care time: The patient presented to the Emergency Department on the above date and was hospitalized for further evaluation of their emergent condition. - New Patient This patient is new to me today: Yes Date on this admission: 09/29/19 - Critical Care Critical Care patient: No - Discharge Referral Referred to [facility] Med P.C.: No ATTENDING PHYSICIAN STATEMENT I saw and evaluated the patient. I reviewed the resident's note and discussed the case with the resident. I agree with the resident's findings and plan as documented. SUBJECTIVE: OBJECTIVE: ASSESSMENT AND PLAN:
--- NOTE | 2019-09-29 12:40 | PN ---
Progress Note, Physician History of Present Illness: stable no new issues - Current Medication List Current Medications: Active Medications Atorvastatin Calcium (Lipitor -) 10 mg PO HS [facility] Last Admin: 09/28/19 21:04 Dose: 10 mg Heparin Sodium (Porcine) (Heparin -) 5,000 unit SQ BID [facility] Last Admin: 09/29/19 09:47 Dose: 5,000 unit Vancomycin HCl 1,250 mg/ (Dextrose) 250 mls @ 250 mls/2 hr IVPB Q24H [facility]; Protocol Last Admin: 09/28/19 14:32 Dose: 250 mls/2 hr Clindamycin Phosphate (Cleocin 900 Mg Premix Ivpb -) 900 mg in 50 mls @ 100 mls /hr IVPB Q8H-IV LAINEY; Protocol Last Admin: 09/29/19 09:47 Dose: 100 mls/hr Insulin Aspart (Novolog Vial Sliding Scale -) 1 vial SQ ACHS [facility]; Protocol Last Admin: 09/29/19 11:24 Dose: 2 units Ipratropium [place] (Atrovent 0.02% Nebulizer -) 1 amp NEB RTID [facility] Last Admin: 09/29/19 07:40 Dose: Not Given Levalbuterol HCl (Xopenex) 0.63 mg IH Q8H PRN PRN Reason: ASTHMA Losartan Potassium (Cozaar -) 25 mg PO DAILY [facility] Last Admin: 09/29/19 09:47 Dose: 25 mg Metoprolol Tartrate (Lopressor -) 50 mg PO QID [facility] Morphine Sulfate (Morphine Sulfate) 2 mg IVPUSH Q4H PRN PRN Reason: PAIN LEVEL 7 - 10 Last Admin: 09/27/19 23:57 Dose: 2 mg Pantoprazole Sodium (Protonix -) 40 mg PO DAILY [facility] Last Admin: 09/29/19 09:47 Dose: 40 mg Thiamine HCl (Vitamin B1 Injection -) 200 mg IVPB DAILY [facility] Last Admin: 09/29/19 10:28 Dose: 200 mg - Objective Vital Signs: Vital Signs Temperature 98.0 F 09/29/19 08:20 Pulse Rate 97 H 09/29/19 08:20 Respiratory Rate 18 09/29/19 08:20 Blood Pressure 125/72 09/29/19 08:20 O2 Sat by Pulse Oximetry (%) 96 09/29/19 09:00 Constitutional: Yes: No Distress, Calm Cardiovascular: Yes: S1, S2 Respiratory: Yes: Regular, CTA Bilaterally Gastrointestinal: Yes: Normal Bowel Sounds, Soft Genitourinary: Yes: WNL Musculoskeletal: Yes: WNL Extremities: Yes: WNL Wound/Incision: Yes: Dressing Dry and Intact Neurological: Yes: Alert, Oriented Psychiatric: Yes: Alert, Oriented Labs: CBC, BMP 09/29/19 08:10 09/29/19 08:10 INR, PTT INR 1.21 (0.83-1.09) H 09/26/19 08:59 Assessment/Plan 68 y/o F, pmh of HTN, A-fib not on blood thinners(xarelto stopped for GI bleed) , IDDM on insulin pump, CHF on lasix, CAD s/p stents, Etoh abuse, liver cirrhosis, splenectomy, presented to the ED with a right groin wound of 5 day duration that started has just a swelling, which progressed to an open wound, associated with malodorous and pustular discharge and bleed admitted for cellulitis necrotizing cellulitis of the rt groin hyperglycemia hyponatremia chf pain htn plan continue abx cx report noted
[2019-09-29] MEDS ORDERED: PT OWN MED DRAWER 7, Y5N ONE (13:13)
[2019-09-29] MEDS: VANCOMYCIN HCL 1,250 MG in DEXTROSE 5%-WATER - 250 ML IVPB SCH (14:41)
[2019-09-29] MEDS: ATORVASTATIN CA 10 MG TABLET (FP) PO SCH (21:14)
[2019-09-30] MEDS: CLINDAMYCIN 900 MG PREMIX IVPB 900 MG/50 ML BAG IVPB SCH ×2 (02:01→09:36)
[2019-09-30] MEDS: INSULIN SLIDING SCALE (NOVOLOG) 1 VIAL SQ SCH ×4 (05:59→21:58)
[2019-09-30 07:10] LABS: HEMATOCRIT 29.3 % (35.4-49); HEMOGLOBIN 9.3 GM/dL (11.7-16.9); MCH 23.5 pg (25.7-33.7); MCHC 31.9 g/dl (32.0-35.9); MEAN CELL VOLUME 73.5 fl (80-96); MEAN PLT VOLUME 9.7 fl (7.5-11.1); PLATELET COUNT 243 K/MM3 (134-434); RBC 3.98 M/mm3 (4.00-5.60); RDW 17.5 % (11.9-15.9); WHITE BLOOD COUNT 7.5 K/mm3 (4.0-10.0)
[2019-09-30] MEDS: IPRATROPIUM BR 0.02% 0.5 MG/2.5 ML VIAL.NEB. NEB SCH ×3 (07:35→20:45)
[2019-09-30 07:53] LABS: ALBUMIN 2.7 g/dl (3.4-5.0); BILIRUBIN,TOTAL 0.3 mg/dL (0.2-1); BLOOD UREA NITROGEN 13.6 mg/dL (7-18); CALCIUM 8.4 mg/dL (8.5-10.1); CREATININE 1.1 mg/dL (0.55-1.3); POTASSIUM 4.1 mmol/L (3.5-5.1); TOT PROT 6.2 g/dl (6.4-8.2)
[2019-09-30] MEDS: LOSARTAN POTASSIUM 25 MG TABLET PO SCH (09:36)
[2019-09-30] MEDS: PANTOPRAZOLE 40 MG TABLET PO SCH (09:36)
[2019-09-30] MEDS: METOPROLOL TARTRATE 50 MG TABLET (FP) PO SCH ×4 (09:36→21:58)
[2019-09-30] MEDS: HEPARIN NA (PORCINE) 5,000 UNITS/ML 1ML VIAL SQ SCH ×2 (09:36→21:58)
[2019-09-30] MEDS: THIAMINE HCL 200 MG/2 ML VIAL IVPB SCH (10:30)
--- NOTE | 2019-09-30 11:03 | PN ---
Progress Note (short form) - Note Progress Note: surgery POD #4 incision/drainage soft tissue infection and sharp excisional debridement non viable skin and subcutaneous fat and fascia and superficial muscle. Patient tolerating his diet, OOB ambulating and voiding. Denies any CP, SOB, N/V /D, fever or chills. pain is controlled. Vital Signs Temp 98.8 F 09/30/19 08:48 Pulse 90 09/30/19 08:48 Resp 18 09/30/19 08:48 BP 135/84 09/30/19 08:48 Pulse Ox 96 09/29/19 21:00 Intake & Output 09/29/19 09/29/19 09/30/19 11:59 23:59 11:59 Intake Total 50 350 420 Output Total 660 Balance 50 350 -240 Weight 263 lb 2 oz 265 lb 12.8 oz Intake: IVPB 50 350 50 Oral 370 Output: Urine 660 Void 660 Other: Voiding Method Toilet Toilet Toilet # Unmeasured Voids Void 1 1 Bowel Movement No No Weight Measurement Method Standing Scale Standing Scale CBC, BMP 09/30/19 05:40 09/30/19 05:40 PE: A&Ox3, NAD Unlabored resp on RA Right groin wound with beefy red base, clean with no foul odor or significant d/ c, Surrounding thigh soft, supple and mildly tender. wet to dry dressing applied on rounds. Problem List - Problems (1) Soft tissue infection Assessment/Plan: Patient doing well s/p excision of soft tissue infection. - wound vac application today -OOB as tolerated -Encourage IS -IV abx per ID Evaluation and plan discussed with Dr Encinas Code(s): L08.9 - LOCAL INFECTION OF THE SKIN AND SUBCUTANEOUS TISSUE, UNSP
--- NOTE | 2019-09-30 12:20 | PN ---
Progress Note, Physician History of Present Illness: stable no new issues wound changed plan for wound vac - Current Medication List Current Medications: Active Medications Atorvastatin Calcium (Lipitor -) 10 mg PO HS [facility] Last Admin: 09/29/19 21:14 Dose: 10 mg Heparin Sodium (Porcine) (Heparin -) 5,000 unit SQ BID [facility] Last Admin: 09/30/19 09:36 Dose: 5,000 unit Insulin Aspart (Novolog Vial Sliding Scale -) 1 vial SQ ACHS [facility]; Protocol Last Admin: 09/30/19 11:34 Dose: 3 units Ipratropium [place] (Atrovent 0.02% Nebulizer -) 1 amp NEB RTID [facility] Last Admin: 09/30/19 07:35 Dose: 1 amp Levalbuterol HCl (Xopenex) 0.63 mg IH Q8H PRN PRN Reason: ASTHMA Losartan Potassium (Cozaar -) 25 mg PO DAILY [facility] Last Admin: 09/30/19 09:36 Dose: 25 mg Metoprolol Tartrate (Lopressor -) 50 mg PO QID [facility] Last Admin: 09/30/19 09:36 Dose: 50 mg Morphine Sulfate (Morphine Sulfate) 2 mg IVPUSH Q4H PRN PRN Reason: PAIN LEVEL 7 - 10 Last Admin: 09/27/19 23:57 Dose: 2 mg Pantoprazole Sodium (Protonix -) 40 mg PO DAILY [facility] Last Admin: 09/30/19 09:36 Dose: 40 mg Thiamine HCl (Vitamin B1 Injection -) 200 mg IVPB DAILY [facility] Last Admin: 09/30/19 10:30 Dose: 200 mg - Objective Vital Signs: Vital Signs Temperature 98.8 F 09/30/19 08:48 Pulse Rate 90 09/30/19 08:48 Respiratory Rate 18 09/30/19 08:48 Blood Pressure 135/84 09/30/19 08:48 O2 Sat by Pulse Oximetry (%) 96 09/29/19 21:00 Constitutional: Yes: No Distress, Calm Cardiovascular: Yes: S1, S2 Respiratory: Yes: Regular, CTA Bilaterally Gastrointestinal: Yes: Normal Bowel Sounds, Soft Musculoskeletal: Yes: WNL Extremities: Yes: Other Wound/Incision: Yes: Dressing Dry and Intact Neurological: Yes: Alert, Oriented Psychiatric: Yes: Alert, Oriented Labs: CBC, BMP 09/30/19 05:40 01/27/20 05:40 INR, PTT INR 1.21 (0.83-1.09) H 09/26/19 08:59 Assessment/Plan 68 y/o F, pmh of HTN, A-fib not on blood thinners(xarelto stopped for GI bleed) , IDDM on insulin pump, CHF on lasix, CAD s/p stents, Etoh abuse, liver cirrhosis, splenectomy, presented to the ED with a right groin wound of 5 day duration that started has just a swelling, which progressed to an open wound, associated with malodorous and pustular discharge and bleed admitted for cellulitis necrotizing cellulitis of the rt groin hyperglycemia hyponatremia chf pain htn plan will change to oral abx wound care wound vac plan rest as per the team
--- NOTE | 2019-09-30 12:33 | PN ---
Teaching Attending Note Name of Resident: Ron Yao ATTENDING PHYSICIAN STATEMENT I saw and evaluated the patient. I reviewed the resident's note and discussed the case with the resident. I agree with the resident's findings and plan as documented. Seen and examined; please see resident note for further historical information. I personally verified all nicolas historical information and exam findings. Personally interpreted all imaging and diagnostics and reviewed appropriate consults. I reviewed all labs and vital signs as per resident note and EMR as documented. I agree with the above assessment and plan unless supplemented by myself in the following. No new complaints; going for wound vac today. Changing to PO abx, on PO fluids and is clinically euvolemic. Pain controlled. Can start DC planning. 10 item review of systems completed and is negative aside from as discussed in the subjective data in my own/the resident documentation. VS, labs, imaging reviewed NAD, AAO, resting comfortably in bed. RRR s1/2 no mgr Normal muscle tone, moves all 5 extremities with normal apparent strength Neck is supple, trachea midline, no latanya LN Lungs CTAB with sym expansion NT ND +BS no latanya organomegaly CN2-12 wnl; no FND NC AT EOMI PERRLA Normal mood, appropriate behavior, euthymic affect No skin breakdown or rashes noted; dressing is CDI with minimal surrounding cellulitis much improved from POD1. Assessment and plan: Continue on targeted antibiotic treatment, wound VAC today, DC planning. Heart rate improved on current metoprolol dose. Convert to succinate for AM. Problems include: Sepsis, improved Necrotizing cellulitis s/p 2x washouts with Dr. Encinas; +MRSA on vanco per ID. Delineating final abx course with Dr. Kaminski. ESR/CRp in AM. History of CHF, mixed sys and diastolic. On RA; monitor fluid status. PO fluids. History of Parkinsons History of hypertension History of hyperlipidemia History of diabetes History of alcohol abuse on thiamine and folate History of alcoholic cirrhosis History of GI bleed, on IV Protonix and n.p.o. History of atrial fibrillation not on anticoagulation was supposed to be evaluated for watchman (GIB precluded AC) Doing well off benjamin History of pulmonary HTN Full Code
[2019-09-30] MEDS: MORPHINE SULFATE 2 MG/ML VIAL IVPUSH PRN (14:55)
--- NOTE | 2019-09-30 15:12 | PN ---
DATE OF VISIT: DATE OF DICTATION: 09/29/2019 HISTORY: Patient is a 68-year-old male who underwent an incision and drainage of a right groin abscess. Has had prostatism with frequency and urgency. Patient has bilateral large scrotal hydroceles. His prostate is 3+, smooth, and benign. The patient is placed on Flomax and was given a trial of voiding yesterday. He has been voiding well. His urine is clear. His abdomen is soft. A urine culture showed no growth. The patient's BUN 14.8, creatinine 1.2. His white count is 8.8. IMPRESSION: No genitourinary pathology at present. PLAN: We will continue with Flomax 0.4 mg daily. We will follow up with patient in office on a semiannual basis. FRANCISCA WHITE M.D. [id number]
--- NOTE | 2019-09-30 15:45 | PN ---
Physical Exam: SUBJECTIVE: Patient seen and examined. Pt reports symptoms have resolved. Pt is ready to go home. Pt is off his insulin pump. Surgical wound is dressed and packed. Pt is s/p 2nd debridement. Denies f/c/n/v/d/sob, chest pain. OBJECTIVE: Vital Signs Period Temp Pulse Resp BP Sys/Varma Pulse Ox Last 24 Hr 97.3 F-99.0 F 81-105 16-20 110-148/57-84 96-96 GENERAL: Awake, alert, and fully oriented, in no acute distress. EYES: Pupils equal, round and reactive to light, extraocular movements intact, sclera anicteric, conjunctiva clear. EARS, NOSE, THROAT: Ears normal, nares patent, oropharynx clear without exudates. Moist mucous membranes. LUNGS: Breath sounds equal, clear to auscultation bilaterally. No wheezes, and no crackles. HEART: Regular rate and rhythm, normal S1 and S2 without murmur, rub or gallop. ABDOMEN: Soft, nontender, not distended, normoactive bowel sounds, no guarding, Genital: Right groin dressed, POD4 s/p second debridement UPPER EXTREMITIES: 2+ pulses, warm, well-perfused. No cyanosis. No clubbing. No peripheral edema. LOWER EXTREMITIES: 2+ pulses, warm, well-perfused. No calf tenderness. No peripheral edema. Laboratory Results - last 24 hr CBC,CMP WBC 7.5 K/mm3 (4.0-10.0) 09/30/19 05:40 RBC 3.98 M/mm3 (4.00-5.60) L 09/30/19 05:40 Hgb 9.3 GM/dL (11.7-16.9) L 09/30/19 05:40 Hct 29.3 % (35.4-49) L 09/30/19 05:40 MCV 73.5 fl (80-96) L 09/30/19 05:40 MCH 23.5 pg (25.7-33.7) L 09/30/19 05:40 MCHC 31.9 g/dl (32.0-35.9) L 09/30/19 05:40 RDW 17.5 % (11.9-15.9) H 09/30/19 05:40 Plt Count 243 K/MM3 (134-434) 09/30/19 05:40 MPV 9.7 fl (7.5-11.1) 09/30/19 05:40 Absolute Neuts (auto) 8.7 K/mm3 (1.5-8.0) H 09/26/19 08:59 Neutrophils % 78.6 % (42.8-82.8) 09/26/19 08:59 Lymphocytes % 8.3 % (8-40) D 09/26/19 08:59 Monocytes % 11.4 % (3.8-10.2) H 09/26/19 08:59 Eosinophils % 1.4 % (0-4.5) D 09/26/19 08:59 Basophils % 0.3 % (0-2.0) 09/26/19 08:59 Nucleated RBC % 0 % (0-0) 09/26/19 08:59 Retic Count 1.64 % (0.5-1.5) H 09/26/19 08:59 Sodium 133 mmol/L (136-145) L 09/30/19 05:40 Potassium 4.1 mmol/L (3.5-5.1) 09/30/19 05:40 Chloride 98 mmol/L (98-107) 09/30/19 05:40 Carbon Dioxide 28 mmol/L (21-32) 09/30/19 05:40 Anion Gap 6 MMOL/L (8-16) L 09/30/19 05:40 BUN 13.6 mg/dL (7-18) 09/30/19 05:40 Creatinine 1.1 mg/dL (0.55-1.3) 09/30/19 05:40 Est GFR (CKD-EPI)AfAm 80.08 09/30/19 05:40 Est GFR (CKD-EPI)NonAf 69.10 09/30/19 05:40 POC Glucometer 181 UNITS (80-120) 09/30/19 11:31 Random Glucose 168 mg/dL (74-106) H 09/30/19 05:40 Serum Osmolality 292 mosm/kg (278-305) 09/26/19 08:59 Calcium 8.4 mg/dL (8.5-10.1) L 09/30/19 05:40 Phosphorus 3.0 mg/dL (2.5-4.9) 09/26/19 08:59 Magnesium 2.1 mg/dL (1.8-2.4) 09/26/19 08:59 Iron 11 ug/dL (50-175) L 09/26/19 08:59 TIBC 340 ug/dL (250-450) 09/26/19 08:59 Iron Saturation 3 % (17.5-39) L 09/26/19 08:59 Unsaturated IBC 329 ug/dL (200-275) H 09/26/19 08:59 Ferritin 116.4 ng/ml (8-388) 09/26/19 08:59 Total Bilirubin 0.3 mg/dL (0.2-1) 09/30/19 05:40 AST 39 U/L (15-37) H 09/30/19 05:40 ALT 47 U/L (13-61) 09/30/19 05:40 Alkaline Phosphatase 112 U/L (45-117) 09/30/19 05:40 Total Protein 6.2 g/dl (6.4-8.2) L 09/30/19 05:40 Albumin 2.7 g/dl (3.4-5.0) L 09/30/19 05:40 Vitamin B12 773 pg/ml (193-986) 09/26/19 08:59 Serum Folate 12 ng/mL (3.1-17.5) 09/26/19 08:59 Active Medications Generic Name Dose Route Start Last Admin Trade Name Freq PRN Reason Stop Dose Admin Atorvastatin Calcium 10 mg 09/27/19 22:00 09/29/19 21:14 Lipitor - PO 10 mg HS LAINEY Administration Doxycycline Hyclate 100 mg 09/30/19 18:00 Vibramycin - PO BID@1000,1800 LAINEY Heparin Sodium (Porcine) 5,000 unit 09/27/19 22:00 09/30/19 09:36 Heparin - SQ 5,000 unit BID LAINEY Administration Insulin Aspart 1 vial 09/29/19 13:14 09/30/19 11:34 Novolog Vial Sliding Scale - SQ 3 units ACHS LAINEY Administration Protocol Ipratropium [place] 1 amp 09/27/19 20:00 09/30/19 07:35 Atrovent 0.02% Nebulizer - NEB 1 amp RTID LAINEY Administration Levalbuterol HCl 0.63 mg 09/27/19 18:13 Xopenex IH Q8H PRN ASTHMA Losartan Potassium 25 mg 09/28/19 10:00 09/30/19 09:36 Cozaar - PO 25 mg DAILY LAINEY Administration Metoprolol Tartrate 50 mg 09/29/19 14:00 09/30/19 14:55 Lopressor - PO 50 mg QID LAINEY Administration Morphine Sulfate 2 mg 09/27/19 18:13 09/30/19 14:55 Morphine Sulfate IVPUSH 2 mg Q4H PRN Administration PAIN LEVEL 7 - 10 Pantoprazole Sodium 40 mg 09/29/19 10:00 09/30/19 09:36 Protonix - PO 40 mg DAILY LAINEY Administration Thiamine HCl 200 mg 09/28/19 10:00 09/30/19 10:30 Vitamin B1 Injection - IVPB 200 mg DAILY LAINEY Administration ASSESSMENT/PLAN: 68 y/o F, pmh of HTN, A-fib not on blood thinners(xarelto stopped for GI bleed) , IDDM on insulin pump, CHF on lasix, CAD s/p stents, Etoh abuse, liver cirrhosis, splenectomy, presented to the ED with a right groin wound of 5 day duration that started has just a swelling, which progressed to an open wound, associated with malodorous and pustular discharge and bleed admitted for cellulitis #Narcotizing Fascitis of the right groin POD5 Vanc + Clindamycin- d/kim Switched to Doxycycline for PO-Appreciated Dr. Rocha consult [facility], plan for wound vac- pending insurance clearance Likely d/c tomorrow with PO abx and Wound vac #Hyperglycemia 2/2 to IDDM ISS Can consider starting Insulin pump later Pump settings- Total= 75 U/d, Rate: 3.1 U/hr, Ratio 15:1 insulin:carb #Hyponatremia encourage PO diet #CHF hold lasix 40 for now in the setting of hyponatremia #A-Fib w/ RVR Rate controlled #Iron def anemia consider cont iron #HTN Losartan 25 Pravastatin 10 #DVTppx Hep BID FEN monitor lytes Diabetic/sodium diet Dispo: cont Abx, wound vac-pending clearance, likely d/c ruby Visit type - Emergency Visit Emergency Visit: Yes ED Registration Date: 09/25/19 Care time: The patient presented to the Emergency Department on the above date and was hospitalized for further evaluation of their emergent condition. - New Patient This patient is new to me today: Yes Date on this admission: 09/30/19 - Critical Care Critical Care patient: No - Discharge Referral Referred to [facility] No ATTENDING PHYSICIAN STATEMENT I saw and evaluated the patient. I reviewed the resident's note and discussed the case with the resident. I agree with the resident's findings and plan as documented. SUBJECTIVE: OBJECTIVE: ASSESSMENT AND PLAN:
[2019-09-30] MEDS: DOXYCYCLINE HYCLATE 100 MG CAPSULE PO SCH (17:00)
[2019-09-30] MEDS ORDERED: IPRATROPIUM BR 0.02% 0.5 MG/2.5 ML VIAL.NEB. NEB ONE (20:31)
[2019-09-30] MEDS: ATORVASTATIN CA 10 MG TABLET (FP) PO SCH (21:58)
[2019-10-01] MEDS: INSULIN SLIDING SCALE (NOVOLOG) 1 VIAL SQ SCH ×3 (06:49→17:23)
[2019-10-01 07:33] LABS: HEMATOCRIT 29.7 % (35.4-49); HEMOGLOBIN 9.2 GM/dL (11.7-16.9); MCH 23.3 pg (25.7-33.7); MCHC 31.1 g/dl (32.0-35.9); MEAN CELL VOLUME 74.9 fl (80-96); MEAN PLT VOLUME 9.7 fl (7.5-11.1); PLATELET COUNT 247 K/MM3 (134-434); RBC 3.97 M/mm3 (4.00-5.60); RDW 17.4 % (11.9-15.9); WHITE BLOOD COUNT 7.1 K/mm3 (4.0-10.0)
[2019-10-01 08:03] LABS: ALBUMIN 2.7 g/dl (3.4-5.0); BILIRUBIN,TOTAL 0.3 mg/dL (0.2-1); CALCIUM 8.5 mg/dL (8.5-10.1); CREATININE 1.1 mg/dL (0.55-1.3); POTASSIUM 4.2 mmol/L (3.5-5.1); TOT PROT 6.4 g/dl (6.4-8.2)
[2019-10-01] MEDS: IPRATROPIUM BR 0.02% 0.5 MG/2.5 ML VIAL.NEB. NEB SCH ×2 (08:09→14:26)
[2019-10-01] MEDS ORDERED: ACETAMINOPHEN 325 MG TABLET (FP) PO PRN (08:15)
[2019-10-01] MEDS: HEPARIN NA (PORCINE) 5,000 UNITS/ML 1ML VIAL SQ SCH (09:17)
[2019-10-01] MEDS: DOXYCYCLINE HYCLATE 100 MG CAPSULE PO SCH ×2 (09:17→17:24)
[2019-10-01] MEDS: METOPROLOL TARTRATE 50 MG TABLET (FP) PO SCH (09:17)
[2019-10-01] MEDS: LOSARTAN POTASSIUM 25 MG TABLET PO SCH (09:17)
[2019-10-01] MEDS: PANTOPRAZOLE 40 MG TABLET PO SCH (09:17)
[2019-10-01] MEDS: THIAMINE HCL 200 MG/2 ML VIAL IVPB SCH (09:37)
--- NOTE | 2019-10-01 12:17 | PN ---
Progress Note, Physician History of Present Illness: stable no new issues - Current Medication List Current Medications: Active Medications Acetaminophen (Tylenol -) 650 mg PO Q6H PRN PRN Reason: PAIN LEVEL 6-10 Atorvastatin Calcium (Lipitor -) 10 mg PO HS [facility] Last Admin: 09/30/19 21:58 Dose: 10 mg Doxycycline Hyclate (Vibramycin -) 100 mg PO BID@1000,1800 [facility] Last Admin: 10/01/19 09:17 Dose: 100 mg Heparin Sodium (Porcine) (Heparin -) 5,000 unit SQ BID [facility] Last Admin: 10/01/19 09:17 Dose: 5,000 unit Insulin Aspart (Novolog Vial Sliding Scale -) 1 vial SQ ACHS [facility]; Protocol Last Admin: 10/01/19 12:09 Dose: 3 units Ipratropium [place] (Atrovent 0.02% Nebulizer -) 1 amp NEB RTID [facility] Last Admin: 10/01/19 08:09 Dose: 1 amp Levalbuterol HCl (Xopenex) 0.63 mg IH Q8H PRN PRN Reason: ASTHMA Losartan Potassium (Cozaar -) 25 mg PO DAILY [facility] Last Admin: 10/01/19 09:17 Dose: 25 mg Metoprolol Tartrate (Lopressor -) 50 mg PO QID [facility] Last Admin: 10/01/19 09:17 Dose: 50 mg Pantoprazole Sodium (Protonix -) 40 mg PO DAILY [facility] Last Admin: 10/01/19 09:17 Dose: 40 mg Thiamine HCl (Vitamin B1 Injection -) 200 mg IVPB DAILY [facility] Last Admin: 10/01/19 09:37 Dose: 200 mg - Objective Vital Signs: Vital Signs Temperature 98.8 F 10/01/19 08:51 Pulse Rate 110 H 10/01/19 08:51 Respiratory Rate 18 10/01/19 08:51 Blood Pressure 114/84 10/01/19 08:51 O2 Sat by Pulse Oximetry (%) 98 09/30/19 21:00 Constitutional: Yes: No Distress, Calm Cardiovascular: Yes: S1, S2 Respiratory: Yes: Regular, CTA Bilaterally Gastrointestinal: Yes: Normal Bowel Sounds, Soft Musculoskeletal: Yes: WNL Extremities: Yes: WNL Wound/Incision: Yes: Dressing Dry and Intact Neurological: Yes: Alert, Oriented Psychiatric: Yes: Alert, Oriented Labs: CBC, BMP 10/01/19 06:05 10/01/19 06:05 INR, PTT INR 1.21 (0.83-1.09) H 09/26/19 08:59 Assessment/Plan 68 y/o F, pmh of HTN, A-fib not on blood thinners(xarelto stopped for GI bleed) , IDDM on insulin pump, CHF on lasix, CAD s/p stents, Etoh abuse, liver cirrhosis, splenectomy, presented to the ED with a right groin wound of 5 day duration that started has just a swelling, which progressed to an open wound, associated with malodorous and pustular discharge and bleed admitted for cellulitis necrotizing cellulitis of the rt groin hyperglycemia hyponatremia chf pain htn plan doxy for 7 more days res as per the team
[2019-10-01] MEDS ORDERED: METOPROLOL TARTRATE 5 MG/5 ML VIAL IVPUSH PRN (12:44)
--- NOTE | 2019-10-01 13:20 | PN ---
Teaching Attending Note Name of Resident: Ron Yao ATTENDING PHYSICIAN STATEMENT I saw and evaluated the patient. I reviewed the resident's note and discussed the case with the resident. I agree with the resident's findings and plan as documented. SUBJECTIVE: Feeling much better. Pain controlled - no fever/chills. OBJECTIVE: Afebrile, Hemodynamically Stable. Last Vital Signs Temp Pulse Resp BP Pulse Ox 98.8 F 110 H 18 114/84 98 10/01/19 08:51 10/01/19 08:51 10/01/19 08:51 10/01/19 08:51 09/30/19 21:00 HEENT - Atraumatic, Normocephalic. Heart - S1, S2, irregular Lungs - clear to auscultation Abdomen - Soft, non-tender. High BMI. Bowel Sounds normal. R groin - wound vac in place, no surrounding erythema. Extremities - mild edema, no calf tenderness Laboratory Results - last 24 hr 09/30/19 09/30/19 10/01/19 16:56 21:57 06:05 WBC 7.1 RBC 3.97 L Hgb 9.2 L Hct 29.7 L MCV 74.9 L MCH 23.3 L MCHC 31.1 L RDW 17.4 H Plt Count 247 MPV 9.7 Sodium Potassium Chloride Carbon Dioxide Anion Gap BUN Creatinine Est GFR (CKD-EPI)AfAm Est GFR (CKD-EPI)NonAf POC Glucometer 149 173 Random Glucose Calcium Total Bilirubin AST ALT Alkaline Phosphatase Total Protein Albumin 10/01/19 10/01/19 10/01/19 06:05 06:31 12:08 WBC RBC Hgb Hct MCV MCH MCHC RDW Plt Count MPV Sodium 134 L Potassium 4.2 Chloride 101 Carbon Dioxide 27 Anion Gap 6 L BUN 13.0 Creatinine 1.1 Est GFR (CKD-EPI)AfAm 80.08 Est GFR (CKD-EPI)NonAf 69.10 POC Glucometer 149 182 Random Glucose 146 H Calcium 8.5 Total Bilirubin 0.3 AST 32 ALT 42 Alkaline Phosphatase 107 Total Protein 6.4 Albumin 2.7 L Current Medications Generic Name Dose Route Start Last Admin Trade Name Freq PRN Reason Stop Dose Admin Acetaminophen 650 mg 10/01/19 08:15 Tylenol - PO Q6H PRN PAIN LEVEL 6-10 Atorvastatin Calcium 10 mg 09/27/19 22:00 09/30/19 21:58 Lipitor - PO 10 mg HS [facility] Administration Doxycycline Hyclate 100 mg 09/30/19 18:00 10/01/19 09:17 Vibramycin - PO 100 mg BID@1000,1800 [facility] Administration Heparin Sodium (Porcine) 5,000 unit 09/27/19 22:00 10/01/19 09:17 Heparin - SQ 5,000 unit BID [facility]INEY Administration Insulin Aspart 1 vial 09/29/19 13:14 10/01/19 12:09 Novolog Vial Sliding Scale - SQ 3 units ACHS LA[facility]Y Administration Protocol Ipratropium [place] 1 amp 09/27/19 20:00 10/01/19 08:09 Atrovent 0.02% Nebulizer - NEB 1 amp RTID [facility]Y Administration Levalbuterol HCl 0.63 mg 09/27/19 18:13 Xopenex IH Q8H PRN ASTHMA Losartan Potassium 25 mg 09/28/19 10:00 10/01/19 09:17 Cozaar - PO 25 mg DAILY [facility] Administration Metoprolol Succinate 100 mg 10/01/19 12:45 10/01/19 12:55 Toprol Xl - PO 100 mg DAILY LA[facility]Y Administration Metoprolol Tartrate 5 mg 10/01/19 12:44 Lopressor Injection - IVPUSH ONCE PRN TACHYCARDIA Pantoprazole Sodium 40 mg 09/29/19 10:00 10/01/19 09:17 Protonix - PO 40 mg DAILY [facility] Administration Thiamine HCl 200 mg 09/28/19 10:00 10/01/19 09:37 Vitamin B1 Injection - IVPB 200 mg DAILY [facility] Administration Home Medications Medication Instructions Recorded Pravastatin Sodium 10 mg PO DAILY 06/30/16 Insulin Lispro [Humalog] via PUMP 75 unit SQ DAILY vial 05/22/17 Folic Acid - 1 mg PO DAILY #30 tablet 09/11/18 Losartan Potassium [Cozaar -] 50 mg PO DAILY 09/11/18 Pantoprazole Sodium [Protonix -] 40 mg PO DAILY #30 tablet.ec 09/11/18 Furosemide [Lasix] 40 mg PO DAILY 09/26/19 Thiamine Multivitamin Docusate Sodium [Colace] 100 mg PO BID #60 capsule 10/01/19 Doxycycline Monohydrate [Monodox] 100 mg PO BID #14 capsule 10/01/19 Ferrous Sulfate 325 mg PO BID #60 tablet 10/01/19 Metoprolol Succinate [Toprol Xl -] 150 mg PO DAILY #90 tablet 10/01/19 ASSESSMENT AND PLAN: 68 year old male, with history of DM 2, Atrial Fibrillation (DOAC stopped by Cardiology 2019 due to Anemia, Alcoholism), Hx Gastritis and Colonic AVMs, CAD ( s/p PCI/stents), Chronic Systolic CHF, HTN, HLD, and Anxiety, presents with infected R groin wound. 1. Sepsis secondary to Necrotizing Cellulitis R groin wound POD 5 s/p excisional debridement Continue Wound Care, Wound Vac Wound Cx MRSA Seen by ID - for Doxycyline for 7 additional days. 2. DM 2 - resume home insulin regimen via Insulin Pump on discharge. 3. HTN - Continue Losartan 4. Chronic CHF - mixed diastolic/systolic - continue BB, Lasix. Echo prior to discharge Cardiology follow up on discharge 5. Atrial Fibrillation with episodes of RVR Metoprolol dose increased to 150mg XL daily. No DOAC sec to multiple Colonic AVMs on prior Colonoscopy. Cardiology follow up. 6. HLD - continue Statin. 7. Liver Cirrhosis secondary to Alcohol Abuse continue Lasix Continue MVI, Thiamine, Folic Acid. GI follow up. 8. Focal Liver Lesion in setting of Cirrhosis, finding on CT For out-patient MRI and GI follow up with Dr. Mcarthur. 9. Iron deficiency Anemia ? sec to colonic AVMs. Iron supplementation. Medically stable for discharge pending Echo.
[2019-10-01 15:40] VITALS: BP 111/63; PULSE 76; TEMP 98.4
--- NOTE | 2019-10-01 16:27 | ECHO ---
Name: PHAN BHAVANI VINCENTY, Exam:Adult Echocardiogram Study Date: 10/01/2019 02:58 PM Age: 68 yrs Height: 70 in Weight: 268 lb BSA: 2.4 m2 MMode/2D Measurements & Calculations IVSd: 1.4 cm Ao root diam: 3.5 cm LVIDd: 5.9 cm LA dimension: 4.6 cm LVIDs: 4.3 cm ACS: 1.6 cm LVPWd: 1.4 cm EDV(Teich): 171.8 ml EPSS: 1.4 cm ESV(Teich): 84.8 ml LVOT diam: 2.0 cm LVLd ap4: 7.4 cm EDV(MOD-sp4): 177.0 ml LAV (MOD-bp): 124.0 ml TAPSE: 1.4 cm RV S Ilan: 12.2 cm/sec Doppler Measurements & Calculations MV E max ilan: 133.0 cm/sec Ao V2 max: 191.1 cm/sec MV dec time: 0.19 sec Ao max P.6 mmHg Ao V2 mean: 133.3 cm/sec Ao mean P.9 mmHg Ao V2 VTI: 41.8 cm STEVE(I,D): 1.7 cm2 STEVE(V,D): 2.0 cm2 LV V1 max P.6 mmHg MR max ilan: 456.1 cm/sec LV V1 mean P.8 mmHg MR max P.2 mmHg LV V1 max: 118.1 cm/sec LV V1 mean: 77.4 cm/sec LV V1 VTI: 22.4 cm SV(LVOT): 71.6 ml TR max ilan: 335.0 cm/sec TR max P.0 mmHg PA V2 max: 116.9 cm/sec Med Peak E' Ilan: 7.3 cm/sec PA max P.5 mmHg Med E/e': 18.2 PA acc time: 0.08 sec Lat Peak E' Ilan: 13.2 cm/sec Lat E/e': 10.1 PA pr(Accel): 41.0 mmHg Procedure The study was technically difficult with many images being suboptimal in quality. Left Ventricle The left ventricle is normal in size. There is moderate concentric left ventricular hypertrophy. Left ventricular systolic function is mildly reduced. Ejection Fraction = 45%. Grade I diastolic dysfuncti on, (abnormal relaxation pattern). Right Ventricle The right ventricle is mildly dilated. The right ventricular systolic function is normal. Atria The left atrium is moderately dilated. The right atrium is mildly dilated. Mitral Valve There is mild mitral annular calcification. There is mild mitral valve thickening. There is mild mitr al regurgitation. Tricuspid Valve There is moderate tricuspid regurgitation. There is severe pulmonary hypertension. Right ventricular systolic pressure is elevated at 61 mmhg. Aortic Valve The aortic valve is not well visualized. No hemodynamically significant valvular aortic stenosis. Pulmonic Valve The pulmonic valve is not well visualized. Great Vessels The aortic root is normal size. Interpretation Summary The study was technically difficult with many images being suboptimal in quality. There is moderate concentric left ventricular hypertrophy. Left ventricular systolic function is mildly reduced. The right ventricle is mildly dilated. The left atrium is moderately dilated. There is mild mitral regurgitation. There is moderate tricuspid regurgitation. There is severe pulmonary hypertension. The aortic valve is not well visualized. No hemodynamically significant valvular aortic stenosis. MD Adriano Kohler 10/01/2019 04:26 PM
--- NOTE | 2019-10-01 17:08 | DS ---
Physical Exam: SUBJECTIVE: Patient seen and examined. Pt reports symptoms have resolved. Pt is ready to go home. Pt is off his insulin pump. Surgical wound is dressed and packed. Denies f/c/n/v/d/sob, chest pain. OBJECTIVE: Vital Signs Period Temp Pulse Resp BP Sys/Varma Pulse Ox Last 24 Hr 97.6 F-98.9 F 75-120 16-20 111-126/52-84 98 PHYSICAL EXAM GENERAL: Awake, alert, and fully oriented, in no acute distress. EYES: Pupils equal, round and reactive to light, extraocular movements intact, sclera anicteric, conjunctiva clear. EARS, NOSE, THROAT: Ears normal, nares patent, oropharynx clear without exudates. Moist mucous membranes. LUNGS: Breath sounds equal, clear to auscultation bilaterally. No wheezes, and no crackles. HEART: Regular rate and rhythm, normal S1 and S2 without murmur, rub or gallop. ABDOMEN: Soft, nontender, not distended, normoactive bowel sounds, no guarding, Genital: Right groin dressed, POD4 s/p second debridement UPPER EXTREMITIES: 2+ pulses, warm, well-perfused. No cyanosis. No clubbing. No peripheral edema. LOWER EXTREMITIES: 2+ pulses, warm, well-perfused. No calf tenderness. No peripheral edema. LABS Laboratory Results - last 24 hr Current Medications Acetaminophen (Tylenol -) 650 mg PO Q6H PRN PRN Reason: PAIN LEVEL 6-10 Atorvastatin Calcium (Lipitor -) 10 mg PO HS [facility] Last Admin: 09/30/19 21:58 Dose: 10 mg Doxycycline Hyclate (Vibramycin -) 100 mg PO BID@1000,1800 [facility] Last Admin: 10/01/19 09:17 Dose: 100 mg Heparin Sodium (Porcine) (Heparin -) 5,000 unit SQ BID [facility] Last Admin: 10/01/19 09:17 Dose: 5,000 unit Insulin Aspart (Novolog Vial Sliding Scale -) 1 vial SQ ACHS [facility]; Protocol Last Admin: 10/01/19 12:09 Dose: 3 units Ipratropium [place] (Atrovent 0.02% Nebulizer -) 1 amp NEB RTID [facility] Last Admin: 10/01/19 14:26 Dose: 1 amp Levalbuterol HCl (Xopenex) 0.63 mg IH Q8H PRN PRN Reason: ASTHMA Losartan Potassium (Cozaar -) 25 mg PO DAILY [facility] Last Admin: 10/01/19 09:17 Dose: 25 mg Metoprolol Succinate (Toprol Xl -) 100 mg PO DAILY [facility] Last Admin: 10/01/19 12:55 Dose: 100 mg Metoprolol Tartrate (Lopressor Injection -) 5 mg IVPUSH ONCE PRN PRN Reason: TACHYCARDIA Pantoprazole Sodium (Protonix -) 40 mg PO DAILY [facility] Last Admin: 10/01/19 09:17 Dose: 40 mg Thiamine HCl (Vitamin B1 Injection -) 200 mg IVPB DAILY [facility] Last Admin: 10/01/19 09:37 Dose: 200 mg Home Medications Medication Instructions Recorded Pravastatin Sodium 10 mg PO DAILY 06/30/16 Insulin Lispro [Humalog] 75 unit SQ DAILY vial 05/22/17 Folic Acid - 1 mg PO DAILY #30 tablet 09/11/18 Losartan Potassium [Cozaar -] 50 mg PO DAILY 09/11/18 Pantoprazole Sodium [Protonix -] 40 mg PO DAILY #30 tablet.ec 09/11/18 Furosemide [Lasix] 40 mg PO DAILY 09/26/19 Docusate Sodium [Colace] 100 mg PO BID #60 capsule 10/01/19 Doxycycline Monohydrate [Monodox] 100 mg PO BID #14 capsule 10/01/19 Ferrous Sulfate 325 mg PO BID #60 tablet 10/01/19 Metoprolol Succinate [Toprol Xl -] 150 mg PO DAILY #90 tablet 10/01/19 Multivitamin [One-Daily 1 each PO DAILY #30 tablet 10/01/19 Multi-Vitamin] Thiamine HCl [Vitamin B1 -] 100 mg PO DAILY #30 tablet 10/01/19 Microbiology 09/25/19 15:00 Blood - Peripheral Venous Blood Culture - Final NO GROWTH AFTER 5 DAYS INCUBATION 09/25/19 15:00 Blood - Peripheral Venous Blood Culture - Final NO GROWTH AFTER 5 DAYS INCUBATION 09/26/19 10:17 Groin - Right Gram Stain - Final 09/26/19 10:17 Groin - Right Wound Culture - Final S Aureus 09/25/19 15:00 Urine - Urine Clean Catch Urine Culture - Final NO GROWTH OBTAINED HOSPITAL COURSE: Date of Admission:09/25/19 68 y/o F, pmh of HTN, A-fib not on blood thinners(xarelto stopped for GI bleed) , IDDM on insulin pump, CHF on lasix, CAD s/p stents, Etoh abuse, liver cirrhosis, splenectomy, presented to the ED with a right groin wound of 5 day duration that started has just a swelling, which progressed to an open wound, associated with malodorous and pustular discharge and bleed admitted for cellulitis complicated byt Nectrozing fasicitis confirmed on CT scan. Pt was started on vanc, zosyn, clindamycin and surgery was consulted. Dr. Germain refused and Dr. Encinas took pt was surgical debridement of the wound. S/p surgery pt was was monitored in ICU, pt's symptoms improved and wound vac was placed. Pt's abx was switched to Doxycycline PO and pt was set up for portable wound vac and wound clinic f/u along with VNS for wound care. On CAT scan, pt was found to have a focal lesion in the right inferior hepatic lobe for which MRI was recommended outpt and referral for Dr. Mcarthur was given. Pt was also found to be A-fib with RVR to the 130s for which Cardiology recommended switching Lopressor to Toprol XL 150 mg daily. Pt's HCTZ was stopped and instructed to cont Toprol, lasix and losartan. Pt was given Doxycycline for 7 days and discharged with instructions to care for the wound. EKG: A. fib, rate of 139 bpm, left axis deviation, PVC noted, no T wave inversions, intervals are normal Pump settings- Total= 75 U/d, Rate: 3.1 U/hr, Ratio 15:1 insulin:carb CT a/p:Subcutaneous soft tissue thickening with associated subcutaneous air/gas accumulation is noted within the region of the right groin suggestive of necrotizing cellulitis. Also Focal lesion in the right inferior hepatic lobe Scrotal US- mild to moderate hydrocele right?left Date of Discharge: 10/01/19 Minutes to complete discharge: 40 Discharge Summary Problems reviewed: Yes Reason For Visit: AFIB Current Active Problems Atrial fibrillation (Chronic) Condition: Improved - Instructions Diet, Activity, Other Instructions: You were admitted to the hospital for and abscess in your groin. While you were here you underwent surgery to remove the abscess and were treated with antibiotics. You will be leaving the hospital with antibiotics and a machine to help drain the abscess. To complete antibiotic treatment for your infection please take Doxycycline 100 mg twice a day for 7 more days starting tomorrow. We have also made some adjustments to your medications: Please START taking Toprol XL 150 mg daily Please START taking Ferrous Sulfate 325 twice a day Please START taking Colace 100mg twice daily Please START taking Thiamine daily as well Please START taking Multivitamins daily Please STOP taking Hydrochlorothiazide We also found an abnormality of your liver in your CAT scan. To further investigate this abnormality, you will need to follow up with the [facility] Dr. Antony Mcarthur within one week to get an MRI of your abdomen. It is important that you follow up with Dr. Encinas to monitor the status of your surgery. It is very important that you stop drinking alcohol, this will worsen the function of many of your organs including your liver, heart, and kidney's. Please make a follow up appointment with Dr. Herbert to monitor your heart function and make further adjustment to your medications You will need to follow up with the Wound clinic within 1 week for wound care. Please follow up with your primary care physician within 1 week. Continue your home medications as prescribed. Return to the Emergency Department if you have any nausea, vomiting, fevers, chills, headache, or shortness of breath. Referrals: Adrian Encinas MD [Staff Physician] - 1 Week Ishaan Zuniga MD [Primary Care Provider] - 1 Week Giuseppe Herbert MD [Staff Physician] - 1 Week Joby Her DO [Staff Physician] - 1 Week (Wound Care clinic within 2-3 days) Antony Mcarthur MD [Staff Physician] - 1 Week (Focal lesion within right inferior hepatic lobe) Disposition: HOME - Home Medications Comprehensive Discharge Medication List: Ambulatory Orders Pravastatin Sodium 10 mg PO DAILY 06/30/16 Insulin Lispro [Humalog] 75 unit SQ DAILY vial 05/22/17 Folic Acid - 1 mg PO DAILY #30 tablet 09/11/18 Losartan Potassium [Cozaar -] 50 mg PO DAILY 09/11/18 Pantoprazole Sodium [Protonix -] 40 mg PO DAILY #30 tablet.ec 09/11/18 Furosemide [Lasix] 40 mg PO DAILY 09/26/19 Docusate Sodium [Colace] 100 mg PO BID #60 capsule 10/01/19 Doxycycline Monohydrate [Monodox] 100 mg PO BID #14 capsule 10/01/19 Ferrous Sulfate 325 mg PO BID #60 tablet 10/01/19 Metoprolol Succinate [Toprol Xl -] 150 mg PO DAILY #90 tablet 10/01/19 Multivitamin [One-Daily Multi-Vitamin] 1 each PO DAILY #30 tablet 10/01/19 Thiamine HCl [Vitamin B1 -] 100 mg PO DAILY #30 tablet 10/01/19 This patient is new to me today: Yes Date on this admission: 10/01/19 Emergency Visit: Yes ED Registration Date: 09/25/19 Care time: The patient presented to the Emergency Department on the above date and was hospitalized for further evaluation of their emergent condition. Critical Care patient: No - Discharge Referral Referred to [facility] Med P.C.: No ATTENDING PHYSICIAN STATEMENT I saw and evaluated the patient. I reviewed the resident's note and discussed the case with the resident. I agree with the resident's findings and plan as documented. SUBJECTIVE: OBJECTIVE: ASSESSMENT AND PLAN:
== END 2019-10-01 18:17 | disposition home health service (06) | DRG 500 ==
LOC: JERFT 12:04 → JER 12:04 → JERBED 15:42 → J8W 18:21 → JICU 09-26 12:13 → J4S 09-27 18:05
PROVIDERS: ADMIT Internal Medicine
PROC: 0J9C0ZX Drainage of Pelvic Region Subcutaneous Tissue and Fascia, Open Approach, Diagnostic (ICD-10-PCS; 2019-09-26)
PROC: 0KB70ZZ Excision of Right Upper Arm Muscle, Open Approach (ICD-10-PCS; principal; 2019-09-26 12:30)
DX: M72.6 Necrotizing fasciitis (principal); A41.02 Sepsis due to Methicillin resistant Staphylococcus aureus; L03.314 Cellulitis of groin; E87.1 Hypo-osmolality and hyponatremia; I50.42 Chronic combined systolic (congestive) and diastolic (congestive) heart failure; B95.61 Methicillin susceptible Staphylococcus aureus infection as the cause of diseases classified elsewhere; I11.0 Hypertensive heart disease with heart failure; I10 Essential (primary) hypertension; I25.10 Atherosclerotic heart disease of native coronary artery without angina pectoris; E11.65 Type 2 diabetes mellitus with hyperglycemia; I48.91 Unspecified atrial fibrillation; R00.0 Tachycardia, unspecified; K70.30 Alcoholic cirrhosis of liver without ascites; F10.10 Alcohol abuse, uncomplicated; D50.0 Iron deficiency anemia secondary to blood loss (chronic); G20 Parkinson's disease; F41.8 Other specified anxiety disorders; K76.9 Liver disease, unspecified; E83.42 Hypomagnesemia; I27.20 Pulmonary hypertension, unspecified; Z95.5 Presence of coronary angioplasty implant and graft; Z79.4 Long term (current) use of insulin
CPT/HCPCS: 36415; 71046-TC-FY; 72193-TC; 76870-TC; 80053; 80061; 81003; 82607; 82728; 82746; 82962; 83036; 83540; 83550; 83721; 83735; 83930; 83935; 84100; 84300; 84443; 85025; 85027; 85044; 85610; 86850; 86900; 86901; 87040; 87070; 87086; 87186; 87205; 88304-TC; 93005; 93010; 93306-TC; 93971-TC; 94640; 94760; 99283-25; J0131; J1644; Q9967

== ENCOUNTER 2023-01-10 12:39 | Inpatient (IN) | payer OTHER ==
[2023-01-10] MEDS ORDERED: METOPROLOL TARTRATE 50 MG TABLET (FP) PO ONE (14:07)
[2023-01-10] MEDS ORDERED: FUROSEMIDE 40 MG/4 ML INJECTABLE VIAL IVPUSH ONE ×2 (14:07→23:00)
[2023-01-10] MEDS ORDERED: FUROSEMIDE 40 MG/4 ML INJECTABLE VIAL ONE ×2 (14:24→18:45)
[2023-01-10] MEDS ORDERED: METOPROLOL TARTRATE 50 MG TABLET (FP) ONE (14:24)
[2023-01-10 15:04] LABS: BASO % 0.6 % (0-2.0); EOS % 1.3 % (0-4.5); HEMATOCRIT 38.3 % (35.4-49); HEMOGLOBIN 12.8 GM/dL (11.7-16.9); LYMPH % 11.4 % (8-40); MCHC 33.3 g/dl (32.0-35.9); MEAN CELL VOLUME 84.1 fl (80-96); MEAN PLT VOLUME 9.2 fl (7.5-11.1); MONO % 9.6 % (3.8-10.2); NEUT % 77.1 % (42.8-82.8); PLATELET COUNT 133 10^3/uL (134-434); RBC 4.55 M/mm3 (4.00-5.60); RDW 14.3 % (11.9-15.9); WHITE BLOOD COUNT 5.1 K/mm3 (4.0-10.0)
[2023-01-10 15:15] LABS: INR 1.36 (0.83-1.09); PROTHROMBIN TIME (PATIENT) 15.7 SEC (9.7-13.0)
[2023-01-10 15:16] LABS: VENOUS BASE EXCESS 1.3 mmol/L (-2-2); VENOUS O2 SATURATION 88.1 % (70-80); VENOUS PCO2 45.6 mmHg (38-52); VENOUS PH 7.387 (7.310-7.410)
[2023-01-10 15:18] LABS: ACTIVATED PTT 30.7 SECONDS (25.2-36.5)
[2023-01-10 15:27] LABS: POTASSIUM 4.2 mmol/L (3.5-5.1)
[2023-01-10 15:29] LABS: ALBUMIN 3.6 g/dl (3.4-5.0); CALCIUM 8.6 mg/dL (8.5-10.1)
[2023-01-10 15:30] LABS: BLOOD UREA NITROGEN 11.8 mg/dL (7-18); MAGNESIUM 1.7 mg/dL (1.8-2.4)
[2023-01-10 15:33] LABS: CREATININE 1.1 mg/dL (0.55-1.3)
[2023-01-10 15:34] LABS: BILIRUBIN,TOTAL 1.1 mg/dL (0.2-1); TOT PROT 7.5 g/dl (6.4-8.2)
[2023-01-10 15:37] LABS: N-TERMINAL BNP 773.4 pg/ml (5-125)
[2023-01-10] MEDS ORDERED: MAGNESIUM SULF 50% (8.12 MEQ/2 ML-1 GM VIAL) IVPB ONE (15:49)
[2023-01-10] MEDS ORDERED: MAGNESIUM SULFATE IN WATER 2 GM/50 ML IVPB IVPB ONE (15:57)
[2023-01-10] MEDS: FUROSEMIDE 40 MG/4 ML INJECTABLE VIAL IVPUSH ONE ×3 (18:42→22:20)
[2023-01-10] MEDS: ENOXAPARIN NA (PORCINE) 120 MG/0.8 ML DISP.SYRIN SQ SCH (21:56)
[2023-01-10] MEDS: METOPROLOL TARTRATE 50 MG TABLET (FP) PO SCH (21:56)
[2023-01-10] MEDS: VALSARTAN 80 MG TABLET PO SCH (21:56)
[2023-01-10] MEDS: INSULIN SLIDING SCALE (NOVOLOG) 1 VIAL SQ SCH (22:06)
[2023-01-11] MEDS: METOPROLOL TARTRATE 50 MG TABLET (FP) PO SCH ×3 (06:23→21:22)
[2023-01-11] MEDS: INSULIN SLIDING SCALE (NOVOLOG) 1 VIAL SQ SCH ×4 (06:27→21:23)
[2023-01-11] MEDS: VALSARTAN 80 MG TABLET PO SCH ×2 (09:14→21:22)
[2023-01-11] MEDS: ENOXAPARIN NA (PORCINE) 120 MG/0.8 ML DISP.SYRIN SQ SCH ×2 (09:14→21:22)
[2023-01-11] MEDS: MULTIVITAMINS (DAILY MVI) TABLET (FP) PO SCH (09:14)
[2023-01-11] MEDS: PANTOPRAZOLE 40 MG TABLET PO SCH (09:14)
[2023-01-11 09:28] LABS: BASO % 0.8 % (0-2.0); EOS % 3.1 % (0-4.5); HEMATOCRIT 36.7 % (35.4-49); HEMOGLOBIN 12.2 GM/dL (11.7-16.9); LYMPH % 17.9 % (8-40); MCH 28.1 pg (25.7-33.7); MCHC 33.2 g/dl (32.0-35.9); MEAN CELL VOLUME 84.5 fl (80-96); MEAN PLT VOLUME 9.2 fl (7.5-11.1); MONO % 13.9 % (3.8-10.2); NEUT % 64.3 % (42.8-82.8); PLATELET COUNT 135 10^3/uL (134-434); RBC 4.35 M/mm3 (4.00-5.60); RDW 14.8 % (11.9-15.9); WHITE BLOOD COUNT 4.7 K/mm3 (4.0-10.0)
[2023-01-11 09:44] LABS: POTASSIUM 4.1 mmol/L (3.5-5.1)
[2023-01-11 09:52] LABS: ALBUMIN 3.6 g/dl (3.4-5.0); BLOOD UREA NITROGEN 14.3 mg/dL (7-18); PHOSPHOROUS 4.4 mg/dL (2.5-4.9)
[2023-01-11 09:54] LABS: BILIRUBIN,TOTAL 1.4 mg/dL (0.2-1); CREATININE 1.2 mg/dL (0.55-1.3); TOT PROT 7.4 g/dl (6.4-8.2)
[2023-01-11] MEDS: FUROSEMIDE 40 MG/4 ML INJECTABLE VIAL IVPUSH SCH (10:55)
[2023-01-12] MEDS: INSULIN SLIDING SCALE (NOVOLOG) 1 VIAL SQ SCH ×4 (06:34→21:36)
[2023-01-12] MEDS: METOPROLOL TARTRATE 50 MG TABLET (FP) PO SCH ×3 (06:35→21:33)
[2023-01-12 09:06] LABS: POTASSIUM 3.7 mmol/L (3.5-5.1)
[2023-01-12 09:07] LABS: BASO % 0.7 % (0-2.0); EOS % 2.5 % (0-4.5); HEMATOCRIT 37.8 % (35.4-49); HEMOGLOBIN 12.5 GM/dL (11.7-16.9); LYMPH % 18.4 % (8-40); MCH 28.1 pg (25.7-33.7); MCHC 33.1 g/dl (32.0-35.9); MEAN CELL VOLUME 84.9 fl (80-96); MONO % 14.6 % (3.8-10.2); NEUT % 63.8 % (42.8-82.8); PLATELET COUNT 139 10^3/uL (134-434); RBC 4.45 M/mm3 (4.00-5.60); RDW 13.9 % (11.9-15.9); WHITE BLOOD COUNT 5.3 K/mm3 (4.0-10.0)
[2023-01-12 09:11] LABS: CALCIUM 8.9 mg/dL (8.5-10.1)
[2023-01-12 09:12] LABS: ALBUMIN 3.6 g/dl (3.4-5.0); BLOOD UREA NITROGEN 15.5 mg/dL (7-18); MAGNESIUM 1.7 mg/dL (1.8-2.4)
[2023-01-12 09:15] LABS: CREATININE 1.1 mg/dL (0.55-1.3)
[2023-01-12 09:16] LABS: TOT PROT 7.3 g/dl (6.4-8.2)
[2023-01-12] MEDS: SPIRONOLACTONE 25 MG TABLET PO SCH (10:26)
[2023-01-12] MEDS: APIXABAN 5 MG TABLET PO SCH ×2 (10:26→21:34)
[2023-01-12] MEDS: FUROSEMIDE 40 MG/4 ML INJECTABLE VIAL IVPUSH SCH (10:26)
[2023-01-12] MEDS: PANTOPRAZOLE 40 MG TABLET PO SCH (10:26)
[2023-01-12] MEDS: MULTIVITAMINS (DAILY MVI) TABLET (FP) PO SCH (10:26)
[2023-01-12] MEDS ORDERED: MAGNESIUM OXIDE 400 MG TABLET (FP) PO ONE (10:57)
[2023-01-12 12:58] VITALS: BMI 33.0
[2023-01-13] MEDS: METOPROLOL TARTRATE 50 MG TABLET (FP) PO SCH ×3 (05:45→22:34)
[2023-01-13] MEDS: INSULIN SLIDING SCALE (NOVOLOG) 1 VIAL SQ SCH ×4 (06:01→22:33)
[2023-01-13 07:39] LABS: BASO % 0.9 % (0-2.0); EOS % 3.4 % (0-4.5); HEMATOCRIT 39.4 % (35.4-49); HEMOGLOBIN 13.1 GM/dL (11.7-16.9); LYMPH % 16.8 % (8-40); MCH 27.9 pg (25.7-33.7); MCHC 33.1 g/dl (32.0-35.9); MEAN CELL VOLUME 84.2 fl (80-96); MEAN PLT VOLUME 9.1 fl (7.5-11.1); MONO % 15.4 % (3.8-10.2); NEUT % 63.5 % (42.8-82.8); PLATELET COUNT 155 10^3/uL (134-434); RBC 4.68 M/mm3 (4.00-5.60); RDW 14.4 % (11.9-15.9); WHITE BLOOD COUNT 5.7 K/mm3 (4.0-10.0)
[2023-01-13 07:49] LABS: POTASSIUM 4.3 mmol/L (3.5-5.1)
[2023-01-13 07:59] LABS: CALCIUM 9.1 mg/dL (8.5-10.1)
[2023-01-13 08:00] LABS: ALBUMIN 3.6 g/dl (3.4-5.0); BLOOD UREA NITROGEN 16.2 mg/dL (7-18); MAGNESIUM 1.8 mg/dL (1.8-2.4)
[2023-01-13 08:05] LABS: BILIRUBIN,TOTAL 1.2 mg/dL (0.2-1); TOT PROT 7.8 g/dl (6.4-8.2)
[2023-01-13] MEDS ORDERED: REGADENOSON 0.4 MG/5 ML PRE-FILLED SYRINGE IVPUSH ONE ×2 (10:26→11:00)
[2023-01-13] MEDS: APIXABAN 5 MG TABLET PO SCH (14:01)
[2023-01-13] MEDS: PANTOPRAZOLE 40 MG TABLET PO SCH (14:01)
[2023-01-13] MEDS: SPIRONOLACTONE 25 MG TABLET PO SCH (14:01)
[2023-01-13] MEDS: MULTIVITAMINS (DAILY MVI) TABLET (FP) PO SCH (14:01)
[2023-01-13] MEDS ORDERED: MAGNESIUM OXIDE 400 MG TABLET (FP) PO ONE (14:34)
[2023-01-13] MEDS: FUROSEMIDE 40 MG/4 ML INJECTABLE VIAL IVPUSH SCH (15:46)
[2023-01-13] MEDS: ATORVASTATIN CA 40 MG TABLET (FP) PO SCH (22:34)
[2023-01-14] MEDS: INSULIN SLIDING SCALE (NOVOLOG) 1 VIAL SQ SCH ×4 (06:09→21:32)
[2023-01-14] MEDS: METOPROLOL TARTRATE 50 MG TABLET (FP) PO SCH ×3 (06:10→21:29)
[2023-01-14 08:28] LABS: BASO % 0.9 % (0-2.0); EOS % 3.9 % (0-4.5); HEMATOCRIT 40.1 % (35.4-49); HEMOGLOBIN 13.3 GM/dL (11.7-16.9); LYMPH % 19.1 % (8-40); MCH 27.9 pg (25.7-33.7); MCHC 33.2 g/dl (32.0-35.9); MEAN CELL VOLUME 84.1 fl (80-96); MEAN PLT VOLUME 9.4 fl (7.5-11.1); MONO % 15.1 % (3.8-10.2); PLATELET COUNT 142 10^3/uL (134-434); RBC 4.77 M/mm3 (4.00-5.60); RDW 14.3 % (11.9-15.9); WHITE BLOOD COUNT 5.9 K/mm3 (4.0-10.0)
[2023-01-14 08:48] LABS: POTASSIUM 3.7 mmol/L (3.5-5.1)
[2023-01-14 08:52] LABS: CALCIUM 8.7 mg/dL (8.5-10.1)
[2023-01-14 08:53] LABS: ALBUMIN 3.7 g/dl (3.4-5.0); BLOOD UREA NITROGEN 20.9 mg/dL (7-18); MAGNESIUM 1.8 mg/dL (1.8-2.4)
[2023-01-14 08:57] LABS: CREATININE 1.2 mg/dL (0.55-1.3)
[2023-01-14 08:58] LABS: BILIRUBIN,TOTAL 1.2 mg/dL (0.2-1); TOT PROT 7.5 g/dl (6.4-8.2)
[2023-01-14] MEDS: FUROSEMIDE 40 MG/4 ML INJECTABLE VIAL IVPUSH SCH (09:40)
[2023-01-14] MEDS: MULTIVITAMINS (DAILY MVI) TABLET (FP) PO SCH (09:40)
[2023-01-14] MEDS: PANTOPRAZOLE 40 MG TABLET PO SCH (09:41)
[2023-01-14] MEDS: SPIRONOLACTONE 25 MG TABLET PO SCH (09:41)
[2023-01-14] MEDS: ATORVASTATIN CA 40 MG TABLET (FP) PO SCH (21:29)
[2023-01-14] MEDS: DOCUSATE SODIUM 100 MG CAPSULE (FP) PO SCH (21:29)
[2023-01-14] MEDS: ENOXAPARIN NA (PORCINE) 120 MG/0.8 ML DISP.SYRIN SQ SCH (21:36)
[2023-01-15] MEDS: METOPROLOL TARTRATE 50 MG TABLET (FP) PO SCH ×3 (05:56→21:13)
[2023-01-15] MEDS: INSULIN SLIDING SCALE (NOVOLOG) 1 VIAL SQ SCH ×4 (05:59→21:13)
[2023-01-15 07:42] LABS: EOS % 4.6 % (0-4.5); HEMATOCRIT 39.8 % (35.4-49); HEMOGLOBIN 13.3 GM/dL (11.7-16.9); LYMPH % 18.3 % (8-40); MCH 28.1 pg (25.7-33.7); MCHC 33.3 g/dl (32.0-35.9); MEAN CELL VOLUME 84.5 fl (80-96); MEAN PLT VOLUME 9.2 fl (7.5-11.1); MONO % 14.2 % (3.8-10.2); NEUT % 61.9 % (42.8-82.8); PLATELET COUNT 131 10^3/uL (134-434); RBC 4.71 M/mm3 (4.00-5.60); RDW 14.3 % (11.9-15.9); WHITE BLOOD COUNT 5.6 K/mm3 (4.0-10.0)
[2023-01-15 07:58] LABS: POTASSIUM 3.7 mmol/L (3.5-5.1)
[2023-01-15 08:05] LABS: ALBUMIN 3.6 g/dl (3.4-5.0); BLOOD UREA NITROGEN 24.4 mg/dL (7-18); MAGNESIUM 1.7 mg/dL (1.8-2.4)
[2023-01-15 08:06] LABS: CREATININE 1.2 mg/dL (0.55-1.3)
[2023-01-15 08:07] LABS: TOT PROT 7.3 g/dl (6.4-8.2)
[2023-01-15 08:10] LABS: BILIRUBIN,TOTAL 0.9 mg/dL (0.2-1)
[2023-01-15] MEDS: DOCUSATE SODIUM 100 MG CAPSULE (FP) PO SCH ×2 (09:20→21:12)
[2023-01-15] MEDS: SPIRONOLACTONE 25 MG TABLET PO SCH (09:20)
[2023-01-15] MEDS: PANTOPRAZOLE 40 MG TABLET PO SCH (09:20)
[2023-01-15] MEDS: MULTIVITAMINS (DAILY MVI) TABLET (FP) PO SCH (09:20)
[2023-01-15] MEDS: ENOXAPARIN NA (PORCINE) 120 MG/0.8 ML DISP.SYRIN SQ SCH ×2 (09:21→21:12)
[2023-01-15] MEDS: FUROSEMIDE 40 MG/4 ML INJECTABLE VIAL IVPUSH SCH (11:01)
[2023-01-15] MEDS: SACUBITRIL/VALSARTAN 24 MG-26 MG TABLET PO SCH ×2 (13:06→21:13)
[2023-01-15] MEDS ORDERED: MAGNESIUM 2GM/50ML STERILE WATER IVPB IVPB ONE (16:58)
[2023-01-15] MEDS: ATORVASTATIN CA 40 MG TABLET (FP) PO SCH (21:13)
[2023-01-16] MEDS: METOPROLOL TARTRATE 50 MG TABLET (FP) PO SCH ×3 (05:51→21:48)
[2023-01-16] MEDS: INSULIN SLIDING SCALE (NOVOLOG) 1 VIAL SQ SCH ×4 (06:32→21:54)
[2023-01-16 07:38] LABS: BASO % 0.9 % (0-2.0); EOS % 3.6 % (0-4.5); HEMATOCRIT 40.6 % (35.4-49); HEMOGLOBIN 13.9 GM/dL (11.7-16.9); LYMPH % 17.1 % (8-40); MCH 28.5 pg (25.7-33.7); MCHC 34.1 g/dl (32.0-35.9); MEAN CELL VOLUME 83.5 fl (80-96); MEAN PLT VOLUME 10.3 fl (7.5-11.1); MONO % 13.7 % (3.8-10.2); NEUT % 64.7 % (42.8-82.8); PLATELET COUNT 144 10^3/uL (134-434); RBC 4.86 M/mm3 (4.00-5.60); RDW 14.4 % (11.9-15.9); WHITE BLOOD COUNT 6.1 K/mm3 (4.0-10.0)
[2023-01-16 07:52] LABS: POTASSIUM 3.8 mmol/L (3.5-5.1)
[2023-01-16 07:57] LABS: CALCIUM 9.1 mg/dL (8.5-10.1)
[2023-01-16 07:58] LABS: ALBUMIN 3.6 g/dl (3.4-5.0); BLOOD UREA NITROGEN 24.2 mg/dL (7-18)
[2023-01-16 08:01] LABS: CREATININE 1.2 mg/dL (0.55-1.3)
[2023-01-16 08:02] LABS: TOT PROT 7.4 g/dl (6.4-8.2)
[2023-01-16] MEDS: PANTOPRAZOLE 40 MG TABLET PO SCH (09:30)
[2023-01-16] MEDS: SPIRONOLACTONE 25 MG TABLET PO SCH (09:30)
[2023-01-16] MEDS: SACUBITRIL/VALSARTAN 24 MG-26 MG TABLET PO SCH ×2 (09:30→21:48)
[2023-01-16] MEDS: DOCUSATE SODIUM 100 MG CAPSULE (FP) PO SCH ×2 (09:30→21:48)
[2023-01-16] MEDS: MULTIVITAMINS (DAILY MVI) TABLET (FP) PO SCH (09:30)
[2023-01-16] MEDS: ENOXAPARIN NA (PORCINE) 120 MG/0.8 ML DISP.SYRIN SQ SCH ×2 (09:31→21:48)
[2023-01-16] MEDS: FUROSEMIDE 40 MG/4 ML INJECTABLE VIAL IVPUSH SCH (09:31)
[2023-01-16] MEDS ORDERED: INSULIN SLIDING SCALE (NOVOLOG) 1 VIAL SQ ONE (19:02)
[2023-01-16 20:56] VITALS: RESP 18
[2023-01-16] MEDS: ATORVASTATIN CA 40 MG TABLET (FP) PO SCH (21:48)
[2023-01-17] MEDS: METOPROLOL TARTRATE 50 MG TABLET (FP) PO SCH ×3 (06:22→22:19)
[2023-01-17] MEDS: INSULIN SLIDING SCALE (NOVOLOG) 1 VIAL SQ SCH ×4 (06:25→22:19)
[2023-01-17] MEDS: FUROSEMIDE 40 MG/4 ML INJECTABLE VIAL IVPUSH SCH (09:56)
[2023-01-17] MEDS: DOCUSATE SODIUM 100 MG CAPSULE (FP) PO SCH ×2 (09:56→22:18)
[2023-01-17] MEDS: SPIRONOLACTONE 25 MG TABLET PO SCH (09:57)
[2023-01-17] MEDS: SACUBITRIL/VALSARTAN 24 MG-26 MG TABLET PO SCH ×2 (09:57→22:18)
[2023-01-17] MEDS: MULTIVITAMINS (DAILY MVI) TABLET (FP) PO SCH (09:57)
[2023-01-17] MEDS: ENOXAPARIN NA (PORCINE) 120 MG/0.8 ML DISP.SYRIN SQ SCH ×2 (09:57→22:19)
[2023-01-17] MEDS: PANTOPRAZOLE 40 MG TABLET PO SCH (09:57)
[2023-01-17] MEDS: ATORVASTATIN CA 40 MG TABLET (FP) PO SCH (22:19)
[2023-01-18] MEDS: METOPROLOL TARTRATE 50 MG TABLET (FP) PO SCH ×2 (06:16→14:03)
[2023-01-18] MEDS: INSULIN SLIDING SCALE (NOVOLOG) 1 VIAL SQ SCH ×3 (06:16→16:04)
[2023-01-18] MEDS: SACUBITRIL/VALSARTAN 24 MG-26 MG TABLET PO SCH (09:42)
[2023-01-18] MEDS: FUROSEMIDE 40 MG/4 ML INJECTABLE VIAL IVPUSH SCH (09:42)
[2023-01-18] MEDS: PANTOPRAZOLE 40 MG TABLET PO SCH (09:42)
[2023-01-18] MEDS: SPIRONOLACTONE 25 MG TABLET PO SCH (09:42)
[2023-01-18] MEDS: DOCUSATE SODIUM 100 MG CAPSULE (FP) PO SCH (09:44)
[2023-01-18] MEDS: ENOXAPARIN NA (PORCINE) 120 MG/0.8 ML DISP.SYRIN SQ SCH (11:14)
[2023-01-18] MEDS: MULTIVITAMINS (DAILY MVI) TABLET (FP) PO SCH (11:14)
[2023-01-18 18:14] VITALS: BP 114/75; PULSE 80; TEMP 98.4
== END 2023-01-18 18:15 | disposition short-term general hospital (02) | DRG 291 ==
LOC: JER 12:39 → JERBED 16:17 → J4S 19:55
PROVIDERS: ADMIT Internal Medicine; ATTEND Nurse Practitioner Acute Care
DX: I11.0 Hypertensive heart disease with heart failure (principal); I50.43 Acute on chronic combined systolic (congestive) and diastolic (congestive) heart failure; J81.0 Acute pulmonary edema; I48.19 Other persistent atrial fibrillation; I24.9 Acute ischemic heart disease, unspecified; I25.10 Atherosclerotic heart disease of native coronary artery without angina pectoris; E78.5 Hyperlipidemia, unspecified; E11.9 Type 2 diabetes mellitus without complications; Z95.5 Presence of coronary angioplasty implant and graft; F10.10 Alcohol abuse, uncomplicated; F41.8 Other specified anxiety disorders; G47.33 Obstructive sleep apnea (adult) (pediatric); R94.39 Abnormal result of other cardiovascular function study; D64.9 Anemia, unspecified
CPT/HCPCS: 0241U-QW; 36415; 71045-TC-FY; 78452-TC; 80053; 80061; 82306; 82550; 82553; 82803; 82962; 83036; 83735; 83880; 84100; 84443; 84484; 85025; 85610; 85730; 86850; 86900; 86901; 87081; 93005; 93010; 93017; 93306-TC; 94761; 99291; A9502; C9803-CS; J2785; U0003; U0005